=== PATIENT | male | born 1945 | race African-American/Black ===

== ENCOUNTER 2018-07-19 03:41 | Observation (INO) | payer MEDICARE ==
--- OUTSIDE RECORDS SUMMARY | 2018-07-19 03:44 | XMS REPORT | Continuity of Care Document ---
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 [address] [place] [address] bypass graft [place] with vein Fever - rapid Active Problem 01/20/2017 [facility] rise [address] [place] [address] HTN Active Problem 01/20/2017 [facility] [Hypertension] [address] [place] [address] Pain following Active Problem 01/20/2017 [facility] surgery, acute [address] [place] [address] Hemoptysis Active Problem 01/20/[address] Pulmonary Resolved Problem 01/20/2017 [facility] abscess [facility] Acute UTI Active Problem 01/20/2017 [facility] Cellulitis Active Problem 01/20/2017 [facility] Fever of Active Problem 01/20/2017 blood [facility] unknown culture Medical origin<sup>1</ done,urine Center sup> culture done cbc with diff done HLD (<span Resolved Problem 01/20/2017 [facility] ID="[id number] Medical 75">Confirmed< Center /span>) Asthma Resolved Problem 01/20/2017 [facility] HTN (<span Resolved Problem 01/20/2017 [facility] ID="[id number] Medical 79">Confirmed< Center /span>) Pain control Active Problem 01/20/2017 [facility] Stented Resolved Problem 01/20/2017 [facility] coronary [facility] artery [place] Swelling or Active Problem 01/20/2017 [facility] edema [facility] Hepatitis C Resolved Problem 01/20/2017 [facility] virus [facility] SHORTNESS OF Active [facility] BREATH [facility] Medications Medication Details Route Status Patient Ordering Order Source Instructions Provider Date cefpodoxime 200 200 mg=1 tab, Active 01/17/ [facility] [place] mg oral tablet PO, Q12H, X 10 2016 day, # 20 tab, Center 0 Refill(s) Albuterol 0.83 2.49 mg, 3 mL, Inactive [place] MG/ML Inhalant Route: 2017 Medical Solution INHALATION, Center Drug form: SOLN, ONCE, Dosing Weight 85.966, kg, Start date: 01/17/17 9:38:00 CDT, Stop date: 01/17/17 9:38:00 CDTNotes: SEE RT DOCUMENTATION (Same as: Proventil) Symbicort 2 puff, Active [facility] 160/4.5 INHALER, BID, # 2017 Medical inhalation 1 ea, 3 Center aerosol with Refill(s) adapter lisinopril 40 40 mg=1 tab, Active [facility] mg oral tablet PO, Daily, # 30 2016 Medical tab, 0 Center Refill(s) Amlodipine 5 mg, 1 tab, Inactive [facility] Route: PO, Drug 2016 Medical form: TAB, Center Daily, Dosing Weight 86, kg, Start date: 01/17/17 9:00:00 CDT, Duration: 30 day, Stop date: 02/15/17 9:00:00 CDTNotes: (Same as: Norvasc) Melatonin 3 MG 3 mg, 1 tab, Inactive [place] Extended Route: PO, Drug 2016 Medical Release Tablet Form: TAB, Center Dosing Weight 85.966, kg, Bedtime, NOW, Start date: 01/17/17 1:26:00 CDT, Duration: 30 day, Stop date: 02/15/17 21:00:00 CDTNotes: (Same as: Melatonin) Cephalexin 500 mg, 1 cap, No Longer [place] Route: PO, Drug Active 2016 Medical form: CAP, QID, Center Dosing Weight 86, kg, Start date: 01/16/17 21:00:00 CDT, Duration: 30 day, Stop date: 02/15/17 17:00:00 CDTNotes: Take on empty stomach. (Same As: Keflex) Ceftriaxone 1 gm, Route: Inactive [place] IVPB, Drug 2016 Medical form: PDR/INJ, Center [id number], Dosing Weight 86, kg, Start date: 01/16/17 20:00:00 CDT, Duration: 1 day, Stop date: 01/16/17 20:00:00 CDT, ABX Indication: Urinary Tract InfectionNotes: (Same As: Rocephin). Use with 100 mL NS and infuse over 30 min MEDICATION WASTE Product Size: 1000 mg Product Wasted: __0_ mg tramadol 50 mg, 1 tab, No Longer [place] hydrochloride Route: PO, Drug Active 2016 Medical 50 MG Oral form: TAB, Q8H, Center Tablet Dosing Weight 86, kg, PRN Pain 4-6/Temp > 100.4 F, Start date: 01/16/17 19:43:00 CDT, Duration: 30 day, Stop date: 02/15/17 19:42:00 CDTNotes: Not to exceed 400mg/day. (Same As: Ultram) Ondansetron 4 mg, 2 mL, No Longer [place] Route: IVP, Active 2016 Medical Drug form: INJ, Center Q6H, Dosing Weight 86, kg, PRN Nausea & Vomiting, Start date: 01/16/17 19:25:00 CDT, Duration: 30 day, Stop date: 02/15/17 19:24:00 CDTNotes: (Same as: Zofran) MEDICATION WASTE Product Size: 4 mg Product Wasted: _0__ mg Acetaminophen 650 mg, 2 tab, No Longer [place] Route: PO, Drug Active 2016 Medical form: TAB, Q4H, Center Dosing Weight 86, kg, PRN Pain 1-3/Temp > 100.4 F, Start date: 01/16/17 19:25:00 CDT, Duration: 30 day, Stop date: 02/15/17 19:24:00 CDTNotes: Do not exceed 4 gm/day. (Same as: Tylenol) tramadol 50 mg=1 tab, No Longer [place] hydrochloride PO, Q8H, PRN Active 2016 Medical 50 MG Oral Pain, # 60 tab, Center Tablet 0 Refill(s) ciprofloxacin 500 mg=1 tab, No Longer [place] 500 mg oral PO, Q12H, # 14 Active 2017 Medical tablet tab, 0 Center Refill(s) cephalexin 500 500 mg=1 cap, No Longer [place] mg oral capsule PO, QID, # 20 Active 2016 Medical cap, 0 Center Refill(s) Ibuprofen 600 mg, Route: Inactive [place] PO, ONCE, 2017 Medical Dosing Weight Center 86.364, kg, Priority: STAT, Start date: 01/16/17 16:51:00 CDT, Stop date: 01/16/17 16:51:00 CDT Albuterol 0.833 3 mL, Route: Inactive [place] MG/ML / NEB, Drug Form: 2016 Medical Ipratropium SOLN, Dosing Center [place] 0.167 Weight 86.364, MG/ML Inhalant kg, ONCE, STAT, Solution Start date: [DuoNeb] 01/16/17 14:07:00 CDT, Stop date: 01/16/17 14:07:00 CDTNotes: (Same as: Duoneb) Aspirin 325 mg, Route: Inactive [place] PO, Drug form: 2017 Medical TAB, ONCE, Center Dosing Weight 86.364, kg, Priority: STAT, Start date: 01/16/17 12:22:00 CDT, Stop date: 01/16/17 12:22:00 CDT Allergies, Adverse Reactions, Alerts Substance Category Reaction Severity Reaction Status Date Comments Source type Reported Bactrim Assertion Drug Active [facility] sulfa drugs Assertion Drug Active [facility] Immunizations Immunization Date Given Site Status Last Updated Comments Source Results Order Name Results Value Reference Date Interpretation Comments Source Range CHEM PANEL Magnesium Lvl 2.2 mg/dL 1.8 - 2.4 01/17 [facility] CHEM PANEL eGFR 88 01/17 Result Comment: The eGFR is calculated using the CKD-EPI formula. In most young, healthy individuals the eGFR will be >90 mL/ min/1.73m2. The eGFR declines with age. An eGFR of 60-89 may be normal in [facility] mL/min/1.7 some populations, particularly the elderly, for whom the CKD-EPI formula has not been extensively validated. Use of the eGFR is not recommended in the following populations: [place] [address] Center Individuals with unstable creatinine concentrations, including patients and those with serious co-morbid conditions. Patients with extremes in muscle mass or diet. The data above are obtained from the National Kidney Disease Education Program (NKDEP) which additionally recommends that when the eGFR is used in patients with extremes of body mass index for purposes of drug dosing, the eGFR should be multiplied by the estimated BMI. CHEM PANEL Chloride Lvl 106 meq/L 95 - 109 01/17 [facility] CHEM PANEL CO2 29 meq/L 24 - 32 01/17 2016 [facility] CHEM PANEL Calcium Lvl 8.9 mg/dL 8.5 - 10.5 01/17 2016 [facility] CHEM PANEL Potassium Lvl 3.7 meq/L 3.5 - 5.1 01/17 2016 [facility] CHEM PANEL Glucose Lvl 99 mg/dL 70 - 99 01/17 2016 [facility] CHEM PANEL Sodium Lvl 140 meq/L 135 - 145 01/17 2016 [facility] CHEM PANEL BUN 15 mg/dL 7 - 22 01/[address] CHEM PANEL Creatinine 0.86 mg/dL 0.50 - 01/17 [facility] Lvl 1.40 [facility] CHEM PANEL AGAP 8.7 meq/L 10.0 - 01/17 20.0 [facility] HEMATOLOGY MCV 93.7 fL 80.0 - 01/17 94.0 [facility] HEMATOLOGY MCH 31.9 pg 27.0 - 01/17 31.0 [facility] HEMATOLOGY MCHC 34.1 g/dL 32.0 - 01/17 36.0 [facility] HEMATOLOGY MPV 8.9 fL 7.4 - 10.4 01/17 [facility] HEMATOLOGY RDW 13.2 % 11.5 - 01/17 14.5 [facility] HEMATOLOGY Platelet 172 K/CMM 133 - 450 01/17 [facility] HEMATOLOGY Hgb 12.7 g/dL 14.0 - 01/17 18.0 [facility] HEMATOLOGY Hct 37.1 % 42.0 - 01/17 54.0 [facility] HEMATOLOGY WBC 5.2 K/CMM 3.7 - 10.4 01/[address] [place] [address] HEMATOLOGY RBC 3.96 M/CMM 4.70 - 01/17 [place] 6.10 [facility] HEMATOLOGY Monocytes # 0.8 K/CMM 0.0 - 0.8 01/17 [facility] HEMATOLOGY Eosinophils # 0.9 K/CMM 0.0 - 0.5 01/17 [facility] HEMATOLOGY Segs-Bands # 1.9 K/CMM 1.5 - 8.1 01/17 [facility] HEMATOLOGY Lymphocytes # 1.7 K/CMM 1.0 - 5.5 01/17 2016 [facility] HEMATOLOGY Segs 35.5 % 45.0 - 01/17 [place] 75.0 [facility] HEMATOLOGY Lymphocytes 32.7 % 20.0 - 01/17 [place] 40.0 [facility] HEMATOLOGY Monocytes 15.0 % 2.0 - 12.0 01/17 [facility] HEMATOLOGY Eosinophils 16.3 % 0.0 - 4.0 01/17 [facility] HEMATOLOGY Basophils 0.5 % 0.0 - 1.0 01/[address] [place] [address] CARDIAC Troponin-I null 0.00 - 01/16 [facility] ENZYMES 0.40 [facility] URINE AND UA >=8.0 0.1 - 1.0 01/16 [facility] Urobilinogen EU/dL /2016 [facility] URINE AND UA Leuk Est Trace Negative 01/16 [facility] Medical *ABN* Center (01/16/17 5:48 PM) URINE AND UA Nitrite Positive Negative 01/16 [facility] Medical *ABN* [place] (01/16/17 5:48 PM) URINE AND UA Ketones Trace Negative 01/16 [facility] Medical *ABN* [place] (01/16/17 5:48 PM) URINE AND UA Glucose 100 mg/dL Negative 01/16 [facility] mg/dL [facility] URINE AND UA Bili Negative Negative 01/16 [facility] Medical *NA* Center (01/16/17 5:48 PM) URINE AND UA Blood Negative Negative 01/16 [facility] (01/16/17 5:48 PM) [place] URINE AND UA Color [place] Yellow 01/16 [facility] Medical *ABN* [place] (01/16/17 5:48 PM) URINE AND UA Turbidity Slight Cloudy Clear 01/16 [facility] (01/16/17 5:48 PM) [place] URINE AND UA Spec Grav 1.020 <=1.030 01/16 [facility] [address] [place] [address] URINE AND UA pH 6.5 5.0 - 8.0 01/[address] URINE AND UA Protein 100 mg/dL Negative 01/16 [facility] mg/dL /2016 [facility] URINE AND UA Amorph Occasional None Seen 01/16 [facility] Mary Kate /HPF /HPF /2016 [facility] URINE AND UA Mucus Moderate None Seen 01/16 [facility] STOOL /LPF /LPF /2016 [facility] URINE AND UA Bacteria Moderate None Seen 01/16 [facility] STOOL /HPF /HPF /[address] [place] [address] URINE AND UA RBC 0-2 /HPF 0 - 2 01/[address] URINE AND UA WBC 11-20 /HPF None Seen 01/16 [facility] /[facility] [address] [place] [address] URINE AND UA Sq Epi Occasional Few /LPF 01/16 [facility] /F [address] [place] [address] CARDIAC Troponin-I null 0.00 - 01/16 [facility] ENZYMES 0.40 [facility] CHEM PANEL Lactic Acid 0.8 mMol/L 0.5 - 2.2 01/16 [facility] [address] [place] [address] CHEM PANEL Glucose Lvl 97 mg/dL 70 - 99 01/[address] CHEM PANEL BUN 16 mg/dL 7 - 22 01/[address] CHEM PANEL Potassium Lvl 4.0 meq/L 3.5 - 5.1 01/[address] CHEM PANEL Sodium Lvl 138 meq/L 135 - 145 01/[address] CHEM PANEL Creatinine 1.12 mg/dL 0.50 - 01/16 [facility] Lvl 1.40 [facility] CHEM PANEL CO2 28 meq/L 24 - 32 01/[address] CHEM PANEL Chloride Lvl 105 meq/L 95 - 109 01/[address] CHEM PANEL AGAP 9.0 meq/L 10.0 - 01/16 [facility] 20.0 [facility] CHEM PANEL Calcium Lvl 9.2 mg/dL 8.5 - 10.5 01/[address] CHEM PANEL eGFR 66 01/16 Result Comment: The eGFR is calculated using the CKD-EPI formula. In most young, healthy individuals the eGFR will be >90 mL/ min/1.73m2. The eGFR declines with age. An eGFR of 60-89 may be normal in [facility] mL/min/1.7 some populations, particularly the elderly, for whom the CKD-EPI formula has not been extensively validated. Use of the eGFR is not recommended in the following populations: [address] Individuals with unstable creatinine concentrations, including patients and those with serious co-morbid conditions. Patients with extremes in muscle mass or diet. The data above are obtained from the National Kidney Disease Education Program (NKDEP) which additionally recommends that when the eGFR is used in patients with extremes of body mass index for purposes of drug dosing, the eGFR should be multiplied by the estimated BMI. HEMATOLOGY Monocytes # 0.9 K/CMM 0.0 - 0.8 01/16 [facility] HEMATOLOGY Eosinophils # 0.5 K/CMM 0.0 - 0.5 01/16 2016 [facility] HEMATOLOGY Segs-Bands # 3.7 K/CMM 1.5 - 8.1 01/16 [facility] HEMATOLOGY Lymphocytes # 1.5 K/CMM 1.0 - 5.5 01/[address] HEMATOLOGY Basophils 0.3 % 0.0 - 1.0 01/[address] [place] [address] HEMATOLOGY Segs 55.5 % 45.0 - 01/16 75.0 [facility] HEMATOLOGY Eosinophils 7.3 % 0.0 - 4.0 01/[address] HEMATOLOGY Lymphocytes 22.9 % 20.0 - 01/16 40.0 [facility] HEMATOLOGY Monocytes 14.0 % 2.0 - 12.0 01/16 [facility] HEMATOLOGY MPV 8.4 fL 7.4 - 10.4 01/16 [facility] HEMATOLOGY MCH 31.4 pg 27.0 - 01/16 [facility] 31.0 [facility] HEMATOLOGY MCHC 33.3 g/dL 32.0 - 01/16 36.0 [facility] HEMATOLOGY RDW 13.1 % 11.5 - 01/16 [facility] 14.5 [facility] HEMATOLOGY Platelet 184 K/CMM 133 - 450 01/[address] HEMATOLOGY WBC 6.7 K/CMM 3.7 - 10.4 01/16 /2016 [facility] HEMATOLOGY RBC 4.25 M/CMM 4.70 - 01/16 [facility] 6.10 /2016 [facility] HEMATOLOGY Hgb 13.3 g/dL 14.0 - 01/16 [facility] 18.0 /2016 [facility] HEMATOLOGY Hct 40.0 % 42.0 - 01/16 [facility] 54.0 /2017 [facility] HEMATOLOGY MCV 94.0 fL 80.0 - 01/16 [facility] 94.0 /2017 [facility] Chest 2 Chest 2 views EXAM: XR CHEST 2 VIEWS 01/16 - [facility] views DX DX - [facility] This report was dictated by a Leases [employer] Land Supervisor/Fellow. I have personally reviewed the images as Center well as the Resident's interpretation and agree with the findings. DATE: 01/16/2017 11:57 AM CDT Read by: Cachorro Santillan MD Resident: Cachorro Santillan MD Dictated Date/time: 01/16/17 12:44 Electronically Signed by: Nav Johnson MD 01/16/17 13:03 FINAL REPORT INDICATION: Shortness of breath, cough COMPARISON: X-ray chest 02/09/2010 TECHNIQUE: PA and lateral chest radiographs [place] SECTION: ER FINDINGS: Lines, tubes and hardware: Thoracic aortic stent graft is again noted in unchanged position. Lungs and pleura: There is right basilar pulmonary and pleural scarring with blunting of the right costophrenic angle. Left lung and costophrenic angle are clear. No pleural effusions or pneumothorax. Heart and mediastinum: The heart size is normal. The aorta is tortuous. Bones: Numerous old, healed right-sided rib fractures are redemonstrated. No acute bony abnormality. IMPRESSION: 1. No acute cardiopulmonary abnormality. 2. Right basilar pulmonary and pleural scarring. Vital Signs Vital Sign Value Date Comments Source Systolic (mm Hg) 139 01/17/2017 [facility] Diastolic (mm Hg) 77 01/17/2017 [facility] Heart Rate 78 01/17/2017 [facility] Respitory Rate 18 01/17/2017 [facility] Temperature Oral (F) 97.9 F 01/17/2017 [facility] Respitory Rate 18 01/17/2017 [facility] Systolic (mm Hg) 139 01/17/2017 [facility] Diastolic (mm Hg) 81 01/17/2017 [facility] Systolic (mm Hg) 139 01/17/2017 [facility] Diastolic (mm Hg) 78 01/17/2017 [facility] Heart Rate 63 01/17/2017 [facility] Respitory Rate 18 01/17/2017 [facility] Temperature Oral (F) 97.7 F 01/17/2017 [facility] BMI Calculated 25.7 01/17/2017 [facility] Height 182.88 cm 01/17/2017 [facility] Weight 85.966 01/17/2017 [facility] Heart Rate 75 01/17/2017 [facility] Weight 86 01/16/2017 [facility] BMI Calculated 25.68 01/16/2017 [facility] Height 183 cm 01/16/2017 [facility] Temperature Oral (F) 99.0 F 01/16/2017 [facility] Height 182.88 cm 01/16/2017 [facility] Weight 86.364 01/16/2017 [facility] BMI Calculated 25.82 01/16/2017 [facility] Encounters Location Location Encounter Encounter Reason Attending ADM DC Status Source Details Type Number For Provider Date Date Visit [facility] [id number] [place] 01/16 01/17 [facility] Manfred Vincent /2016 [facility] Procedures Procedure Code Date Perfomer Comments Source Lung operation [id number] [facility]
--- OUTSIDE RECORDS SUMMARY | 2018-07-19 03:44 | XMS REPORT | Summary of Care ---
:1945 Author Organization [facility] Address [address] [place] [id number]- Encounter HQ Encntr_aliwilfrid(FIN) [id number] Date(s): 01/16/17 - 01/17/17 [facility] [address] [place] [address] Professional Services provided by [facility] [place] [address]- Discharge Disposition: Home or Self Care Attending Physician: Alnaa Vincent MD Admitting Physician: Alana Vincent MD Vital Signs Most recent to oldest 1 2 3 [Reference Range]: Height 182.88 cm 183 cm 182.88 cm (01/16/17 7:52 PM) (01/16/17 5:48 PM) (01/16/17 11:52 AM) Temperature Oral [96.4-99.1 97.9 DegF 97.7 DegF 99.0 DegF DegF] (01/17/17 4:33 AM) (01/17/17 12:12 AM) (01/16/17 3:35 PM) Blood Pressure [90-140/60-90 139/77 mmHg 139/81 mmHg 139/78 mmHg mmHg] (01/17/17 9:23 AM) (01/17/17 4:33 AM) (01/17/17 12:12 AM) Respiratory Rate [14-20 18 BRMIN 18 BRMIN 18 BRMIN BRMIN] (01/17/17 9:23 AM) (01/17/17 4:33 AM) (01/17/17 12:12 AM) Peripheral Pulse Rate [60-100 78 bpm 63 bpm 75 bpm bpm] (01/17/17 9:23 AM) (01/17/17 12:12 AM) (01/16/17 7:21 PM) Weight 85.966 kg 86 kg 86.364 kg (01/16/17 7:52 PM) (01/16/17 5:48 PM) (01/16/17 11:52 AM) Body Mass Index 25.7 m2 25.68 m2 25.82 m2 (01/16/17 7:52 PM) (01/16/17 5:48 PM) (01/16/17 11:52 AM) Problem List Condition Effective Dates Status Health Status Informant Pulmonary abscess(Confirmed) Resolved Acute UTI(Confirmed) Active 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) Cellulitis(Confirmed) Active Fever - rapid rise(Probable 02/06/10 Active Diagnosis) Fever of unknown origin(Confirmed)1 Active Hemoptysis(Confirmed) 2009 Active HTN [Hypertension](Confirmed) 02/06/10 Active HLD (hyperlipidemia)(Confirmed) Resolved Asthma(Confirmed) Resolved HTN (hypertension)(Confirmed) Resolved Nausea(Confirmed) 02/07/10 Active Pain control(Confirmed) Active Pain following surgery, acute( ) 02/06/10 Active Stented coronary artery(Confirmed) Resolved Swelling or edema(Confirmed) Active Hepatitis C virus(Confirmed) Resolved 1blood culture done,urine culture done cbc with diff done Allergies, Adverse Reactions, Alerts Substance Reaction Severity Status Bactrim Active sulfa drugs Active Medications acetaminophen 650 mg, 2 tab, Route: PO, Drug form: TAB, Q4H, Dosing Weight 86, kg, PRN Pain 1- 3/Temp > 100.4 F, Start date: 01/16/17 19:25:00 CDT, Duration: 30 day, Stop date : 02/15/17 19:24:00 CDT Notes: Do not exceed 4 gm/day. (Same as: Tylenol) Start Date: 01/16/17 Stop Date: 01/17/17 Status: Discontinuedalbuterol 0.083% inhalation solution 2.49 mg, 3 mL, Route: INHALATION, Drug form: SOLN, ONCE, Dosing Weight 85.966, kg, Start date: 01/17/17 9:38:00 CDT, Stop date: 01/17/17 9:38:00 CDT Notes: SEE RT DOCUMENTATION (Same as: Proventil) Start Date: 01/17/17 Stop Date: 01/17/17 Status: CompletedamLODIPine 5 mg, 1 tab, Route: PO, Drug form: TAB, Daily, Dosing Weight 86, kg, Start date : 01/17/17 9:00:00 CDT, Duration: 30 day, Stop date: 02/15/17 9:00:00 CDT Notes: (Same as: Norvasc) Start Date: 01/17/17 Stop Date: 01/17/17 Status: Discontinuedaspirin 325 mg, Route: PO, Drug form: TAB, ONCE, Dosing Weight 86.364, kg, Priority: STAT, Start date: 01/16/17 12:22:00 CDT, Stop date: 01/16/17 12:22:00 CDT Start Date: 01/16/17 Stop Date: 01/16/17 Status: Completedcefpodoxime 200 mg oral tablet 200 mg=1 tab, PO, Q12H, X 10 day, # 20 tab, 0 Refill(s) Start Date: 01/17/17 Stop Date: 01/27/17 Status: OrderedcefTRIAXone 1 gm, Route: IVPB, Drug form: PDR/INJ, [id number], Dosing Weight 86, kg, Start date : 01/16/17 20:00:00 CDT, Duration: 1 day, Stop date: 01/16/17 20:00:00 CDT, ABX Indication: Urinary Tract Infection Notes: (Same As: Rocephin).Use with 100 mL NS and infuse over 30 min MEDICATION WASTE Product Size: 1000 mgProduct Wasted: __0_ mg Start Date: 01/16/17 Stop Date: 01/16/17 Status: Completedcephalexin 500 mg, 1 cap, Route: PO, Drug form: CAP, QID, Dosing Weight 86, kg, Start date : 01/16/17 21:00:00 CDT, Duration: 30 day, Stop date: 02/15/17 17:00:00 CDT Notes: Take on empty stomach. (Same As: Keflex) Start Date: 01/16/17 Stop Date: 01/17/17 Status: Discontinuedcephalexin 500 mg oral capsule 500 mg=1 cap, PO, QID, # 20 cap, 0 Refill(s) Start Date: 01/16/17 Stop Date: 01/17/17 Status: Discontinuedciprofloxacin 500 mg oral tablet 500 mg=1 tab, PO, Q12H, # 14 tab, 0 Refill(s) Start Date: 01/16/17 Stop Date: 01/17/17 Status: DiscontinuedDuoNeb inhalation solution 3 mL, Route: NEB, Drug Form: SOLN, Dosing Weight 86.364, kg, ONCE, STAT, Start date: 01/16/17 14:07:00 CDT, Stop date: 01/16/17 14:07:00 CDT Notes: (Same as: Duoneb) Start Date: 01/16/17 Stop Date: 01/16/17 Status: Completedibuprofen 600 mg, Route: PO, ONCE, Dosing Weight 86.364, kg, Priority: STAT, Start date: 01/16/17 16:51:00 CDT, Stop date: 01/16/17 16:51:00 CDT Start Date: 01/16/17 Stop Date: 01/16/17 Status: Completedlisinopril 40 mg oral tablet 40 mg=1 tab, PO, Daily, # 30 tab, 0 Refill(s) Start Date: 01/17/17 Status: Orderedmelatonin 3 mg oral tablet 3 mg, 1 tab, Route: PO, Drug Form: TAB, Dosing Weight 85.966, kg, Bedtime, NOW, Start date: 171:26:00 CDT, Duration: 30 day, Stop date: 02/15/17 21:00:00 CDT Notes: (Same as: Melatonin) Start Date: 01/17/17 Stop Date: 01/17/17 Status: Discontinuedondansetron 4 mg, 2 mL, Route: IVP, Drug form: INJ, Q6H, Dosing Weight 86, kg, PRN Nausea & amp; Vomiting, Start date: 01/16/17 19:25:00 CDT, Duration: 30 day, Stop date: 02/15/17 19:24:00 CDT Notes: (Same as: Zofran) MEDICATION WASTE Product Size: 4 mgProduct Wasted: _0__ mg Start Date: 01/16/17 Stop Date: 01/17/17 Status: DiscontinuedSymbicort 160/4.5 inhalation aerosol with adapter 2 puff, INHALER, BID, # 1 ea, 3 Refill(s) Start Date: 01/17/17 Status: Orderedtramadol 50 mg oral tablet 50 mg, 1 tab, Route: PO, Drug form: TAB, Q8H, Dosing Weight 86, kg, PRN Pain 4-6 /Temp > 100.4 F, Start date: 01/16/17 19:43:00 CDT, Duration: 30 day, Stop date : 02/15/17 19:42:00 CDT Notes: Not to exceed 400mg/day. (Same As: Ultram) Start Date: 01/16/17 Stop Date: 01/17/17 Status: Discontinuedtramadol 50 mg oral tablet 50 mg=1 tab, PO, Q8H, PRN Pain, # 60 tab, 0 Refill(s) Start Date: 01/16/17 Stop Date: 01/17/17 Status: Discontinued Results ELECTROLYTES Most recent to oldest [Reference Range]: 1 2 Sodium Lvl [135-145 mEq/L] 140 mEq/L 138 mEq/L (01/17/17 2:31 AM) (01/16/17 1:24 PM) Potassium Lvl [3.5-5.1 mEq/L] 3.7 mEq/L 4.0 mEq/L (01/17/17 2:31 AM) (01/16/17 1:24 PM) Chloride Lvl [95-109 mEq/L] 106 mEq/L 105 mEq/L (01/17/17 2:31 AM) (01/16/17 1:24 PM) CO2 [24-32 mEq/L] 29 mEq/L 28 mEq/L (01/17/17 2:31 AM) (01/16/17 1:24 PM) AGAP [10.0-20.0 mEq/L] 8.7 mEq/L 9.0 mEq/L *LOW* *LOW* (01/17/17 2:31 AM) (01/16/17 1:24 PM) CHEM PANEL Most recent to oldest [Reference Range]: 1 2 Creatinine Lvl [0.50-1.40 mg/dL] 0.86 mg/dL 1.12 mg/dL (01/17/17 2:31 AM) (01/16/17 1:24 PM) eGFR 88 mL/min/1.73m2 1 66 mL/min/1.73m2 2 *NA* *NA* (01/17/17 2:31 AM) (01/16/17 1:24 PM) BUN [7-22 mg/dL] 15 mg/dL 16 mg/dL (01/17/17 2:31 AM) (01/16/17 1:24 PM) Glucose Lvl [70-99 mg/dL] 99 mg/dL 97 mg/dL (01/17/17 2:31 AM) (01/16/17 1:24 PM) Calcium Lvl [8.5-10.5 mg/dL] 8.9 mg/dL 9.2 mg/dL (01/17/17 2:31 AM) (01/16/17 1:24 PM) Magnesium Lvl [1.8-2.4 mg/dL] 2.2 mg/dL (01/17/17 2:31 AM) Lactic Acid Lvl [0.5-2.2 mMol/L] 0.8 mMol/L (01/16/17 1:24 PM) 1Result Comment: The eGFR is calculated using the CKD-EPI formula. In most young , healthy individualsthe eGFR will be >90 mL/min/1.73m2. The eGFR declines with age. An eGFR of 60-89 may be normal in some populations, particularly the elderly, for whom the CKD-EPI formula has not been extensively validated. Use of the eGFR is not recommended in the following populations: Individuals with unstable creatinine concentrations, including patients and those with serious co-morbid conditions. Patients with extremes in muscle mass or diet. The data above are obtained from the National Kidney Disease Education Program ( NKDEP) which additionally recommends that when the eGFR is used in patients with extremes of body mass index for purposesof drug dosing, the eGFR should be multiplied by the estimated BMI.2Result Comment: The eGFR is calculated using the CKD-EPI formula. In most young, healthy individualsthe eGFR will be >90 mL/ min/1.73m2. The eGFR declines with age. An eGFR of 60-89 may be normal in some populations, particularly the elderly, for whom the CKD-EPI formula has not been extensively validated. Use of the eGFR is not recommended in the following populations: Individuals with unstable creatinine concentrations, including patients and those with serious co-morbid conditions. Patients with extremes in muscle mass or diet. The data above are obtained from the National Kidney Disease Education Program ( NKDEP) which additionally recommends that when the eGFR is used in patients with extremes of body mass index for purposesof drug dosing, the eGFR should be multiplied by the estimated BMI.CARDIAC ENZYMES Most recent to oldest [Reference Range]: 1 2 Troponin-I [0.00-0.40 ng/mL] <0.02 ng/mL <0.02 ng/mL (01/16/17 5:48 PM) (01/16/17 1:24 PM) URINE AND STOOL Most recent to oldest [Reference Range]: 1 2 UA Turbidity [Clear] Slight Cloudy (01/16/17 5:48 PM) UA Color [Yellow] Mcintosh *ABN* (01/16/17 5:48 PM) UA pH [5.0-8.0] 6.5 (01/16/17 5:48 PM) UA Spec Grav [<=1.030] 1.020 (01/16/17 5:48 PM) UA Glucose [Negative mg/dL] 100 mg/dL *ABN* (01/16/17 5:48 PM) UA Blood [Negative] Negative (01/16/17 5:48 PM) UA Ketones [Negative] Trace *ABN* (01/16/17 5:48 PM) UA Protein [Negative mg/dL] 100 mg/dL *ABN* (01/16/17 5:48 PM) UA Urobilinogen [0.1-1.0 EU/dL] >=8.0 EU/dL *ABN* (01/16/17 5:48 PM) UA Bili [Negative] Negative *NA* (01/16/17 5:48 PM) UA Leuk Est [Negative] Trace *ABN* (01/16/17 5:48 PM) UA Nitrite [Negative] Positive *ABN* (01/16/17 5:48 PM) UA WBC [None Seen /HPF] 11-20 /HPF *ABN* (01/16/17 5:48 PM) UA RBC [0-2 /HPF] 0-2 /HPF (01/16/17 5:48 PM) UA Bacteria [None Seen /HPF] Moderate /HPF (01/16/17 5:48 PM) UA Sq Epi [Few /LPF] Occasional /LPF (01/16/17 5:48 PM) UA Amorph Mary Kate [None Seen /HPF] Occasional /HPF *ABN* (01/16/17 5:48 PM) UA Mucus [None Seen /LPF] Moderate /LPF *ABN* (01/16/17 5:48 PM) HEMATOLOGY Most recent to oldest [Reference Range]: 1 2 WBC [3.7-10.4 K/CMM] 5.2 K/CMM 6.7 K/CMM (01/17/17 2:31 AM) (01/16/17 1:24 PM) RBC [4.70-6.10 M/CMM] 3.96 M/CMM 4.25 M/CMM *LOW* *LOW* (01/17/17 2:31 AM) (01/16/17 1:24 PM) Hgb [14.0-18.0 g/dL] 12.7 g/dL 13.3 g/dL *LOW* *LOW* (01/17/17 2:31 AM) (01/16/17 1:24 PM) Hct [42.0-54.0 %] 37.1 % 40.0 % *LOW* *LOW* (01/17/17 2:31 AM) (01/16/17 1:24 PM) MCV [80.0-94.0 fL] 93.7 fL 94.0 fL (01/17/17 2:31 AM) (01/16/17 1:24 PM) MCH [27.0-31.0 pg] 31.9 pg 31.4 pg *HI* *HI* (01/17/17 2:31 AM) (01/16/17 1:24 PM) MCHC [32.0-36.0 g/dL] 34.1 g/dL 33.3 g/dL (01/17/17 2:31 AM) (01/16/17 1:24 PM) RDW [11.5-14.5 %] 13.2 % 13.1 % (01/17/17 2:31 AM) (01/16/17 1:24 PM) Platelet [133-450 K/CMM] 172 K/CMM 184 K/CMM (01/17/17 2:31 AM) (01/16/17 1:24 PM) MPV [7.4-10.4 fL] 8.9 fL 8.4 fL (01/17/17 2:31 AM) (01/16/17 1:24 PM) Segs [45.0-75.0 %] 35.5 % 55.5 % *LOW* (01/16/17 1:24 PM) (01/17/17 2:31 AM) Lymphocytes [20.0-40.0 %] 32.7 % 22.9 % (01/17/17 2:31 AM) (01/16/17 1:24 PM) Monocytes [2.0-12.0 %] 15.0 % 14.0 % *HI* *HI* (01/17/17 2:31 AM) (01/16/17 1:24 PM) Eosinophils [0.0-4.0 %] 16.3 % 7.3 % *HI* *HI* (01/17/17 2:31 AM) (01/16/17 1:24 PM) Basophils [0.0-1.0 %] 0.5 % 0.3 % (01/17/17 2:31 AM) (01/16/17 1:24 PM) Segs-Bands # [1.5-8.1 K/CMM] 1.9 K/CMM 3.7 K/CMM (01/17/17 2:31 AM) (01/16/17 1:24 PM) Lymphocytes # [1.0-5.5 K/CMM] 1.7 K/CMM 1.5 K/CMM (01/17/17 2:31 AM) (01/16/17 1:24 PM) Monocytes # [0.0-0.8 K/CMM] 0.8 K/CMM 0.9 K/CMM (01/17/17 2:31 AM) *HI* (01/16/17 1:24 PM) Eosinophils # [0.0-0.5 K/CMM] 0.9 K/CMM 0.5 K/CMM *HI* (01/16/17 1:24 PM) (01/17/17 2:31 AM) Immunizations No data available for this section Procedures Procedure Date Related Diagnosis Body Site Lung operation Social History Social History Type Response Alcohol Never Smoking Status Former smoker; Exposure to Tobacco Smoke None; Cigarette Smoking Last 365 Days No; Reg Smoking Cessation Counseling No Assessment and Plan Extracted from: Title: History and Physical Author: Irvin Patel MD Date: 01/16/17 Assessment/Plan 71 yo AAM w/ pmh of subclavian steal s/p repair presenting today with UTI not responding to PO abx. 1.Acute UTI -Will start Ceftriaxone 1g daily -Can consider cefpodoxime if improved, allergic to bactrim. - No blood to suggest stones 2.Atypical chest pain - ACS ruled out. - Can f/u outpt, unlikely to be anginal. 3.Hypertension - Continue amlodipine 4.Cellulitis - Continue home cephalexin Prophylaxis Ambulatory Disposition Home tomorrow hopefully
[2018-07-19 04:20] LABS: Absolute Lymphocytes (CBC) 1.3 K/uL (0.7-4.9); Absolute Monocytes 0.6 K/uL (0.1-1.3); Absolute Neutrophil 1.3 K/uL (1.8-8.0); Basophils % 0.7 % (0-1.3); Eosinophils % 9.1 % (0-4.4); Hematocrit 45.7 % (39.6-49.0); Lymphocytes % 36.4 % (15.3-44.8); MPV 9.3 fL (7.6-11.3); Monocytes % 16.8 % (3.3-12.3)
[2018-07-19 04:26] LABS: Protime INR 1.05
[2018-07-19 04:39] LABS: ALT/SGPT 90 U/L (12-78); AST/SGOT 58 U/L (15-37); Albumin 3.7 g/dL (3.4-5.0); Alkaline Phosphatase 59 U/L (45-117); BUN Blood Urea Nitrogen 16 mg/dL (7-18); Bicarbonate 28 mmol/L (21-32); Bilirubin Direct 0.2 mg/dL (0-0.2); Bilirubin Total 0.5 mg/dL (0.2-1.0); Glucose Level 90 mg/dL (74-106); Magnesium 2.2 mg/dL (1.8-2.4); NT PRO-BNP 30 pg/mL (<125); Potassium 3.5 mmol/L (3.5-5.1); Protein, Total 8.3 g/dL (6.4-8.2); Sodium Level 141 mmol/L (136-145); Troponin (Emerg Dept Use Only) < 0.02 ng/mL (0.0-0.045)
[2018-07-19] MEDS ORDERED: NITROGLYCERIN 0.4 MG/TAB SL ONE (05:00)
[2018-07-19 05:08] LABS: Blood Morphology Comment NOT SEEN (NOT SEEN); Platelet Estimate ADEQ; Urine White Blood Cell Casts OK
[2018-07-19] MEDS ORDERED: ONDANSETRON 4 MG/2 ML VIAL ONE (05:18)
[2018-07-19] MEDS ORDERED: FENTANYL CITR 100 MCG/2 ML ONE (05:32)
--- NOTE | 2018-07-19 05:46 | EDPHYS ---
Physician Documentation [facility] Name: Fabian Arita Jr Age: 72 yrs Sex: Male : 1945 Arrival Date: 07/19/2018 Time: 03:42 Bed 13 Private MD: ED Physician Miguel Ferguson HPI: 07/19 05:38 This 72 yrs old Black Male presents to ER via Wheelchair with complaints of Chest Pain. rn 05:38 The patient or guardian reports chest pain that is located primarily in the substernal rn area. Onset: at 01:00. The pain does not radiate. Associated signs and symptoms: Pertinent positives: nausea, shortness of breath, Pertinent negatives: abdominal pain, cough, diaphoresis, dizziness, headache, palpitations, syncope, vomiting. The chest pain is described as a heaviness. Duration: The patient or guardian reports a single episode. Modifying factors: The symptoms are alleviated by nothing. the symptoms are aggravated by nothing. Severity of pain: At its worst the pain was moderate in the emergency department the pain is unchanged. The patient has not experienced similar symptoms in the past. The patient has not recently seen a physician. Reports chest pain, pressure, non-radiating, woke him up from sleep at 0100, reports hx of "neck and aortic stents" from distant trauma. . Historical: - Allergies: 03:43 Bactrim; jb4 - Home Meds: 03:43 amlodipine oral once daily [Active]; lisinopril Oral once daily [Active]; jb4 - PMHx: 03:43 Hypertension; UTI; jb4 - PSHx: 03:43 spleen removal; part of my lung; Heart stents; neck stent; jb4 - Immunization history:: Adult Immunizations up to date. - Social history:: Smoking status: Patient/guardian denies using tobacco, Patient/guardian denies using alcohol. - Ebola Screening: : No symptoms or risks identified at this time. - Family history:: not pertinent. - Hospitalizations: : No recent hospitalization is reported. ROS: 05:38 Constitutional: Negative for fever, chills, and weight loss, Eyes: Negative for injury, rn pain, redness, and discharge, Neck: Negative for injury, pain, and swelling, Cardiovascular: Negative for palpitations, and edema, Respiratory: Negative for cough, wheezing, and pleuritic chest pain, Abdomen/GI: Negative for abdominal pain, nausea, vomiting, diarrhea, and constipation, MS/Extremity: Negative for injury and deformity, Skin: Negative for injury, rash, and discoloration, Neuro: Negative for headache, weakness, numbness, tingling, and seizure. Exam: 05:38 Constitutional: This is a well developed, well nourished patient who is awake, alert, rn and in no acute distress. Head/Face: Normocephalic, atraumatic. Eyes: Pupils equal round and reactive to light, extra-ocular motions intact. Lids and lashes normal. Conjunctiva and sclera are non-icteric and not injected. Cornea within normal limits. Periorbital areas with no swelling, redness, or edema. Cardiovascular: Regular rate and rhythm, No gallops, murmurs, or rubs. No JVD. No pulse deficits. Respiratory: Lungs have equal breath sounds bilaterally, clear to auscultation Abdomen/GI: Soft, non-tender Skin: Warm, dry with normal turgor. Normal color with no rashes, no lesions, and no evidence of cellulitis. MS/ Extremity: Pulses equal, no cyanosis. Neurovascular intact. Full, normal range of motion. Equal circumference. Neuro: Awake and alert, GCS 15, oriented to person, place, time, and situation. Cranial nerves II-XII grossly intact. Motor strength 5/5 in all extremities. Sensory grossly intact. Vital Signs: 03:43 BP 168 / 109; Pulse 78; Resp 18; Temp 97.6(O); Pulse Ox 99% on R/A; Weight 90.72 kg jb4 (R); Height 6 ft. 0 in. (182.88 cm) (R); Pain 8/10; 05:00 BP 121 / 83; Pulse 71; Resp 16; Pulse Ox 96% on R/A; jb4 06:00 BP 106 / 89; Pulse 64; Resp 16; Pulse Ox 98% on R/A; jb4 07:00 BP 146 / 94; Pulse 69; Resp 16; Pulse Ox 98% on R/A; rb1 07:00 Pain 0/10; rb1 08:00 BP 127 / 80; Pulse 69; Resp 17; Pulse Ox 98% on R/A; Pain 0/10; rb1 03:43 Body Mass Index 27.12 (90.72 kg, 182.88 cm) [facility] MDM: 04:40 Patient medically screened. rn 05:38 Differential diagnosis: abnormal EKG, acute myocardial infarction, acute pericarditis, rn anxiety, coronary artery disease chest wall pain, congestive heart failure costochondritis, esophagitis, gastritis, gastroesophageal reflux disease (GERD), pleurisy, pneumonia, pneumothorax, stable angina, unstable angina. The patient was given aspirin in the Emergency Department. 05:43 Data reviewed: vital signs, nurses notes, lab test result(s), EKG, radiologic studies, rn and as a result, I will admit patient. Counseling: I had a detailed discussion with the patient and/or guardian regarding: the historical points, exam findings, and any diagnostic results supporting the discharge/admit diagnosis, lab results, radiology results, the need for further work-up and treatment in the hospital. Response to treatment: the patient's symptoms have mildly improved after treatment, and as a result, I will admit patient. Admission orders: after a detailed discussion of the patient's condition and case, the admit orders are written by me. 07/19 04:06 Order name: Basic Metabolic Panel; Complete Time: 04:42 [facility] 07/19 04:06 Order name: CBC with Diff; Complete Time: 06:09 [facility] 07/19 04:06 Order name: LFT's; Complete Time: 04:42 07/19 04:06 Order name: Magnesium; Complete Time: 04:42 07/19 04:06 Order name: NT PRO-BNP; Complete Time: 04:42 07/19 04:06 Order name: PT-INR; Complete Time: 04:42 [facility] 07/19 04:06 Order name: Troponin (emerg Dept Use Only); Complete Time: 04:42 07/19 04:06 Order name: XRAY Chest (1 view) [facility] 07/19 04:06 Order name: EKG; Complete Time: 04:07 [facility] 07/19 05:08 Order name: CBC Smear Scan; Complete Time: 06:09 [facility] 07/19 05:19 Order name: EKG; Complete Time: 05:19 07/19 04:06 Order name: Cardiac monitoring; Complete Time: 04:18 [facility] 07/19 04:06 Order name: EKG - Nurse/Tech; Complete Time: 04:18 07/19 04:06 Order name: IV Saline Lock; Complete Time: 04:19 07/19 04:06 Order name: Labs collected and sent; Complete Time: 04:19 07/19 04:06 Order name: O2 Per Protocol; Complete Time: 04:19 07/19 04:06 Order name: O2 Sat Monitoring; Complete Time: 04:19 07/19 05:19 Order name: EKG - Nurse/Tech; Complete Time: 05:19 Administered Medications: 04:54 Drug: Nitroglycerin 0.4 mg Route: Sublingual; jb4 05:51 Follow up: Response: No adverse reaction; Pain is decreased jb4 05:27 Drug: fentaNYL (PF) 25 mcg Route: IVP; Site: right antecubital; jb4 05:52 Follow up: Response: No adverse reaction; Pain is decreased jb4 06:00 Drug: Aspirin Chewable Tablet 324 mg Route: PO; jb4 07:00 Follow up: Response: No adverse reaction; Pain is decreased rb1 Disposition: 07/19/18 05:45 Hospitalization ordered by Salina Lindo for Observation. Preliminary diagnosis is Chest pain, unspecified. - Bed requested for Telemetry/MedSurg (observation). - Status is Observation. rb1 - Condition is Stable. - Problem is new. - Symptoms have improved. UTI on Admission? No Signatures: Dispatcher [employer] EDMS Dianna Hansen RN RN Hillary Zendejas RN RN Miguel Ferguson MD MD rn Barber, Rebecca, RN RN rb1 Aleksander Sood RN RN jb4 Corrections: (The following items were deleted from the chart) 06:46 05:45 Hospitalization Ordered by Salina Lindo MD for Observation. Preliminary diagnosis is Chest pain, unspecified. Bed requested for Telemetry/MedSurg (observation). Status is Observation. Condition is Stable. Problem is new. Symptoms have improved. UTI on Admission? No. rn 08:36 06:46 07/19/2018 05:45 Hospitalization Ordered by Salina Lindo MD for Observation. rb1 Preliminary diagnosis is Chest pain, unspecified. Bed requested for Telemetry/MedSurg (observation). Status is Observation. Condition is Stable. Problem is new. Symptoms have improved. UTI on Admission? No. kl
--- NOTE | 2018-07-19 05:46 | ER ---
Nurse's Notes [facility] Name: Fabian Arita Jr Age: 72 yrs Sex: Male : 1945 Arrival Date: 07/19/2018 Time: 03:42 Bed 13 Private MD: Diagnosis: Chest pain, unspecified Presentation: 07/19 03:43 Presenting complaint: Patient states: I have been having chest pain and a headache jb4 since 2129 yesterday. It has just kept getting worse and I live by myself so I came in to get checked out. Transition of care: patient was not received from another setting of care. Onset of symptoms was July 18, 2018. Risk Assessment: Do you want to hurt yourself or someone else? Patient reports no desire to harm self or others. Initial Sepsis Screen: Does the patient meet any 2 criteria? No. Patient's initial sepsis screen is negative. Does the patient have a suspected source of infection? No. Patient's initial sepsis screen is negative. Care prior to arrival: None. 03:43 Method Of Arrival: Wheelchair jb4 03:43 Acuity: LANEY 3 jb4 Triage Assessment: 03:43 General: Appears in no apparent distress. uncomfortable, Behavior is calm, cooperative. jb4 Pain: Complains of pain in chest, Headache. Pain does not radiate. Pain currently is 8 out of 10 on a pain scale. Quality of pain is described as pressure, Pain began 2129 yesterday. EENT: No deficits noted. Neuro: Level of Consciousness is awake, alert, obeys commands, Oriented to person, place, time, situation, Reports dizziness, headache since 2129 yesterday. Cardiovascular: Heart tones S1 S2 present Patient's skin is warm and dry. Rhythm is sinus rhythm. Respiratory: Airway is patent Respiratory effort is even, unlabored, Respiratory pattern is regular, symmetrical, Breath sounds are clear bilaterally. GI: No signs and/or symptoms were reported involving the gastrointestinal system. : No signs and/or symptoms were reported regarding the genitourinary system. Derm: Skin is intact, Skin is dry, Skin is normal, Skin temperature is warm. Musculoskeletal: Circulation, motion, and sensation intact. Historical: - Allergies: 03:43 Bactrim; jb4 - Home Meds: 03:43 amlodipine oral once daily [Active]; lisinopril Oral once daily [Active]; jb4 - PMHx: 03:43 Hypertension; UTI; jb4 - PSHx: 03:43 spleen removal; part of my lung; Heart stents; neck stent; jb4 - Immunization history:: Adult Immunizations up to date. - Social history:: Smoking status: Patient/guardian denies using tobacco, Patient/guardian denies using alcohol. - Ebola Screening: : No symptoms or risks identified at this time. - Family history:: not pertinent. - Hospitalizations: : No recent hospitalization is reported. Screenin:43 Abuse screen: Denies threats or abuse. Nutritional screening: No deficits noted. jb4 Tuberculosis screening: No symptoms or risk factors identified. Fall Risk IV access (20 points). Gait- Impaired (20 pts.). Total Estevez Fall Scale indicates Low Risk Score (25-44 pts). Fall prevention measures have been instituted. Side Rails Up X 2 Placed close to Nursing Station Frequent Obs/Assesments occuring As available Patient and Family Educated on Fall Prevention Program and strategies. Assessment: 03:43 General: See triage assessment.. Pain: Complains of pain in abdomen, Headache. Pain jb4 does not radiate. Pain currently is 8 out of 10 on a pain scale. Quality of pain is described as pressure. 05:00 Reassessment: Patient appears in no apparent distress at this time. Patient and/or jb4 family updated on plan of care and expected duration. Pain level reassessed. Patient is alert, oriented x 3, equal unlabored respirations, skin warm/dry/pink. 06:00 Reassessment: Patient appears in no apparent distress at this time. Patient and/or jb4 family updated on plan of care and expected duration. Pain level reassessed. Patient is alert, oriented x 3, equal unlabored respirations, skin warm/dry/pink. Patient denies pain at this time. 07:00 General: Appears in no apparent distress. comfortable, Behavior is calm, cooperative. rb1 Pain: Denies pain. Neuro: Level of Consciousness is awake, alert, obeys commands, Oriented to person, place, time, situation. Cardiovascular: Capillary refill < 3 seconds is brisk in bilateral fingers. Respiratory: Airway is patent Respiratory effort is even, unlabored, Respiratory pattern is regular, symmetrical. GI: Reports nausea, vomiting, x 1 right before he was due to be discharged. : No signs and/or symptoms were reported regarding the genitourinary system. Derm: Skin is dry, Skin is normal, Skin temperature is warm. 07:38 Reassessment: Called to give report, was asked to call back in five minutes. rb1 07:55 Reassessment: Called report to JODY Sweeney. Information from the SBAR was given. All rb1 questions asked and answered. 08:00 Reassessment: Patient appears in no apparent distress at this time. No changes from rb1 previously documented assessment. Vital Signs: 03:43 BP 168 / 109; Pulse 78; Resp 18; Temp 97.6(O); Pulse Ox 99% on R/A; Weight 90.72 kg jb4 (R); Height 6 ft. 0 in. (182.88 cm) (R); Pain 8/10; 05:00 BP 121 / 83; Pulse 71; Resp 16; Pulse Ox 96% on R/A; jb4 06:00 BP 106 / 89; Pulse 64; Resp 16; Pulse Ox 98% on R/A; jb4 07:00 BP 146 / 94; Pulse 69; Resp 16; Pulse Ox 98% on R/A; rb1 07:00 Pain 0/10; rb1 08:00 BP 127 / 80; Pulse 69; Resp 17; Pulse Ox 98% on R/A; Pain 0/10; rb1 03:43 Body Mass Index 27.12 (90.72 kg, 182.88 cm) jb4 ED Course: 03:42 Patient arrived in ED. es 03:43 Aleksander Sood, JODY is Primary Nurse. jb4 03:43 Arm band placed on left wrist. EKG completed in triage. Results shown to MD. jb4 03:43 Patient has correct armband on for positive identification. Placed in gown. Bed in low jb4 position. Call light in reach. Side rails up X 1. monitoring manager on. Pulse ox on. NIBP on. 03:43 Patient maintains SpO2 saturation greater than 95% on room air. jb4 03:51 Triage completed. jb4 04:22 X-ray completed. Portable x-ray completed in exam room. Patient tolerated procedure sg4 well. 04:24 XRAY Chest (1 view) In Process Unspecified. EDMS 04:40 Miguel Ferguson MD is Attending Physician. rn 05:44 Salina Lindo MD is Hospitalizing Provider. rn 08:15 No provider procedures requiring assistance completed. Patient admitted, IV remains in rb1 place. Administered Medications: 04:54 Drug: Nitroglycerin 0.4 mg Route: Sublingual; jb4 05:51 Follow up: Response: No adverse reaction; Pain is decreased jb4 05:27 Drug: fentaNYL (PF) 25 mcg Route: IVP; Site: right antecubital; jb4 05:52 Follow up: Response: No adverse reaction; Pain is decreased jb4 06:00 Drug: Aspirin Chewable Tablet 324 mg Route: PO; jb4 07:00 Follow up: Response: No adverse reaction; Pain is decreased rb1 Outcome: 05:45 Decision to Hospitalize by Provider. rn 08:15 Patient left the ED. rb1 08:15 Admitted to Med/surg accompanied by tech, via wheelchair, room 209, with chart, Report rb1 called to JODY Sweeney 08:15 Condition: stable 08:15 Instructed on the need for admit. Signatures: Dispatcher [employer] Flora Muniz Roman, MD MD rn Barber, Rebecca RN RN Aleksander Craft RN RN jb4 Karla Tam 4 Corrections: (The following items were deleted from the chart) : 07:25 General: Appears in no apparent distress. comfortable, Behavior is calm, rb1 cooperative, rb1 07:25 Pain: Denies pain. rb1 rb1 07:25 Neuro: Level of Consciousness is awake, alert, obeys commands, Oriented to rb1 person, place, time, situation, rb1 07:25 Cardiovascular: Capillary refill < 3 seconds is brisk in bilateral fingers rb1 rb1 07:25 Respiratory: Airway is patent Respiratory effort is even, unlabored, Respiratory rb1 pattern is regular, symmetrical, rb1 07:25 GI: Reports nausea, vomiting, x 1 right before he was due to be discharged. rb1 rb1 07:25 : No signs and/or symptoms were reported regarding the genitourinary system. rb1rb1 : 07:25 Derm: Skin is dry, Skin is normal, Skin temperature is warm rb1 rb1 08:38 08:36 Patient left the ED. rb1 rb1
[2018-07-19] MEDS ORDERED: ASPIRIN 81 MG CHEWABLE TABLET ONE (06:04)
--- NOTE | 2018-07-19 06:11 | P.HP ---
Certification for Inpatient Patient admitted to: Observation With expected LOS: <2 Midnights Practitioner: I am a practitioner with admitting privileges, knowledge of patient current condition, hospital course, and medical plan of care. Services: Services provided to patient in accordance with Admission requirements found in Title 42 Section 412.3 of the Code of Federal Regulations Patient History Date of Service: 07/19/18 Reason for admission: chest pain History of Present Illness: Mr Arita is a 72 years old male with history of HTN, CAD s/p stent placement, came to ED complaining of chest pain, substernal, started 1 hour MACHINE SETTER SUPERVISOR, associated with nausea, SOB and diaphoresis. He describe the pain as pressure like, 8/10 of intensity. In ED he received nitro SL, without relive of the pain , initial trop I is negative, EKG SR 70's without ST-T changes. At my encounter the patient was complaining of headache, chest pain already resolved after receive morphine. Allergies Sulfa (Sulfonamide Antibiotics) Allergy (Unverified 07/07/14 16:33) Hives sulfamethoxazole [From Bactrim] Allergy (Unverified 07/07/14 16:33) Unknown trimethoprim [From Bactrim] Allergy (Unverified 07/07/14 16:33) Unknown Home medications list reviewed: Yes - Past Medical/Surgical History -: HTN -: CAD -: splenectomy -: coronary stents - Family History Family History: Reviewed- Non-Contributory - Social History Smoking Status: Former smoker Alcohol use: No CD- Drugs: No Place of Residence: Home Review of Systems 10-point ROS is otherwise unremarkable Physical Examination - Physical Exam General: Alert, In no apparent distress HEENT: Atraumatic, PERRLA, Mucous membr. moist/pink, EOMI, Sclerae nonicteric Neck: Supple, 2+ carotid pulse no bruit, No LAD, Without JVD or thyroid abnormality Respiratory: Clear to auscultation bilaterally, Normal air movement Cardiovascular: Regular rate/rhythm, Normal S1 S2 Gastrointestinal: Normal bowel sounds, No tenderness Musculoskeletal: No tenderness Integumentary: No rashes Neurological: Normal speech, Normal strength at 5/5 x4 extr, Normal tone, Normal affect Lymphatics: No axilla or inguinal lymphadenopathy - Studies Laboratory Data (last 24 hrs) 07/19/18 04:10: PT 12.4, INR 1.05 07/19/18 04:10: WBC 3.5 L, Hgb 15.3, Hct 45.7, Plt Count 186 07/19/18 04:10: Sodium 141, Potassium 3.5, BUN 16, Creatinine 0.85, Glucose 90, Magnesium 2.2, Total Bilirubin 0.5, AST 58 H, ALT 90 H, Alkaline Phosphatase 59 Assessment and Plan - Problems (Diagnosis) (1) Chest pain Current Visit: Yes Status: Acute Qualifiers: Chest pain type: precordial pain Qualified Code(s): R07.2 - Precordial pain (2) HTN (hypertension) Current Visit: Yes Status: Acute Qualifiers: Hypertension type: essential hypertension Qualified Code(s): I10 - Essential (primary) hypertension (3) CAD (coronary artery disease) Current Visit: Yes Status: Acute Qualifiers: Coronary Disease-Associated Artery/Lesion type: [place] artery [place] vs. transplanted heart: [place] heart Associated angina: angina presence unspecified Qualified Code(s): I25.10 - Atherosclerotic heart disease of [place] coronary artery without angina pectoris - Plan Will admit the patient due to chest pain in order to rule out ACS. Check serial Trop I and EKG. Start ASA, statins, and lovenox. Consult cardiology team. - Advance Directives Does patient have a Living Will: No Does patient have a Durable POA for Healthcare: No - Code Status/Comfort Care Code Status Assessed: Yes Code Status: Full Code
[2018-07-19] MEDS ORDERED: ACETAMINOPHEN 500 MG TAB PO PRN (08:19)
[2018-07-19] MEDS ORDERED: NITROGLYCERIN 0.4 MG/TAB SL PRN (08:30)
[2018-07-19] MEDS: ASPIRIN EC 81 MG TAB PO SCH (09:00)
[2018-07-19] MEDS: MORPHINE 4 MG/ML SYR IV PRN ×3 (09:09→21:46)
[2018-07-19] MEDS: ENOXAPARIN 100 MG/ML SYR SQ SCH ×2 (09:09→21:49)
--- NOTE | 2018-07-19 11:59 | RAD REPORT ---
EXAM DESCRIPTION: RAD - Chest Single View - 07/19/2018 4:23 am CLINICAL HISTORY: CHEST PAIN Chest pain. COMPARISON: Chest Single View dated 04/30/2017; Chest Single View dated 12/23/2016; CHEST SINGLE VIEW dated 09/22/2014; CHEST PA AND LAT 2 VIEW dated 07/07/2014 FINDINGS: Portable technique limits examination quality. The lungs are grossly clear. The heart is normal in size. Stent material is present within the thorac ic aorta.Old healed right thoracic cage rib abnormality. IMPRESSION: No acute intrathoracic process suspected.
[2018-07-19] MEDS: AMLODIPINE 10 MG TAB PO SCH (12:52)
[2018-07-19] MEDS: LISINOPRIL 20 MG TAB PO SCH (12:52)
--- NOTE | 2018-07-19 16:27 | EKG ---
Test Date: 2018-07-19 Test Time: 05:13:11 Hoop Punch Operator Helper: DARIAN MEASUREMENT RESULTS: Intervals: Rate: 73 OH: 176 QRSD: 86 QT: 416 QTc: 458 [place]: P: 69 OH: 176 QRS: 47 T: 57 INTERPRETIVE STATEMENTS: Normal sinus rhythm Normal ECG Compared to ECG 07/19/2018 03:51:41 No significant changes Electronically Signed On 07-19-18 16:25:44 LINE MAINTENANCE TECHNICIAN by Andrea Stewart
--- NOTE | 2018-07-19 16:27 | EKG ---
Test Date: 2018-07-19 Test Time: 03:51:41 Agile Coach: YASMINE MEASUREMENT RESULTS: Intervals: Rate: 68 OH: 178 QRSD: 88 QT: 398 QTc: 423 [place]: P: 74 OH: 178 QRS: 42 T: 48 INTERPRETIVE STATEMENTS: Normal sinus rhythm Possible Left atrial enlargement Borderline ECG Compared to ECG 04/30/2017 12:02:18 No significant changes Electronically Signed On 07-19-18 16:25:51 MANAGER ELECTRICAL by Andrea Stewart
[2018-07-19 16:37] LABS: Urine Appearance CLEAR; Urine Bilirubin NEGATIVE (NEG); Urine Blood NEGATIVE (NEG); Urine Color YELLOW; Urine Glucose NEGATIVE (NEG); Urine Protein NEGATIVE (NEG); Urine Specific Gravity 1.025 (1.005-1.030)
--- NOTE | 2018-07-19 16:38 | CON ---
CARDIOLOGY CONSULTATION History Of Present Illness: Mr. Arita is 72. He came to the hospital because of chest pain. He g ets chest pain and a headache off and on for about a day and a half. Since being in the hospital, he has had a normal physical exam, normal cardiac enzymes, normal EKG except for left atrial abnormalit y. The patient does not have a previous history of heart disease. Medications: At home, he takes amlodipine and lisinopril. No other medications. Social History: To me, he denied tobacco use. Physical Examination: General: He is 6 feet tall, 190 pounds. HEENT: Normal. Lungs: Clear. Heart: Normal. Extremities: Palpable pulses. Laboratory Data: Reveals normal troponins. Creatinine is 0.85. SGOT and SGPT were both slightly el evated. Impression: My impression is that the patient is not having unstable angina. He will be scheduled f or a stress test and echo. If those are normal, he could be discharged home. DUSTY/KJ Voice ID: [id number] Report ID: [id number]
[2018-07-19 16:42] LABS: Urine Microscopic Reflex NO UMIC
--- NOTE | 2018-07-19 16:46 | RAD REPORT ---
EXAM DESCRIPTION: US - Liver Only - 07/19/2018 4:26 pm CLINICAL HISTORY: abnormal liver function COMPARISON: No comparisons FINDINGS: The liver is normal in size, shape and echotexture.No focal liver lesion or intrahepatic b iliary dilatation.No evidence of portal vein thrombosis. Gallbladder appears partially contracted. IMPRESSION: Unremarkable examination.
[2018-07-20] MEDS ORDERED: REGADENOSON 0.4 MG/5 ML SYR IV ONE (07:42)
[2018-07-20] MEDS ORDERED: HOME MED 1 EA UNK (Lisinopril [Zestril] 40 MG) PO SCH (09:00)
[2018-07-20] MEDS: ASPIRIN EC 81 MG TAB PO SCH (09:01)
[2018-07-20] MEDS: ENOXAPARIN 100 MG/ML SYR SQ SCH (09:01)
[2018-07-20] MEDS: MORPHINE 4 MG/ML SYR IV PRN ×2 (09:01→13:40)
[2018-07-20] MEDS: AMLODIPINE 10 MG TAB PO SCH (09:01)
[2018-07-20] MEDS: LISINOPRIL 20 MG TAB PO SCH (09:01)
--- NOTE | 2018-07-20 13:21 | RAD REPORT ---
EXAM DESCRIPTION: NM - Rest Stress Cardiac Imaging - 07/20/2018 1:02 pm CLINICAL HISTORY: Chest pain. COMPARISON: None. TECHNIQUE: The patient was administered approximately 10mCi of Tc 99m Sestamibi prior to resting SPE CT imaging of the heart. The patient was then administered approximately 30 mCi of Tc 99m Sestamibi f ollowing exercise or pharmacologic stress. Multiplanar SPECT images were reviewed. FINDINGS: Mildly diminished radiotracer uptake involving the inferior left ventricular myocardium o n rest and stress sequences likely is secondary to attenuation from the diaphragm. Otherwise there is homogeneous radiotracer uptake involving the entire left ventricular myocardium. The left ventricular ejection fraction equals 59% IMPRESSION: No evidence of a myocardial perfusion defect
--- NOTE | 2018-07-20 13:46 | P.SSS ---
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 He describe the pain as pressure like, 8/10 of intensity. In ED he received nitro SL, without relive of the pain , initial trop I is negative, EKG SR 70's without ST-T changes. At my encounter the patient was complaining of headache, chest pain already resolved after receive morphine Allergies Sulfa (Sulfonamide Antibiotics) Allergy (Verified 07/19/18 09:01) Hives sulfamethoxazole [From Bactrim] Allergy (Verified 07/19/18 09:01) Unknown trimethoprim [From Bactrim] Allergy (Verified 07/19/18 09:01) Unknown Home Medications: Amlodipine [Norvasc*] 10 mg PO DAILY 07/19/18 Lisinopril [Zestril] 40 mg PO DAILY 07/19/18 - Past Medical/Surgical History Has patient received pneumonia vaccine in the past: No Diabetic: No -: HTN -: CAD -: splenectomy -: coronary stents - Family History Family History: Reviewed- Non-Contributory - Social History Smoking Status: Never smoker Alcohol use: No CD- Drugs: No Caffeine use: Yes Place of Residence: Home Review of Systems 10-point ROS is otherwise unremarkable Physical Examination - Vital Signs Temperature: 97.3 F Blood Pressure: 143/86 Pulse: 69 Respirations: 16 Pulse Ox (%): 99 - Physical Exam General: Alert, In no apparent distress HEENT: Atraumatic, PERRLA, Mucous membr. moist/pink, EOMI, Sclerae nonicteric Neck: Supple, 2+ carotid pulse no bruit, No LAD, Without JVD or thyroid abnormality Respiratory: Clear to auscultation bilaterally, Normal air movement Cardiovascular: Regular rate/rhythm, Normal S1 S2 Gastrointestinal: Normal bowel sounds, No tenderness Musculoskeletal: No tenderness Integumentary: No rashes Neurological: Normal gait, Normal speech, Normal strength at 5/5 x4 extr, Normal tone, Normal affect Lymphatics: No axilla or inguinal lymphadenopathy - Diagnosis (Problem(s)) (1) CAD (coronary artery disease) Onset Date: 07/20/18 Current Visit: Yes Status: Acute Qualifiers: Coronary Disease-Associated Artery/Lesion type: [place] artery [place] vs. transplanted heart: [place] heart Associated angina: angina presence unspecified Qualified Code(s): I25.10 - Atherosclerotic heart disease of [place] coronary artery without angina pectoris (2) Chest pain Onset Date: 07/20/18 Current Visit: Yes Status: Acute Qualifiers: Chest pain type: precordial pain Qualified Code(s): R07.2 - Precordial pain (3) HTN (hypertension) Onset Date: 07/20/18 Current Visit: Yes Status: Acute Qualifiers: Hypertension type: essential hypertension Qualified Code(s): I10 - Essential (primary) hypertension Treatment Summary: Overall during the hospital stay patient remained stable Patient was initially admitted to the hospital for having chest pain. Troponin x2 was negative. Initial EKG was negative for any acute abnormality. Cardiology was consulted who recommended echocardiogram and stress test. Both of which were done here in the hospital. Echocardiogram and stress test were will within normal limits no signs of acute coronary syndrome. Patient then was discharged home under stable condition was asked to follow up with primary care provider in about 1-2 days post discharge. Patient chest pain was most likely secondary to Elevated BP on admission. Patient thus was asked to follow up with primary care provider for further treatment. - Disposition Disposition: ROUTINE DISCHARGE Condition: GOOD Patient Discharge Instructions: Please f.u with PCP and Cardiology in 1 to 2 weeks post discharge. Make sure to Eat Low Na Diet and controll your BP for better Cardiac Health. Continue home medication
--- NOTE | 2018-07-20 14:08 | TREADPHA ---
DX: CHEST PAIN Date of Study: 07/20/2018 Ht: 6 0 Wt: 190 lb 0 oz Consulting Physician: FRENCH MEDICATIONS: TYLENOL, NORVASC, ASPIRIN, LOVENOX, PRINIVIL, NITROSTAT HISTORY: 72 YEAR OLD MALE WITH COMPLAINTS OF CHEST PAIN AND TIGHTNESS FOR ONE WEEK. MEDICAL HISTORY OF HYPERTENSION, CORONARY ARTERY DISEASE, NON SMOKER , OCCASIONAL DRINKER. PHYSICIAL EXAMINATION: RESTING B.P.: 138/79 RESTING H.R.: 64 RESTING EKG: NORMAL PROTOCOL: LEXISCAN EXERCISE TIME: 3:30 B.P. AT PEAK STRESS: 129/76 IMPRESSION: LEXISCAN INJECTED. CARDIOLITE INJECTED PER PROTOCOL. SEE NUCLEAR MEDICINE REPORT. NO SUPRAVENTRICULAR TACHYCARDIA. NO VENTRICULAR TACHYCARDIA. NO PREMATURE VENTRICULAR COMPLEXES. PATIENT REPORTED CHEST PAIN TIGHTNESS 5/10 PRIOR, DURING AND IN RECOVERY. NON DIAGNOSTIC EKG WITH LEXISCAN STRESS TEST.
--- NOTE | 2018-07-20 15:32 | ECHO ---
HEIGHT: 6 ft 0 in WEIGHT: 190 lb 0 oz DATE OF STUDY: 07/20/[address]: Salina Wright MD 2-DIMENSIONAL: YES M.MODE: YES DOPPLER: YES COLOR FLOW: YES TDS: NO PORTABLE: NO DEFINITY: NO BUBBLE STUDY: NO DIAGNOSIS: CHEST PAIN CARDIAC HISTORY: CATHERIZATION: NO SURGERY: NO PROSTHETIC VALVE: NO PACEMAKER: NO MEASUREMENTS (cm) DIASTOLIC (NORMALS) SYSTOLIC (NORMALS) IVSd 1.2 (0.6-1.2) LA Diam 4.0 (1.9-4.0) LVEF 77% LVIDd 4.9 (3.5-5.7) LVIDs 2.6 (2.0-3.5) %FS 46% LVPWd 1.2 (0.6-1.2) Ao Diam 3.0 (2.0-3.7) 2 DIMENSIONAL ASSESSMENT: RIGHT ATRIUM: NORMAL LEFT ATRIUM: NORMAL RIGHT VENTRICLE: NORMAL LEFT VENTRICLE: NORMAL TRICUSPID VALVE: NORMAL MITRAL VALVE: NORMAL PULMONIC VALVE: NORMAL AORTIC VALVE: NORMAL PERICARDIAL EFFUSION: NONE AORTIC ROOT: NORMAL LEFT VENTRICULAR WALL MOTION: NORMAL. DOPPLER/COLOR FLOW: MILD TRICUSPID REGURGITATION. NORMAL RIGHT VENTRICULAR SYSTOLIC PRESSURE. COMMENTS: NORMAL 2D ECHO. MILD TRICUSPID REGURGITATION. TECHNOLOGIST: DORINDA SHEPHERD
== END 2018-07-20 16:11 | disposition home or self-care (01) ==
LOC: ER 03:41 → ERHOLD 05:52 → 2ND 08:01
PROVIDERS: ADMIT Internal Medicine; ATTEND Family Medicine
DX: R07.9 Chest pain, unspecified (principal); I10 Essential (primary) hypertension; I25.10 Atherosclerotic heart disease of native coronary artery without angina pectoris; Z95.5 Presence of coronary angioplasty implant and graft; Z88.2 Allergy status to sulfonamides
CPT/HCPCS: 36415; 71045; 76705; 78452; 80048; 80076; 81003; 83735; 83880; 84484 ×4; 85025; 85610; 93005 ×2; 93017; 93306; 96374; 99285; A9500; G0378 ×2; J1650 ×3; J2405; J2785; J3010

== ENCOUNTER 2018-08-22 10:01 | Emergency (ER) | payer MEDICARE, OTHER ==
--- OUTSIDE RECORDS SUMMARY | 2018-08-22 10:03 | XMS REPORT | Continuity of Care Document ---
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[facility] vian artery [address] [place] [address] bypass graft [place] with vein Fever - rapid Active Problem 01/20/2017 [facility] rise [address] [place] [address] HTN Active Problem 01/20/2017 [facility] [Hypertension] [address] [place] [address] Pain following Active Problem 01/20/2017 [facility] surgery, acute [address] [place] [address] Hemoptysis Active Problem 01/20/[address] Pulmonary Resolved Problem 01/20/2017 [facility] abscess [facility] Acute UTI Active Problem 01/20/2017 [facility] Cellulitis Active Problem 01/20/2017 [facility] Fever of Active Problem 01/20/2017 blood [facility] unknown culture Medical origin<sup>1</ done,urine Center sup> culture done cbc with diff done HLD (<span Resolved Problem 01/20/2017 [facility] ID="[id number] Medical 75">Confirmed< Center /span>) Asthma Resolved Problem 01/20/2017 [facility] HTN (<span Resolved Problem 01/20/2017 [facility] ID="[id number] Medical 79">Confirmed< Center /span>) Pain control Active Problem 01/20/2017 [facility] Stented Resolved Problem 01/20/2017 [facility] coronary [facility] artery [place] Swelling or Active Problem 01/20/2017 [facility] edema [facility] Hepatitis C Resolved Problem 01/20/2017 [facility] virus [facility] SHORTNESS OF Active [facility] BREATH [facility] Medications Medication Details Route Status Patient Ordering Order Source Instructions Provider Date cefpodoxime 200 200 mg=1 tab, Active 01/17/ [facility] [place] mg oral tablet PO, Q12H, X 10 2016 day, # 20 tab, Center 0 Refill(s) Albuterol 0.83 2.49 mg, 3 mL, Inactive [place] MG/ML Inhalant Route: 2017 Medical Solution INHALATION, Center Drug form: SOLN, ONCE, Dosing Weight 85.966, kg, Start date: 01/17/17 9:38:00 CDT, Stop date: 01/17/17 9:38:00 CDTNotes: SEE RT DOCUMENTATION (Same as: Proventil) Symbicort 2 puff, Active [facility] 160/4.5 INHALER, BID, # 2017 Medical inhalation 1 ea, 3 Center aerosol with Refill(s) adapter lisinopril 40 40 mg=1 tab, Active [facility] mg oral tablet PO, Daily, # 30 2016 Medical tab, 0 Center Refill(s) Amlodipine 5 mg, 1 tab, Inactive [facility] Route: PO, Drug 2016 Medical form: TAB, Center Daily, Dosing Weight 86, kg, Start date: 01/17/17 9:00:00 CDT, Duration: 30 day, Stop date: 02/15/17 9:00:00 CDTNotes: (Same as: Norvasc) Melatonin 3 MG 3 mg, 1 tab, Inactive [place] Extended Route: PO, Drug 2016 Medical Release Tablet Form: TAB, Center Dosing Weight 85.966, kg, Bedtime, NOW, Start date: 01/17/17 1:26:00 CDT, Duration: 30 day, Stop date: 02/15/17 21:00:00 CDTNotes: (Same as: Melatonin) Cephalexin 500 mg, 1 cap, No Longer [place] Route: PO, Drug Active 2016 Medical form: CAP, QID, Center Dosing Weight 86, kg, Start date: 01/16/17 21:00:00 CDT, Duration: 30 day, Stop date: 02/15/17 17:00:00 CDTNotes: Take on empty stomach. (Same As: Keflex) Ceftriaxone 1 gm, Route: Inactive [place] IVPB, Drug 2016 Medical form: PDR/INJ, Center [id number], Dosing Weight 86, kg, Start date: 01/16/17 20:00:00 CDT, Duration: 1 day, Stop date: 01/16/17 20:00:00 CDT, ABX Indication: Urinary Tract InfectionNotes: (Same As: Rocephin). Use with 100 mL NS and infuse over 30 min MEDICATION WASTE Product Size: 1000 mg Product Wasted: __0_ mg tramadol 50 mg, 1 tab, No Longer [place] hydrochloride Route: PO, Drug Active 2016 Medical 50 MG Oral form: TAB, Q8H, Center Tablet Dosing Weight 86, kg, PRN Pain 4-6/Temp > 100.4 F, Start date: 01/16/17 19:43:00 CDT, Duration: 30 day, Stop date: 02/15/17 19:42:00 CDTNotes: Not to exceed 400mg/day. (Same As: Ultram) Ondansetron 4 mg, 2 mL, No Longer [place] Route: IVP, Active 2016 Medical Drug form: INJ, Center Q6H, Dosing Weight 86, kg, PRN Nausea & Vomiting, Start date: 01/16/17 19:25:00 CDT, Duration: 30 day, Stop date: 02/15/17 19:24:00 CDTNotes: (Same as: Zofran) MEDICATION WASTE Product Size: 4 mg Product Wasted: _0__ mg Acetaminophen 650 mg, 2 tab, No Longer [place] Route: PO, Drug Active 2016 Medical form: [...] Form: 2016 Medical Ipratropium SOLN, Dosing Center [place] 0.167 Weight 86.364, MG/ML Inhalant kg, ONCE, [...] Source type Reported Bactrim Assertion Drug Active [facility] sulfa drugs Assertion Drug Active [facility] Immunizations Immunization Date Given Site Status Last Updated Comments Source Results Order Name Results Value Reference Date Interpretation Comments Source Range CHEM PANEL Magnesium Lvl 2.2 mg/dL 1.8 - 2.4 01/17 [facility] CHEM PANEL eGFR 88 01/17 Result Comment: The eGFR is calculated using the CKD-EPI formula. In most young, healthy individuals the eGFR will be >90 mL/ min/1.73m2. The eGFR declines with age. An eGFR of 60-89 may be normal in [facility] mL/min/1.7 some populations, particularly the elderly, for whom the CKD-EPI formula has not been extensively validated. Use of the eGFR is not recommended in the following populations: [place] [address] Center Individuals with unstable creatinine concentrations, including [...] Lvl 106 meq/L 95 - 109 01/17 [facility] CHEM PANEL CO2 29 meq/L 24 - 32 01/17 2016 [facility] CHEM PANEL Calcium Lvl 8.9 mg/dL 8.5 - 10.5 01/17 2016 [facility] CHEM PANEL Potassium Lvl 3.7 meq/L 3.5 - 5.1 01/17 2016 [facility] CHEM PANEL Glucose Lvl 99 mg/dL 70 - 99 01/17 2016 [facility] CHEM PANEL Sodium Lvl 140 meq/L 135 - 145 01/17 2016 [facility] CHEM PANEL BUN 15 mg/dL 7 - 22 01/[address] CHEM PANEL Creatinine 0.86 mg/dL 0.50 - 01/17 [facility] Lvl 1.40 [facility] CHEM PANEL AGAP 8.7 meq/L 10.0 - 01/17 20.0 [facility] HEMATOLOGY MCV 93.7 fL 80.0 - 01/17 94.0 [facility] HEMATOLOGY MCH 31.9 pg 27.0 - 01/17 31.0 [facility] HEMATOLOGY MCHC 34.1 g/dL 32.0 - 01/17 36.0 [facility] HEMATOLOGY MPV 8.9 fL 7.4 - 10.4 01/17 [facility] HEMATOLOGY RDW 13.2 % 11.5 - 01/17 14.5 [facility] HEMATOLOGY Platelet 172 K/CMM 133 - 450 01/17 [facility] HEMATOLOGY Hgb 12.7 g/dL 14.0 - 01/17 18.0 [facility] HEMATOLOGY Hct 37.1 % 42.0 - 01/17 54.0 [facility] HEMATOLOGY WBC 5.2 K/CMM 3.7 - 10.4 01/[address] [place] [address] HEMATOLOGY RBC 3.96 M/CMM 4.70 - 01/17 [place] 6.10 [facility] HEMATOLOGY Monocytes # 0.8 K/CMM 0.0 - 0.8 01/17 [facility] HEMATOLOGY Eosinophils # 0.9 K/CMM 0.0 - 0.5 01/17 [facility] HEMATOLOGY Segs-Bands # 1.9 K/CMM 1.5 - 8.1 01/17 [facility] HEMATOLOGY Lymphocytes # 1.7 K/CMM 1.0 - 5.5 01/17 2016 [facility] HEMATOLOGY Segs 35.5 % 45.0 - 01/17 [place] 75.0 [facility] HEMATOLOGY Lymphocytes 32.7 % 20.0 - 01/17 [place] 40.0 [facility] HEMATOLOGY Monocytes 15.0 % 2.0 - 12.0 01/17 [facility] HEMATOLOGY Eosinophils 16.3 % 0.0 - 4.0 01/17 [facility] HEMATOLOGY Basophils 0.5 % 0.0 - 1.0 01/[address] [place] [address] CARDIAC Troponin-I null 0.00 - 01/16 [facility] ENZYMES 0.40 [facility] URINE AND UA >=8.0 0.1 - 1.0 01/16 [facility] Urobilinogen EU/dL /2016 [facility] URINE AND UA Leuk Est Trace Negative 01/16 [facility] Medical *ABN* Center (01/16/17 5:48 PM) URINE AND UA Nitrite Positive Negative 01/16 [facility] Medical *ABN* [place] (01/16/17 5:48 PM) URINE AND UA Ketones Trace Negative 01/16 [facility] Medical *ABN* [place] (01/16/17 5:48 PM) URINE AND UA Glucose 100 mg/dL Negative 01/16 [facility] mg/dL [facility] URINE AND UA Bili Negative Negative 01/16 [facility] Medical *NA* Center (01/16/17 5:48 PM) URINE AND UA Blood Negative Negative 01/16 [facility] (01/16/17 5:48 PM) [place] URINE AND UA Color [place] Yellow 01/16 [facility] Medical *ABN* [place] (01/16/17 5:48 PM) URINE AND UA Turbidity Slight Cloudy Clear 01/16 [facility] (01/16/17 5:48 PM) [place] URINE AND UA Spec Grav 1.020 <=1.030 01/16 [facility] [address] [place] [address] URINE AND UA pH 6.5 5.0 - 8.0 01/[address] URINE AND UA Protein 100 mg/dL Negative 01/16 [facility] mg/dL /2016 [facility] URINE AND UA Amorph Occasional None Seen 01/16 [facility] Mary Kate /HPF /HPF /2016 [facility] URINE AND UA Mucus Moderate None Seen 01/16 [facility] STOOL /LPF /LPF /2016 [facility] URINE AND UA Bacteria Moderate None Seen 01/16 [facility] STOOL /HPF /HPF /[address] [place] [address] URINE AND UA RBC 0-2 /HPF 0 - 2 01/[address] URINE AND UA WBC 11-20 /HPF None Seen 01/16 [facility] /[facility] [address] [place] [address] URINE AND UA Sq Epi Occasional Few /LPF 01/16 [facility] /F [address] [place] [address] CARDIAC Troponin-I null 0.00 - 01/16 [facility] ENZYMES 0.40 [facility] CHEM PANEL Lactic Acid 0.8 mMol/L 0.5 - 2.2 01/16 [facility] [address] [place] [address] CHEM PANEL Glucose Lvl 97 mg/dL 70 - 99 01/[address] CHEM PANEL BUN 16 mg/dL 7 - 22 01/[address] CHEM PANEL Potassium Lvl 4.0 meq/L 3.5 - 5.1 01/[address] CHEM PANEL Sodium Lvl 138 meq/L 135 - 145 01/[address] CHEM PANEL Creatinine 1.12 mg/dL 0.50 - 01/16 [facility] Lvl 1.40 [facility] CHEM PANEL CO2 28 meq/L 24 - 32 01/[address] CHEM PANEL Chloride Lvl 105 meq/L 95 - 109 01/[address] CHEM PANEL AGAP 9.0 meq/L 10.0 - 01/16 [facility] 20.0 [facility] CHEM PANEL Calcium Lvl 9.2 mg/dL 8.5 - 10.5 01/[address] CHEM PANEL eGFR 66 01/16 Result Comment: The eGFR is calculated using the CKD-EPI formula. In most young, healthy individuals the eGFR will be >90 mL/ min/1.73m2. The eGFR declines with age. An eGFR of 60-89 may be normal in [facility] mL/min/1.7 some populations, particularly the elderly, for whom the CKD-EPI formula has not been extensively validated. Use of the eGFR is not recommended in the following populations: [address] Individuals with unstable creatinine concentrations, including [...] # 0.9 K/CMM 0.0 - 0.8 01/16 [facility] HEMATOLOGY Eosinophils # 0.5 K/CMM 0.0 - 0.5 01/16 2016 [facility] HEMATOLOGY Segs-Bands # 3.7 K/CMM 1.5 - 8.1 01/16 [facility] HEMATOLOGY Lymphocytes # 1.5 K/CMM 1.0 - 5.5 01/[address] HEMATOLOGY Basophils 0.3 % 0.0 - 1.0 01/[address] [place] [address] HEMATOLOGY Segs 55.5 % 45.0 - 01/16 75.0 [facility] HEMATOLOGY Eosinophils 7.3 % 0.0 - 4.0 01/[address] HEMATOLOGY Lymphocytes 22.9 % 20.0 - 01/16 40.0 [facility] HEMATOLOGY Monocytes 14.0 % 2.0 - 12.0 01/16 [facility] HEMATOLOGY MPV 8.4 fL 7.4 - 10.4 01/16 [facility] HEMATOLOGY MCH 31.4 pg 27.0 - 01/16 [facility] 31.0 [facility] HEMATOLOGY MCHC 33.3 g/dL 32.0 - 01/16 36.0 [facility] HEMATOLOGY RDW 13.1 % 11.5 - 01/16 [facility] 14.5 [facility] HEMATOLOGY Platelet 184 K/CMM 133 - 450 01/[address] HEMATOLOGY WBC 6.7 K/CMM 3.7 - 10.4 01/16 /2016 [facility] HEMATOLOGY RBC 4.25 M/CMM 4.70 - 01/16 [facility] 6.10 /2016 [facility] HEMATOLOGY Hgb 13.3 g/dL 14.0 - 01/16 [facility] 18.0 /2016 [facility] HEMATOLOGY Hct 40.0 % 42.0 - 01/16 [facility] 54.0 /2017 [facility] HEMATOLOGY MCV 94.0 fL 80.0 - 01/16 [facility] 94.0 /2017 [facility] Chest 2 Chest 2 views EXAM: XR CHEST 2 VIEWS 01/16 - [facility] views DX DX - [facility] This report was dictated by a Spray Dry Operator/Fellow. I have personally reviewed the images as [...] Comments Source Systolic (mm Hg) 139 01/17/2017 [facility] Diastolic (mm Hg) 77 01/17/2017 [facility] Heart Rate 78 01/17/2017 [facility] Respitory Rate 18 01/17/2017 [facility] Temperature Oral (F) 97.9 F 01/17/2017 [facility] Respitory Rate 18 01/17/2017 [facility] Systolic (mm Hg) 139 01/17/2017 [facility] Diastolic (mm Hg) 81 01/17/2017 [facility] Systolic (mm Hg) 139 01/17/2017 [facility] Diastolic (mm Hg) 78 01/17/2017 [facility] Heart Rate 63 01/17/2017 [facility] Respitory Rate 18 01/17/2017 [facility] Temperature Oral (F) 97.7 F 01/17/2017 [facility] BMI Calculated 25.7 01/17/2017 [facility] Height 182.88 cm 01/17/2017 [facility] Weight 85.966 01/17/2017 [facility] Heart Rate 75 01/17/2017 [facility] Weight 86 01/16/2017 [facility] BMI Calculated 25.68 01/16/2017 [facility] Height 183 cm 01/16/2017 [facility] Temperature Oral (F) 99.0 F 01/16/2017 [facility] Height 182.88 cm 01/16/2017 [facility] Weight 86.364 01/16/2017 [facility] BMI Calculated 25.82 01/16/2017 [facility] Encounters Location Location Encounter Encounter Reason Attending ADM DC Status Source Details Type Number For Provider Date Date Visit [facility] [id number] [place] 01/16 01/17 [facility] Manfred Vincent /2016 [facility] Procedures Procedure Code Date Perfomer Comments Source Lung operation [id number] [facility]
[2018-08-22 11:23] LABS: Absolute Lymphocytes (CBC) 1.7 K/uL (0.7-4.9); Absolute Monocytes 0.6 K/uL (0.1-1.3); Absolute Neutrophil 1.4 K/uL (1.8-8.0); Basophils % 0.7 % (0-1.3); Eosinophils % 6.8 % (0-4.4); Hematocrit 41.4 % (39.6-49.0); Lymphocytes % 41.9 % (15.3-44.8); MPV 9.3 fL (7.6-11.3); Monocytes % 15.9 % (3.3-12.3)
[2018-08-22 11:26] LABS: Protime INR 1.01
[2018-08-22 11:43] LABS: ALT/SGPT 107 U/L (12-78); AST/SGOT 60 U/L (15-37); Albumin 3.6 g/dL (3.4-5.0); Alkaline Phosphatase 60 U/L (45-117); BUN Blood Urea Nitrogen 16 mg/dL (7-18); Bicarbonate 31 mmol/L (21-32); Bilirubin Direct 0.1 mg/dL (0-0.2); Bilirubin Total 0.3 mg/dL (0.2-1.0); Glucose Level 85 mg/dL (74-106); Magnesium 2.1 mg/dL (1.8-2.4); NT PRO-BNP 25 pg/mL (<125); Potassium 3.9 mmol/L (3.5-5.1); Sodium Level 142 mmol/L (136-145); Troponin (Emerg Dept Use Only) < 0.02 ng/mL (0.0-0.045)
[2018-08-22 11:46] LABS: Urine Blood NEGATIVE (NEG); Urine Glucose NEGATIVE (NEG); Urine Protein NEGATIVE (NEG)
--- NOTE | 2018-08-22 11:49 | RAD REPORT ---
EXAM DESCRIPTION: RAD - Chest Single View - 08/22/2018 11:42 am CLINICAL HISTORY: shortness of breath Chest pain. COMPARISON: Chest Single View dated 07/19/2018; Chest Single View dated 04/30/2017; Chest Single View dated 12/23/2016; CHEST SINGLE VIEW dated 09/22/2014 FINDINGS: Portable technique limits examination quality. Emphysematous changes are present throughout the lungs. Small right pleural effusion is noted. The he art is normal in size. Stenting is present in the thoracic aorta.Postsurgical changes affect the post erior right ribs.
--- NOTE | 2018-08-22 12:20 | RAD REPORT ---
EXAM DESCRIPTION: US - Extrem Venous W Compress Simone - 08/22/2018 12:15 pm CLINICAL HISTORY: pain, swelling Bilateral leg edema and swelling. COMPARISON: Extremity Venous Uni Ltd dated 12/23/2016 TECHNIQUE: Real-time sonographic interrogation of the left and right lower extremity deep venous sys tems was performed. FINDINGS: Normal compressibility, flow augmentation, phasic flow and spontaneous flow is identified in both the left and right lower extremity deep venous systems. IMPRESSION: No sonographic evidence of left or right lower extremity deep venous thrombosis.
[2018-08-22 12:39] LABS: Blood Morphology Comment NOT SEEN (NOT SEEN); Platelet Estimate ADEQ; Urine White Blood Cell Casts OK
--- NOTE | 2018-08-22 12:52 | RAD REPORT ---
EXAM DESCRIPTION: CTAbdomen Pelvis W Contrast - 08/22/2018 12:45 pm CLINICAL HISTORY: Abdominal pain. abdominal pain, IV ONLY COMPARISON: CT ABD PELVIS W CONTRAST dated 09/22/2014 TECHNIQUE: Biphasic CT imaging of the abdomen and pelvis was performed with 100 ml non-ionic IV cont rast. All CT scans are performed using dose optimization technique as appropriate and may include automated exposure control or mA/KV adjustment according to patient size. FINDINGS: Areas of scarring are present in both posterior lung bases. Old deformity and right spinner iron ior thoracic ribs seen. Several small low-density liver lesions are present, incompletely assessed but likely benign. The spl een appears absent with several splenules in the left upper quadrant. The pancreas, adrenal glands an d kidneys are within normal limits. No bowel obstruction, free air, free fluid or abscess. Sigmoid diverticulosis coli is present without diverticulitis. The appendix is normal. No evidence of significant lymphadenopathy. Mild prostatome yue is seen. Small fat containing umbilical hernias. Moderate lumbosacral degenerative changes. IMPRESSION: No acute intra-abdominal or pelvic finding.
[2018-08-22] MEDS ORDERED: FENTANYL CITR 100 MCG/2 ML ONE (13:27)
--- NOTE | 2018-08-22 13:29 | ER ---
Nurse's Notes [facility] Name: Fabian Arita Jr Age: 72 yrs Sex: Male : 1945 Arrival Date: 08/22/2018 Time: 10:05 Bed 5 Private MD: GINETTE SEQUEIRA Diagnosis: Cellulitis of right lower limb;Cellulitis of left lower limb Presentation: 08/22 10:14 Presenting complaint: Patient states: i woke up this morning and i noticed both my feet hj are swollen; reports SOB;. Transition of care: patient was not received from another setting of care. Onset of symptoms was August 22, 2018. Risk Assessment: Do you want to hurt yourself or someone else? Patient reports no desire to harm self or others. Initial Sepsis Screen: Does the patient meet any 2 criteria? No. Patient's initial sepsis screen is negative. Does the patient have a suspected source of infection? No. Patient's initial sepsis screen is negative. Care prior to arrival: None. 10:14 Method Of Arrival: Ambulatory 10:14 Acuity: LANEY 3 hj Triage Assessment: 10:16 General: Appears in no apparent distress. uncomfortable, Behavior is calm, cooperative, hj appropriate for age. Pain: Complains of pain in right foot, left foot, right leg and left leg. Historical: - Allergies: 10:16 Bactrim; hj - Home Meds: 10:16 amlodipine oral once daily [Active]; lisinopril Oral once daily [Active]; hj - PMHx: 10:16 Hypertension; UTI; hj - PSHx: 10:16 spleen removal; part of my lung; Heart stents; neck stent; hj - Immunization history:: Adult Immunizations not immunized. - Social history:: Smoking status: Patient/guardian denies using tobacco, Patient/guardian denies using alcohol. - Ebola Screening: : Patient negative for fever greater than or equal to 101.5 degrees Fahrenheit, and additional compatible Ebola Virus Disease symptoms Patient denies exposure to infectious person Patient denies travel to an Ebola-affected area in the 21 days before illness onset. Screenin:17 Abuse screen: Denies threats or abuse. Denies injuries from another. Nutritional hj screening: No deficits noted. Tuberculosis screening: No symptoms or risk factors identified. Fall Risk None identified. Assessment: 11:00 General: Appears in no apparent distress. Behavior is calm, cooperative. Pain: Denies la1 pain. Neuro: Level of Consciousness is awake, alert, obeys commands, Oriented to person, place, time, situation. Cardiovascular: Capillary refill < 3 seconds Patient's skin is warm and dry. Cardiovascular: Reports shortness of breath, SOB on exertion, gets SOB walking to bathroom, noticed swelling to BRITTANY LE this morning, 1+ non-pitting edema noted brittany le. Heart tones S1 S2 present. Respiratory: Airway is patent Respiratory effort is even, unlabored, Respiratory pattern is regular, symmetrical, Breath sounds are clear bilaterally. GI: Abdomen is round non-distended. : No signs and/or symptoms were reported regarding the genitourinary system. 12:15 Reassessment: Patient appears in no apparent distress at this time. No changes from la1 previously documented assessment. Patient and/or family updated on plan of care and expected duration. Pain level reassessed. Patient is alert, oriented x 3, equal unlabored respirations, skin warm/dry/pink. 13:54 Reassessment: Patient appears in no apparent distress at this time. No changes from la1 previously documented assessment. Patient and/or family updated on plan of care and expected duration. Pain level reassessed. Patient is alert, oriented x 3, equal unlabored respirations, skin warm/dry/pink. Vital Signs: 10:17 BP 132 / 84; Pulse 86; Resp 18; Temp 98.0(O); Pulse Ox 97% on R/A; Weight 86.18 kg; hj Height 6 ft. 0 in. (182.88 cm); Pain 2/10; 12:15 BP 152 / 94; Pulse 84; Resp 16; Pulse Ox 98% on R/A; la1 13:54 BP 154 / 74; Pulse 86; Resp 18; Temp 97.5; Pulse Ox 98% on R/A; la1 10:17 Body Mass Index 25.77 (86.18 kg, 182.88 cm) ED Course: 10:05 Patient arrived in ED. rg4 10:05 GINETTE SEQUEIRA is Private Physician. rg4 10:15 Triage completed. hj 10:17 Arm band placed on right wrist. hj 10:17 Patient has correct armband on for positive identification. Placed in gown. Bed in low hj position. Call light in reach. Side rails up X 1. 10:51 Tyler Villalta RN is Primary Nurse. la1 10:52 Jamal Trivedi PA is PHCP. [facility] 10:52 Eusebio Howe MD is Attending Physician. jmm 11:29 Radiology exam delayed due to lab results not completed at this time. (BUN/Creatinine). mw3 11:43 XRAY Chest (1 view) In Process Unspecified. EDMS 11:43 X-ray completed. Portable x-ray completed in exam room. Patient tolerated procedure tm4 well. 12:16 Inserted saline lock: 20 gauge in right antecubital area, using aseptic technique. la1 ,using aseptic technique. by [facility] Blood collected. 12:19 US Extremity Venous W Compression Brittany In Process Unspecified. EDMS 12:46 CT completed. Patient tolerated procedure well. Patient moved back from CT. mw3 12:48 CT Abd/Pelvis - W/Contrast In Process Unspecified. EDMS 13:28 GINETTE SEQUEIRA is Referral Physician. m 13:54 No provider procedures requiring assistance completed. IV discontinued, intact, la1 bleeding controlled, No redness/swelling at site. Pressure dressing applied. Administered Medications: 13:20 Drug: fentaNYL (PF) 25 mcg Route: IVP; Site: right antecubital; la1 13:54 Follow up: Response: No adverse reaction; Pain is decreased la1 Outcome: 13:29 Discharge ordered by . jmm 13:55 Patient left the ED. la1 Signatures: Dispatcher [employer] EDMS Jamal Trivedi PA PA [facility] Vickie Rivas tm4 Tyler Villalta RN RN la1 Aldo Sarabia RN RN hj Garcia, Rubi rg4 Brandi Marinelli mw3 Corrections: (The following items were deleted from the chart) 10:19 10:17 Pulse 86bpm; Resp 18bpm; Pulse Ox 97% RA; Temp 98.0F Oral; 86.18 kg; Height 6 ft. hj 0 in.; BMI: 25.7; Pain 2/10; hj 12:47 10:14 Presenting complaint: Patient states: i woke up this morning when i noticed both hj my feet are swollen; reports SOB; hj
--- NOTE | 2018-08-22 13:30 | EDPHYS ---
Physician Documentation [facility] Name: Fabian Arita Jr Age: 72 yrs Sex: Male : 1945 Arrival Date: 08/22/2018 Time: 10:05 Bed 5 Private MD: GINETTE SEQUEIRA ED Physician Eusebio Howe HPI: 08/22 11:19 This 72 yrs old Black Male presents to ER via Ambulatory with complaints of Leg jmm Swelling, Arm Swelling. 11:19 The patient presents with pain, swelling. The complaints affect the. Onset: The jmm symptoms/episode began/occurred this morning. Modifying factors: The symptoms are alleviated by nothing. the symptoms are aggravated by nothing. This is a 72 year old male with a history of htn that presents to the ED with complaints of shortness of breath worsening this past evening with swelling to his leg today. Patient also complains of right sided abdominal pain. . Historical: - Allergies: 10:16 Bactrim; hj - Home Meds: 10:16 amlodipine oral once daily [Active]; lisinopril Oral once daily [Active]; hj - PMHx: 10:16 Hypertension; UTI; hj - PSHx: 10:16 spleen removal; part of my lung; Heart stents; neck stent; hj - Immunization history:: Adult Immunizations not immunized. - Social history:: Smoking status: Patient/guardian denies using tobacco, Patient/guardian denies using alcohol. - Ebola Screening: : Patient negative for fever greater than or equal to 101.5 degrees Fahrenheit, and additional compatible Ebola Virus Disease symptoms Patient denies exposure to infectious person Patient denies travel to an Ebola-affected area in the 21 days before illness onset. ROS: 11:19 Constitutional: Negative for fever, chills, and weight loss, Cardiovascular: Negative jmm for chest pain, palpitations, and edema. 11:19 Respiratory: Positive for shortness of breath. 11:19 MS/extremity: Positive for swelling. 11:19 All other systems are negative. Exam: 11:19 Constitutional: This is a well developed, well nourished patient who is awake, alert, jmm and in no acute distress. Head/Face: atraumatic. Eyes: EOMI, no conjunctival erythema appreciated ENT: Moist Mucus Membranes Neck: Trachea midline, Supple Chest/axilla: Normal chest wall appearance and motion. Cardiovascular: Regular rate and rhythm. No edema appreciated Respiratory: Normal respirations, no respiratory distress appreciated 11:19 Abdomen/GI: Inspection: abdomen appears normal, Bowel sounds: normal, Palpation: soft, mild abdominal tenderness, in the right upper quadrant and right lower quadrant. 11:19 Back: ROM is normal. 11:19 Musculoskeletal/extremity: ROM: intact in all extremities. 11:19 Skin: Appearance: Color: normal in color. 11:19 Neuro: Orientation: is normal, Mentation: is normal, Memory: is normal. 11:19 Psych: Behavior/mood is pleasant, cooperative. 11:22 Musculoskeletal/extremity: swelling appreciated to the lower extremities bilaterally, [facility] erythema noted. Vital Signs: 10:17 BP 132 / 84; Pulse 86; Resp 18; Temp 98.0(O); Pulse Ox 97% on R/A; Weight 86.18 kg; hj Height 6 ft. 0 in. (182.88 cm); Pain 2/10; 12:15 BP 152 / 94; Pulse 84; Resp 16; Pulse Ox 98% on R/A; la1 13:54 BP 154 / 74; Pulse 86; Resp 18; Temp 97.5; Pulse Ox 98% on R/A; la1 10:17 Body Mass Index 25.77 (86.18 kg, 182.88 cm) MDM: 11:11 Patient medically screened. [facility] 13:27 Data reviewed: vital signs, nurses notes. Counseling: I had a detailed discussion with [facility] the patient and/or guardian regarding: the historical points, exam findings, and any diagnostic results supporting the discharge/admit diagnosis, lab results, radiology results, the need for outpatient follow up, to return to the emergency department if symptoms worsen or persist or if there are any questions or concerns that arise at home. ED course: Patient is alert and non toxic in appearance in the ED. Clinical symptoms concerning for cellulitis. Patient is given strict return precautions. Patient understood and agrees with the plan of care. . 08/22 11:01 Order name: Basic Metabolic Panel; Complete Time: 12:24 [facility] 08/22 11:01 Order name: CBC with Diff; Complete Time: 12:49 [facility] 08/22 11: Order name: LFT's; Complete Time: 12:24 [facility] 08/22 11:01 Order name: Magnesium; Complete Time: 12:24 [facility] 08/22 11:01 Order name: NT PRO-BNP; Complete Time: 12:24 [facility] 08/22 11:01 Order name: PT-INR; Complete Time: 12:24 [facility] 08/22 11:01 Order name: Troponin (emerg Dept Use Only); Complete Time: 12:24 [facility] 08/22 11:01 Order name: XRAY Chest (1 view); Complete Time: 12:24 [facility] 08/22 11:01 Order name: EKG; Complete Time: 11:02 [facility] 08/22 11:16 Order name: CT Abd/Pelvis - W/Contrast; Complete Time: 12:53 [facility] 08/22 11:23 Order name: US Extremity Venous W Compression Simone; Complete Time: 12:24 [facility] 08/22 11:25 Order name: CBC Smear Scan; Complete Time: 12:49 [facility] 08/22 11:27 Order name: Urine Dipstick--Ancillary (enter results); Complete Time: 12:24 08/22 11:01 Order name: Cardiac monitoring; Complete Time: 11:22 [facility] 08/22 11:01 Order name: EKG - Nurse/Tech; Complete Time: 11:23 [facility] 08/22 11:01 Order name: IV Saline Lock; Complete Time: 11:23 [facility] 08/22 11:01 Order name: Labs collected and sent; Complete Time: 11:23 [facility] 08/22 11:01 Order name: O2 Per Protocol; Complete Time: 11:23 [facility] 08/22 11:01 Order name: O2 Sat Monitoring; Complete Time: 11:23 [facility] Administered Medications: 13:20 Drug: fentaNYL (PF) 25 mcg Route: IVP; Site: right antecubital; la1 13:54 Follow up: Response: No adverse reaction; Pain is decreased la1 Disposition: 15:10 Co-signature as Attending Physician, Eusebio Howe MD. Disposition: 08/22/18 13:29 Discharged to Home. Impression: Cellulitis of right lower limb, Cellulitis of left lower limb. - Condition is Stable. - Discharge Instructions: Cellulitis, Adult. - Prescriptions for Clindamycin HCl 300 mg Oral Capsule - take 1 capsule by ORAL route every 6 hours for 10 days; 40 capsule. - Medication Reconciliation Form, Thank You Letter, Antibiotic Education, Prescription Opioid Use form. - Follow up: GINETTE SEQUEIRA; When: 1 - 2 days; Reason: Recheck today's complaints, Continuance of care, Re-evaluation by your physician. Signatures: Dispatcher [employer] EDMS Jamal Trivedi PA PA jmm Attema, Lee, RN RN la1 Aldo Sarabia RN RN hj Starr, Gregory, MD MD gs Corrections: (The following items were deleted from the chart) 13:55 13:29 08/22/2018 13:29 Discharged to Home. Impression: Cellulitis of right lower limb; la1 Cellulitis of left lower limb. Condition is Stable. Forms are Medication Reconciliation Form, Thank You Letter, Antibiotic Education, Prescription Opioid Use. Follow up: GINETTE SEQUEIRA; When: 1 - 2 days; Reason: Recheck today's complaints, Continuance of care, Re-evaluation by your physician. [place]
--- NOTE | 2018-08-23 07:41 | EKG ---
Test Date: 2018-08-22 Test Time: 11:04:09 [employer]: MEASUREMENT RESULTS: Intervals: Rate: 87 CT: 180 QRSD: 84 QT: 358 QTc: 430 [place]: P: 80 CT: 180 QRS: 62 T: 70 INTERPRETIVE STATEMENTS: Normal sinus rhythm Normal ECG Compared to ECG 07/19/2018 05:13:11 No significant changes Electronically Signed On 08-23-18 07:39:25 OUTPATIENT DIETITIAN by Warren Haley
== END 2018-08-22 13:55 | disposition home or self-care (01) ==
LOC: ER 10:01
DX: L03.116 Cellulitis of left lower limb (principal); L03.115 Cellulitis of right lower limb; I10 Essential (primary) hypertension; Z88.1 Allergy status to other antibiotic agents; Z95.818 Presence of other cardiac implants and grafts
CPT/HCPCS: 36415; 71045; 74177; 80048; 80076; 81003; 83735; 83880; 84484; 85025; 85610; 93005; 93970; 96374; 99284; J3010; Q9967

== ENCOUNTER 2022-03-29 07:32 | Observation (INO) | payer OTHER ==
--- OUTSIDE RECORDS SUMMARY | 2022-03-29 07:55 | XMS REPORT | Continuity of Care Document ---
:1945 Author Organization [facility] t Address [address] [place] [address] Care Team Providers Name Role Phone MARIO SEQUEIRA Primary Care Physician Unavailable Mariola Sequeira Attending Clinician Unavailable TAHMINA TIMMONS Attending Clinician Unavailable TAHMINA TIMMONS Attending Clinician Unavailable SRINIVASAN Attending Clinician Unavailable KELLEE PLASCENCIA Attending Clinician Unavailable Kimberly Watsno MD Attending Clinician Mariel Cesar MD Attending Clinician [phone] Alana Vincent Attending Clinician SRINIVASAN Admitting Clinician Unavailable Alana iVncent Admitting Clinician Payers Payer Name Policy Type Policy Number Effective Date Expiration Date Shay MARTINEZ II [id number] 2005 00:00:00 MEDICARE OBS/INPT [id number] 2010 PART A ONLY 00:00:00 Problems Condition Condition Condition Status Onset Resolution Last Treating Co mments Source Name Details Category Date Date Treatment Clinician Date Chronic Chronic Disease Active Univers hepatitis hepatitis 01-04 [place] C without [place] hepatic hepatic [place] coma coma Branch Prostate Prostate Disease Active Overview: Un raissa nodule nodule 6-17 Formattin ity of 00:00: g of this [place] 00 note Medical might be Branch different from the original. Added automatic ally from request for surgery [id number] SOB SOB Diagnosis Active 2017-01-17 Mem oria Active 01-16 12:43:00 l 01/16/2017 00:00: Trey valverde [address] BODY PAIN BODY PAIN Diagnosis Active 2017-01-16 Memoria Active 01-16 16:24:00 l 01/16/2017 00:00: Trey valverde [address] Chest pain Chest pain Disease Active U nivers 1-20 ity of 00:00: [place] [address] Medical Branch Essential Essential Disease Recurre Un raissa hypertensi hypertensi nce 1-20 it y of on on 00:00: [place] [address] Medical Branch Nausea Nausea Problem Active 2017-01-20 Robby analisa (finding) (finding) 02-07 02:36:16 l Active 00:00: Manfred 02/07/2010 00 Problem 01/20/2017 [facility] [place] [facility] Carotid Carotid Problem Active 2017-01-20 Me moria artery artery 02-06 02:36:16 l obstructio obstructio 00:00: Fredrick valverde n 00 (disorder) (disorder) Active 02/06/2010 Problem 01/20/2017 [facility] [place] [facility] Carotid-cisneros Carotid-s Problem Active 2017-01-20 Memoria bclavian ubclavian 02-06 02:36:16 l artery artery 00:00: Manfred bypass bypass 00 graft with graft with vein vein (procedure (procedure ) ) Active 02/06/2010 Problem 01/20/2017 [facility] [place] [facility] Acute rise Acute Problem Active 2017-01-20 M emoria of fever rise of 02-06 02:36:16 l (finding) fever 00:00: Manfred (finding) 00 Active 02/06/2010 Problem 01/20/2017 [facility] [place] [facility] Essential Essential Problem Active 2017-01-20 Memoria hypertensi hypertensi 02-06 02:36:16 l on on 00:00: Manfred (disorder) (disorder) 00 Active 02/06/2010 Problem 01/20/2017 [facility] [place] [facility] Pain Pain Problem Active 2017-01-20 Memor ia following following 02-06 02:36:16 l surgery, surgery, 00:00: Trey valverde acute( ) acute( ) 00 Active 02/06/2010 Problem 01/20/2017 [facility] [place] [facility] Hemoptysis Hemoptysi Problem Active 2009-2017-01-20 Memoria (finding) s 1- 02:36:16 l (finding) 00:00: [place] Active 00 07/07/2009 Problem 01/20/2017 [facility] [place] [facility] Stented Stented Problem Resolve 2017-01-20 M emoria coronary coronary d 02:36:16 l artery artery [place] (finding) (finding) Resolved Problem 01/20/2017 [facility] [place] [facility] Viral Viral Problem Resolve 2017-01-20 Robby analisa hepatitis hepatitis d 02:36:16 l C C Manfred (disorder) (disorder) Resolved Problem 01/20/2017 [facility] [place] [facility] Acute Acute Problem Active 2017-01-20 Memor ia urinary urinary 02:36:16 l tract tract [place] infection infection (disorder) (disorder) Active Problem 01/20/2017 [facility] [place] [facility] Cellulitis Celluliti Problem Active 2017-01-20 Memoria (disorder) s 02:36:16 l (disorder) Trey n Active Problem 01/20/2017 [facility] [place] [facility] Pyrexia of Pyrexia Problem Active 2017-01-20 Memoria unknown of unknown 02:36:16 l origin origin Manfred (finding) (finding) Active Problem 01/20/2017 blood culture done,urine culture done cbc with diff done [facility] [place] [facility] Pain Pain Problem Active 2017-01-20 Memor ia control control 02:36:16 l (procedure (procedure He rmann ) ) Active Problem 01/20/2017 [facility] [place] [facility] Swelling Swelling Problem Active 2017-01-20 Memoria or edema or edema 02:36:16 l (finding) (finding) Herm emi Active Problem 01/20/2017 [facility] [place] [facility] SHORTNESS SHORTNESS Diagnosis Active 2017-01-17 Memoria OF BREATH OF BREATH 12:43:00 l Active Trey n [facility] Abscess of Abscess Problem Resolve 2017-01-20 Memoria lung of lung d 02:36:16 l (disorder) (disorder) He rmann Resolved Problem 01/20/2017 [facility] [place] [facility] Hyperlipid Hyperlipi Problem Resolve 2017-01-20 Memoria emia demia d 02:36:16 l (disorder) (disorder) He rmann Resolved Problem 01/20/2017 [facility] [place] [facility] Asthma Asthma Problem Resolve 2017-01-20 Mem oria (disorder) (disorder) d 02:36:16 l Resolved [place] Problem 01/20/2017 [facility] [place] [facility] Hypertensi Hypertens Problem Resolve 2017-01-20 Memoria ve luis antonio d 02:36:16 l disorder, disorder, Herm emi systemic systemic arterial arterial (disorder) (disorder) Resolved Problem 01/20/2017 [facility] [place] [facility] Allergies, Adverse Reactions, Alerts Allergy Allergy Status Severity Reaction(s) Onset Inactive Treating Comm ents Source Name Type Date Date Clinician Sulfa Propensi Active Hives Univers (Sulfona ty to 9-14 ity of mide adverse 00:00: [place] Antibiot reaction 00 Medica l ics) s Branch SULFA Drug Active Hives Univers (SULFONA Class 9-14 ity of MIDE 00:00: [place] ANTIBIOT 00 Medical ICS) Branch Bactrim Bactrim Active Memoria l [place]fred sulfa sulfa Active Memoria drugs drugs l [place] Social History Social Habit Start Date Stop Date Quantity Comments Source History of Current smoker University of tobacco use [facility] Exposure to 2021-12-25 2022-01-04 Not sure [facility] SARS-CoV-2 00:00:00 14:45:00 [facility] (event) Branch Tobacco use and 2018-12-04 2018-12-04 User of smokeless Un iversity of exposure 00:00:00 00:00:00 tobacco [facility] Social History 2017-01-17 2017-01-17 [facility] 00:55:36 00:55:36 [birth year] Universit y of 00:00:00 00:00:00 [facility] Smoking Status Start Date Stop Date Source Ex-smoker 2018-12-04 00:00:00 2018-12-04 00:00:00 Universi ty [place] [facility] Medications Ordered Filled Start Stop Current Ordering Indication Dosage Frequency Signature Comments Components Source Medication Medication Date Date Medication? Clinician (SIG) Name Name sofosbuvir- Yes [id number] 1{tbl} Take 1 Univers velpatasvir 7-15 tablet by ity of 400-100 mg 00:00: mouth in [place] as 00 the Medical morning. Branch sofosbuvir- 2021- Yes [id number] 1{tbl} Take 1 Univers velpatasvir - 09-30 tablet by it y of 400-100 mg 00:00: 04:59 mouth [place] 00 :00 daily for Medical 84 days. Branch sofosbuvir- 2021- No [id number] 1{tbl} Take 1 Univers velpatasvir 7- 07-15 tablet by it y of 400-100 mg 00:00: 00:00 mouth [place] 00 :00 daily for Medical 84 days. Branch glecaprevir Yes [id number] 3{tbl} Take 3 Univers -pibrentasv 7-01 tablets by it y of ir 100-40 00:00: mouth [place] mg 00 daily for Medical 8 weeks. Branch glecaprevir Yes [id number] 3{tbl} Take 3 Univers -pibrentasv 7-01 tablets by it y of ir 100-40 00:00: mouth [place] mg 00 daily for Medical 8 weeks. Branch glecaprevir 2021- No [id number] 3{tbl} Take 3 Univers -pibrentasv 7- 07-07 tablets by i ty of ir 100-40 00:00: 00:00 mouth [place] mg 00 :00 daily for Medical 8 weeks. Branch lisinopril Yes 40mg Take 40 mg U nivers (PRINIVIL,Z 4-01 by mouth ity of ESTRIL) 40 13:59: daily. [place] mg tablet 36 Medical Branch AMLODIPINE 0 Yes Take by [facility] ers BESYLATE 4-01 mouth. ity of (AMLODIPINE 13:59: [place] ORAL) 36 Medical Branch lisinopril 0 Yes 40mg Take 40 mg U nivers (PRINIVIL,Z 4-01 by mouth ity of ESTRIL) 40 13:59: daily. [place] mg tablet 36 Medical Branch AMLODIPINE 0 Yes Take by Univ ers BESYLATE 4-01 mouth. ity of (AMLODIPINE 13:59: [place] ORAL) 36 Medical Branch lisinopril 0 Yes 40mg Take 40 mg U nivers (PRINIVIL,Z 4-01 by mouth ity of ESTRIL) 40 13:59: daily. [place] mg tablet 36 Medical Branch AMLODIPINE 2022-0 Yes Take by Univ ers BESYLATE 4-01 mouth. ity of (AMLODIPINE 13:59: [place] ORAL) 36 Medical Branch lisinopril Yes 40mg Take 40 mg U nivers (PRINIVIL,Z 4- by mouth ity of ESTRIL) 40 13:59: daily. [place] mg tablet 36 Medical Branch AMLODIPINE Yes Take by [facility] ers BESYLATE 4- mouth. ity of (AMLODIPINE 13:59: [place] ORAL) 36 Medical Branch Silodosin 4 2019-07 Yes [id number] 4mg Take 4 mg Univers mg Cap 2-14 by mouth ity of 00:00: daily. Medical Branch Silodosin 4 2019-07 Yes [id number] 4mg Take 4 mg Univers mg Cap 2-14 by mouth ity of 00:00: daily. Medical Branch Silodosin 4 2019-07 Yes [id number] 4mg Take 4 mg Univers mg Cap 2-14 by mouth ity of 00:00: daily. Medical Branch Silodosin 4 2019-07 Yes [id number] 4mg Take 4 mg Univers mg Cap 2-14 by mouth ity of 00:00: daily. [place] Medical Branch levoFLOXaci Yes [id number] 500mg Take 1 Univers n 6-17 9109 tablet by ity of (LEVAQUIN) 00:00: mouth [place] 500 mg 00 SEE-INSTRU Medical tablet CTIONS. 1 Branch PO day before biopsy, 1 PO day of biopsy and 1 PO day after biopsy levoFLOXaci Yes [id number] 500mg Take 1 Univers n 6-17 9109 tablet by ity of (LEVAQUIN) 00:00: mouth [place] 500 mg 00 SEE-INSTRU Medical tablet CTIONS. 1 Branch PO day before biopsy, 1 PO day of biopsy and 1 PO day after biopsy levoFLOXaci Yes [id number] 500mg Take 1 Univers n 6-17 9109 tablet by ity of (LEVAQUIN) 00:00: mouth [place] 500 mg 00 SEE-INSTRU Medical tablet CTIONS. 1 Branch PO day before biopsy, 1 PO day of biopsy and 1 PO day after biopsy levoFLOXaci Yes [id number] 500mg Take 1 Univers n 6-17 9109 tablet by ity of (LEVAQUIN) 00:00: mouth [place] 500 mg 00 SEE-INSTRU Medical tablet CTIONS. 1 Branch PO day before biopsy, 1 PO day of biopsy and 1 PO day after biopsy clindamycin 2018-0 Yes 300mg Take 1 Uni vers 300 mg 5-16 capsule by ity of capsule 00:00: mouth 4 (four) Medical times Branch daily. clindamycin [id number] Yes 300mg Take 1 Uni vers 300 mg 5-16 capsule by ity of capsule 00:00: mouth (four) Medical times Branch daily. clindamycin 2018-0 Yes 300mg Take 1 Uni vers 300 mg 5-16 capsule by ity of capsule 00:00: mouth (four) Medical times Branch daily. clindamycin 2018-0 Yes 300mg Take 1 Uni vers 300 mg 5-16 capsule by ity of capsule 00:00: mouth ([facility]) Medical times Branch daily. cefpodoxime Yes 200 mg = 1 Memoria 200 mg oral 7-14 tab, PO, l tablet 14:39: Q12H, X 10 Kaylin nn day, # 20 tab, 0 Refill(s) Albuterol No Notes: SEE Me moria 0.83 MG/ML 7-14 RT l Inhalant 14:38: DOCUMENTAT Her aguilar Solution 00 ION (Same as: Proventil) Symbicort Yes 2 puff, Memor ia 160/4.5 7-14 INHALER, l inhalation 14:18: BID, # 1 Her aguilar aerosol 00 ea, 3 with Refill(s) adapter lisinopril Yes 40 mg = 1 Me moria 40 mg oral 7-14 tab, PO, l tablet 14:18: Daily, # [place] 00 30 tab, 0 Refill(s) Amlodipine No Notes: Memor ia 7-14 (Same as: l 14:00: Norvasc) [place] 00 Melatonin 3 No Notes: Robby analisa MG Extended 7-14 (Same as: l Release 06:26: Melatonin) Herm emi Tablet 00 Cephalexin No Notes: Memor ia 7-14 Take on l 02:00: empty [place] 00 stomach. (Same As: Keflex) Ceftriaxone No Notes: Robby analisa 7-14 (Same As: l 01:00: Rocephin). Manfred 00 Use with 100 mL NS and infuse over 30 min MEDICATION WASTE Product Size: 1000 mg Product Wasted: __0_ mg tramadol No Notes: Not Mem oria hydrochlori 01-17 to exceed l de 50 MG 00:43: 400mg/day. Her aguilar Oral Tablet 00 (Same As: Ultram) Ondansetron No Notes: Robby analisa 01-17 (Same as: l 00:25: Zofran) Manfred MEDICATION WASTE Product Size: 4 mg Product Wasted: _0__ mg Acetaminoph No Notes: Do M emoria en 01-17 not exceed l 00:25: 4 gm/day. [place] (Same as: Tylenol) tramadol No 50 mg = 1 Robby analisa hydrochlori 01-16 tab, PO, l de 50 MG 23:25: Q8H, PRN Kaylin nn Oral Tablet 00 Pain, # 60 tab, 0 Refill(s) ciprofloxac No 500 mg = 1 Memoria in 500 mg 01-16 tab, PO, l oral tablet 23:25: Q12H, # 14 Manfred 00 tab, 0 Refill(s) cephalexin No 500 mg = 1 M emoria 500 mg oral 01-16 cap, PO, l capsule 23:25: QID, # 20 Kaylin nn 00 cap, 0 Refill(s) Ibuprofen No 600 mg, Memor ia 01-16 Route: PO, l 21:51: ONCE, [place] 00 Dosing Weight 86.364, kg, Priority: STAT, Start date: 01/16/17 16:51:00 CDT, Stop date: 01/16/17 16:51:00 CDT Albuterol No Notes: Memori a 0.833 MG/ML 01-16 (Same as: 19:07: Duoneb) Ipratropium 00 Cranberry 0.167 MG/ML Inhalant Solution [DuoNeb] Aspirin No 325 mg, Memoria 01-16 Route: PO, l 17:22: Drug form: Manfred TAB, ONCE, Dosing Weight 86.364, kg, Priority: STAT, Start date: 01/16/17 12:22:00 CDT, Stop date: 01/16/17 12:22:00 CDT traMADOL 2017-0 Yes 50mg Take 1 Univers (ULTRAM) 50 6-25 tablet by ity of mg tablet 00:00: mouth [place] 00 every 6 Medical (six) Branch hours as needed for Pain (scale 4-6). traMADOL 2017-0 Yes 50mg Take 1 Univers (ULTRAM) 50 6-25 tablet by ity of mg tablet 00:00: mouth [place] 00 every 6 Medical (six) Branch hours as needed for Pain (scale 4-6). traMADOL 2017-0 Yes 50mg Take 1 Univers (ULTRAM) 50 6-25 tablet by ity of mg tablet 00:00: mouth [place] 00 every 6 Medical (six) Branch hours as needed for Pain (scale 4-6). traMADOL 2017-0 Yes 50mg Take 1 Univers (ULTRAM) 50 6-25 tablet by ity of mg tablet 00:00: mouth [place] 00 every 6 Medical (six) Branch hours as needed for Pain (scale 4-6). Immunizations Ordered Filled Immunization Date Status Comments [facility] e Immunization Name Name SARS-COV-2 COVID-19 2020-10-02 Completed Unive rsity of MODERNA VACCINE 00:00:00 [facility] SARS-COV-2 COVID-19 2020-10-02 Completed Unive rsity of MODERNA VACCINE 00:00:00 [facility] SARS-COV-2 COVID-19 2020-10-02 Completed Unive rsity of MODERNA VACCINE 00:00:00 [facility] SARS-COV-2 COVID-19 2020-10-02 Completed Unive rsity of MODERNA VACCINE 00:00:00 [facility] SARS-COV-2 COVID-19 2020-09-04 Completed Unive rsity of MODERNA VACCINE 00:00:00 [facility] SARS-COV-2 COVID-19 2020-09-04 Completed Unive rsity of MODERNA VACCINE 00:00:00 [facility] SARS-COV-2 COVID-19 2020-09-04 Completed Unive rsity of MODERNA VACCINE 00:00:00 [facility] SARS-COV-2 COVID-19 2020-09-04 Completed Unive rsity of MODERNA VACCINE 00:00:00 [facility] Vital Signs Vital Name Observation Time Observation Value Comments Source Systolic blood 2022-01-04 19:53:00 164 mm[Hg] Univer sity of pressure [facility] Diastolic blood 2022-01-04 19:53:00 99 mm[Hg] Unive rsity of pressure [facility] Heart rate 2022-01-04 19:50:00 89 /min [facility] Body temperature 2022-01-04 19:50:00 [facility].72 [facility] height 2022-01-04 19:50:00 182.9 cm [facility] Body weight 2022-01-04 19:50:00 93.895 kg [facility] BMI 2022-01-04 19:50:00 28.07 kg/m2 [facility] Oxygen saturation in 2022-01-04 19:50:00 98 /min [facility] Arterial blood by [facility] Pulse oximetry Branch Systolic (mm Hg) 2017-01-17 14:23:00 Robby rial [place] Diastolic (mm Hg) 2017-01-17 14:23:00 Mem orial [place] Heart Rate 2017-01-17 14:23:00 Memorial [place] Respitory Rate 2017-01-17 14:23:00 Memori al [place] Temperature Oral (F) 2017-01-17 09:33:00 97.9 F Memorial [place] Respitory Rate 2017-01-17 09:33:00 Memori al [place] Systolic (mm Hg) 2017-01-17 09:33:00 Robby rial [place] Diastolic (mm Hg) 2017-01-17 09:33:00 Mem orial [place] Systolic (mm Hg) 2017-01-17 05:12:00 Robby rial [place] Diastolic (mm Hg) 2017-01-17 05:12:00 Mem orial [place] Heart Rate 2017-01-17 05:12:00 [facility] [place] Respitory Rate 2017-01-17 05:12:00 Memori al [place] Temperature Oral (F) 2017-01-17 05:12:00 97.7 F Memorial [place] BMI Calculated 2017-01-17 00:52:00 Memori al [place] Height 2017-01-17 00:52:00 182.88 cm Memorial [place] Weight 2017-01-17 00:52:00 [facility] [place] Heart Rate 2017-01-17 00:21:00 [facility] [place] Weight 2017-01-16 22:48:00 [facility] [place] BMI Calculated 2017-01-16 22:48:00 Memori al [place] Height 2017-01-16 22:48:00 183 cm Memorial [place] Temperature Oral (F) 2017-01-16 20:35:00 99.0 F Memorial [place] Height 2017-01-16 16:52:00 182.88 cm [facility] [place] Weight 2017-01-16 16:52:00 [facility] [place] BMI Calculated 2017-01-16 16:52:00 Memori al [place] Procedures Procedure Date / Time Performed Performing Clinician [facility] e Lung operation Memorial Manfred Encounters Start End Encounter Admission Attending Care Care Encounter Source Date/Time Date/Time Type Type Clinicians Facility Department ID 2021-11-13 Outpatient [facility] [id number] Common 11:07:01 Mariola [facility] 2021-10-25 Outpatient Alex, [facility]LMLC [facility] [id number] Common 13:48:02 [facility] 2021-08-01 Outpatient Alex, STLMLC [facility] [id number] Common 11:58:47 [facility] 2022-05-17 2022-05-17 Outpatient R TAHMINA TIMMONS [facility] [id number] Univers 11:30:00 11:30:00 TAHMINA TIMMONS [id number] [facility] 2022-02-05 2022-02-05 Outpatient JUAN MURPHY [address] [place] 00:00:00 00:00:00 HN 0802 da [facility] Outre h Program 2022-01-11 2022-01-11 Outpatient Laura PLASCENCIA [facility] [id number] Univers 13:30:00 13:30:00 KELLEE [facility] 2022-01-11 2022-01-11 Telephone Walter [facility] [id number] Univers 00:00:00 00:00:00 Kimberly SPECIALTY [id number] ity of C[place] [id number] [place] [id number] Pr rose marie WILSON [address] [place] [address] 2022-01-10 2022-01-10 LUCERO Guzman [id number] Univers 00:00:00 00:00:00 Management Mariel CORINA [id number] [facility] [id number] T ex [id number] [address] 2022-01-09 2022-01-09 [facility] [id number] Univers 00:00:00 00:00:00 Kimberly SPECIALTY [id number] it[place] [id number] [place] [id number] Pr rose marie WILSON [address] [place] [address] 2022-01-04 2022-01-04 Office [facility] [id number] Univers 15:30:00 16:00:00 Visit [place] SPECIALTY [id number] ity [place] C[id number] [id number] Pr rose marie WILSON [facility] 2022-01-04 2022-01-04 Outpatient R SHANELLE OSBALDOEMILI [facility] [id number] Univers 15:30:00 15:30:00 SHANELLE OSBALDOMARTINANA pauly [facility] 2021-12-31 2021-12-31 Outpatient Laura TIMMONS OSBALDOEMILI [facility] [id number] Univers 09:30:17 23:59:00 SHANELLE OSBALDOMARTINANA pauly [facility] 2017-01-16 2017-01-17 Observatio [facility] [id number] [facility] 16:51:00 15:27:00 abram Shearer 03 [facility] 2017-01-16 2017-01-17 [facility] [id number] 11:51:00 10:27:00 Alana 03 Results Test Description Test Time Test Comments Results Result Comments Source CHEM PANEL 2017-01-17 07:31:00 Test Item Value Reference Range Interpretation Comme nts Sodium Lvl (test code = Sodium Lvl) 140 135-145 [facility]2017-07-14 07:31:00 Test Item Value Reference Range Interpretation Comments BUN (test code = BUN) 15 7-22 [facility]2017-07-14 07:31:00 Test Item Value Reference Range Interpretation Comments Creatinine Lvl (test code = Creatinine 0.86 0.50-1.40 Lvl) [facility]2017-07-14 07:31:00 Test Item Value Reference Range Interpretation Comments AGAP (test code = AGAP) 8.7 10.0-20.0 [place] [id number] 07:31:00 Test Item Value Reference Range Interpretation Comments MCV (test code = MCV) 93.7 80.0-94.0 [id number] 07:31:00 Test Item Value Reference Range Interpretation Comments MCH (test code = MCH) 31.9 pg 27.0-31.0 [id number] 07:31:00 Test Item Value Reference Range Interpretation Comments MCHC (test code = MCHC) 34.1 32.0-36.0 [id number] 07:31:00 Test Item Value Reference Range Interpretation Comments MPV (test code = MPV) 8.9 7.4-10.4 [id number] 07:31:00 Test Item Value Reference Range Interpretation Comments RDW (test code = RDW) 13.2 11.5-14.5 [id number] 07:31:00 Test Item Value Reference Range Interpretation Comments Platelet (test code = Platelet) 172 133-450 [id number] 07:31:00 Test Item Value Reference Range Interpretation Comments Hgb (test code = Hgb) 12.7 14.0-18.0 [id number] 07:31:00 Test Item Value Reference Range Interpretation Comments Hct (test code = Hct) 37.1 42.0-54.0 [id number] 07:31:00 Test Item Value Reference Range Interpretation Comments WBC (test code = WBC) 5.2 3.7-10.4 [id number] 07:31:00 Test Item Value Reference Range Interpretation Comments RBC (test code = RBC) 3.96 4.70-6.10 [id number] 07:31:00 Test Item Value Reference Range Interpretation Comments Monocytes # (test code 0.8 See_Comment [Aut omated message] The = Monocytes #) system which generated this result tra nsmitted reference range : <=0.8. The reference r shefali was not used to int erpret this result as normal/abnormal . [id number] 07:31:00 Test Item Value Reference Range Interpretation Comments Eosinophils # (test code 0.9 See_Comment [A utomated message] The = Eosinophils #) system whic h generated this result tra nsmitted reference range : <=0.5. The reference r shefali was not used to int erpret this result as normal/abnormal . [id number] 07:31:00 Test Item Value Reference Range Interpretation Comments Segs-Bands # (test code = Segs-Bands #) 1.9 1.5-8.1 [id number] 07:31:00 Test Item Value Reference Range Interpretation Comments Lymphocytes # (test code = Lymphocytes 1.7 1.0-5.5 #) [id number] 07:31:00 Test Item Value Reference Range Interpretation Comments Segs (test code = Segs) 35.5 45.0-75.0 [id number] 07:31:00 Test Item Value Reference Range Interpretation Comments Lymphocytes (test code = Lymphocytes) 32.7 20.0-40.0 [id number] 07:31:00 Test Item Value Reference Range Interpretation Comments Monocytes (test code = Monocytes) 15.0 2.0-12.0 [id number] 07:31:00 Test Item Value Reference Range Interpretation Comments Eosinophils (test code = 16.3 See_Comment [A utomated message] The Eosinophils) system which ge nerated this result tra nsmitted reference range : <=4.0. The reference r shefali was not used to int erpret this result as normal/abnormal . [id number] 07:31:00 Test Item Value Reference Range Interpretation Comments Basophils (test code = 0.5 See_Comment [Aut omated message] The Basophils) system which ge nerated this result tra nsmitted reference range : <=1.0. The reference r shefali was not used to int erpret this result as normal/abnormal . [facility] [id number] 07:31:00 Test Item Value Reference Range Interpretation Comments Magnesium Lvl (test code = Magnesium 2.2 1.8-2.4 Lvl) [facility] [id number] 07:31:00 Test Item Value Reference Range Interpretation Comments eGFR (test code = eGFR) 88 [facility]2017-07-14 07:31:00 Test Item Value Reference Range Interpretation Comments Chloride Lvl (test code = Chloride Lvl) 106 95-109 [facility] [id number] 07:31:00 Test Item Value Reference Range Interpretation Comments CO2 (test code = CO2) 29 24-32 [facility] [id number] 07:31:00 Test Item Value Reference Range Interpretation Comments Calcium Lvl (test code = Calcium Lvl) 8.9 8.5-10.5 [facility] [id number] 07:31:00 Test Item Value Reference Range Interpretation Comments Potassium Lvl (test code = Potassium 3.7 3.5-5.1 Lvl) [facility] [id number] 07:31:00 Test Item Value Reference Range Interpretation Comments Glucose Lvl (test code = Glucose Lvl) 99 70-99 [facility] [id number] 22:48:00 Test Item Value Reference Range Interpretation Comments Troponin-I (test code no gt See_Comment [Auto mated message] The = Troponin-I) system which g enerated this result transmit giovanni reference range : <=0.40. The reference r shefali was not used to interpr et this result as cynthia l/abnormal. [facility] [id number] 22:48:00 Test Item Value Reference Range Interpretation Comments UA Urobilinogen (test code = UA >=8.0 EU/dL 0.1-1.0 Urobilinogen) [facility] AND [id number] 22:48:00 Test Item Value Reference Range Interpretation Comments UA Leuk Est (test code Trace *ABN*(01/16/17 = UA Leuk Est) 5:48 PM) [facility] AND [id number] 22:48:00 Test Item Value Reference Range Interpretation Comments UA Nitrite (test code Positive *ABN*(01/16/17 = UA Nitrite) 5:48 PM) [facility] AND [id number] 22:48:00 Test Item Value Reference Range Interpretation Comments UA Ketones (test code = Trace *ABN*(01/16/17 UA Ketones) 5:48 PM) [facility] AND [id number] 22:48:00 Test Item Value Reference Range Interpretation Comments UA Glucose (test code = UA Glucose) 100 mg/dL [facility] AND [id number] 22:48:00 Test Item Value Reference Range Interpretation Comments UA Bili (test code = Negative *NA*(01/16/17 UA Bili) 5:48 PM) [facility] AND [id number] 22:48:00 Test Item Value Reference Range Interpretation Comments UA Blood (test code = Negative (01/16/17 5:48 UA Blood) PM) [facility] AND [id number] 22:48:00 Test Item Value Reference Range Interpretation Comments UA Color (test code = [place] *ABN*(01/16/17 UA Color) 5:48 PM) [facility] AND [id number] 22:48:00 Test Item Value Reference Range Interpretation Comments UA Turbidity (test code Slight Cloudy = UA Turbidity) (01/16/17 5:48 PM) [facility] AND [id number] 22:48:00 Test Item Value Reference Range Interpretation Comments UA Spec Grav (test code = UA Spec 1.020 1 Grav) [facility] AND [id number] 22:48:00 Test Item Value Reference Range Interpretation Comments UA pH (test code = UA pH) 6.5 1 5.0-8.0 [facility] AND [id number] 22:48:00 Test Item Value Reference Range Interpretation Comments UA Protein (test code = UA Protein) 100 mg/dL [facility] AND [id number] 22:48:00 Test Item Value Reference Range Interpretation Comments UA Amorph Mary Kate (test code = Occasional /HPF UA Amorph Mary Kate) [facility] AND [id number] 22:48:00 Test Item Value Reference Range Interpretation Comments UA Mucus (test code = UA Mucus) Moderate /LPF [facility] AND [id number] 22:48:00 Test Item Value Reference Range Interpretation Comments UA Bacteria (test code = UA Moderate /HPF Bacteria) [facility] AND [id number] 22:48:00 Test Item Value Reference Range Interpretation Comments UA RBC (test code = 0-2 /HPF See_Comment [Automa giovanni message] The UA RBC) system which ge nerated this result tra nsmitted reference range : <=2. The reference range was not used to interpr et this result as cynthia l/abnormal. [facility] AND [id number] 22:48:00 Test Item Value Reference Range Interpretation Comments UA WBC (test code = UA WBC) 11-20 /HPF [facility] AND [id number] 22:48:00 Test Item Value Reference Range Interpretation Comments UA Sq Epi (test code = UA Sq Occasional /LPF Epi) [facility]2017-07-13 18:24:00 Test Item Value Reference Range Interpretation Comments CO2 (test code = CO2) 28 24-32 [facility]2017-07-13 18:24:00 Test Item Value Reference Range Interpretation Comments Chloride Lvl (test code = Chloride Lvl) 105 95-109 [facility]2017-07-13 18:24:00 Test Item Value Reference Range Interpretation Comments AGAP (test code = AGAP) 9.0 10.0-20.0 [facility]2017-07-13 18:24:00 Test Item Value Reference Range Interpretation Comments Calcium Lvl (test code = Calcium Lvl) 9.2 8.5-10.5 [facility]2017-07-13 18:24:00 Test Item Value Reference Range Interpretation Comments eGFR (test code = eGFR) 66 [id number] 18:24:00 Test Item Value Reference Range Interpretation Comments Monocytes # (test code 0.9 See_Comment [Aut omated message] The = Monocytes #) system which generated this result tra nsmitted reference range : <=0.8. The reference r shefali was not used to int erpret this result as normal/abnormal . [id number] 18:24:00 Test Item Value Reference Range Interpretation Comments Eosinophils # (test code 0.5 See_Comment [A utomated message] The = Eosinophils #) system whic h generated this result tra nsmitted reference range : <=0.5. The reference r shefali was not used to int erpret this result as normal/abnormal . [id number] 18:24:00 Test Item Value Reference Range Interpretation Comments Segs-Bands # (test code = Segs-Bands #) 3.7 1.5-8.1 [id number] 18:24:00 Test Item Value Reference Range Interpretation Comments Lymphocytes # (test code = Lymphocytes 1.5 1.0-5.5 #) [id number] 18:24:00 Test Item Value Reference Range Interpretation Comments Basophils (test code = 0.3 See_Comment [Aut omated message] The Basophils) system which ge nerated this result tra nsmitted reference range : <=1.0. The reference r shefali was not used to int erpret this result as normal/abnormal . [id number] 18:24:00 Test Item Value Reference Range Interpretation Comments Segs (test code = Segs) 55.5 45.0-75.0 [id number] 18:24:00 Test Item Value Reference Range Interpretation Comments Eosinophils (test code = 7.3 See_Comment [A utomated message] The Eosinophils) system which ge nerated this result tra nsmitted reference range : <=4.0. The reference r shefali was not used to int erpret this result as normal/abnormal . [facility]roeStktfmfIEEQODHWGY0601-07-54 18:24:00 Test Item Value Reference Range Interpretation Comments Lymphocytes (test code = Lymphocytes) 22.9 20.0-40.0 [id number] 18:24:00 Test Item Value Reference Range Interpretation Comments Monocytes (test code = Monocytes) 14.0 2.0-12.0 [facility] HospitalDzznwtfCOZWVEXHFV5490-12-50 18:24:00 Test Item Value Reference Range Interpretation Comments MPV (test code = MPV) 8.4 7.4-10.4 [facility] H[id number] 18:24:00 Test Item Value Reference Range Interpretation Comments MCH (test code = MCH) 31.4 pg 27.0-31.0 [facility] H[id number] 18:24:00 Test Item Value Reference Range Interpretation Comments MCHC (test code = MCHC) 33.3 32.0-36.0 [facility] H[id number] 18:24:00 Test Item Value Reference Range Interpretation Comments RDW (test code = RDW) 13.1 11.5-14.5 [facility] H[id number] 18:24:00 Test Item Value Reference Range Interpretation Comments Platelet (test code = Platelet) 184 133-450 [facility] H[id number] 18:24:00 Test Item Value Reference Range Interpretation Comments WBC (test code = WBC) 6.7 3.7-10.4 [facility] H[id number] 18:24:00 Test Item Value Reference Range Interpretation Comments RBC (test code = RBC) 4.25 4.70-6.10 [facility] Hospit[id number] 18:24:00 Test Item Value Reference Range Interpretation Comments Hgb (test code = Hgb) 13.3 14.0-18.0 [facility] CenterHhkhmidAYDYIGPOFS1437-27-04 18:24:00 Test Item Value Reference Range Interpretation Comments Hct (test code = Hct) 40.0 42.0-54.0 [facility] [id number] 18:24:00 Test Item Value Reference Range Interpretation Comments MCV (test code = MCV) 94.0 80.0-94.0 [facility] [id number] 18:24:00 Test Item Value Reference Range Interpretation Comments Troponin-I (test code no gt See_Comment [Auto mated message] The = Troponin-I) system which g enerated this result transmit giovanni reference range : <=0.40. The reference r shefali was not used to interpr et this result as cynthia l/abnormal. [facility]2017-07-13 18:24:00 Test Item Value Reference Range Interpretation Comments Lactic Acid Lvl (test code = Lactic 0.8 0.5-2.2 Acid Lvl) [facility]2017-07-13 18:24:00 Test Item Value Reference Range Interpretation Comments Glucose Lvl (test code = Glucose Lvl) 97 70-99 [facility]2017-07-13 18:24:00 Test Item Value Reference Range Interpretation Comments BUN (test code = BUN) 16 7-22 [facility]2017-07-13 18:24:00 Test Item Value Reference Range Interpretation Comments Potassium Lvl (test code = Potassium 4.0 3.5-5.1 Lvl) [facility]2017-07-13 18:24:00 Test Item Value Reference Range Interpretation Comments Sodium Lvl (test code = Sodium Lvl) 138 135-145 [facility]2017-07-13 18:24:00 Test Item Value Reference Range Interpretation Comments Creatinine Lvl (test code = Creatinine 1.12 0.50-1.40 Lvl) [facility]
[2022-03-29 08:16] LABS: Absolute Lymphocytes (CBC) 2.3 K/uL (0.7-4.9); Hematocrit 40.6 % (39.6-49.0); Lymphocytes % 41.9 % (15.3-44.8); MCV 92.5 fL (80-100); MPV 8.5 fL (7.6-11.3); RBC Red Blood Cell Count 4.39 M/uL (4.33-5.43)
--- NOTE | 2022-03-29 08:22 | RAD REPORT ---
EXAM DESCRIPTION: RAD - STROKE CXR 1 VIEW - 03/29/2022 8:09 am CLINICAL HISTORY: near syncope/ general weakness, Stroke protocol chest film COMPARISON: Chest Pa And Lat (2 Views) dated 12/16/2019 TECHNIQUE: Portable upright view of the chest was obtained 0804 hours. FINDINGS: Scattered fibrotic lung changes are present most notable in each lung base. Pattern is not substantially different from the comparison. No focal mass or consolidations seen. Heart size is normal. Upper lobe vasculature within normal limits. Stenting in the aortic arch is pre sent similar to prior imaging. No pneumothorax or large pleural effusion. Chronic right costophrenic angle blunting is present. Ther e are numerous old right-sided rib fractures. IMPRESSION: No acute cardiopulmonary finding. Above detailed findings are stable back to December 2019.
[2022-03-29 08:29] LABS: Albumin 3.3 g/dL (3.4-5.0); Bilirubin Direct 0.1 mg/dL (0-0.2); Bilirubin Total 0.5 mg/dL (0.2-1.0); Magnesium 2.3 mg/dL (1.8-2.4); Potassium 3.4 mmol/L (3.5-5.1); Protein, Total 8.1 g/dL (6.4-8.2); Protime INR 1.09
--- NOTE | 2022-03-29 08:43 | RAD REPORT ---
EXAM DESCRIPTION: CT - Ct Stroke Brain Wo Cont - 03/29/2022 8:27 am CLINICAL HISTORY: near syncope/ general weakness, stroke-like symptoms COMPARISON: Head angio dated 03/29/2022; HEAD BRAIN W O CONTRAST dated 09/22/2013 TECHNIQUE: Axial 5 millimeter thick images of the head were obtained without IV contrast. All CT scans are performed using dose optimization technique as appropriate and may include automated exposure control or mA/KV adjustment according to patient size. FINDINGS: No intracranial hemorrhage, mass, or cerebral edema. No acute cortical based infarction id entified. No cortical edema or sulcal effacement. Atrophy changes are mild for age similar to 2014. V entricles are in proportion to volume loss. Patient has prominent chronic ischemic changes throughout the cerebral white matter extending to a lesser degree into the thalamus and basal ganglia tissues. Chronic ischemic change has progressed slightly from 2014. Arterial and physiologic calcifications ar e present. Sanchez matter-white matter differentiation is preserved. Visualized portions of the mastoid air cells, paranasal sinuses, and orbits are unremarkable. Findings telephoned to BARRY Cuevas at 0835 hours IMPRESSION: No hemorrhage is present and no acute cortical based infarction identified. Patient has stable mild atrophy changes with ventricles in proportion. Prominent chronic ischemic changes are present showing progression from 2013. Chronic ischemic changes can mask nonhemorrhagic acute infarction. MR brain followup can be obtained if there is ongoing concern for acute ischemia.
--- NOTE | 2022-03-29 08:50 | RAD REPORT ---
EXAM DESCRIPTION: CT - Abdomen Pelvis W Contrast - 03/29/2022 8:19 am CLINICAL HISTORY: near syncope/ general weakness COMPARISON: Abdomen Pelvis W Contrast dated 08/22/2018; CT ABD PELVIS W CONTRAST dated 09/22/2014 TECHNIQUE: Biphasic, helical CT imaging of the abdomen and pelvis was performed following 100 ml non -ionic IV contrast. No oral contrast administered. All CT scans are performed using dose optimization technique as appropriate and may include automated exposure control or mA/KV adjustment according to patient size. FINDINGS: Lung base scarring changes are present with no acute finding. Multiple old rib fractures a re present on the right. No pericardial thickening or effusion. The liver and pancreas show no suspicious findings. Gallbladder is contracted. No biliary tree dilata tion identified. A cluster splenic nodules present in the left upper quadrant. 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 No acute component is seen. Symmetric renal function is seen with no hydronephrosis or suspicious renal mass. No pyelonephritis o r acute parenchymal process. No acute bladder finding seen. Patient has an enlarged lobulated prostat e gland projecting into the bladder base. This creates small lobulated mass near the trigone of the b ladder. This mass is believed to be prostate in origin rather than bladder base. No adrenal abnormali ties. Dilated, fluid-filled distal esophagus is present. This could be from vomiting episodes or reflux. No gross gastric wall abnormality seen. There is substantial motion artifact present. No large or small bowel dilatation. Appendix is normal. No focal GI abnormality identifiable. No free air, free fluid or inflammatory stranding. No mass or bulky lymphadenopathy. No omental th ickening. Fat extends into the origin of the left inguinal canal. Bony degenerative changes are present prominent in the lower lumbar spine. Numerous small focal areas of sclerotic change seen in multiple vertebral bodies. These are stable from 2019 imaging. IMPRESSION: Contrast enhanced CT abdomen and pelvis showing no acute or emergent finding. Mildly dilated fluid-filled lower thoracic esophagus. Fluid may be from reflux of gastric content or sequela of vomiting. A mass at the GE junction is not seen. No acute GI process identified. The amount of motion present is a limiting factor in evaluation. Enlarged lobulated prostate gland projecting into the bladder base.
--- NOTE | 2022-03-29 08:54 | RAD REPORT ---
EXAM DESCRIPTION: CT - Head angio - 03/29/2022 8:26 am CLINICAL HISTORY: near syncope/ general weakness, stroke-like symptoms TECHNIQUE: During dynamic enhancement using nonionic IV contrast, axial 1 millimeter thick images of the head were obtained. Sagittal and axial reconstruction images were generated using MIP technique and reviewed. All CT scans are performed using dose optimization technique as appropriate and may include automated exposure control or mA/KV adjustment according to patient size. COMPARISON: CT head same date FINDINGS: No aneurysm or vascular malformation identified. Major venous sinuses are patent. No stenosis, named branch occlusion, vasculitis or other significant vascular finding identifiable. Small tortuous vertebrobasilar vessels are noted. Patient has large bilateral posterior communicating arteries supplying most or all of the posterior cerebral artery circulation. This is a normal anatom ic variation. IMPRESSION: Negative CT angio head examination for acute finding. No significant atherosclerotic changes are identifiable. Patient has chronic ischemic pattern seen on CT imaging is greater than expected for vascular findings.
--- NOTE | 2022-03-29 09:16 | RAD REPORT ---
EXAM DESCRIPTION: CT - Neck Angio - 03/29/2022 8:26 am CLINICAL HISTORY: near syncope/ general weakness TECHNIQUE: During dynamic enhancement using nonionic IV contrast, axial 2 mm thick images of the nec k were obtained. Sagittal and axial reconstruction images were generated using MIP technique and revi ewed. All CT scans are performed using dose optimization technique as appropriate and may include automated exposure control or mA/KV adjustment according to patient size. COMPARISON: None FINDINGS: No aneurysm or vascular malformation identified. No carotid or vertebral dissection. No aortic arch or great vessel origin abnormality seen. Vertebral artery origins unremarkable as well . No significant stenosis, vasculitis or other significant carotid artery finding. No focal abnormali ty of either vertebral artery. Basilar artery is normal. IMPRESSION: Negative CT angio neck examination for acute or significant finding.
--- NOTE | 2022-03-29 09:55 | EDPHYS ---
Physician Documentation [facility] Name: Fabian Arita Jr Age: 76 yrs Sex: Male : 1945 Arrival Date: 03/29/2022 Time: 07:35 Bed 25 Private MD: ED Physician Miguel Ferguson HPI: 03/29 08:22 This 76 yrs old Black Male presents to ER via EMS with complaints of Near Syncope, rn General Weakness. 08:22 The patient has experienced near-syncope. Onset: The symptoms/episode began/occurred rn just prior to arrival. Duration: This was a single episode. Associated injury: The patient did not suffer any apparent associated injury. Current symptoms: Currently, the patient is not experiencing any symptoms. The patient has experienced a previous episode. The patient has not recently seen a physician. Pt reports at work, drove motorcycle fine to work, felt generalized weakness, difficulty speaking, near syncope, confusion. Co-workers got him off his bike, called 911, now states feels fine. Denies headache or chest pain/sob. Does state was diaphoretic and couldn't control what was happening. Reported right sided abd pain that has also resolved. No recent illness. Does report last week had left sided "mouth weakness" for 24 hours and went away eventually, was not evaluated for that. . Historical: - Allergies: 07:36 Bactrim; ll1 - PMHx: 07:36 Hypertension; UTI; Hep C, liver medication; ll1 - Immunization history:: Client reports receiving the 2nd dose of the Covid vaccine. - Social history:: Smoking status: Patient denies any tobacco usage or history of. - Family history:: not pertinent. - Hospitalizations: : No recent hospitalization is reported. ROS: 08:22 Constitutional: Negative for fever, chills, and weight loss, Eyes: Negative for injury, rn pain, redness, and discharge, Neck: Negative for injury, pain, and swelling, Cardiovascular: Negative for chest pain, palpitations, and edema, Respiratory: Negative for shortness of breath, cough, wheezing, and pleuritic chest pain, Abdomen/GI: Negative for abdominal pain, nausea, vomiting, diarrhea, and constipation, Back: Negative for injury and pain, MS/Extremity: Negative for injury and deformity, Skin: Negative for injury, rash, and discoloration, Neuro: Negative for headache, numbness, tingling, and seizure. Exam: 08:22 Constitutional: This is a well developed, well nourished patient who is awake, alert, rn and in no acute distress. Head/Face: Normocephalic, atraumatic. Eyes: Periorbital areas with no swelling, redness, or edema. Neck: Trachea midline. Supple, full range of motion without nuchal rigidity, or vertebral point tenderness. No Meningismus. Cardiovascular: Regular rate and rhythm. No pulse deficits. Respiratory: No increased work of breathing, no retractions or nasal flaring. Abdomen/GI: Soft, non-tender Skin: Warm, dry MS/ Extremity: Pulses equal, no cyanosis. Neurovascular intact. Full, normal range of motion. Equal circumference. Neuro: Awake and alert, GCS 15, oriented to person, place, time, and situation. Cranial nerves II-XII grossly intact. Motor strength 5/5 in all extremities. Sensory grossly intact. Cerebellar exam normal. 08:55 ECG was reviewed by the Attending Physician. rn Vital Signs: 07:36 BP 144 / 79; Pulse 81; Resp 16; Temp 97.8; Pulse Ox 97% on R/A; Weight 97.52 kg; Height ll1 6 ft. 0 in. (182.88 cm); Pain 0/10; 09:00 BP 134 / 83; Pulse 81; Pulse Ox 100% ; ll1 10:27 BP 123 / 75; Pulse 70; Resp 16; Pulse Ox 100% on R/A; ll1 11:40 BP 143 / 93; Pulse 78; Resp 18; Pulse Ox 99% on R/A; kr3 12:30 BP 115 / 74; Pulse 78; Resp 18; Pulse Ox 99% on R/A; kr3 13:44 BP 138 / 77; Pulse 79; Resp 18; Pulse Ox 99% on R/A; kr3 07:36 Body Mass Index 29.16 (97.52 kg, 182.88 cm) ll1 NIH Stroke Scale Scores: 08:22 NIHSS Score: 0 rn MDM: 07:41 Patient medically screened. rn 09:53 Differential Diagnosis: aortic aneurysm, cerebrovascular accident, transient ischemic rn attack, vasovagal episode. Data reviewed: vital signs, nurses notes, lab test result(s), EKG, radiologic studies, CT scan, and as a result, I will admit patient. Counseling: I had a detailed discussion with the patient and/or guardian regarding: the historical points, exam findings, and any diagnostic results supporting the discharge/admit diagnosis, lab results, radiology results, the need for further work-up and treatment in the hospital. Response to treatment: the patient's condition has returned to base line, the patient is now symptom free, and as a result, I will admit patient. Admission orders: after a detailed discussion of the patient's condition and case, the admit orders are written by me. 03/29 07:43 Order name: Basic Metabolic Panel rn 03/29 07:43 Order name: CBC with Diff rn 03/29 07:43 Order name: CPK rn 03/29 07:43 Order name: Magnesium rn 03/29 07:43 Order name: Protime (+inr) rn 03/29 07:43 Order name: Ptt, Activated rn 03/29 07:45 Order name: LFT's rn 03/29 08:11 Order name: Basic Metabolic Panel; Complete Time: 09:45 EDMS 03/29 08:11 Order name: Liver (Hepatic) Function; Complete Time: 09:45 EDMS 03/29 08:11 Order name: Creatine Phosphokinase; Complete Time: 09:45 EDMS 03/29 08:11 Order name: Magnesium; Complete Time: 09:45 EDMS 03/29 08:11 Order name: CBC with Automated Diff; Complete Time: 09:12 EDMS 03/29 08:11 Order name: Protime (+INR); Complete Time: 09:12 EDMS 03/29 08:11 Order name: PTT, Activated Partial Thromb; Complete Time: 09:12 EDMS 03/29 07:43 Order name: CT Stroke Brain w/o Contrast rn 03/29 07:43 Order name: Stroke CXR 1 View rn 03/29 07:45 Order name: CT Head Angio rn 03/29 07:45 Order name: CT Neck Angio rn 03/29 07:46 Order name: CT Abd/Pelvis - IV Contrast Only rn 03/29 07:59 Order name: Abdomen ; Complete Time: 09:12 EDMS 03/29 07:59 Order name: Head angio; Complete Time: 09:12 EDMS 03/29 07:59 Order name: Neck Angio; Complete Time: 09:25 EDMS 03/29 08:48 Order name: Glucose, Ancillary Testing; Complete Time: 09:12 EDMS 03/29 08:54 Order name: CREATININE WHOLE BLOOD; Complete Time: 09:12 EDMS 03/29 09:15 Order name: Troponin High Sensitivity rn 03/29 09:34 Order name: Troponin High Sensitivity; Complete Time: 10:27 EDMS 03/29 11:19 Order name: SARS RAPID eb 03/29 12:13 Order name: SARS-COV-2 Antigen Rapid EDMS 03/29 07:43 Order name: EKG; Complete Time: 11:41 rn 03/29 07:43 Order name: Accucheck; Complete Time: 08:36 rn 03/29 07:43 Order name: Cardiac monitoring; Complete Time: 08:02 rn 03/29 07:43 Order name: EKG - Nurse/Tech; Complete Time: 07:44 rn 03/29 07:43 Order name: IV Saline Lock; Complete Time: 08:02 rn 03/29 07:43 Order name: Labs collected and sent; Complete Time: 08:02 rn 03/29 07:43 Order name: NPO; Complete Time: 08:03 rn 03/29 07:43 Order name: O2 Per Protocol; Complete Time: 07:52 rn 03/29 07:43 Order name: O2 Sat Monitoring; Complete Time: 07:52 rn 03/29 07:43 Order name: Stroke Swallow Screen; Complete Time: 08:07 rn 03/29 07:59 Order name: STROKE CXR 1 VIEW; Complete Time: 09:12 EDMS 03/29 08:02 Order name: Ct Stroke Brain Wo Cont; Complete Time: 09:12 EDMS EC:55 Rate is 78 beats/min. Rhythm is regular. QRS [place] is Normal. ID interval is normal. QRS rn interval is normal. QT interval is normal. No Q waves. T waves are Normal. No ST changes noted. Clinical impression: NSR w/ Non-specific ST/T Changes. Interpreted by me. Administered Medications: No medications were administered Disposition Summary: 03/29/22 09:54 Hospitalization Ordered Hospitalization Status: Observation rn Location: Telemetry/MedSur (observation) rn Condition: Stable rn Problem: new rn Symptoms: have improved rn Bed/Room Type: Standard rn Provider: Kendall Bello(03/29/22 10:04) rn Room Assignment: 417(03/29/22 13:36) dw Diagnosis - Transient cerebral ischemic attack, unspecified rn Forms: - Medication Reconciliation Form rn - SBAR form rn NIH Stroke Scale - NIH Stroke Score Date: 03/29/2022 Time: : Total Score = 0 1a. Level of Consciousness (LOC) - 0(Alert) 1b. Level of Consciousness (LOC) (Month \\T\\ Age) - 0(Both) 1c. LOC Commands (Open \\T\\ Closes Eyes/Manufacturing Project Engineer) - 0(Both) 2. Best Gaze (Lateral Gaze Paresis) - 0(Normal) 3. Visual Field Loss - 0(No visual loss) 4. Facial Palsy - 0(Normal) 5a. Left Arm: Motor (10-second hold) - 0(No drift) 5b. Right Arm: Motor (10-second hold) - 0(No drift) 6a. Left Leg: Motor (5-second hold - always test supine) - 0(No drift) 6b. Right Leg: Motor (5-second hold - always test supine) - 0(No drift) 7. Limb Ataxia (finger/nose \\T\\ heel/lima - test with eyes open) - 0(Absent) 8. Sensory Loss (pinprick arms/legs/face) - 0(Normal) 9. Best Language: Aphasia (description/naming/reading) - 0(No aphasia) 10. Dysarthria (speech clarity - read or repeat words) - 0(Normal) 11. Extinction and Inattention (visual/tactile/auditory/spatial/personal) - 0(No abnormality) Initials: rn Signatures: Dispatcher [employer] EDMS Marissa Orosco RN RN dw Waters, Shelly, PHARMACEUTICAL SCIENTIST-C PHARMACEUTICAL SCIENTIST-Csnw Miguel Ferguson MD MD rn Lewis, Lynsay, RN RN ll1 Corrections: (The following items were deleted from the chart) 08:00 07:59 CT-STROKE BRAIN W/O CONTRAST ordered. EDMS EDMS 09:33 09:18 Troponin High Sensitivity ordered. EDMS EDMS 10:04 09:54 Alissa Thomas rn, rn 13:36 09:54 duran whitfield
--- NOTE | 2022-03-29 09:55 | ER ---
Nurse's Notes [facility] Name: Fabian Arita Jr Age: 76 yrs Sex: Male : 1945 Arrival Date: 03/29/2022 Time: 07:35 Bed 25 Private MD: Diagnosis: Transient cerebral ischemic attack, unspecified Presentation: 03/29 07:36 Chief complaint: Patient states: [place] weak, lethargic, N/V episode, near syncope event ll1 while riding to work on his motorcycle. States he felt normal yesterday. No pain now, had R sided abd pain when he felt bad earlier. EMS states: VSS. He was weak, lethargic, and sweating upon EMS arrival. VSS. Fingerstick 120. Coronavirus screen: Vaccine status: Patient reports receiving the 2nd dose of the covid vaccine. Client denies travel out of the [place] in the last 14 days. fatigue, nausea, vomiting. Client presents with at least one sign or symptom that may indicate coronavirus-19. Standard/surgical mask placed on the client. Ebola Screen: Patient denies travel to an Ebola-affected area in the 21 days before illness onset. Initial Sepsis Screen: Does the patient meet any 2 criteria? No. Patient's initial sepsis screen is negative. Does the patient have a suspected source of infection? No. Patient's initial sepsis screen is negative. Risk Assessment: Do you want to hurt yourself or someone else? Patient reports no desire to harm self or others. Onset of symptoms was March 29, 2022. 07:36 Method Of Arrival: EMS ll1 07:36 Acuity: LANEY 3 ll1 Triage Assessment: 07:39 General: Appears in no apparent distress. Behavior is calm, cooperative. Pain: Denies ll1 pain. Neuro: Reports dizziness, a syncopal episode weakness. GI: Reports nausea, vomiting. Historical: - Allergies: 07:36 Bactrim; ll1 - PMHx: 07:36 Hypertension; UTI; Hep C, liver medication; ll1 - Immunization history:: Client reports receiving the 2nd dose of the Covid vaccine. - Social history:: Smoking status: Patient denies any tobacco usage or history of. - Family history:: not pertinent. - Hospitalizations: : No recent hospitalization is reported. Screenin:17 Abuse screen: Denies threats or abuse. Nutritional screening: No deficits noted. kr3 Tuberculosis screening: No symptoms or risk factors identified. Fall Risk IV access (20 points). Total Estevez Fall Scale indicates No Risk (0-24 pts). Assessment: 07:48 General: Appears in no apparent distress. uncomfortable, Behavior is calm, cooperative, kr3 appropriate for age. 08:45 Reassessment: No changes from previously documented assessment. Patient and/or family kr3 updated on plan of care and expected duration. Pain level reassessed. Patient is alert, oriented x 3, equal unlabored respirations, skin warm/dry/pink. 09:45 Reassessment: No changes from previously documented assessment. Patient and/or family kr3 updated on plan of care and expected duration. Pain level reassessed. 10:45 Reassessment: No changes from previously documented assessment. Patient and/or family kr3 updated on plan of care and expected duration. Pain level reassessed. 11:45 Reassessment: No changes from previously documented assessment. Patient and/or family kr3 updated on plan of care and expected duration. Pain level reassessed. 12:45 Reassessment: No changes from previously documented assessment. Patient and/or family kr3 updated on plan of care and expected duration. Pain level reassessed. 13:47 Reassessment: No changes from previously documented assessment. Patient and/or family kr3 updated on plan of care and expected duration. Pain level reassessed. Vital Signs: 07:36 BP 144 / 79; Pulse 81; Resp 16; Temp 97.8; Pulse Ox 97% on R/A; Weight 97.52 kg; Height ll1 6 ft. 0 in. (182.88 cm); Pain 0/10; 09:00 BP 134 / 83; Pulse 81; Pulse Ox 100% ; ll1 10:27 BP 123 / 75; Pulse 70; Resp 16; Pulse Ox 100% on R/A; ll1 11:40 BP 143 / 93; Pulse 78; Resp 18; Pulse Ox 99% on R/A; kr3 12:30 BP 115 / 74; Pulse 78; Resp 18; Pulse Ox 99% on R/A; kr3 13:44 BP 138 / 77; Pulse 79; Resp 18; Pulse Ox 99% on R/A; kr3 07:36 Body Mass Index 29.16 (97.52 kg, 182.88 cm) ll1 NIH Stroke Scale Scores: 08:22 NIHSS Score: 0 journalism internship Course: 07:32 Arm band placed on Patient placed in an exam room, on a stretcher. ll1 07:35 Patient arrived in ED. ll1 07:39 Triage completed. ll1 07:41 Miguel Ferguson MD is Attending Physician. rn 07:43 Amanda Gray RN is Primary Nurse. kr3 08:02 Inserted saline lock: 20 gauge in right antecubital area, using aseptic technique. kr3 Blood collected. 08:11 STROKE CXR 1 VIEW In Process Unspecified. EDMS 08:21 Abdomen In Process Unspecified. EDMS 08:28 Head angio In Process Unspecified. EDMS 08:28 Neck Angio In Process Unspecified. EDMS 08:28 Ct Stroke Brain Wo Cont In Process Unspecified. EDMS 09:54 Alissa Thomas MD is Hospitalizing Provider. rn 10:04 Kendall Bello is Hospitalizing Provider. rn 10:40 Bed in low position. Call light in reach. Side rails up X 1. kr3 16:17 No provider procedures requiring assistance completed. Patient admitted, IV remains in kr3 place. Administered Medications: No medications were administered Medication: 16:21 VIS not applicable for this client. kr3 Outcome: 09:54 Decision to Hospitalize by Provider. rn 15:50 Patient left the ED. ll1 16:17 Admitted to Med/surg kr3 16:17 Condition: stable 16:17 Instructed on the need for admit. NIH Stroke Scale - NIH Stroke Score Date: 03/29/2022 Time: 08:22 Total Score = 0 1a. Level of Consciousness (LOC) - 0(Alert) 1b. Level of Consciousness (LOC) (Month \T\ Age) - 0(Both) 1c. LOC Commands (Open \T\ Closes Eyes/Space Operations Officer) - 0(Both) 2. Best Gaze (Lateral Gaze Paresis) - 0(Normal) 3. Visual Field Loss - 0(No visual loss) 4. Facial Palsy - 0(Normal) 5a. Left Arm: Motor (10-second hold) - 0(No drift) 5b. Right Arm: Motor (10-second hold) - 0(No drift) 6a. Left Leg: Motor (5-second hold - always test supine) - 0(No drift) 6b. Right Leg: Motor (5-second hold - always test supine) - 0(No drift) 7. Limb Ataxia (finger/nose \T\ heel/lima - test with eyes open) - 0(Absent) 8. Sensory Loss (pinprick arms/legs/face) - 0(Normal) 9. Best Language: Aphasia (description/naming/reading) - 0(No aphasia) 10. Dysarthria (speech clarity - read or repeat words) - 0(Normal) 11. Extinction and Inattention (visual/tactile/auditory/spatial/personal) - 0(No abnormality) Initials: rn Signatures: Dispatcher [employer] EDMS Miguel Ferguson MD MD rn Lewis, Lynsay, RN RN ll1 Amanda Gray RN RN kr3 Corrections: (The following items were deleted from the chart) 08:38 08:37 Recheck of kr3 kr3 10:50 08:05 General: Appears in no apparent distress. uncomfortable, Behavior is kr3 calm, cooperative, appropriate for age, kr3 13:44 11:40 BP 164 / 99; Pulse 78bpm; Resp 18bpm; Pulse Ox 99% RA; kr3 kr3 13:46 13:42 BP 115 / 74; Pulse 78bpm; Resp 18bpm; Pulse Ox 99% RA; kr3 kr3 13:48 13:44 BP 138 / 94; Pulse 66bpm; Resp 18bpm; Pulse Ox 99% RA; kr3 kr3
--- NOTE | 2022-03-29 10:32 | P.HP ---
Certification for Inpatient With expected LOS: <2 Midnights Patient will require the following post-hospital care: None Practitioner: I am a practitioner with admitting privileges, knowledge of patient current condition, hospital course, and medical plan of care. Services: Services provided to patient in accordance with Admission requirements found in Title 42 Section 412.3 of the Code of Federal Regulations Patient History Date of Service: 03/29/22 Primary Care Provider: Pushpa Johnson NP Reason for admission: TIA, HTN History of Present Illness: Mr. Arita is a 76yo male with a hx of HTN and Hepatitis C who presented to the ED at [facility] today s/p TIA s/s. Mr. Arita rode his motorcycle to work this am. When he arrived, he vomited and was unable to move, speak, or see. Coworkers assisted pt off his motorcycle and laid him on the ground. Pt arrived to ED with a NIH score of 0. CT head negative for acute changes, CT angio head and neck show no acute findings but do show ischemic pattern greater than expected for vascular changes. Labs unremarkable. Pt with NIH scale of 0 on my assessment. Allergies Sulfa (Sulfonamide Antibiotics) Allergy (Verified 07/19/18 09:01) Hives sulfamethoxazole [From Bactrim] Allergy (Verified 07/19/18 09:01) Unknown trimethoprim [From Bactrim] Allergy (Verified 07/19/18 09:01) Unknown Home medications list reviewed: Yes (Amlodipine, Lisinopril, and Epclusa) Home Medications: Amlodipine [Norvasc*] 10 mg PO DAILY 07/19/18 Lisinopril [Zestril] 40 mg PO DAILY 07/19/18 - Past Medical/Surgical History Has patient received pneumonia vaccine in the past: No Diabetic: No -: HTN -: CAD -: trauma -: Hep C -: splenectomy -: coronary stents - Social History Smoking Status: Former smoker (Pt lives at home alone.) Alcohol use: No CD- Drugs: No Caffeine use: Yes Review of Systems General: Weakness, Malaise, Other (now resolved) Eyes: Unremarkable ENT: Unremarkable Respiratory: Unremarkable Cardiovascular: Unremarkable Gastrointestinal: Vomiting Genitourinary: Unremarkable Musculoskeletal: Unremarkable Integumentary: Unremarkable Neurological: Weakness, Incoordination, Change in Speech, As per HPI, Unremarkable (at time of assessment) Physical Examination - Physical Exam General: Alert, Oriented x3, Cooperative HEENT: Atraumatic, Normocephalic Neck: Supple, 2+ carotid pulse no bruit, JVD not distended Respiratory: Clear to auscultation bilaterally, Normal air movement Cardiovascular: No edema, Normal pulses Capillary refill: <2 Seconds Gastrointestinal: Normal bowel sounds, Soft and benign Musculoskeletal: No clubbing, No swelling Integumentary: No rashes, No breakdown Neurological: Normal strength at 5/5 x4 extr, Sensation intact, Cranial nerves 3-12 intact, Other (NIH 0) External genitalia: Deferred Rectal: Deferred - Studies Laboratory Data (last 24 hrs) 03/29/22 07:55: PT 12.0, INR 1.09, APTT 31.8 03/29/22 07:55: WBC 5.50, Hgb 14.2, Hct 40.6, Plt Count 178 03/29/22 07:55: Sodium 137, Potassium 3.4 L, BUN 18, Creatinine 1.24, Glucose 141 H, Magnesium 2.3, Total Bilirubin 0.5, AST 13 L, ALT 17, Alkaline Phosphatase 58 Assessment and Plan - Problems (Diagnosis) (1) TIA (transient ischemic attack) Current Visit: Yes Status: Acute Plan: Repeat NIH/neurological exams, monitor labs to include lipids, consult Dr. Sauceda. Aspirin 81mg po daily. (2) HTN (hypertension) Onset Date: 07/20/18 Current Visit: No Status: Acute Qualifiers: Hypertension type: primary hypertension Qualified Code(s): I10 - Essential (primary) hypertension - Plan Continue to monitor, medications as per home schedule: Lisinopril 40mg, Amlodipine 10mg. Monitor electrolytes, Lovenox for DVT prophylaxis - Advance Directives Does patient have a Living Will: No Does patient have a Durable POA for Healthcare: No Time Spent Managing Pts Care (In Minutes): 45
[2022-03-29 12:13] LABS: SARS-CoV-2 Antigen Rapid Res Negative (Negative)
[2022-03-29 14:48] VITALS: BMI 29.1
[2022-03-29] MEDS: INSULIN -REGULAR HUMAN 50 UNIT/0.5 ML ML SQ SCH ×3 (15:13→21:00)
[2022-03-29 17:01] LABS: Thyroid Stimulating Hormone 1.18 uIU/mL (0.360-3.740)
[2022-03-29] MEDS: NA CHLORIDE 0.9% 1,000 ML IV SCH (17:03)
[2022-03-29] MEDS: ENOXAPARIN 40 MG/0.4 ML SQ SCH (17:03)
[2022-03-29] MEDS: DOCOSAHEXANOIC AC/EPA 1000 MG PO SCH (21:02)
[2022-03-29] MEDS: TRAMADOL HCL 50 MG TAB PO PRN (23:59)
[2022-03-30] MEDS: NA CHLORIDE 0.9% 1,000 ML IV SCH (05:09)
[2022-03-30 07:17] LABS: Hematocrit 39.5 % (39.6-49.0); Lymphocytes % 47.9 % (15.3-44.8); MCV 93.1 fL (80-100); MPV 8.9 fL (7.6-11.3); RBC Red Blood Cell Count 4.24 M/uL (4.33-5.43)
[2022-03-30 07:21] LABS: Protime INR 1.13
[2022-03-30] MEDS: INSULIN -REGULAR HUMAN 50 UNIT/0.5 ML ML SQ SCH ×2 (07:30→11:30)
[2022-03-30 07:34] LABS: Albumin 3.1 g/dL (3.4-5.0); Bilirubin Total 0.4 mg/dL (0.2-1.0); Magnesium 2.1 mg/dL (1.8-2.4); Phosphorus 3.1 mg/dL (2.5-4.9); Protein, Total 7.2 g/dL (6.4-8.2)
[2022-03-30] MEDS: TRAMADOL HCL 50 MG TAB PO PRN (08:59)
[2022-03-30] MEDS ORDERED: ASPIRIN EC 81 MG TAB PO SCH (09:00)
[2022-03-30] MEDS ORDERED: AMLODIPINE 10 MG TAB PO SCH (09:00)
[2022-03-30] MEDS ORDERED: EPCLUSA PO SCH (09:00)
[2022-03-30] MEDS ORDERED: lisinopriL 20 MG TAB PO SCH (09:00)
[2022-03-30] MEDS ORDERED: MULTIVITAMIN TAB PO SCH (09:00)
[2022-03-30] MEDS: DOCOSAHEXANOIC AC/EPA 1000 MG PO SCH (09:15)
[2022-03-30] MEDS: ENOXAPARIN 40 MG/0.4 ML SQ SCH (09:15)
[2022-03-30 09:26] LABS: Blood Morphology Comment NOT SEEN (NOT SEEN); Platelet Estimate ADEQ
--- NOTE | 2022-03-30 10:40 | RAD REPORT ---
EXAM DESCRIPTION: CT - Angio Aorta For Dissection - 03/30/2022 10:22 am CLINICAL HISTORY: Chest pain radiating to the back. Syncope COMPARISON: Abdomen Pelvis W Contrast dated 03/29/2022 TECHNIQUE: CT angiography of the aorta was performed with MIPs. All CT scans are performed using dose optimization technique as appropriate and may include automated exposure control or mA/KV adjustment according to patient size. FINDINGS: A left aortic arch is present with normal branching pattern of the great vessels.A stent i s present in the aortic arch and proximal descending thoracic aorta. Mild to moderate narrowing of th e left subclavian artery ostium seen.No acute aortic finding is seen such as aneurysm, penetrating ul cer or dissection. The celiac axis, SMA, TIMMY and renal arteries are patent. No evidence of pulmonary embolism. Mild atelectasis is seen in both posterior lung bases. Mild COPD. The liver demonstrates no focal mass or biliary dilatation.The spleen, pancreas, adrenal glands and k idneys are within normal limits for arterial phase imaging. No bowel obstruction, free fluid or abscess.Moderate stool is present throughout the colon. Normal ap pendix.No pathologic enlarged lymphadenopathy identified. Moderate lumbar degenerative changes.Old right posterior rib fractures. IMPRESSION: No acute aortic finding is demonstrated.
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
[2022-03-31 03:48] VITALS: TEMP 97.8
[2022-03-31 03:54] VITALS: O2SAT 99
[2022-03-31 04:03] VITALS: BP 138/77
--- NOTE | 2022-04-01 14:16 | EKG ---
Test Date: 2022-03-29 Test Time: 07:49:49 Quarrying Manager: TONY MEASUREMENT RESULTS: Intervals: Rate: 74 LA: 184 QRSD: 88 QT: 406 QTc: 450 [place]: P: 114 LA: 184 QRS: 166 T: 172 INTERPRETIVE STATEMENTS: Suspect arm lead reversal, interpretation assumes no reversal Normal sinus rhythm Left posterior fascicular block Inferior infarct, age undetermined Abnormal ECG Compared to ECG 08/22/2018 11:04:09 Left posterior fascicular block now present Myocardial infarct finding now present Electronically Signed On 04-01-22 14:11:50 CDT by Sami Coy
--- NOTE | 2022-04-01 14:16 | EKG ---
Test Date: 2022-03-29 Test Time: 07:51:20 Lodge Sales Associate: TONY MEASUREMENT RESULTS: Intervals: Rate: 78 TX: 178 QRSD: 88 QT: 400 QTc: 456 [place]: P: 71 TX: 178 QRS: 38 T: 34 INTERPRETIVE STATEMENTS: Normal sinus rhythm Nonspecific T wave abnormality Abnormal ECG Compared to ECG 03/29/2022 07:49:49 T-wave abnormality now present Left posterior fascicular block no longer present Myocardial infarct finding no longer present Electronically Signed On 04-01-22 14:11:46 CDT by Sami Coy
== END 2022-03-30 12:29 | disposition home or self-care (01) ==
LOC: ER 07:32 → ERHOLD 10:05 → 4TH 15:13
PROVIDERS: ADMIT Internal Medicine; ATTEND Internal Medicine
DX: G45.9 Transient cerebral ischemic attack, unspecified (principal); I10 Essential (primary) hypertension; I25.10 Atherosclerotic heart disease of native coronary artery without angina pectoris; B19.20 Unspecified viral hepatitis C without hepatic coma; R29.700 NIHSS score 0; R55 Syncope and collapse; Z88.2 Allergy status to sulfonamides; Z88.1 Allergy status to other antibiotic agents; Z20.822 Contact with and (suspected) exposure to COVID-19
CPT/HCPCS: 93005 ×2; 85025 ×2; 80048; 36415; 83735 ×2; 82550 ×4; 84100; 85610 ×2; 80061; 82565; 82947 ×2; 80076; 85730 ×2; 84443; 84484 ×2; 80053; 71275; 70496; 70498; 74175; 74177; 70450; 71045; 99285; 87811; Q9967 ×2; J1650 ×2; J7030 ×2; G0378 ×3

== ENCOUNTER → 2023-08-30 | Emergency (ER) | payer OTHER ==
[~2023-08-30] MED LIST: HYDROCODONE/APAP 10/325 TAB ONE
--- NOTE | 2023-08-30 20:23 | RAD REPORT ---
EXAM DESCRIPTION: RAD - Hip Right 2 View - 08/30/2023 7:34 pm CLINICAL HISTORY: PAIN COMPARISON: No comparisons TECHNIQUE: Right hip, AP and frog-leg views. FINDINGS: There is no fracture or dislocation. No acute or destructive bony process seen. IMPRESSION: No acute findings of the right hip.
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
[2023-08-30 21:16] VITALS: BP 168/105; TEMP 98; O2SAT 98
== END ==
LOC: ER 18:58
DX: M25.551 Pain in right hip (principal); I10 Essential (primary) hypertension; Z88.1 Allergy status to other antibiotic agents
CPT/HCPCS: 99285

== ENCOUNTER 2024-05-03 12:48 | Emergency (ER) | payer OTHER ==
[2024-05-03] MEDS ORDERED: HYDROCODONE/APAP 5/325 MG TAB ONE (13:12)
--- NOTE | 2024-05-03 13:56 | RAD REPORT ---
Exam:Hip Left 2 View HISTORY: Left hip pain FINDINGS: No fracture or dislocation seen Mild osteoarthritis left hip. The bones appear osteoporotic.
--- NOTE | 2024-05-03 14:08 | EDPHYS ---
Physician Documentation [facility] Name: Fabian Arita Jr Age: 78 yrs Sex: Male : 1945 Arrival Date: 05/03/2024 Time: 12:48 Bed 17 Private MD: ED Physician Carolyn Pickens HPI: 05/03 13:10 This 78 yrs old Black Male presents to ER via EMS with complaints of Hip Pain. sp3 13:10 78-year-old male with history of hepatitis C, hypertension that presents to the ED with sp3 chief complaint left-sided hip pain. Patient had similar episodes in the past but he denies any trauma, muscle strain, exertion, swelling, distal numbness or tingling, chest pain, shortness of breath, abdominal pain, upper back pain, headache, prolonged immobilization, travel history, or any other signs or symptoms on ROS at this time.. Historical: - Allergies: 12:52 Bactrim; db - Home Meds: 12:52 lisinopril Oral once daily [Active]; db - PMHx: 12:52 Hep C; Hep C; Hypertension; UTI; db - Immunization history:: Adult Immunizations unknown. - Infectious Disease History:: Denies. - Social history:: Smoking status: Patient denies any tobacco usage or history of. ROS: 13:11 Constitutional: Negative for fever, chills, and weight loss, Eyes: Negative for injury, sp3 pain, redness, and discharge, ENT: Negative for injury, pain, and discharge, Neck: Negative for injury, pain, and swelling, Cardiovascular: Negative for chest pain, palpitations, and edema, Respiratory: Negative for shortness of breath, cough, wheezing, and pleuritic chest pain, Abdomen/GI: Negative for abdominal pain, nausea, vomiting, diarrhea, and constipation, Back: Negative for injury and pain, Skin: Negative for injury, rash, and discoloration, Neuro: Negative for headache, weakness, numbness, tingling, and seizure, Psych: Negative for depression, anxiety, suicide ideation, homicidal ideation, and hallucinations, Allergy/Immunology: Negative for hives, rash, and allergies, Endocrine: Negative for neck swelling, polydipsia, polyuria, polyphagia, and marked weight changes, Hematologic/Lymphatic: Negative for swollen nodes, abnormal bleeding, and unusual bruising, 13:11 All other systems are negative, Exam: 13:11 Constitutional: This is a well developed, well nourished patient who is awake, alert, sp3 and in no acute distress. Head/Face: Normocephalic, atraumatic. Eyes: Pupils equal round and reactive to light, extra-ocular motions intact. Lids and lashes normal. Conjunctiva and sclera are non-icteric and not injected. Cornea within normal limits. Periorbital areas with no swelling, redness, or edema. ENT: Nares patent. No nasal discharge, no septal abnormalities noted. External auditory canals are clear. Oropharynx with no redness, swelling, or masses, exudates, or evidence of obstruction, uvula midline. Mucous membranes moist. Neck: Trachea midline, no thyromegaly or masses palpated, and no cervical lymphadenopathy. Supple, full range of motion without nuchal rigidity, or vertebral point tenderness. No Meningismus. Chest/axilla: Normal chest wall appearance and motion. Nontender with no deformity. No lesions are appreciated. Cardiovascular: Regular rate and rhythm with a normal S1 and S2. No gallops, murmurs, or rubs. Normal PMI, no JVD. No pulse deficits. Respiratory: Lungs have equal breath sounds bilaterally, clear to auscultation and percussion. No rales, rhonchi or wheezes noted. No increased work of breathing, no retractions or nasal flaring. Abdomen/GI: Soft, non-tender, with normal bowel sounds. No distension or tympany. No guarding or rebound. No evidence of tenderness throughout. Back: No spinal tenderness. No costovertebral tenderness. Full range of motion. Skin: Warm, dry with normal turgor. Normal color with no rashes, no lesions, and no evidence of cellulitis. Neuro: Awake and alert, GCS 15, oriented to person, place, time, and situation. Cranial nerves II-XII grossly intact. Motor strength 5/5 in all extremities. Sensory grossly intact. Cerebellar exam normal. Normal gait. Psych: Awake, alert, with orientation to person, place and time. Behavior, mood, and affect are within normal limits. 13:11 Musculoskeletal/extremity: Patient with mild pain to palpation laterally and posteriorly on the buttock. Full range of motion noted. No leg shortening. Distal neurovascular exam is normal.. Vital Signs: 12:51 BP 167 / 93; Pulse 76; Resp 17; Temp 98.2; Pulse Ox 100% on R/A; db 13:00 BP 166 / 98; Pulse 74; Resp 16; Pulse Ox 100% ; db 14:00 BP 159 / 92; Pulse 57; Resp 16; Temp 98.2; Pulse Ox 99% on R/A; db MDM: 12:51 Medical Screening Exam initiated sp3 13:12 Data reviewed: vital signs, nurses notes, radiologic studies. ED course: 78-year-old sp3 male with left hip pain. Differential diagnosis includes muscle strain, osteoarthritis, nontraumatic fracture, among others. Clinically I am at highly suspicious of sepsis, shock, DVT, arterial occlusion, or any other critical process at this time. Will obtain x-ray and treat pain with [place]. Patient repeatedly asking for pain medication and morphine. I do not believe morphine is indicated and we will start with [place]. Vital signs are normal.. 14:06 ED course: Osteoarthritis noted on x-ray. We will safely discharge patient with sp3 tramadol and follow-up with orthopedics.. 05/03 12:52 Order name: Hip Left 2 View XRAY; Complete Time: 14:05 sp3 Administered Medications: 13:14 Drug: HYDROcodone-acetaminophen PO 5 mg-325 mg 2 tabs PO once Route: PO; db 13:45 Follow up: Response: No adverse reaction; Pain is decreased db Disposition Summary: 05/03/24 14:07 Discharge Ordered Notes: Location: Home sp3 Condition: Stable sp3 Diagnosis - Osteoarthritis of hip, unspecified sp3 Followup: sp3 - With: Private Physician - When: Upon discharge from the Emergency Department - Reason: Followup: sp3 - With: Melquiades Aguiar MD - When: Upon discharge from the Emergency Department - Reason: Continuance of care Discharge Instructions: - Discharge Summary Sheet sp3 - Osteoarthritis sp3 Forms: - Medication Reconciliation Form sp3 - Antibiotic Education sp3 - Prescription Opioid Use sp3 - Patient Portal Instructions sp3 - Leadership Thank You Letter sp3 Prescriptions: - Tramadol 50 mg Oral Tablet - take 1 tablet ORAL route every 8 hours as needed; 12 tablet; Refills: 0, sp3 Product Selection Permitted Signatures: Dispatcher [employer] EDMS Carolyn Pickens MD MD sp3 Barbara Chavez, RN RN db Corrections: (The following items were deleted from the chart) 12:52 12:52 Hip Left 2 View+RAD.RAD.BRZ ordered. EDMS EDMS
--- NOTE | 2024-05-03 14:08 | ER ---
Nurse's Notes [facility] Name: Fabian Arita Jr Age: 78 yrs Sex: Male : 1945 Arrival Date: 05/03/2024 Time: 12:48 Bed 17 Private MD: Diagnosis: Osteoarthritis of hip, unspecified Presentation: 05/03 12:51 Chief complaint: EMS states: LEFT HIP PAIN SINCE 04/27. TYLENOL X 3 DAYS. WALKED TO AMBULANCE ON SCENE. Coronavirus screen: Client denies travel out of the [place] in the last 14 days. At this time, the client does not indicate any symptoms associated with coronavirus-19. Ebola Screen: Patient negative for fever greater than or equal to 101.5 degrees Fahrenheit, and additional compatible Ebola Virus Disease symptoms Patient denies exposure to infectious person. Patient denies travel to an Ebola-affected area in the 21 days before illness onset. No symptoms or risks identified at this time. Initial Sepsis Screen: Does the patient meet any 2 criteria? No. Patient's initial sepsis screen is negative. Does the patient have a suspected source of infection? No. Patient's initial sepsis screen is negative. Risk Assessment: Do you want to hurt yourself or someone else? Patient reports no desire to harm self or others. Onset of symptoms was May 03, 2024. 12:51 Method Of Arrival: EMS: [facility] 12:51 Acuity: LANEY 3 db Triage Assessment: 12:52 General: Appears in no apparent distress. comfortable, Behavior is calm, cooperative. db Pain: Complains of pain in left leg. Neuro: Level of Consciousness is awake, alert, obeys commands, Oriented to person, place, time, situation. Respiratory: Airway is patent Respiratory effort is even, unlabored, Respiratory pattern is regular, symmetrical. Musculoskeletal: Range of motion: limited in left hip. Historical: - Allergies: 12:52 Bactrim; db - Home Meds: 12:52 lisinopril Oral once daily [Active]; db - PMHx: 12:52 Hep C; Hep C; Hypertension; UTI; db - Immunization history:: Adult Immunizations unknown. - Infectious Disease History:: Denies. - Social history:: Smoking status: Patient denies any tobacco usage or history of. Screenin:03 [facility] ED Fall Risk Assessment (Adult) History of falling in the last 3 months, db including since admission No falls in past 3 months (0 pts) Confusion or Disorientation No (0 pts) Intoxicated or Sedated No (0 pts) Impaired Gait No (0 pts) Mobility Assist Device Used No (0 pt) Altered Elimination No (0 pt) Score/Fall Risk Level 0 - 2 = Low Risk Oriented to surroundings, Maintained a safe environment. Abuse screen: Denies threats or abuse. Denies injuries from another. Nutritional screening: No deficits noted. Tuberculosis screening: No symptoms or risk factors identified. Assessment: 13:03 Reassessment: Patient appears in no apparent distress at this time. Patient and/or db family updated on plan of care and expected duration. Pain level reassessed. Patient is alert, oriented x 3, equal unlabored respirations, skin warm/dry/pink. SEE TRIAGE FOR INITIAL ASSESSMENT. 14:26 Reassessment: Patient appears in no apparent distress at this time. Patient and/or db family updated on plan of care and expected duration. Pain level reassessed. Patient is alert, oriented x 3, equal unlabored respirations, skin warm/dry/pink. Patient states feeling better. General: Appears in no apparent distress. comfortable, Behavior is calm, cooperative. Neuro: Level of Consciousness is awake, alert, obeys commands, Oriented to person, place, time, situation. Respiratory: Airway is patent Respiratory effort is even, unlabored, Respiratory pattern is regular, symmetrical. Vital Signs: 12:51 BP 167 / 93; Pulse 76; Resp 17; Temp 98.2; Pulse Ox 100% on R/A; db 13:00 BP 166 / 98; Pulse 74; Resp 16; Pulse Ox 100% ; db 14:00 BP 159 / 92; Pulse 57; Resp 16; Temp 98.2; Pulse Ox 99% on R/A; db ED Course: 12:50 Patient arrived in ED. db 12:51 Carolyn Pickens MD is Attending Physician. sp3 12:52 Triage completed. db 12:53 Arm band placed on Patient placed in an exam room. db 13:02 Barbara Chavez, RN is Primary Nurse. db 13:03 Patient has correct armband on for positive identification. Bed in low position. Call db light in reach. Side rails up X 1. Pulse ox on. NIBP on. Warm blanket given. Pillow given. 13:45 Hip Left 2 View XRAY In Process Unspecified. EDMS 14:07 Melquiades Aguiar MD is Referral Physician. sp3 14:24 Provided Education on: DISCHARGE. db 14:24 No provider procedures requiring assistance completed. Patient did not have IV access db during this emergency room visit. Administered Medications: 13:14 Drug: HYDROcodone-acetaminophen PO 5 mg-325 mg 2 tabs PO once Route: PO; db 13:45 Follow up: Response: No adverse reaction; Pain is decreased db Medication: 13:03 VIS not applicable for this client. db Outcome: 14:07 Discharge ordered by . sp3 14:24 Discharged to home ambulatory, db 14:24 Condition: stable 14:24 Discharge instructions given to patient, Instructed on discharge instructions, follow up and referral plans. Prescriptions given X 1, 14:27 Patient left the ED. db Signatures: Dispatcher [employer] Carolyn Dwyer MD MD sp3 Barbara Chaevz, RN RN db
[2024-05-03 14:35] VITALS: TEMP 98.2
[2024-05-03 14:37] VITALS: BP 159/92; O2SAT 99
== END 2024-05-03 14:27 | disposition home or self-care (01) ==
LOC: ER 12:48
DX: M16.12 Unilateral primary osteoarthritis, left hip (principal); I10 Essential (primary) hypertension
CPT/HCPCS: 99284

== ENCOUNTER 2024-07-22 21:00 | Emergency (ER) | payer MEDICARE, OTHER ==
--- NOTE | 2024-07-22 21:44 | RAD REPORT ---
EXAM: Chest Single View HISTORY: SOB COMPARISON: None. FINDINGS: LUNGS/PLEURA: The lungs are clear. No pleural effusions or pneumothorax. No pulmonary edema. MEDIASTINUM: The mediastinal silhouette is within normal limits. CARDIAC: The cardiac silhouette is within normal limits. UPPER ABDOMEN: No significant abnormality. BONES: Remote right-sided rib fractures. LINES/TUBES/OTHER: Aortic stent graft. IMPRESSION: No evidence of acute cardiopulmonary disease.
[2024-07-22] MEDS ORDERED: LEVALBUTEROL 0.63 MG/3 ML NEB ONE (22:52)
[2024-07-22] MEDS ORDERED: ONDANSETRON 4 MG/2 ML VIAL ONE (22:52)
[2024-07-22] MEDS ORDERED: METHYLPREDNISOLONE 125 MG INJ ONE (22:52)
[2024-07-22 22:53] LABS: PT Prothrombin Time 12.6 SECONDS (9.4-12.5); Protime INR 1.2
[2024-07-22 22:55] LABS: Absolute Eosinophils 0.1 K/uL (0-0.5); Absolute Lymphocytes (CBC) 1.2 K/uL (0.7-4.9); Absolute Monocytes 0.9 K/uL (0.1-1.3); Absolute Neutrophil 2.7 K/uL (1.8-8.0); Basophils % 0.6 % (0-1.3); Eosinophils % 2.6 % (0-4.4); Hematocrit 45.4 % (39.6-49.0); Hemoglobin 15.5 g/dL (13.6-17.9); Lymphocytes % 24.4 % (15.3-44.8); MCH 31.6 pg (27.0-35.0); MCV 92.9 fL (80-100); MPV 10.2 fL (7.6-11.3); Monocytes % 17.8 % (3.3-12.3); Neutrophils % 54.6 % (41.7-73.7); Nucleated Red Blood Cells % 0.2 % (0-0); Platelets 172 thou/uL (152-406); RBC Red Blood Cell Count 4.89 M/uL (4.33-5.43); Red Cell Distribution Width 14.1 % (12.1-15.2)
[2024-07-22 23:06] LABS: Albumin 3.6 g/dL (3.4-5.0); Albumin/Globulin Ratio 0.8 (1.1-1.8); Anion Gap 10.6 mEq/L (5.0-15.0); Bilirubin Direct 0.2 mg/dL (0-0.2); Bilirubin Indirect, Calculated 0.3 mg/dL (0.2-0.8); Bilirubin Total 0.5 mg/dL (0.2-1.0); Globulin 4.3 g/dL (2.3-3.5); Potassium 3.6 mEq/L (3.5-5.1); Protein, Total 7.9 g/dL (6.4-8.2)
[2024-07-22] MEDS ORDERED: NA CHLORIDE 0.9% 500 ML ONE (23:31)
[2024-07-22 23:33] LABS: SARS-CoV-2 Antigen CONTROL BLUE LINE VIS/BG OK; SARS-CoV-2 Antigen Rapid Res Negative (Negative)
--- NOTE | 2024-07-23 00:46 | ER ---
Nurse's Notes [facility] Name: Fabian Arita Jr Age: 78 yrs Sex: Male : 1945 Arrival Date: 07/22/2024 Time: 21:00 Bed 4 Private MD: Diagnosis: COPD/ Chronic obstructive pulmonary disease with (acute) exacerbation;Nausea Presentation: 07/22 21:32 Chief complaint: Patient states: I feel short of breath and nauseous that started two bm8 days ago. Coronavirus screen: Vaccine status: Patient reports receiving the 2nd dose of the covid vaccine. At this time, the client does not indicate any symptoms associated with coronavirus-19. Ebola Screen: Patient negative for fever greater than or equal to 101.5 degrees Fahrenheit, and additional compatible Ebola Virus Disease symptoms Patient denies exposure to infectious person. Patient denies travel to an Ebola-affected area in the 21 days before illness onset. No symptoms or risks identified at this time. Initial Sepsis Screen: Does the patient meet any 2 criteria? HR > 90 bpm. Does the patient have a suspected source of infection? No. Patient's initial sepsis screen is negative. Risk Assessment: Do you want to hurt yourself or someone else? Patient reports no desire to harm self or others. Onset of symptoms was July 20, 2024. 21:32 Method Of Arrival: EMS: [facility] bm8 21:32 Acuity: LANEY 3 bm8 Triage Assessment: 21:34 General: Appears in no apparent distress. comfortable, Behavior is calm, cooperative, bm8 appropriate for age. Pain: Denies pain. Neuro: No deficits noted. Level of Consciousness is awake, alert, obeys commands, Oriented to person, place, time, situation, Appropriate for age. Cardiovascular: No deficits noted. Denies chest pain, Capillary refill < 3 seconds in bilateral fingers Patient's skin is warm and dry. Respiratory: Reports shortness of breath at rest pain with cough Airway is patent Respiratory effort is even, unlabored, Respiratory pattern is regular, symmetrical, Breath sounds are diminished bilaterally. Onset: The symptoms/episode began/occurred yesterday, the patient has mild shortness of breath. GI: Reports nausea. : No signs and/or symptoms were reported regarding the genitourinary system. Derm: No signs and/or symptoms reported regarding the dermatologic system. Musculoskeletal: No signs and/or symptoms reported regarding the musculoskeletal system. 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 - Infectious Disease History:: Denies. - Social history:: Smoking status: Patient denies any tobacco usage or history of. Patient uses street drugs, marijuana. Screenin:55 [facility] ED Fall Risk Assessment (Adult) History of falling in the last 3 months, dd2 including since admission No falls in past 3 months (0 pts) Confusion or Disorientation No (0 pts) Intoxicated or Sedated No (0 pts) Impaired Gait No (0 pts) Mobility Assist Device Used No (0 pt) Altered Elimination No (0 pt) Score/Fall Risk Level 0 - 2 = Low Risk Oriented to surroundings, Maintained a safe environment, Educated pt \T\ family on fall prevention, incl call for assistance when getting out of bed, Assessed \T\ reinforced patient's understanding of fall precautions, Hourly rounding (assess needs \T\ fall precautionary measures) done. Abuse screen: Denies threats or abuse. Nutritional screening: No deficits noted. Tuberculosis screening: No symptoms or risk factors identified. Assessment: 22:55 General: Appears in no apparent distress. Behavior is calm, cooperative, appropriate dd2 for age. Pain: Complains of pain in chest Pain does not radiate. Pain currently is 3 out of 10 on a pain scale. Aggravated by COUGH. Neuro: No deficits noted. [place] Agitation-Sedation Scale (RASS): 0 - Alert and Calm Level of Consciousness is awake, alert, obeys commands, Oriented to person, place, time, situation, Appropriate for age. Cardiovascular: Heart tones S1 S2 present Patient's skin is warm and dry. Rhythm is regular. Respiratory: Reports shortness of breath at rest on exertion cough that is persistent Airway is patent Respiratory effort is even, unlabored, Respiratory pattern is regular, symmetrical, Breath sounds with wheezes bilaterally. GI: No deficits noted. No signs and/or symptoms were reported involving the gastrointestinal system. : No deficits noted. No signs and/or symptoms were reported regarding the genitourinary system. EENT: No deficits noted. No signs and/or symptoms were reported regarding the EENT system. Reports nasal congestion. Derm: No deficits noted. No signs and/or symptoms reported regarding the dermatologic system. Musculoskeletal: No deficits noted. No signs and/or symptoms reported regarding the musculoskeletal system. Circulation, motion, and sensation intact. Range of motion: intact in all extremities. Vital Signs: 21:32 BP 187 / 97; Pulse 110; Resp 20; Temp 98.7; Pulse Ox 97% ; Weight 90.72 kg; Height 6 bm8 ft. 0 in. ; Pain 0/10; 23:26 BP 159 / 96; Temp 99.9; Pulse Ox 98% on R/A; sa1 07/23 01:08 BP 148 / 94; Pulse 102; Resp 17; Pulse Ox 97% ; dd2 07/22 21:32 Body Mass Index 27.12 (90.72 kg, 182.88 cm) 8 07/22 21:32 Pain Scale: Adult [facility] Lilly Coma Score: 07/22 22:55 Eye Response: spontaneous(4). Motor Response: obeys commands(6). Verbal Response: dd2 oriented(5). Total: 15. ED Course: 21:00 Patient arrived in ED. [email or web address] 21:09 Caleb Beasley PA is PHCP. cp 21:09 Derek Pena MD is Attending Physician. cp 21:28 XRAY Chest (1 view) In Process Unspecified. EDMS 21:34 Triage completed. bm8 21:34 Arm band placed on right wrist. bm8 21:54 Inserted saline lock: 20 gauge in right antecubital area, using aseptic technique. sa1 Blood collected. Flushed with 10 mL NS. 22:09 Initial lab(s) drawn, by me, sent to lab. COVID swab sent to lab. Flu and/or RSV swab sa1 sent to lab. 22:19 Basic Metabolic Panel Sent. sa1 22:19 CBC with Diff Sent. sa1 22:19 LFT's Sent. sa1 22:19 Magnesium Sent. sa1 22:19 PT-INR Sent. sa1 22:19 NT PRO-BNP Sent. sa1 22:19 Troponin HS Sent. sa 22: Influenza Screen (a \T\ B) Sent. sa 22: SARS RAPID Sent. sa 22:55 Patient has correct armband on for positive identification. Bed in low position. Call dd2 light in reach. Side rails up X2. Provided Education on: CALL LIGHT, MEDICATIONS, LABS/RESULT TIMES. Client placed on continuous cardiac and pulse oximetry monitoring. NIBP monitoring applied. child monitor on. Door closed. Noise minimized. Warm blanket given. Pillow given. Verbal reassurance given. 22:55 No provider procedures requiring assistance completed. Initial Neb Treatment Given as dd2 ordered Patient was instructed and evaluated on procedure. Oxygen administered via a nebulizer mask. 07/23 01:19 IV discontinued, intact, bleeding controlled, No redness/swelling at site. Pressure dd2 dressing applied. Administered Medications: 07/22 22:59 Drug: Ondansetron IVP 4 mg IVP once; over 2 minutes Route: IVP; Site: right antecubital;dd2 23:14 Follow up: Response: No adverse reaction dd2 22:59 Drug: Levalbuterol Inhalation 0.63 mg Inhalation once Route: Inhalation; dd2 23:29 Follow up: Response: No adverse reaction dd2 22:59 Drug: MethylPrednisoLONE IVP 125 mg IVP once Route: IVP; Site: right antecubital; dd2 23:14 Follow up: Response: No adverse reaction dd2 23:37 Drug: NS 0.9% IV 500 ml IV at bolus once; to be given as a bolus over 60 minutes Route: dd2 IV; Rate: bolus; Site: right antecubital; 23:52 Follow up: Response: No adverse reaction dd2 07/23 00:37 Follow up: IV Status: Completed infusion; IV Intake: 500ml dd2 Medication: 07/22 22:55 VIS not applicable for this client. dd2 Intake: 07/23 00:37 IV: 500ml; Total: 500ml. dd2 Outcome: 00:45 Discharge ordered by MD. voss 01:19 Discharged to home ambulatory, dd2 01:19 Condition: stable 01:19 Discharge instructions given to patient, Instructed on discharge instructions, follow up and referral plans. medication usage, Demonstrated understanding of instructions, follow-up care, medications, Prescriptions given X 2, 01:20 Patient left the ED. dd2 Signatures: Dispatcher [employer] EDMS Caleb Beasley PA PA cp Jeffries, Jennifer [email or web address] Mendel Sevilla RN RN bm8 Sultan Carey 1 ARGENIS PARDO RN RN dd2
--- NOTE | 2024-07-23 00:46 | EDPHYS ---
Physician Documentation [facility] Name: Fabian Arita Jr Age: 78 yrs Sex: Male : 1945 Arrival Date: 07/22/2024 Time: 21:00 Bed 4 Private MD: ED Physician Derek Pena HPI: 07/22 21:15 This 78 yrs old Black Male presents to ER via EMS with complaints of Shortness Of cp Breath. 21:15 The patient has shortness of breath at rest. Onset: The symptoms/episode began/occurred cp 2 day(s) ago. 21:15 Duration: The symptoms are continuous, and are steadily getting worse. Associated signs cp and symptoms: Pertinent positives: non-productive cough, nausea, Pertinent negatives: chest pain, diaphoresis, fever, hemoptysis, vomiting. Severity of symptoms: in the emergency department the symptoms are unchanged despite EMS interventions. 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 - Infectious Disease History:: Denies. - Social history:: Smoking status: Patient denies any tobacco usage or history of. Patient uses street drugs, marijuana. ROS: 21:20 Constitutional: Negative for body aches, chills, fever, poor PO intake, cp 21:20 Eyes: Negative for injury, pain, redness, and discharge, cp 21:20 Cardiovascular: Negative for chest pain, edema, palpitations, 21:20 Respiratory: Positive for shortness of breath, at rest. 21:20 Abdomen/GI: Positive for nausea, Negative for abdominal pain, vomiting, diarrhea, constipation, Exam: 21:25 Constitutional: The patient appears in no acute distress, alert, awake, cp non-diaphoretic, non-toxic, well developed, well nourished, uncomfortable, 21:25 Head/Face: Normocephalic, atraumatic. cp 21:25 Eyes: Periorbital structures: appear normal, Conjunctiva: normal, no exudate, no injection, Sclera: no appreciated abnormality, Lids and lashes: appear normal, bilaterally, 21:25 ENT: External ear(s): are unremarkable, Nose: is normal, Mouth: Lips: moist, Oral mucosa: moist, Posterior pharynx: Airway: no evidence of obstruction, patent, 21:25 Neck: ROM/movement: limited range of motion, is not appreciated, Meningeal signs: are not present, nuchal rigidity, is not appreciated, 21:25 Chest/axilla: Inspection: normal, Palpation: crepitus, is not appreciated, tenderness, is not appreciated, 21:25 Cardiovascular: Rate: tachycardic, Rhythm: regular, Edema: is not appreciated, JVD: is not appreciated, 21:25 Respiratory: the patient does not display signs of respiratory distress, Respirations: labored breathing, that is mild, Breath sounds: bronchial sounds, that are mild, are heard diffusely, decreased breath sounds, that are mild, throughout, stridor, is not appreciated, 21:25 Abdomen/GI: Inspection: abdomen appears normal, Palpation: abdomen is soft and non-tender, in all quadrants, 21:25 Back: pain, is absent, 21:25 Skin: no rash present. 21:25 Neuro: Orientation: to person, place \T\ time. Mentation: is normal, Motor: moves all fours, no focal deficits, 22:05 ECG was reviewed by the Attending Physician. cp Vital Signs: 21:32 BP 187 / 97; Pulse 110; Resp 20; Temp 98.7; Pulse Ox 97% ; Weight 90.72 kg; Height 6 bm8 ft. 0 in. ; Pain 0/10; 23:26 BP 159 / 96; Temp 99.9; Pulse Ox 98% on R/A; sa1 07/23 01:08 BP 148 / 94; Pulse 102; Resp 17; Pulse Ox 97% ; dd2 07/22 21:32 Body Mass Index 27.12 (90.72 kg, 182.88 cm) 8 07/22 21:32 Pain Scale: Adult bm8 Lilly Coma Score: 07/22 22:55 Eye Response: spontaneous(4). Motor Response: obeys commands(6). Verbal Response: dd2 oriented(5). Total: 15. MDM: 21:09 Medical Screening Exam initiated cp 07/23 00:44 Data reviewed: vital signs, nurses notes, lab test result(s), EKG, radiologic studies, cp plain films, and as a result, I will discharge patient. 00:44 Differential diagnosis: asthma, Bronchitis CHF exacerbation, Chronic Obstructive cp Pulmonary Disease Myocardial Infarction pneumonia, Pneumothorax pulmonary edema, Sepsis Unstable Angina. Antibiotic administration: Not indicated, the patient does not have an appreciated infiltrate. Consideration of Admission/Observation Escalation of care including admission/observation considered. I considered the following discharge prescriptions or medication management in the emergency department Medications were administered in the Emergency Department. See MAR. Independent interpretation of the following test(s) in the Emergency Department EKG: See my EKG interpretation above. Care significantly affected by the following chronic conditions: Hypertension, Chronic Obstructive Pulmonary Disease. Counseling: I had a detailed discussion with the patient and/or guardian regarding the historical points, exam findings, and any diagnostic results supporting the discharge/admit diagnosis, lab results, radiology results, to return to the emergency department if symptoms worsen or persist or if there are any questions or concerns that arise at home. Response to treatment: the patient's symptoms have markedly improved after treatment, and as a result, I will discharge patient. ED course: VSS. Symptoms markedly improved. Oxygen sats 97% on RA and patient resting comfortably. Will discharge to home for continued monitoring. 07/22 21:12 Order name: Basic Metabolic Panel; Complete Time: 23:16 07/22 23:17 Interpretation: Normal except: GFR 77. 07/22 21:12 Order name: CBC with Diff; Complete Time: 23:16 07/22 21:12 Order name: LFT's; Complete Time: 23:16 07/22 21:12 Order name: Magnesium; Complete Time: 23:16 07/22 21:12 Order name: NT PRO-BNP; Complete Time: 23:16 07/22 21:12 Order name: PT-INR; Complete Time: 23:16 07/22 21:12 Order name: Troponin HS; Complete Time: 23:16 07/22 21:13 Order name: SARS RAPID; Complete Time: 23:45 07/22 23:45 Interpretation: Reviewed. 07/22 21:13 Order name: Influenza Screen (a \T\ B); Complete Time: 23:45 07/22 23:45 Interpretation: Reviewed. cp 07/22 21:12 Order name: XRAY Chest (1 view); Complete Time: 23:16 cp 07/22 21:12 Order name: Cardiac monitoring; Complete Time: 22:49 cp 07/22 21:12 Order name: EKG - Nurse/Tech; Complete Time: 22:18 cp 07/22 21:12 Order name: IV Saline Lock; Complete Time: 22:19 cp 07/22 21:12 Order name: Labs collected and sent; Complete Time: 22:18 cp 07/22 21:12 Order name: O2 Per Protocol; Complete Time: 22:49 cp 07/22 21:12 Order name: O2 Sat Monitoring; Complete Time: 22:19 cp 07/23 00:43 Order name: Vital Signs; Complete Time: :17 cp 07/23 00:43 Order name: PO challenge; Complete Time: :17 cp EC/16 22:05 Rate is 99 beats/min. Rhythm is regular. NV interval is normal. QRS interval is normal. cp QT interval is normal. T waves are Inverted in lead aVR. Interpreted by me. Reviewed by me. Administered Medications: 22:59 Drug: Ondansetron IVP 4 mg IVP once; over 2 minutes Route: IVP; Site: right antecubital;dd2 23:14 Follow up: Response: No adverse reaction dd2 22:59 Drug: Levalbuterol Inhalation 0.63 mg Inhalation once Route: Inhalation; dd2 23:29 Follow up: Response: No adverse reaction dd2 22:59 Drug: MethylPrednisoLONE IVP 125 mg IVP once Route: IVP; Site: right antecubital; dd2 23:14 Follow up: Response: No adverse reaction dd2 23:37 Drug: NS 0.9% IV 500 ml IV at bolus once; to be given as a bolus over 60 minutes Route: dd2 IV; Rate: bolus; Site: right antecubital; 23:52 Follow up: Response: No adverse reaction dd2 07/23 00:37 Follow up: IV Status: Completed infusion; IV Intake: 500ml dd2 Disposition: 05:51 Co-signature as Attending Physician, Derek Pena MD I agree with the assessment sp4 and plan of care. I reviewed the patient's care provided by Advanced Practice Provider \T\ agree w/ the diagnosis \T\ care plan. I personally saw the pt \T\ performed a substantive portion of the visit, incldng all aspects of the (History/Exam/Medical Decision Making). Disposition Summary: 07/23/24 00:45 Discharge Ordered Notes: Location: Home cp Problem: an acute exacerbation cp Symptoms: have improved cp Condition: Stable cp Diagnosis - COPD/ Chronic obstructive pulmonary disease with (acute) exacerbation cp - Nausea cp Followup: cp - With: Private Physician - When: 2 - 3 days - Reason: Recheck today's complaints Discharge Instructions: - Discharge Summary Sheet cp - Nausea, Adult cp - Chronic Obstructive Pulmonary Disease Exacerbation cp Forms: - Medication Reconciliation Form cp - Antibiotic Education cp - Prescription Opioid Use cp - Patient Portal Instructions cp - Leadership Thank You Letter cp Prescriptions: - Prednisone 20 mg Oral Tablet - take 3 tablets ORAL route once daily for 5 days; 15 tablet; Refills: 0, Product cp Selection Permitted - Zofran 4 mg Oral Tablet - take 1 tablet ORAL route every 12 hours As needed; 20 tablet; Refills: 0, cp Product Selection Permitted Signatures: Dispatcher [employer] EDMS Caleb Beasley PA PA cp Potepalov, Sergey, MD MD sp4 Mendel Sevilla, RN RN bm8 ARGENIS PARDO, JODY RN dd2 Corrections: (The following items were deleted from the chart) 07/22 21:13 21:13 BASIC METABOLIC PANEL+C.LAB.BRZ ordered. EDMS EDMS 21:13 21:13 CBC+H.LAB.BRZ ordered. EDMS EDMS 21:13 21:13 HEPATIC FUNCTION+C.LAB.BRZ ordered. EDMS EDMS 21:13 21:13 MAGNESIUM+C.LAB.BRZ ordered. EDMS EDMS 21:13 21:13 PROBNP+C.LAB.BRZ ordered. EDMS EDMS 21:13 21:13 PROTIME (+INR)+COAG.LAB.BRZ ordered. EDMS EDMS 21:13 21:13 Troponin High Sensitivity+C.LAB.BRZ ordered. EDMS EDMS 21:13 21:13 Chest Single View+RAD.RAD.BRZ ordered. EDMA EDMS 07/23 18:01 07/22 21:15 Onset: The symptoms/episode began/occurred today, cp cp
[2024-07-23 03:27] VITALS: BP 148/94; TEMP 99.9; O2SAT 97
--- NOTE | 2024-07-29 13:16 | EKG ---
Test Date: 2024-07-22 Test Time: 21:58:32 Math Interventionist: MEASUREMENT RESULTS: Intervals: Rate: 99 MI: 164 QRSD: 88 QT: 332 QTc: 426 [place]: P: 64 MI: 164 QRS: 47 T: 50 INTERPRETIVE STATEMENTS: Normal sinus rhythm Normal ECG Compared to ECG 03/29/2022 07:51:20 T-wave abnormality no longer present Electronically Signed On 07-29-24 13:05:43 FRONT DESK ASSISTANT by Janes Miller
== END 2024-07-23 01:20 | disposition home or self-care (01) ==
LOC: ER 21:00
DX: J44.1 Chronic obstructive pulmonary disease with (acute) exacerbation (principal); R11.0 Nausea; I10 Essential (primary) hypertension; Z11.52 Encounter for screening for COVID-19
CPT/HCPCS: 96361; 85025; 80048; 36415; 83735; 85610; 80076; 84484; 83880; 87804 ×2; 71045; 94640; 96375; 96374; 99285; 87811; J7614; J2919; J2405; J7040; 93005

== ENCOUNTER 2025-02-20 17:37 | Emergency (ER) | payer OTHER ==
--- OUTSIDE RECORDS SUMMARY | 2025-02-20 17:46 | XMS REPORT | Continuity of Care Document ---
Author Name Unknown Address [address] [facility] [address] [place] [address] [facility] [place] Address [address] [facility] [address] [place] [address] Care Team Providers Care Studio Technician Video Operator Name Role Phone Alex REDDY, Mariola Primary Care Physician Mariola Johnson Attending Clinician UnavailHugo Nieto MD Attending Clinician [phone] Nelsy Travis DO, V. Attending Clinician [phone] Nurse, [facility] Surgery Attending Clinician UnaYissel Palomares Attending Clinician [phone] JAKY LAYNE Attending Clinician Unavailable HUGO SELLERS Attending Clinician Unavailable Pob, [facility] Main Attending Clinician UnavailYISSEL Reis Attending Clinician Unavailable OSWALD TIMMONS Attending Clinician Unavailable OSWALD TIMMONS Attending Clinician Unavailable SRINIVASAN Attending Clinician Unavailable Lab, [place] Main Attending Clinician Unavailgabi Pitt MD, Chauncey Attending Clinician [phone] CHAUNCEY PITT Attending Clinician UnavailKimberly Monge MD Attending Clinician [phone] Mariel Cesar MD Attending Clinician Vls-Lab Attending Clinician Unavailable PATTY CALVERT Attending Clinician Unavailable Patty Dickey Attending Clinician [phone] SRESHTA, DIANA CLARISSA Attending Clinician Olga vailable 2, [facility] Attending Clinician Unavailable Gramm CAR REPAIRER APPRENTICE, Margarita A Attending Clinician [phone] GRAMM, MARGARITA A Attending Clinician Unavailable Doctor Unassigned, [place] Attending Clinician U denilsonfabrizio ISAIAS AVILA Attending Clinician Unavailable Marlo GUAJARDO, Hugo Attending Clinician [phone] Andrés VERA, Nati Jerome Attending Clinician Unavailab le Lab, [facility] Pob I Attending Clinician Unavailab le Anedamien CAR REPAIRER APPRENTICE, Michaela Attending Clinician [phone] ANEMICHAELA ECHEVERRIA Attending Clinician Unavailable Green CAR REPAIRER APPRENTICE, Zenaida Attending Clinician [phone] Nelsy Travis DO, V. Admitting Clinician [phone] YISSEL GARCIA Admitting Clinician Unavailable SRINIVASAN Admitting Clinician Unavailable PATTY CALVERT Admitting Clinician Unavailable Payers Payer Name Policy Type Policy Number Effective Date Expirati on Date Source Shaser [facility] [id number] 2024 00:00:00 MEDICARE OBS/INPT PART A ONLY [id number] 2010 00:00:00 CIG[employer] II [id number] 2005 00:00:00 Problems Condition Name Condition Details Condition Category Status Onset Date Resolution Date Last Treatment Date Treating Clinician Comments Source Preoperati ve cardiovasc ular examinatio n Preoperati ve cardiovasc ular examinatio n Disease Active 02-04 00:00: 00 [facility] Benign prostatic hyperplasi a with lower urinary tract symptoms, symptom details unspecifie d Benign prostatic hyperplasi a with lower urinary tract symptoms, symptom details unspecifie d Disease Active 01-18 00:00: 00 [facility] Chronic hepatitis C without hepatic coma Chronic hepatitis C without hepatic coma Disease Active 01-04 00:00: 00 [facility] Prostate nodule Prostate nodule Disease Active 12-21 00:00: 00 Overview: Formattin g of this note might be different from the original. Added automatic ally from request for surgery [id number] [facility] SOB SOB Active 01/16/2017 [facility] Diagnosis Active 01-16 00:00: 00 2017-01-17 12:43:00 Cinthya Shearer BODY PAIN BODY PAIN Active 01/16/2017 [facility] Diagnosis Active 01-16 00:00: 00 2017-01-16 16:24:00 Cinthya Shearer Chest pain Chest pain Disease Active 07-26 00:00: 00 [facility] Essential hypertensi on Essential hypertensi on Disease Recurre nce 07-26 00:00: 00 [facility] Nausea (finding) Nausea (finding) Active 02/07/2010 Problem 01/20/2017 [facility] Problem Active 02-07 00:00: 00 2017-01-20 02:36:16 Cinthya Shearer Carotid artery obstructio n (disorder) Carotid artery obstructio n (disorder) Active 02/06/2010 Problem 01/20/2017 [facility] Problem Active 8- 00:00: 00 2017-01-20 02:36:16 Cinthya Shearer 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 ) Active 02/06/2010 Problem 01/20/2017 [facility] Problem Active 02-06 00:00: 00 2017-01-20 02:36:16 Cinthya Shearer Acute rise of fever (finding) Acute rise of fever (finding) Active 02/06/2010 Problem 01/20/2017 [facility] Problem Active 8- 00:00: 00 2017-01-20 02:36:16 Cinthya Shearer Essential hypertensi on (disorder) Essential hypertensi on (disorder) Active 02/06/2010 Problem 01/20/2017 [facility] Problem Active 8- 00:00: 00 2017-01-20 02:36:16 Cinthya Shearer Pain following surgery, acute( ) Pain following surgery, acute( ) Active 02/06/2010 Problem 01/20/2017 [facility] Problem Active 8- 00:00: 00 2017-01-20 02:36:16 Cinthya Shearer Hemoptysis (finding) Hemoptysis (finding) Active 07/07/2009 Problem 01/20/2017 [facility] Problem Active 07-07 00:00: 00 2017-01-20 02:36:16 Cinthya Shearer Viral hepatitis C (disorder) Viral hepatitis C (disorder) Resolved Problem 01/20/2017 [facility] Problem Resolve d 2017-01-20 02:36:16 Cinthya Shearer Acute urinary tract infection (disorder) Acute urinary tract infection (disorder) Active Problem 01/20/2017 [facility] Problem Active 2017-01-20 02:36:16 Cinthya Shearer Cellulitis (disorder) Cellulitis (disorder) Active Problem 01/20/2017 [facility] Problem Active 2017-01-20 02:36:16 Cinthya Shearer Pyrexia of unknown origin (finding) Pyrexia of unknown origin (finding) Active Problem 01/20/2017 blood culture done,urine culture done cbc with diff done [facility] Problem Active 2017-01-20 02:36:16 Cinthya Shearer Pain control (procedure ) Pain control (procedure ) Active Problem 01/20/2017 [facility] Problem Active 2017-01-20 02:36:16 Cinthya Shearer Swelling or edema (finding) Swelling or edema (finding) Active Problem 01/20/2017 [facility] Problem Active 2017-01-20 02:36:16 Cinthya Shearer SHORTNESS OF BREATH SHORTNESS OF BREATH Active [facility] Diagnosis Active 2017-01-17 12:43:00 Cinthya Shearer Abscess of lung (disorder) Abscess of lung (disorder) Resolved Problem 01/20/2017 [facility] Problem Resolve d 2017-01-20 02:36:16 Cinthya Shearer Hyperlipid emia (disorder) Hyperlipid emia (disorder) Resolved Problem 01/20/2017 [facility] Problem Resolve d 2017-01-20 02:36:16 Cinthya Shearer Asthma (disorder) Asthma (disorder) Resolved Problem 01/20/2017 [facility] Problem Resolve d 2017-01-20 02:36:16 Cinthya Shearer Hypertensi ve disorder, systemic arterial (disorder) Hypertensi ve disorder, systemic arterial (disorder) Resolved Problem 01/20/2017 [facility] Problem Resolve d 2017-01-20 02:36:16 Cinthya Shearer Stented coronary artery (finding) Stented coronary artery (finding) Resolved Problem 01/20/2017 [facility] Problem Resolve d 2017-01-20 02:36:16 Cinthya Shearer Allergies, Adverse Reactions, Alerts Allergy Name Allergy Type Status Severity Reaction(s) Onset Date Inactive Date Treating Clinician Comments Source Sulfa (Sulfona mide Antibiot ics) Propensi ty to adverse reaction s Active Hives 03-20 00:00: 00 [facility] SULFA (SULFONA MIDE ANTIBIOT ICS) Drug Class Active Hives 03-20 00:00: 00 [facility] Bactrim Bactrim Active Cinthya Shearer sulfa drugs sulfa drugs Active Cinthya Shearer Social History Social Habit Start Date Stop Date Quantity Comments Source History of tobacco use Current smoker [facility] Sexual orientation U [facility] History of Social function 2025-02-07 00:00:00 2025-02-07 00:00:00 [facility] Exposure to SARS-CoV-2 (event) 2021-12-25 00:00:00 2022-01-04 14:45:00 Not sure [facility] Tobacco use and exposure 2018-12-04 00:00:00 2018-12-04 00:00:00 User of smokeless tobacco [facility] Social History 2017-01-17 00:55:36 2017-01-17 00:55:36 [facility] Manfred Sex assigned at 1945 00:00:00 1945 00:00:00 [facility] Smoking Status Start Date Stop Date Source Ex-smoker 2018-12-04 00:00:00 2018-12-04 00:00:00 [facility] Medications Ordered Medication Name Filled Medication Name Start Date Stop Date Current Medication? Ordering Clinician Indication Dosage Frequency Signature (SIG) Comments Components Source HYDROcodone -acetaminop hen (NORCO) 10-325 mg tablet 1 tablet HYDROcodone -acetaminop hen (NORCO) 10-325 mg tablet 1 tablet 02-20 18:00: 00 02-20 18:08 :00 Yes 1{tbl} 1 tablet, Oral, Once, 1 dose, On Fri02/20/25 at 1300, Routine [facility] ciprofloxac in HCl (CIPRO) 500 mg tablet 02-20 00:00: 00 Yes [id number] 500mg Take 1 tablet by mouth in the morning and 1 tablet in the evening. [facility] HYDROcodone -acetaminop hen 5-325 mg tablet 02-20 00:00: 00 02-28 04:59 :00 Yes [id number] 1{tbl} Take 1 tablet by mouth every 6 hours as needed for Pain (scale 7-10) for up to 7 days. [facility] polyethylen e glycol 3350 powder 17 g polyethylen e glycol 3350 powder 17 g 02-18 14:00: 00 Yes 17g 17 g, Oral, DAILY, First dose on Fri02/18/25 at 0900, Until Discontinu ed, Routine [facility] morpHINE (4 mg/mL) injection 4 mg morpHINE (4 mg/mL) injection 4 mg 02-18 01:50: 28 Yes 4mg 4 mg, Intravenou s, Q3HPRN, Starting on Fri02/17/25 at 0, Until Discontinu ed, Routine, Pain (scale 7-10) [facility] cefTRIAXone (ROCEPHIN) 1,000 mg in sterile water for injection 10 mL IV Push cefTRIAXone (ROCEPHIN) 1,000 mg in sterile water for injection 10 mL IV Push 02-18 01:30: 00 02-23 01:29 :00 Yes 1000mg 1,000 mg, Intravenou s, Q24H ABX, 5 doses, First dose on Fri02/17/25 at 2030, Last dose on Fri02/21/25 at 2030, 10 mL, Reason for Anti-Infec tive: Documented Infection, Documented Infection Site: Urine, Duration of therapy: 7 days [facility] sennosides (SENOKOT) tablet 8.6 mg sennosides (SENOKOT) tablet 8.6 mg 02-18 01:00: 00 Yes 8.6mg 8.6 mg, Oral, QPM AT 2000, First dose on Fri02/17/25 at 2000, Until Discontinu ed, Routine [facility] amLODIPine (NORVASC) tablet 10 mg amLODIPine (NORVASC) tablet 10 mg 02-18 00:15: 00 Yes 10mg 10 mg, Oral, DAILY, First dose on Fri02/17/25 at 191, Until Discontinu ed [facility] lisinopriL (PRINIVIL,Z ESTRIL) tablet 40 mg lisinopriL (PRINIVIL,Z ESTRIL) tablet 40 mg 02-18 00:15: 00 Yes 40mg 40 mg, Oral, DAILY, First dose on Fri02/17/25 at 191, Until Discontinu ed [facility] HYDROcodone -acetaminop hen (NORCO) 10-325 mg tablet 1 tablet HYDROcodone -acetaminop hen (NORCO) 10-325 mg tablet 1 tablet 02-17 22:00: 00 02-20 17:49 :33 Yes 1{tbl} 1 tablet, Oral, Q6HPRN, Starting on Fri02/17/25 at 1700, Until Fri02/20/25 at 1249, Routine, Pain (scale 4-6) [facility] morphine (2 mg/mL) injection 2 mg morphine (2 mg/mL) injection 2 mg 02-17 21:36: 10 02-18 01:50 :34 Yes 2mg 2 mg, Slow IV Push, Q4HPRN, Starting on Fri02/17/25 at 1636, Until Fri02/17/25 at 2049, Routine, Pain (scale 7-10) [facility] ondansetron (ZOFRAN (PF)) injection 4 mg 02-17 18:22: 05 Yes 4mg 4 mg, Slow IV Push, Q4HPRN, 1 dose, Starting on Fri02/17/25 at 1322, Until Discontinu ed, Administer over 2-5 Minutes, 2 mL, DSU Recovery [facility] fentanyl PF (SUBLIMAZE (PF)) injection 25 mcg 02-17 18:21: 57 02-17 20:22 :00 No 25ug 25 mcg, Slow IV Push, Q5MIN PRN, 4 doses, Starting on Fri02/17/25 at 1321, Until Fri02/17/25 at 1522, Routine, Pain Scale 4-6, PACU [facility] naloxone (NARCAN) injection 0.4 mg 02-17 17:23: 57 Yes .4mg 0.4 mg, Slow IV Push, Q20MIN PRN, Starting on Fri02/17/25 at 1223, Until Discontinu ed, Routine, Sedation/R espiratory Depression [facility] ondansetron (ZOFRAN (PF)) injection 4 mg 02-17 17:23: 57 Yes 4mg 4 mg, Slow IV Push, Q8HPRN, Starting on Fri02/17/25 at 1223, Until Discontinu ed, Administer over 2-5 Minutes, 2 mL [facility] hydralAZINE (APRESOLINE ) injection 10 mg 02-17 17:23: 57 Yes 10mg 10 mg, Slow IV Push, Q4HPRN, Starting on Fri02/17/25 at 1223, Until Discontinu ed, Routine, DBP=>100; SBP=>180 [facility] acetaminoph en (TYLENOL) tablet 650 mg 02-17 17:23: 57 Yes 650mg 650 mg, Oral, Q6HPRN, Starting on Fri02/17/25 at 1223, Until Discontinu ed, Routine, Pain (scale 1-3), Temp > 38 C [facility] sodium chloride 0.9 % irrigation solution 02-17 16:18: 00 02-17 18:45 :47 No PRN, Starting on Fri02/17/25 at 1118, Until Fri02/17/25 at 1345, Intra-op [facility] water for irrigation irrigation solution 02-17 16:17: 00 02-17 18:45 :47 No PRN, Starting on Fri02/17/25 at 1117, Until Fri02/17/25 at 1345, Routine, Intra-op [facility] lactated ringers IV infusion 1,000 mL 02-17 12:45: 00 02-18 12:00 :00 No 1000mL at 42 mL/hr, 1,000 mL, IV Infusion, ONCE, 1 dose, On Melba 02/17/25 at 0745, Routine, DSU Pre-op [facility] lidocaine (XYLOCAINE) 2 % jelly URO-JET 02-17 06:25: 00 Yes PRN, Starting on Melba 02/17/25 at 0125, Until Discontinu ed, Routine, Intra-op [facility] amoxicillin -pot clavulanate (AUGMENTIN) 500-125 mg tablet 02-12 00:00: 00 02-11 00:00 :00 No [id number] 500mg Take 1 tablet by mouth in the morning and 1 tablet at noon and 1 tablet in the evening. Do all this for 2 days. Do not start before February 12, 2025. [facility] ciprofloxac in HCl (CIPRO) 500 mg tablet 02-11 00:00: 00 02-20 00:00 :00 No [id number] 500mg Take 1 tablet by mouth in the morning and 1 tablet in the evening. Do all this for 7 days. [facility] amoxicillin -pot clavulanate (AUGMENTIN) 500-125 mg tablet 02-07 00:00: 00 02-11 00:00 :00 No [id number] 500mg Take 1 tablet by mouth in the morning and 1 tablet at noon and 1 tablet in the evening. [facility] cephALEXin 250 mg capsule 30 00:00: 00 02-08 04:59 :00 Yes [id number] 500mg Take 2 capsules by mouth in the morning and 2 capsules in the evening. Do all this for 5 days. [facility] cetirizine 10 mg tablet 01-19 00:00: 00 Yes 1mg Jason Resendez gentamicin injection 160 mg 15 15:45: 00 01-18 15:05 :00 No [id number] 160mg 160 mg, Intramuscu lar, ONCE, 1 dose, On Fri01/18/25 at 1045, Routine, Reason for Anti-Infec tive: Surgical Prophylaxi s, Surgical Prophylaxi s: Genitourin osmin, Duration of therapy: within 24 hours of surgery [facility] lidocaine (XYLOCAINE) 2 % jelly URO-JET 10 mL 01-18 15:00: 00 01-18 15:05 :00 No [id number] 10mL 10 mL, Urethral, ONCE, 1 dose, On Fri01/18/25 at 1000, Routine [facility] tamsulosin 0.4 mg 24 hr capsule 01-18 11:22: 00 02-20 00:00 :00 No .4mg Take 1 capsule by mouth in the morning. [facility] Trelegy Ellipta 100 mcg-62.5 mcg-25 mcg powder for inhalation 12-24 00:00: 00 Yes 1mcg Jason Resendez Mucinex DM 30 mg-600 mg tablet,exte nded release 12 hr 12-21 00:00: 00 Yes 1mg Jason Resendez amlodipine 10 mg tablet 12-15 00:00: 00 Yes 1mg Jason Resendez lisinopril 40 mg tablet 12-15 00:00: 00 Yes 1mg Jason Resendez amlodipine 10 mg tablet 12-13 00:00: 00 Yes 1mg Jason Resendez lisinopril 40 mg tablet 12-13 00:00: 00 Yes 1mg Jason Resendez gadobenate dimeglumine (MULTIHANCE -20 mL) injection 0.2 mL/kg 12-12 19:15: 00 12-12 19:09 :00 No [id number] .2mL/kg 0.2 mL/kg, Intravenou s, ONCE, 1 dose, On Fri12/12/24 at 1415, Routine [facility] lisinopril (PRINIVIL,Z ESTRIL) 40 mg tablet 2025-0 4-15 09:37: 24 Yes 40mg Take 1 tablet by mouth in the morning. [facility] albuterol sulfate HFA 90 mcg/actuati on aerosol inhaler 3-10 00:00: 00 Yes 1mcg/ac tuation Jason Resendez tamsulosin 0.4 mg capsule 2-11 00:00: 00 Yes 1mg Jason Resendez Trelegy Ellipta 100 mcg-62.5 mcg-25 mcg powder for inhalation 1-20 00:00: 00 Yes 1mcg Jason Resendez Trelegy Ellipta 100 mcg-62.5 mcg-25 mcg powder for inhalation 2023-07 2 00:00: 00 Yes 1mcg Jason Resendez albuterol sulfate 1.25 mg/3 mL solution for nebulizatio n 2023-07 00:00: 00 Yes mg/3 mL Jason Resendez budesonide 1 mg/2 mL suspension for nebulizatio n 2023-07 00:00: 00 Yes 1mg/2 mL Jason Resendez amlodipine 10 mg tablet 2023-07 2 00:00: 00 Yes 1mg Jason Resendez lisinopril 40 mg tablet 2023-07 2 00:00: 00 Yes 1mg Jason Resendez albuterol sulfate HFA 90 mcg/actuati on aerosol inhaler 2023-0717 00:00: 00 Yes 1mcg/ac tuation Jason Resendez ACETAMINOPH EN-COD #3 2-24 00:00: 00 Yes Jason Resendez TAKE 1 TABLET DAILY. 08-29 00:00: 00 Yes 10 Jason Resendez TAKE 1 TABLET DAILY. - 00:00: 00 Yes 10 Jason Resendez 1 TAB PO QHS 2- 00:00: 00 Yes 25 Jason Resendez TAKE 1 CAPSULE BY MOUTH ONCE DAILY - 00:00: 00 Yes 4 Jason Resendez INHALE 1 TO 2 PUFFS EVERY 6 HOURS NEEDED. - 00:00: 00 Yes [id number] Jason Resendez TAKE 1 TABLET DAILY. 00:00: 00 Yes 81 Jason Resendez TAKE 1 TABLET BY MOUTH EVERY DAY 2 00:00: 00 Yes 40 Jason Resendez SILDENAFIL 100MG 09-23 00:00: 00 Yes [id number] Jason Resendez ALBUTEROL PA HFA 200 INH 3-20 00:00: 00 09-19 00:00 :00 No [id number] Jason Resendez sofosbuvir- velpatasvir 400-100 mg 01-18 00:00: 00 Yes [id number] 1{tbl} Take 1 tablet by mouth in the morning. [facility] sofosbuvir- velpatasvir 400-100 mg 01-10 00:00: 00 01-18 00:00 :00 No [id number] 1{tbl} Take 1 tablet by mouth daily for 84 days. [facility] glecaprevir -pibrentasv ir 100-40 mg 01-04 00:00: 00 01-10 00:00 :00 No [id number] 3{tbl} Take 3 tablets by mouth daily for 8 weeks. [facility] lisinopril (PRINIVIL,Z ESTRIL) 40 mg tablet 10-05 13:59: 36 Yes 40mg Take 40 mg by mouth daily. [facility] AMLODIPINE BESYLATE (AMLODIPINE ORAL) 10-05 13:59: 36 Yes 10mg Take 10 mg by mouth in the morning. [facility] Silodosin 4 mg Cap 2019-07-14 00:00: 00 Yes [id number] 4mg Take 4 mg by mouth daily. [facility] levoFLOXaci n (LEVAQUIN) 500 mg tablet 12-21 00:00: 00 02-11 00:00 :00 No [id number] 9109 500mg Take 1 tablet by mouth SEE-INSTRU CTIONS. 1 PO day before biopsy, 1 PO day of biopsy and 1 PO day after biopsy [facility] clindamycin 300 mg capsule 16 00:00: 00 02-07 00:00 :00 No 300mg Take 1 capsule by mouth 4 (four) times daily. [facility] cefpodoxime 200 mg oral tablet 01-17 14:39: 00 Yes 200 mg = 1 tab, PO, Q12H, X 10 day, # 20 tab, 0 Refill(s) Brinacaitlyn rajni Manfred Albuterol 0.83 MG/ML Inhalant Solution 01-17 14:38: 00 No Notes: SEE RT DOCUMENTAT ION (Same as: Proventil) Brinacaitlyn rajni Shearer Symbicort 160/4.5 inhalation aerosol with adapter 01-17 14:18: 00 Yes 2 puff, INHALER, BID, # 1 ea, 3 Refill(s) Brinacaitlyn rajni Shearer lisinopril 40 mg oral tablet 01-17 14:18: 00 Yes 40 mg = 1 tab, PO, Daily, # 30 tab, 0 Refill(s) Cinthya Shearer Amlodipine 01-17 14:00: 00 No Notes: (Same as: Norvasc) Cinthya Shearer Melatonin 3 MG Extended Release Tablet 01-17 06:26: 00 No Notes: (Same as: Melatonin) Cinthya Shearer Cephalexin 01-17 02:00: 00 No Notes: Take on empty stomach. (Same As: Keflex) Brinacaitlyn rajni Shearer Ceftriaxone 01-17 01:00: 00 No Notes: (Same As: Rocephin). Use with 100 mL NS and infuse over 30 min MEDICATION WASTE Product Size: 1000 mg Product Wasted: __0_ mg Cinthya Shearer Ondansetron 01-17 00:25: 00 No Notes: (Same as: Zofran) MEDICATION WASTE Product Size: 4 mg Product Wasted: _0__ mg Brinacaitlyn rajni Shearer Acetaminoph en 01-17 00:25: 00 No Notes: Do not exceed 4 gm/day. (Same as: Tylenol) Cinthya Shearer tramadol hydrochlori de 50 MG Oral Tablet 01-16 23:25: 00 No 50 mg = 1 tab, PO, Q8H, PRN Pain, # 60 tab, 0 Refill(s) Cinthya Shearer ciprofloxac in 500 mg oral tablet 01-16 23:25: 00 No 500 mg = 1 tab, PO, Q12H, # 14 tab, 0 Refill(s) Cinthya rajni Shearer cephalexin 500 mg oral capsule 01-16 23:25: 00 No 500 mg = 1 cap, PO, QID, # 20 cap, 0 Refill(s) Cinthya Shearer Ibuprofen 01-16 21:51: 00 No 600 mg, Route: PO, ONCE, Dosing Weight 86.364, kg, Priority: STAT, Start date: 01/16/17 16:51:00 CDT, Stop date: 01/16/17 16:51:00 CDT Cinthya Shearer Albuterol 0.833 MG/ML / Ipratropium [place] 0.167 MG/ML Inhalant Solution [DuoNeb] 01-16 19:07: 00 No Notes: (Same as: Elis) Cinthya Shearer Aspirin 01-16 17:22: 00 No 325 mg, Route: PO, Drug form: TAB, ONCE, Dosing Weight 86.364, kg, Priority: STAT, Start date: 01/16/17 12:22:00 CDT, Stop date: 01/16/17 12:22:00 CDT Cinthya Shearer traMADOL (ULTRAM) 50 mg tablet 12-29 00:00: 00 02-20 00:00 :00 No 50mg Take 1 tablet by mouth every 6 (six) hours as needed for Pain (scale 4-6). [facility] Immunizations Ordered Immunization Name Filled Immunization Name Date Status Comments Source SARS-COV-2 COVID-19 MODERNA VACCINE 2020-10-02 00:00:00 Completed [facility] SARS-COV-2 COVID-19 MODERNA VACCINE 2020-10-02 00:00:00 Completed [facility] SARS-COV-2 COVID-19 MODERNA VACCINE 2020-10-02 00:00:00 Completed [facility] SARS-COV-2 COVID-19 MODERNA VACCINE 2020-10-02 00:00:00 Completed [facility] SARS-COV-2 COVID-19 MODERNA 12+ YRS VACCINE 2020-10-02 00:00:00 Completed [facility] SARS-COV-2 COVID-19 MODERNA 12+ YRS VACCINE 2020-10-02 00:00:00 Completed SARS-COV-2 COVID-19 MODERNA VACCINE 2020-09-04 00:00:00 Completed [facility] SARS-COV-2 COVID-19 MODERNA VACCINE 2020-09-04 00:00:00 Completed [facility] SARS-COV-2 COVID-19 MODERNA VACCINE 2020-09-04 00:00:00 Completed [facility] SARS-COV-2 COVID-19 MODERNA VACCINE 2020-09-04 00:00:00 Completed [facility] SARS-COV-2 COVID-19 MODERNA 12+ YRS VACCINE 2020-09-04 00:00:00 Completed [facility] SARS-COV-2 COVID-19 MODERNA 12+ YRS VACCINE 2020-09-04 00:00:00 Completed [facility] Vital Signs Vital Name Observation Time Observation Value Comments S ource Systolic blood pressure 2025-02-20 16:33:00 142 mm[Hg] [facility] Diastolic blood pressure 2025-02-20 16:33:00 79 mm[Hg] [facility] Heart rate 2025-02-20 16:33:00 99 /min [facility] Body temperature 2025-02-20 16:33:00 36.61 Coco [facility] Oxygen saturation in Arterial blood by Pulse oximetry 2025-02-20 12:40:00 93 /min [facility] Respiratory rate 2025-02-20 11:00:00 17 /min [facility] Body weight 2025-02-20 09:00:00 99.474 kg [facility] BMI 2025-02-20 09:00:00 29.74 kg/m2 [facility] Body height 2025-02-17 21:17:00 182.9 cm [facility] Systolic blood pressure 2025-02-17 13:21:00 137 mm[Hg] [facility] Diastolic blood pressure 2025-02-17 13:21:00 98 mm[Hg] [facility] Heart rate 2025-02-17 13:21:00 71 /min [facility] Body temperature 2025-02-17 13:21:00 36.11 Coco [facility] Respiratory rate 2025-02-17 13:21:00 17 /min [facility] Body height 2025-02-17 13:21:00 182.9 cm [facility] Body weight 2025-02-17 13:21:00 90.719 kg [facility] BMI 2025-02-17 13:21:00 29.89 kg/m2 [facility] Oxygen saturation in Arterial blood by Pulse oximetry 2025-02-17 13:21:00 96 /min [facility] Body weight 2025-02-07 15:14:00 92.987 kg [facility] BMI 2025-02-07 15:14:00 27.80 kg/m2 [facility] Systolic blood pressure 2025-02-04 17:52:00 137 mm[Hg] [facility] Diastolic blood pressure 2025-02-04 17:52:00 81 mm[Hg] [facility] Heart rate 2025-02-04 17:52:00 86 /min [facility] Body temperature 2025-02-04 17:52:00 36.22 Coco [facility] Respiratory rate 2025-02-04 17:52:00 20 /min [facility] Body height 2025-02-04 17:52:00 182.9 cm [facility] Body weight 2025-02-04 17:52:00 92.987 kg [facility] BMI 2025-02-04 17:52:00 27.80 kg/m2 [facility] Oxygen saturation in Arterial blood by Pulse oximetry 2025-02-04 17:52:00 97 /min [facility] Systolic blood pressure 2025-02-02 20:11:00 151 mm[Hg] [facility] Diastolic blood pressure 2025-02-02 20:11:00 101 mm[Hg] [facility] Heart rate 2025-02-02 20:10:00 94 /min [facility] Respiratory rate 2025-02-02 20:10:00 20 /min [facility] Body weight 2025-02-02 20:10:00 92.08 kg [facility] BMI 2025-02-02 20:10:00 27.53 kg/m2 [facility] Oxygen saturation in Arterial blood by Pulse oximetry 2025-02-02 20:10:00 96 /min [facility] Systolic blood pressure 2025-01-18 14:09:00 138 mm[Hg] [facility] Diastolic blood pressure 2025-01-18 14:09:00 78 mm[Hg] [facility] Heart rate 2025-01-18 14:09:00 92 /min [facility] Body temperature 2025-01-18 14:09:00 36.61 Coco [facility] Respiratory rate 2025-01-18 14:09:00 18 /min [facility] Body height 2025-01-18 14:09:00 182.9 cm [facility] Body weight 2025-01-18 14:09:00 92.08 kg [facility] BMI 2025-01-18 14:09:00 27.53 kg/m2 [facility] Oxygen saturation in Arterial blood by Pulse oximetry 2025-01-18 14:09:00 97 /min [facility] Systolic blood pressure 2024-10-19 14:43:00 137 mm[Hg] [facility] Diastolic blood pressure 2024-10-19 14:43:00 93 mm[Hg] [facility] Heart rate 2024-10-19 14:43:00 73 /min [facility] Body height 2024-10-19 14:42:00 182.9 cm [facility] Body weight 2024-10-19 14:42:00 95.709 kg [facility] BMI 2024-10-19 14:42:00 28.62 kg/m2 [facility] Oxygen saturation in Arterial blood by Pulse oximetry 2024-10-19 14:42:00 97 /min [facility] Systolic blood pressure 2022-01-04 19:53:00 164 mm[Hg] [facility] Diastolic blood pressure 2022-01-04 19:53:00 99 mm[Hg] [facility] Heart rate 2022-01-04 19:50:00 89 /min [facility] Body temperature 2022-01-04 19:50:00 36.72 Coco [facility] Body height 2022-01-04 19:50:00 182.9 cm [facility] Body weight 2022-01-04 19:50:00 93.895 kg [facility] BMI 2022-01-04 19:50:00 28.07 kg/m2 [facility] Oxygen saturation in Arterial blood by Pulse oximetry 2022-01-04 19:50:00 98 /min [facility] BP Systolic 2025-01-26 11:00:00 128 mm[Hg] Step hen F Mal BP Diastolic 2025-01-26 11:00:00 84 mm[Hg] Joe phen F Mal Weight Measured 2025-01-26 11:00:00 200.00 pounds Jason Resendez Height Measured 2025-01-26 11:00:00 72.00 inches Jason Ching Mal Body Temperature 2025-01-26 11:00:00 98.10 degrees Jason F Mal Heart Rate 2025-01-26 11:00:00 97.00 /min Leanne en F Mal Respiratory Rate 2025-01-26 11:00:00 16.00 /min Jason F Mal BP Systolic 2025-01-19 09:24:00 136 mm[Hg] Step hen F Mal BP Diastolic 2025-01-19 09:24:00 88 mm[Hg] Joe phen F Mal Weight Measured 2025-01-19 09:24:00 204.00 pounds Jason F Mal Height Measured 2025-01-19 09:24:00 72.00 inches Jason Ching Resendez Body Temperature 2025-01-19 09:24:00 98.00 degrees Jason F Mal Heart Rate 2025-01-19 09:24:00 85.00 /min Leanne en F Mal Respiratory Rate 2025-01-19 09:24:00 16.00 /min Jason F Mal BP Systolic 2024-12-21 08:32:00 134 mm[Hg] Step hen F Mal BP Diastolic 2024-12-21 08:32:00 82 mm[Hg] Joe phen F Mal Weight Measured 2024-12-21 08:32:00 206.00 pounds Jason F Mal Height Measured 2024-12-21 08:32:00 72.00 inches Jason F Mal Body Temperature 2024-12-21 08:32:00 97.80 degrees Jason F Mal Heart Rate 2024-12-21 08:32:00 79.00 /min Leanne en F Mal Respiratory Rate 2024-12-21 08:32:00 18.00 /min Jason F Mal BP Systolic 2024-12-15 08:41:00 163 mm[Hg] Step hen F Mal BP Diastolic 2024-12-15 08:41:00 82 mm[Hg] Joe phen F Mal Weight Measured 2024-12-15 08:41:00 207.00 pounds Jason F Mal Height Measured 2024-12-15 08:41:00 72.00 inches Jason F Mal Body Temperature 2024-12-15 08:41:00 98.10 degrees Jason F Mal Heart Rate 2024-12-15 08:41:00 70.00 /min Leanne en F Mal Respiratory Rate 2024-12-15 08:41:00 18.00 /min Jason F Mal BP Systolic 2024-08-17 11:44:00 132 mm[Hg] Step hen F Mal BP Diastolic 2024-08-17 11:44:00 86 mm[Hg] Joe phen F Mal Weight Measured 2024-08-17 11:44:00 202.00 pounds Jason F Mal Height Measured 2024-08-17 11:44:00 72.00 inches Jason F Mal Body Temperature 2024-08-17 11:44:00 97.20 degrees Jason F Mal Heart Rate 2024-08-17 11:44:00 86.00 /min Leanne en F Mal Respiratory Rate 2024-08-17 11:44:00 18.00 /min Jason F Mal BP Systolic 2024-07-05 11:12:00 120 mm[Hg] Step hen F Mal BP Diastolic 2024-07-05 11:12:00 80 mm[Hg] Joe phen F Mal Weight Measured 2024-07-05 11:12:00 201.00 pounds Jason F Mal Height Measured 2024-07-05 11:12:00 72.00 inches Jason F Mal Body Temperature 2024-07-05 11:12:00 97.90 degrees Jason F Mal Heart Rate 2024-07-05 11:12:00 70.00 /min Leanne en F Mal Respiratory Rate 2024-07-05 11:12:00 19.00 /min Jason F Mal Respiratory Rate 2024-06-22 08:13:00 20.00 /min Jason F Mal BP Systolic 2024-06-22 08:13:00 110 mm[Hg] Step hen F Mal BP Diastolic 2024-06-22 08:13:00 86 mm[Hg] Joe phen F Mal Weight Measured 2024-06-22 08:13:00 201.00 pounds Jason F Mal Height Measured 2024-06-22 08:13:00 72.00 inches Jason F Mal Body Temperature 2024-06-22 08:13:00 97.20 degrees Jason F Mal Heart Rate 2024-06-22 08:13:00 79.00 /min Leanne en F Mal BP Systolic 2023-08-27 07:47:00 138 mm[Hg] Step hen F Mal BP Diastolic 2023-08-27 07:47:00 100 mm[Hg] Joe phen F Mal Weight Measured 2023-08-27 07:47:00 202.00 pounds Jason F Mal Height Measured 2023-08-27 07:47:00 69.00 inches Jason F Mal Body Temperature 2023-08-27 07:47:00 96.80 degrees Jason F Mal Heart Rate 2023-08-27 07:47:00 70.00 /min Leanne en F Mal Respiratory Rate 2023-08-27 07:47:00 20.00 /min Jason F Mal Systolic (mm Hg) 2017-01-17 14:23:00 [facility] Diastolic (mm Hg) 2017-01-17 14:23:00 [facility] Heart Rate 2017-01-17 14:23:00 [facility] Rate 2017-01-17 14:23:00 [facility] Temperature Oral (F) 2017-01-17 09:33:00 97.9 F [facility] Respitory Rate 2017-01-17 09:33:00 [facility] Systolic (mm Hg) 2017-01-17 09:33:00 [facility] Diastolic (mm Hg) 2017-01-17 09:33:00 [facility] Systolic (mm Hg) 2017-01-17 05:12:00 [facility] Diastolic (mm Hg) 2017-01-17 05:12:00 [facility] Heart Rate 2017-01-17 05:12:00 [facility] Respitory Rate 2017-01-17 05:12:00 [facility] Temperature Oral (F) 2017-01-17 05:12:00 97.7 F [facility] BMI Calculated 2017-01-17 00:52:00 [facility] Height 2017-01-17 00:52:00 182.88 cm [facility] Weight 2017-01-17 00:52:00 [facility] Heart Rate 2017-01-17 00:21:00 [facility] Weight 2017-01-16 22:48:00 [facility] BMI Calculated 2017-01-16 22:48:00 [facility] Height 2017-01-16 22:48:00 183 cm [facility] Temperature Oral (F) 2017-01-16 20:35:00 99.0 F [facility] Height 2017-01-16 16:52:00 182.88 cm [facility] Weight 2017-01-16 16:52:00 [facility] BMI Calculated 2017-01-16 16:52:00 [facility] Procedures Procedure Date / Time Performed Performing Clinician Source IRON 2025-02-20 08:45:00 Cheng Dos Santos [facility] CBC WITH DIFF 2025-02-20 08:45:00 Cheng Dos Santos [facility] PHOSPHORUS 2025-02-19 09:14:00 [facility] MAGNESIUM 2025-02-19 09:14:00 Nelsy Travis V. [facility] COMP. METABOLIC PANEL ([id number]) 2025-02-19 09:14:00 Nelsy Travis V. [facility] CBC WITH DIFF 2025-02-19 09:14:00 Nlesy Travis V. [facility] PHOSPHORUS 2025-02-18 09:06:00 Nelsy Travis V. [facility] MAGNESIUM 2025-02-18 09:06:00 Nelsy Travis V. [facility] COMP. METABOLIC PANEL ([id number]) 2025-02-18 09:06:00 Nelsy Traivs V. [facility] CBC WITH DIFF 2025-02-18 09:06:00 Nelsy Travis V. [facility] PHOSPHORUS 2025-02-18 09:06:00 Nelsy Travis V. [facility] MAGNESIUM 2025-02-18 09:06:00 Nelsy Travis V. [facility] COMP. METABOLIC PANEL ([id number]) 2025-02-18 09:06:00 Nelsy Travis V. [facility] CBC WITH DIFF 2025-02-18 09:06:00 Nelsy Travis V. [facility] URINE CULTURE 2025-02-17 16:16:00 [facility] [id number] [place] LASER ENUCLEATION PROSTATE W/MORCELLATION 2025-02-17 15:36:[address] [facility] [id number] - [place] LASER ENUCLEATION PROSTATE W/MORCELLATION 2025-02-17 15:36:[address] [facility] COMP. METABOLIC PANEL ([id number]) 2025-02-17 13:17:[address] [facility] CBC WITH DIFF 2025-02-17 13:17:00 [facility] COMP. METABOLIC PANEL ([id number]) 2025-02-17 13:17:[address] [facility] CBC WITH DIFF 2025-02-17 13:17[facility]00 [facility]-VOID RES,US,NON-IMAGING 2025-02-02 00:00:00 Hugo Sellers [facility] ANGEL,POST-VOID RES,US,NON-IMAGING 2025-01-18 00:00:00 Marlo Hugo [facility] POCT URINALYSIS AUTO 2025-01-18 00:00:00 Opal Sellers [facility] ANGEL,POST-VOID RES,US,NON-IMAGING 2024-10-19 15:01:[address] [facility] POCT URINALYSIS AUTO 2024-10-19 00:00:00 Opal Sellers [facility] SURGICAL PATHOLOGY DMT CONSULT 2022-01-11 17:21:00 Mariel Cesar [facility] Lung operation [facility] Planned Activity Planned Date Details Comments Source Medication 2025-02-21 14:00:00 azithromycin (ZITHROMAX) tablet 500 mg [code = 882323] [facility] Encounters Start Date/Time End Date/Time Encounter Type Admission Type Attending Clinicians Care Facility Care Department Encounter ID Source 2022-08-01 16:02:27 Outpatient [facility] [id number] [facility] 2021-11-13 11:07:01 Outpatient Mariola Johnson [facility] [id number] [facility] 2021-10-25 13:48:02 Outpatient Mariola Johnson [facility] [id number] [facility] 2021-08-01 11:58:47 Outpatient Mariola Johnson [facility] [id number] [facility] 2025-02-17 07:34:00 2025-02-20 14:07:00 Hospital Encounter R Hugo Sellers [facility]ie [facility] 1.2.840.114 350.1.13.10 4.2.7.2.686 [id number] [facility] 2025-02-17 10:00:00 2025-02-17 11:56:00 Surgery Hugo Sellers [facility] 1.2.840.114 350.1.13.10 4.2.7.2.686 [id number] [facility] 2025-02-14 14:30:00 2025-02-14 15:30:00 Nurse Visit R Nurse, [facility] Surgery Hugo Sellers Nurse, [facility] Surgery [facility] PRIMARY AND SPECIALTY CARE 1.2.840.114 350.1.13.10 4.2.7.2.686 [id number] [facility] 2025-01-10 00:00:00 2025-02-12 18:26:10 [facility] 1.2.840.114 350.1.13.10 4.2.7.2.686 [id number] [facility] 2025-02-11 00:00:00 2025-02-11 13:51:57 Telephone Yissel Garcia [facility] 1.2.840.114 350.1.13.10 4.2.7.2.686 [id number] [facility] 2025-02-11 00:00:00 2025-02-11 10:51:16 Telephone Yissel Garcia [facility] 1.2.840.114 350.1.13.10 4.2.7.2.686 [id number] [facility] 2025-02-10 00:00:00 2025-02-10 08:25:40 Telephone Yissel Garcia [facility] 1.2.840.114 350.1.13.10 4.2.7.2.686 [id number] [facility] 2025-02-07 00:00:00 2025-02-07 13:34:20 Telephone Jose Yissel [facility] 1.2.840.114 350.1.13.10 4.2.7.2.686 [id number] [facility] 2025-02-07 08:00:00 2025-02-07 09:00:00 Nurse Visit R Nurse, [facility] Surgery Hugo Sellers Nurse, Lk Surgery [facility] PRIMARY AND SPECIALTY CARE 1.2.840.114 350.1.13.10 4.2.7.2.686 [id number] [facility] 2025-02-04 12:30:00 2025-02-04 14:46:44 Office Visit JAKY KRUEGER [facility] PRIMARY AND SPECIALTY CARE 1.2.840.114 350.1.13.10 4.2.7.2.686 [id number] [facility] 2025-02-02 15:00:00 2025-02-02 16:00:00 Nurse Visit R Nurse, [facility] Surgery Hugo Sellers Nurse, [facility] Surgery [facility] PRIMARY AND SPECIALTY CARE 1.2.840.114 350.1.13.10 4.2.7.2.686 [id number] [facility] 2025-02-02 00:00:00 2025-02-02 13:34:56 Telephone Hugo Sellers [facility] PRIMARY AND SPECIALTY CARE 1.2.840.114 350.1.13.10 4.2.7.2.686 [id number] [facility] 2025-01-25 00:00:00 2025-01-27 15:20:55 Telephone Hugo Sellers [facility] PRIMARY AND SPECIALTY CARE 1.2.840.114 350.1.13.10 4.2.7.2.686 [id number] [facility] 2025-01-26 10:46:43 2025-01-26 10:46:43 Outpatient [facility] [id number] Jason Resendez 2025-01-26 00:00:00 2025-01-26 00:00:00 Outpatient Visit [facility] [id number] Jason Resendez 2025-01-24 00:00:00 2025-01-24 13:29:00 Telephone [facility] PRIMARY AND SPECIALTY CARE 1.2.840.114 350.1.13.10 4.2.7.2.686 [id number] [facility] 2025-01-18 00:00:00 2025-01-19 11:24:17 Telephone [facility] PRIMARY AND SPECIALTY CARE 1.2.840.114 350.1.13.10 4.2.7.2.686 [id number] [facility] 2025-01-19 00:00:00 2025-01-19 10:52:32 Telephone [facility] PRIMARY AND SPECIALTY CARE 1.2.840.114 350.1.13.10 4.2.7.2.686 [id number] [facility] 2025-01-19 09:24:25 2025-01-19 09:24:25 Outpatient [facility] [id number] Jason Resendez 2025-01-19 00:00:00 2025-01-19 00:00:00 Outpatient Visit [facility] [id number] Jason Resendez 2025-01-18 09:30:00 2025-01-18 11:29:42 Office Visit R [facility] PRIMARY AND SPECIALTY CARE 1.2.840.114 350.1.13.10 4.2.7.2.686 [id number] [facility] 2025-01-05 11:00:00 2025-01-05 11:15:00 Sleep Lab Technologist Visit Laura Hooper, [facility] Lab Main Aarti Garciadevi Hooper, [facility] Lab Main [facility] 1.2.840.114 350.1.13.10 4.2.7.2.686 [id number] [facility] 2025-01-03 00:00:00 2025-01-03 15:34:42 Telephone Yissel Garcia [facility] PRIMARY AND SPECIALTY CARE 1.2840.114 350.1.13.10 4.2.7.2.686 [id number] [facility] 2024-12-21 08:24:52 2024-12-21 08:24:52 Outpatient [facility] [id number] Jason Resendez 2024-12-21 00:00:00 2024-12-21 00:00:00 Outpatient Visit [facility] [id number] Jason Resendez 2024-12-15 00:00:00 2024-12-15 00:00:00 Outpatient Visit [facility] [id number] Jason Resendez 2024-12-12 12:35:46 2024-12-12 23:59:00 Hospital Encounter R YISSEL GARCIA [facility] 1.2840.114 350.1.13.10 4.2.7.2.686 [id number] [facility] 2024-11-14 00:00:00 2024-11-14 00:00:00 Outpatient R YISSEL GARCIA [facility] [id number] [facility] 2024-11-14 00:00:2024-11-14 00:00:00 Outpatient R YISSEL GARCIA [facility] [id number] [facility] 2024-10-28 00:00:00 2024-10-28 15:50:03 Telephone Hugo Sellers [facility] PRIMARY AND SPECIALTY CARE 1.2.840.114 350.1.13.10 4.2.7.2.686 [id number] [facility] 2024-10-25 00:00:00 2024-10-25 10:37:50 Telephone Yissel Garcia [facility] PRIMARY AND SPECIALTY CARE 1.2.840.114 350.1.13.10 4.2.7.2.686 [id number] [facility] 2024-10-19 11:30:00 2024-10-19 11:30:00 Outpatient R MARLO [facility] [id number] [facility] 2024-10-19 09:30:00 2024-10-19 10:51:32 Office Visit Marlo [facility] PRIMARY AND SPECIALTY CARE 1.2.840.114 350.1.13.10 4.2.7.2.686 [id number] [facility] 2024-08-17 11:32:53 2024-08-17 11:32:53 Outpatient [facility] [id number] Jason Resendez 2024-08-17 00:00:00 2024-08-17 00:00:00 Outpatient Visit [facility] [id number] Jason Resendez 2024-07-05 11:02:47 2024-07-05 11:02:47 Outpatient [facility] [id number] Jason Resendez 2024-07-05 00:00:00 2024-07-05 00:00:00 Outpatient Visit [facility] [id number] Jason Resendez 2024-06-22 08:12:49 2024-06-22 08:12:49 Outpatient [facility] [id number] Jason Resendez 2024-06-22 00:00:00 2024-06-22 00:00:00 Outpatient Visit [facility] [id number] Jason Resendez 2022-05-17 11:30:00 2022-05-17 11:30:00 Outpatient OSWALD DOAN AKANA [facility] [id number] [facility] 2022-01-11 13:30:00 2022-01-11 13:45:00 Sleep Lab [facility] 1.0.114 350.1.13.10 4.2.7.2.686 [id number] [facility] 2022-01-11 13:30:00 2022-01-11 13:30:00 Outpatient R [facility] [id number] [facility] 2022-01-11 00:00:00 2022-01-11 00:00:00 Telephone Kimberly Watson [facility] 10.114 350.1.13.10 4.2.7.2.686 [id number] [facility] 2022-01-10 00:00:00 2022-01-10 00:00:00 Case Management Mariel Cesar [facility] .0.114 350.1.13.10 4.2.7.2.686 [id number] [facility] 2022-01-09 00:00:00 2022-01-09 00:00:00 [facility]114 350.1.13.10 4.2.7.2.686 [id number] [facility] 2022-01-04 16:00:00 2022-01-04 16:15:00 Sleep Lab Technologist [facility] [place] [facility] 1.2.840.114 350.1.13.10 4.2.7.2.686 [id number] [facility] 2022-01-04 15:30:00 2022-01-04 16:00:00 Office Visit Shanelle [facility] 1.2.840.114 350.1.13.10 4.2.7.2.686 [id number] [facility] 2022-01-04 15:30:00 2022-01-04 15:30:00 Outpatient R OSWALD TIMMONS OSWALD [facility] [id number] [facility] 2022-01-04 15:30:00 2022-01-04 15:30:00 Outpatient R OSWALD TIMMONS OSWALD [facility] [id number] [facility] 2022-01-04 15:30:00 2022-01-04 15:30:00 Outpatient R OSWALD TIMMONS OSWALD [facility] [id number] [facility] 2022-01-04 15:30:00 2022-01-04 15:30:00 Outpatient R OSWALD TIMMONS OSWALD [facility] [id number] [facility] 2021-12-31 09:30:17 2021-12-31 23:59:00 Outpatient R OSWALD TIMMONS OSWALD [facility] [id number] [facility] 2021-12-31 09:30:17 2021-12-31 23:59:00 Outpatient R SHANELLE OSWALD TIMMONS OSWALD [facility] [id number] [facility] 2021-12-31 09:00:00 2021-12-31 23:59:00 Hospital Encounter Oswald Timmons [facility] 1.2.840.114 350.1.13.10 4.2.7.2.686 [id number] [facility] 2021-12-31 08:30:00 2021-12-31 08:45:00 Sleep Lab Technologist Visit [facility] 1.2.840.114 350.1.13.10 4.2.7.2.686 [id number] [facility] 2021-11-30 14:55:00 2021-11-30 19:10:00 Emergency X [facility] ERT [id number] [facility] 2021-11-30 14:55:00 2021-11-30 19:10:00 Emergency Patty Calvert [facility] ([facility] [id number] [facility] 2021-11-30 14:00:00 2021-11-30 14:30:00 Office Visit Shanelle [facility] [place] [facility] [id number] [facility] 2021-11-30 14:00:00 2021-11-30 14:00:00 Outpatient R TEJAMAGALY OSBALDOEMILI TIMMONS [facility] [id number] [facility] 2021-11-30 14:00:00 2021-11-30 14:00:00 Outpatient R OSWALD TIMMONS [facility] [id number] [facility] 2021-11-05 09:00:00 2021-11-05 09:00:00 Outpatient DIANA MOTLEY [facility] [id number] [facility] 2021-10-08 09:30:00 2021-10-08 09:30:00 Outpatient R [facility] [facility] [id number] [facility] 2021-10-08 09:30:00 2021-10-08 09:30:00 Outpatient R DIANA PINTO [facility] [id number] [facility] 2021-10-05 15:00:00 2021-10-05 15:15:00 Sleep Lab Technologist Visit Vls-Lab [facility] 1.2.840.114 350.1.13.10 4.2.7.2.686 [id number] [facility] 2021-10-05 15:00:00 2021-10-05 15:15:00 Sleep Lab Technologist Visit s-Lab [facility] 1.2.840.114 350.1.13.10 4.2.7.2.686 [id number] [facility] 2021-10-05 15:00:00 2021-10-05 15:00:00 Outpatient R OSWALD TIMMONS AKANA [facility] [id number] [facility] 2021-10-05 15:00:00 2021-10-05 15:00:00 Outpatient R OSWALD TIMMONS AKANA [facility] [id number] [facility] 2021-10-05 13:30:00 2021-10-05 14:00:00 Office Visit [facility] 1.2.840.114 350.1.13.10 4.2.7.2.686 [id number] [facility] 2021-10-05 13:30:00 2021-10-05 13:30:00 [facility] [id number] [facility] 2021-10-01 00:00:00 2021-10-01 00:00:00 Telephone Oswald Timmons [facility] 1..840.114 350.1.13.10 4.2.7.2.686 [id number] [facility] 2021-09-28 10:00:00 2021-09-28 10:00:00 Outpatient R OSWALD TIMMONS AKANA [facility] [id number] [facility] 2021-09-03 14:00:00 2021-09-03 14:15:00 Sleep Lab Technologist Visit 2, Adc Lab Margarita Cornell [facility] 1..840.114 350.1.13.10 4.2.7.2.686 [id number] [facility] 2021-09-03 13:00:00 2021-09-03 13:53:43 Outpatient MARGARITA HEWITT [facility] [id number] [facility] 2021-09-03 13:00:00 2021-09-03 13:53:43 Office Visit Margarita Cornell [facility] 1..840.114 350.1.13.10 4.2.7.2.686 [id number] [facility] 2021-09-03 13:00:00 2021-09-03 13:53:43 Outpatient MARGARITA HEWITT [facility] [id number] [facility] 2021-09-03 00:00:00 2021-09-03 00:00:00 Orders Only Doctor Unassigned, [place] [facility] 1..840.114 350.1.13.10 4.2.7.2.686 [id number] [facility] 2020-10-02 15:00:00 2020-10-02 15:00:00 Outpatient ISAIAS JONES [facility] [id number] [facility] 2020-09-04 13:36:58 2020-09-04 14:13:30 Office Visit Maxgary [facility] 1..840.114 350.1.13.10 4.2.7.2.686 [id number] [facility] 2020-09-04 13:30:00 2020-09-04 13:30:00 Outpatient R MAXGARY [facility] [id number] [facility] 2020-08-29 12:56:59 2020-08-29 23:59:00 Hospital Encounter Margarita Cornell [facility] 1.840.114 350.1.13.10 4.2.7.2.686 [id number] [facility] 2020-08-29 00:00:00 2020-08-29 00:00:00 Outpatient R MARGARITA CORNELL [facility] [id number] [facility] 2020-08-17 09:15:00 2020-08-17 09:15:00 Outpatient R MARLO [facility] [id number] [facility] 2020-08-04 00:00:00 2020-08-04 00:00:00 Case Management Margarita Cornell [facility] Building 1..840.114 350.1.13.10 4.2.7.2.686 [id number] [facility] 2020-08-03 15:30:00 2020-08-03 15:30:00 Outpatient R MARLO [facility] [id number] [facility] 2020-07-28 00:00:00 2020-07-28 00:00:[address] [facility] 1..840.114 350.1.13.10 4.2.7.2.686 [id number] [facility] 2020-07-17 10:15:00 2020-07-17 10:15:00 Outpatient R MARLO [facility] [id number] [facility] 2020-06-19 11:18:01 2020-06-19 12:10:20 Office Visit Marlo [facility] 1.84.114 350.1.13.10 4.2.7.2.686 [id number] [facility] 2020-06-19 11:15:00 2020-06-19 11:15:00 Outpatient R MARLO [facility] [id number] [facility] 2020-06-19 00:00:00 2020-06-19 00:00:00 Orders Only Doctor Unassigned, [place] [facility] 1.84114 350.1.13.10 4.2.7.2.686 [id number] [facility] 2020-02-22 00:00:00 2020-02-22 00:00:00 Letter (Out) Nati Bowen [facility] 1.114 350.1.13.10 4.2.7.2.686 [id number] [facility] 2020-02-21 10:09:43 2020-02-21 10:29:43 Laboratory [facility] 1.114 350.1.13.10 4.2.7.2.686 [id number] [facility] 2020-02-21 10:20:00 2020-02-21 10:20:00 Outpatient R ROCK [facility] [id number] [facility] 2020-02-15 11:03:42 2020-02-15 11:18:42 Laboratory Only [facility] 1.114 350.1.13.10 4.2.7.2.686 [id number] [facility] 2020-02-15 10:45:00 2020-02-15 10:45:00 Outpatient MICHAELA NINO [facility] [id number] [facility] 2020-01-25 00:00:00 2020-01-25 00:00:00 Telephone Zenaida Gonzalez [facility] Building 1.114 350.1.13.10 4.2.7.2.686 [id number] [facility] 2020-01-24 13:00:00 2020-01-24 13:00:00 Outpatient JENNIFER NINOTHIA [facility] [id number] [facility] 2020-01-24 10:04:40 2020-01-24 10:24:40 Laboratory Only Lab[facility] 1.114 350.1.13.10 4.2.7.2.686 [id number] [facility] 2019-10-18 08:00:00 2019-10-18 08:00:00 Outpatient HUGO GAVIRIA [facility] [id number] [facility] 2019-07-21 08:35:18 2019-07-21 08:50:18 Sleep Lab Technologist Visit 2, Adc Lab MattieMargarita [facility] Building 1.114 350.1.13.10 4.2.7.2.686 [id number] [facility] 2019-07-21 08:03:29 2019-07-21 08:31:54 Office Visit Margarita Cornell [facility] Building 1.114 350.1.13.10 4.2.7.2.686 [id number] [facility] 2019-07-21 00:00:00 2019-07-21 00:00:00 Orders Only Doctor Unassigned, [place] [facility] 1.2.840.114 350.1.13.10 4.2.7.2.686 [id number] [facility] 2017-01-16 16:51:00 2017-01-17 15:27:00 Observatio n nullFlavo r [facility] [id number] 03 [facility] Results Test Description Test Time Test Comments Results Result Co mments Source [facility] [id number] 00:00:00* Test Item Value Reference Range Interpretation Comme nts PVR (URINE VOLUME) (test code = 5193) 12 ml 0-100 [facility] Urinalysis, [id number] 14:49:00 * Test Item Value Reference Range Interpretation Comme nts POCT U SP GRAV (test code = 3255) 1.02 mg/dl 1.005-1.025 POCT PH U (test code = 3254) 6 mg/dl 5-8 POCT U LEUK EST (test code = 3263) trace Negative - Negative POCT U NIT (test code = 3262) negative Negative - Negati ve POCT U PROT (test code = 3259) trace Negative - Negat luis antonio POCT U GLU (test code = 3256) negative Negative - Negati ve POCT U KETONE (test code = 3258) negative Negative - Negative POCT U UROBILI (test code = 3260) 0.2 mg/dl 0.2-1 POCT U BILI (test code = 3261) negative Negative - Negat luis antonio POCT U BLD (test code = 3257) negative Negative - Negati ve POCT U COLOR (test code = 3266) yellow POCT U APPEAR (test code = 3267) clear [facility] HospitalMEAS,POST-VOID RES,US,[id number] 00:00:00* Test Item Value Reference Range Interpretation Comme nts PVR (URINE VOLUME) (test code = 5193) 9 ml 0-100 [facility]CBC (INCLUDES DIFF/PLT)2024-12-16 00:00:00* Test Item Value Reference Range Interpretation Comme nts WHITE BLOOD CELL COUNT (test code = 6690-2) 5.9 Thousand/uL RED BLOOD CELL COUNT (test code = 789-8) 4.89 Million/uL HEMOGLOBIN (test code = 718-7) 15.2 g/dL HEMATOCRIT (test code = 4544-3) 46.9 % MCV (test code = 787-2) 95.9 fL MCH (test code = 785-6) 31.1 pg MCHC (test code = 786-4) 32.4 g/dL RDW (test code = 788-0) 12.9 % PLATELET COUNT (test code = 777-3) 205 Thousand/uL MPV (test code = 776-5) 11.5 fL ABSOLUTE NEUTROPHILS (test code = 751-8) 1971 cells/uL ABSOLUTE BAND NEUTROPHILS (test code = 98467-6) DNR cells/uL ABSOLUTE METAMYELOCYTES (margaret t code = 99875-4) DNR cells/uL ABSOLUTE MYELOCYTES (test code = 54921-4) DNR cells/uL ABSOLUTE PROMYELOCYTES (test code = 42622-9) DNR cells/uL ABSOLUTE LYMPHOCYTES (test code = 731-0) 3068 cells/uL ABSOLUTE MONOCYTES (test cod e = 742-7) 561 cells/uL ABSOLUTE EOSINOPHILS (test code = 711-2) 271 cells/uL ABSOLUTE BASOPHILS (test cod e = 704-7) 30 cells/uL ABSOLUTE BLASTS (test code = 42453-9) DNR cells/uL ABSOLUTE NUCLEATED RBC (test code = 96601-2) DNR cells/uL NEUTROPHILS (test code = 770-8) 33.4 % BAND NEUTROPHILS (test code = 764-1) DNR % METAMYELOCYTES (test code = 740-1) DNR % MYELOCYTES (test code = 749-2) DNR % PROMYELOCYTES (test code = 783-1) DNR % LYMPHOCYTES (test code = 736-9) 52.0 % REACTIVE LYMPHOCYTES (test code = 26606-7) DNR % MONOCYTES (test code = 5905-5) 9.5 % EOSINOPHILS (test code = 713-8) 4.6 % BASOPHILS (test code = 706-2) 0.5 % BLASTS (test code = 709-6) DNR % NUCLEATED RBC (test code = 96650-9) DNR /100WBC COMMENT(S) (test code = 8251-1) DNR Jason ResendezCOMPREHENSIVE METABOLIC [id number] 00:00:00* Test Item Value Reference Range Interpretation Comme nts GLUCOSE (test code = 2345-7) 98 mg/dL UREA NITROGEN (BUN) (test code = 3094-0) 13 mg/dL CREATININE (test code = 2160-0) 0.95 mg/dL EGFR (test code = 38302-2) 82 mL/min/1.73m2 BUN/CREATININE RATIO (test code = 3097-3) SEE NOTE: (calc) SODIUM (test code = 2951-2) 142 mmol/L POTASSIUM (test code = 2823-3) 4.2 mmol/L CHLORIDE (test code = 2075-0) 107 mmol/L CARBON DIOXIDE (test code = 2027-9) 28 mmol/L CALCIUM (test code = 40677-1) 9.7 mg/dL PROTEIN, TOTAL (test code = 2885-2) 7.2 g/dL ALBUMIN (test code = 1751-7) 4.3 g/dL GLOBULIN (test code = 36713-3) 2.9 g/dL(calc) ALBUMIN/GLOBULIN RATIO (test code = 1759-0) 1.5 (calc) BILIRUBIN, TOTAL (test code = 1975-2) 0.6 mg/dL ALKALINE PHOSPHATASE (test code = 6768-6) 61 U/L AST (test code = 1920-8) 14 U/L ALT (test code = 1742-6) 10 U/L Jason ResendezLIPID [id number] 00:00:00* Test Item Value Reference Range Interpretation Comme nts CHOLESTEROL, TOTAL (test cod e = 2093-3) 160 mg/dL HDL CHOLESTEROL (test code = 2085-9) 51 mg/dL TRIGLYCERIDES (test code = 2571-8) 65 mg/dL LDL-CHOLESTEROL (test code = 44299-3) 94 mg/dL(calc) CHOL/HDLC RATIO (test code = 9830-1) 3.1 (calc) NON HDL CHOLESTEROL (test code = 26471-0) 109 mg/dL(calc) Jason ResendezPSA, [id number] 00:00:00* Test Item Value Reference Range Interpretation Comme nts PSA, TOTAL (test code = 2857-1) 13.97 ng/mL Jason ResendezCBC (INCLUDES DIFF/PLT)2024-12-16 00:00:00* Test Item Value Reference Range Interpretation Comme nts WHITE BLOOD CELL COUNT (test code = 6690-2) 5.9 Thousand/uL RED BLOOD CELL COUNT (test code = 789-8) 4.89 Million/uL HEMOGLOBIN (test code = 718-7) 15.2 g/dL HEMATOCRIT (test code = 4544-3) 46.9 % MCV (test code = 787-2) 95.9 fL MCH (test code = 785-6) 31.1 pg MCHC (test code = 786-4) 32.4 g/dL RDW (test code = 788-0) 12.9 % PLATELET COUNT (test code = 777-3) 205 Thousand/uL MPV (test code = 776-5) 11.5 fL ABSOLUTE NEUTROPHILS (test code = 751-8) 1971 cells/uL ABSOLUTE BAND NEUTROPHILS (test code = 69939-7) DNR cells/uL ABSOLUTE METAMYELOCYTES (margaret t code = 97494-3) DNR cells/uL ABSOLUTE MYELOCYTES (test code = 50371-8) DNR cells/uL ABSOLUTE PROMYELOCYTES (test code = 36498-6) DNR cells/uL ABSOLUTE LYMPHOCYTES (test code = 731-0) 3068 cells/uL ABSOLUTE MONOCYTES (test cod e = 742-7) 561 cells/uL ABSOLUTE EOSINOPHILS (test code = 711-2) 271 cells/uL ABSOLUTE BASOPHILS (test cod e = 704-7) 30 cells/uL ABSOLUTE BLASTS (test code = 43074-2) DNR cells/uL ABSOLUTE NUCLEATED RBC (test code = 39146-3) DNR cells/uL NEUTROPHILS (test code = 770-8) 33.4 % BAND NEUTROPHILS (test code = 764-1) DNR % METAMYELOCYTES (test code = 740-1) DNR % MYELOCYTES (test code = 749-2) DNR % PROMYELOCYTES (test code = 783-1) DNR % LYMPHOCYTES (test code = 736-9) 52.0 % REACTIVE LYMPHOCYTES (test code = 50959-3) DNR % MONOCYTES (test code = 5905-5) 9.5 % EOSINOPHILS (test code = 713-8) 4.6 % BASOPHILS (test code = 706-2) 0.5 % BLASTS (test code = 709-6) DNR % NUCLEATED RBC (test code = 68347-0) DNR /100WBC COMMENT(S) (test code = 8251-1) DNR Jason ResendezCOMPREHENSIVE METABOLIC [id number] 00:00:00* Test Item Value Reference Range Interpretation Comme nts GLUCOSE (test code = 2345-7) 98 mg/dL UREA NITROGEN (BUN) (test code = 3094-0) 13 mg/dL CREATININE (test code = 2160-0) 0.95 mg/dL EGFR (test code = 01891-4) 82 mL/min/1.73m2 BUN/CREATININE RATIO (test code = 3097-3) SEE NOTE: (calc) SODIUM (test code = 2951-2) 142 mmol/L POTASSIUM (test code = 2823-3) 4.2 mmol/L CHLORIDE (test code = 2075-0) 107 mmol/L CARBON DIOXIDE (test code = 2027-9) 28 mmol/L CALCIUM (test code = 17716-2) 9.7 mg/dL PROTEIN, TOTAL (test code = 2885-2) 7.2 g/dL ALBUMIN (test code = 1751-7) 4.3 g/dL GLOBULIN (test code = 78714-3) 2.9 g/dL(calc) ALBUMIN/GLOBULIN RATIO (test code = 1759-0) 1.5 (calc) BILIRUBIN, TOTAL (test code = 1975-2) 0.6 mg/dL ALKALINE PHOSPHATASE (test code = 6768-6) 61 U/L AST (test code = 1920-8) 14 U/L ALT (test code = 1742-6) 10 U/L Jason Flower AustinLIPID [id number] 00:00:00* Test Item Value Reference Range Interpretation Comme nts CHOLESTEROL, TOTAL (test cod e = 2093-3) 160 mg/dL HDL CHOLESTEROL (test code = 2085-9) 51 mg/dL TRIGLYCERIDES (test code = 2571-8) 65 mg/dL LDL-CHOLESTEROL (test code = 89550-5) 94 mg/dL(calc) CHOL/HDLC RATIO (test code = 9830-1) 3.1 (calc) NON HDL CHOLESTEROL (test code = 87436-8) 109 mg/dL(calc) Jason ResendezPSA, [id number] 00:00:00* Test Item Value Reference Range Interpretation Comme nts PSA, TOTAL (test code = 2857-1) 13.97 ng/mL Jason ResendezCBC (INCLUDES DIFF/PLT)2024-12-16 00:00:00* Test Item Value Reference Range Interpretation Comme nts WHITE BLOOD CELL COUNT (test code = 6690-2) 5.9 Thousand/uL RED BLOOD CELL COUNT (test code = 789-8) 4.89 Million/uL HEMOGLOBIN (test code = 718-7) 15.2 g/dL HEMATOCRIT (test code = 4544-3) 46.9 % MCV (test code = 787-2) 95.9 fL MCH (test code = 785-6) 31.1 pg MCHC (test code = 786-4) 32.4 g/dL RDW (test code = 788-0) 12.9 % PLATELET COUNT (test code = 777-3) 205 Thousand/uL MPV (test code = 776-5) 11.5 fL ABSOLUTE NEUTROPHILS (test code = 751-8) 1971 cells/uL ABSOLUTE BAND NEUTROPHILS (test code = 41731-5) DNR cells/uL ABSOLUTE METAMYELOCYTES (margaret t code = 09139-9) DNR cells/uL ABSOLUTE MYELOCYTES (test code = 06744-9) DNR cells/uL ABSOLUTE PROMYELOCYTES (test code = 50474-6) DNR cells/uL ABSOLUTE LYMPHOCYTES (test code = 731-0) 3068 cells/uL ABSOLUTE MONOCYTES (test cod e = 742-7) 561 cells/uL ABSOLUTE EOSINOPHILS (test code = 711-2) 271 cells/uL ABSOLUTE BASOPHILS (test cod e = 704-7) 30 cells/uL ABSOLUTE BLASTS (test code = 90129-3) DNR cells/uL ABSOLUTE NUCLEATED RBC (test code = 10445-5) DNR cells/uL NEUTROPHILS (test code = 770-8) 33.4 % BAND NEUTROPHILS (test code = 764-1) DNR % METAMYELOCYTES (test code = 740-1) DNR % MYELOCYTES (test code = 749-2) DNR % PROMYELOCYTES (test code = 783-1) DNR % LYMPHOCYTES (test code = 736-9) 52.0 % REACTIVE LYMPHOCYTES (test code = 95690-0) DNR % MONOCYTES (test code = 5905-5) 9.5 % EOSINOPHILS (test code = 713-8) 4.6 % BASOPHILS (test code = 706-2) 0.5 % BLASTS (test code = 709-6) DNR % NUCLEATED RBC (test code = 64529-5) DNR /100WBC COMMENT(S) (test code = 8251-1) DNR Jason ResendezCOMPREHENSIVE METABOLIC [id number] 00:00:00* Test Item Value Reference Range Interpretation Comme nts GLUCOSE (test code = 2345-7) 98 mg/dL UREA NITROGEN (BUN) (test code = 3094-0) 13 mg/dL CREATININE (test code = 2160-0) 0.95 mg/dL EGFR (test code = 96781-1) 82 mL/min/1.73m2 BUN/CREATININE RATIO (test code = 3097-3) SEE NOTE: (calc) SODIUM (test code = 2951-2) 142 mmol/L POTASSIUM (test code = 2823-3) 4.2 mmol/L CHLORIDE (test code = 2075-0) 107 mmol/L CARBON DIOXIDE (test code = 2027-9) 28 mmol/L CALCIUM (test code = 16717-6) 9.7 mg/dL PROTEIN, TOTAL (test code = 2885-2) 7.2 g/dL ALBUMIN (test code = 1751-7) 4.3 g/dL GLOBULIN (test code = 23251-5) 2.9 g/dL(calc) ALBUMIN/GLOBULIN RATIO (test code = 1759-0) 1.5 (calc) BILIRUBIN, TOTAL (test code = 1975-2) 0.6 mg/dL ALKALINE PHOSPHATASE (test code = 6768-6) 61 U/L AST (test code = 1920-8) 14 U/L ALT (test code = 1742-6) 10 U/L Jason ResendezLIPID [id number] 00:00:00* Test Item Value Reference Range Interpretation Comme nts CHOLESTEROL, TOTAL (test cod e = 2093-3) 160 mg/dL HDL CHOLESTEROL (test code = 2085-9) 51 mg/dL TRIGLYCERIDES (test code = 2571-8) 65 mg/dL LDL-CHOLESTEROL (test code = 18819-3) 94 mg/dL(calc) CHOL/HDLC RATIO (test code = 9830-1) 3.1 (calc) NON HDL CHOLESTEROL (test code = 14237-3) 109 mg/dL(calc) Jason ResendezPSA, [id number] 00:00:00* Test Item Value Reference Range Interpretation Comme nts PSA, TOTAL (test code = 2857-1) 13.97 ng/mL Jason ResendezPOCT Urinalysis, [id number] 15:01:00* Test Item Value Reference Range Interpretation Comme nts POCT U SP GRAV (test code = 3255) 1.02 mg/dl 1.005-1.025 POCT PH U (test code = 3254) 7 mg/dl 5-8 POCT U LEUK EST (test code = 3263) negative Negative - Negative POCT U NIT (test code = 3262) negative Negative - Negati ve POCT U PROT (test code = 3259) negative Negative - Negat luis antonio POCT U GLU (test code = 3256) negative Negative - Negati ve POCT U KETONE (test code = 3258) negative Negative - Negative POCT U UROBILI (test code = 3260) 0.2 mg/dl 0.2-1 POCT U BILI (test code = 3261) negative Negative - Negat luis antonio POCT U BLD (test code = 3257) negative Negative - Negati ve POCT U COLOR (test code = 3266) yellow POCT U APPEAR (test code = 3267) Clear [facility]ME[facility]-VOID RES,US,[id number] 15:01:00* Test Item Value Reference Range Interpretation Comme nts PVR (URINE VOLUME) (test code = 5193) 69 ml 0-100 [facility]O [id number] 00:00:00* Test Item Value Reference Range Interpretation Comme nts WBC (test code = 1001) 5.7 K/UL RBC (test code = 1002) 4.98 M/UL HEMOGLOBIN (test code = 1003) 15.8 G/DL HEMATOCRIT (test code = 1004) 48.0 % MCV (test code = 1005) 96.4 fL MCH (test code = 1006) 31.7 PG MCHC (test code = 1007) 32.9 G/DL RDW (test code = 1038) 12.9 % NEUTROPHILS (test code = 1008) 33.5 % LYMPHOCYTES (test code = 1010) 50.6 % MONOCYTES (test code = 1011) 9.8 % EOSINOPHILS (test code = 1012) 5.6 % BASOPHILS (test code = 1013) 0.5 % IMMATURE GRANULOCYTES (test code = 1036) 0.0 % NUCLEATED RBCS (test code = 1065) 0.0 /100WBC'S PLATELET COUNT (test code = 1015) 209 K/UL ABSOLUTE NEUTROPHILS (test c ode = 1066) 1.91 K/UL ABSOLUTE LYMPHOCYTES (test c ode = 1067) 2.89 K/UL ABSOLUTE MONOCYTES (test cod e = 1068) 0.56 K/UL ABSOLUTE EOSINOPHILS (test c ode = 1040) 0.32 K/UL ABSOLUTE BASOPHILS (test cod e = 1069) 0.03 K/UL ABS IMMATURE GRANULOCYTES (t est code = 1020) 0.00 K/UL ABS NUCLEATED RBCS (test cod e = 72252) 0.00 K/UL Jason Flower AustinLIPID [id number] 00:00:00* Test Item Value Reference Range Interpretation Comme nts CHOLESTEROL (test code = 2210) 176 MG/DL TRIGLYCERIDES (test code = 2232) 107 MG/DL HDL CHOLESTEROL (test code = 2220) 46 MG/DL CALC LDL CHOL (test code = 2237) 109 MG/DL RISK RATIO LDL/HDL (test cod e = 2238) 2.37 RATIO Jason Flower MalCOMPREHENSIVE METABOLIC [id number] 00:00:00* Test Item Value Reference Range Interpretation Comme nts GLUCOSE (test code = 2217) 87 MG/DL BUN (test code = 2208) 11 MG/DL CREATININE (test code = 2214) 0.92 MG/DL eGFR (2020 CKD-EPI) (test co de = 42666) 86 ML/MIN/1.73 CALC BUN/CREAT (test code = 2235) 12 RATIO SODIUM (test code = 2231) 137 MEQ/L POTASSIUM (test code = 2228) 4.4 MEQ/L CHLORIDE (test code = 2215) 98 MEQ/L CARBON DIOXIDE (test code = 2206) 27 MEQ/L CALCIUM (test code = 2209) 9.6 MG/DL PROTEIN, TOTAL (test code = 2229) 7.7 G/DL ALBUMIN (test code = 2201) 4.5 G/DL CALC GLOBULIN (test code = 2240) 3.2 G/DL CALC A/G RATIO (test code = 2234) 1.4 RATIO BILIRUBIN, TOTAL (test code = 2207) 0.7 MG/DL ALKALINE PHOSPHATASE (test code = 2204) 68 U/L AST (test code = 2218) 14 U/L ALT (test code = 2219) 12 U/L Jason Flower AustinURINALYSIS W/REFLEX [id number] 00:00:00* Test Item Value Reference Range Interpretation Comme nts COLOR (test code = 1501) YELLOW APPEARANCE (test code = 1502) CLEAR SPECIFIC GRAVITY (test code = 1503) 1.016 LEUKOCYTE ESTERASE (test cod e = 1504) NEGATIVE NITRITE (test code = 1505) NEGATIVE pH (test code = 1506) 7.0 PROTEIN (test code = 1507) TRACE GLUCOSE (test code = 1508) NEGATIVE KETONES (test code = 1509) NEGATIVE UROBILINOGEN (test code = 1510) 0.2 MG/DL BILIRUBIN (test code = 1511) NEGATIVE OCCULT BLOOD (test code = 1512) NEGATIVE WHITE BLOOD CELLS (test code = 1513) 0-5 /HPF RED BLOOD CELLS (test code = 1514) 0-2 /HPF EPITHELIAL CELLS (test code = 89160) 0-5 /HPF BACTERIA (test code = 1515) NONE SEEN CASTS, HYALINE (test code = 1517) TRACE Jason ResendezHIV 1/2 4TH GEN, RFLX [id number] 00:00:00* Test Item Value Reference Range Interpretation Comme nts HIV 1/2 4TH GEN, RFLX CONF ( test code = 3514) NON-REACTIVE Jason ResendezPSA, [id number] 00:00:00* Test Item Value Reference Range Interpretation Comme nts PSA, TOTAL (test code = 2606) 25.70 NG/ML Jason ResendezHEPATITIS C REFLEX [id number] 00:00:00* Test Item Value Reference Range Interpretation Comme nts HEPATITIS C ANTIBODY (test c ode = 4675) REACTIVE Jason ResendezHCV RNA, PCR QUANT [REFLEX][id number] 00:00:00* Test Item Value Reference Range Interpretation Comme nts HCV RNA, PCR QUANT (test code = 4571) NOT DETEC IU/ML HCV VIRAL LOG (test code = 45598) NOT DETEC LOGIU/ML Jason ResendezCBC W/AUTO [id number] 00:00:00* Test Item Value Reference Range Interpretation Comme nts WBC (test code = 1001) 5.7 K/UL RBC (test code = 1002) 4.98 M/UL HEMOGLOBIN (test code = 1003) 15.8 G/DL HEMATOCRIT (test code = 1004) 48.0 % MCV (test code = 1005) 96.4 fL MCH (test code = 1006) 31.7 PG MCHC (test code = 1007) 32.9 G/DL RDW (test code = 1038) 12.9 % NEUTROPHILS (test code = 1008) 33.5 % LYMPHOCYTES (test code = 1010) 50.6 % MONOCYTES (test code = 1011) 9.8 % EOSINOPHILS (test code = 1012) 5.6 % BASOPHILS (test code = 1013) 0.5 % IMMATURE GRANULOCYTES (test code = 1036) 0.0 % NUCLEATED RBCS (test code = 1065) 0.0 /100WBC'S PLATELET COUNT (test code = 1015) 209 K/UL ABSOLUTE NEUTROPHILS (test c ode = 1066) 1.91 K/UL ABSOLUTE LYMPHOCYTES (test c ode = 1067) 2.89 K/UL ABSOLUTE MONOCYTES (test cod e = 1068) 0.56 K/UL ABSOLUTE EOSINOPHILS (test c ode = 1040) 0.32 K/UL ABSOLUTE BASOPHILS (test cod e = 1069) 0.03 K/UL ABS IMMATURE GRANULOCYTES (t est code = 1020) 0.00 K/UL ABS NUCLEATED RBCS (test cod e = 53051) 0.00 K/UL Jason ResendezLIPID [id number] 00:00:00* Test Item Value Reference Range Interpretation Comme nts CHOLESTEROL (test code = 2210) 176 MG/DL TRIGLYCERIDES (test code = 2232) 107 MG/DL HDL CHOLESTEROL (test code = 2220) 46 MG/DL CALC LDL CHOL (test code = 2237) 109 MG/DL RISK RATIO LDL/HDL (test cod e = 2238) 2.37 RATIO Jason ResendezCOMPREHENSIVE METABOLIC [id number] 00:00:00* Test Item Value Reference Range Interpretation Comme nts GLUCOSE (test code = 2217) 87 MG/DL BUN (test code = 2208) 11 MG/DL CREATININE (test code = 2214) 0.92 MG/DL eGFR (2020 CKD-EPI) (test co de = 57345) 86 ML/MIN/1.73 CALC BUN/CREAT (test code = 2235) 12 RATIO SODIUM (test code = 2231) 137 MEQ/L POTASSIUM (test code = 2228) 4.4 MEQ/L CHLORIDE (test code = 2215) 98 MEQ/L CARBON DIOXIDE (test code = 2206) 27 MEQ/L CALCIUM (test code = 2209) 9.6 MG/DL PROTEIN, TOTAL (test code = 2229) 7.7 G/DL ALBUMIN (test code = 2201) 4.5 G/DL CALC GLOBULIN (test code = 2240) 3.2 G/DL CALC A/G RATIO (test code = 2234) 1.4 RATIO BILIRUBIN, TOTAL (test code = 2207) 0.7 MG/DL ALKALINE PHOSPHATASE (test code = 2204) 68 U/L AST (test code = 2218) 14 U/L ALT (test code = 2219) 12 U/L Jason Flower [place] W/REFLEX [id number] 00:00:00* Test Item Value Reference Range Interpretation Comme nts COLOR (test code = 1501) YELLOW APPEARANCE (test code = 1502) CLEAR SPECIFIC GRAVITY (test code = 1503) 1.016 LEUKOCYTE ESTERASE (test cod e = 1504) NEGATIVE NITRITE (test code = 1505) NEGATIVE pH (test code = 1506) 7.0 PROTEIN (test code = 1507) TRACE GLUCOSE (test code = 1508) NEGATIVE KETONES (test code = 1509) NEGATIVE UROBILINOGEN (test code = 1510) 0.2 MG/DL BILIRUBIN (test code = 1511) NEGATIVE OCCULT BLOOD (test code = 1512) NEGATIVE WHITE BLOOD CELLS (test code = 1513) 0-5 /HPF RED BLOOD CELLS (test code = 1514) 0-2 /HPF EPITHELIAL CELLS (test code = 03498) 0-5 /HPF BACTERIA (test code = 1515) NONE SEEN CASTS, HYALINE (test code = 1517) TRACE Jason ResendezHIV 1/2 4TH GEN, RFLX [id number] 00:00:00* Test Item Value Reference Range Interpretation Comme nts HIV 1/2 4TH GEN, RFLX CONF ( test code = 3514) NON-REACTIVE Jason ResendezPSA, [id number] 00:00:00* Test Item Value Reference Range Interpretation Comme nts PSA, TOTAL (test code = 2606) 25.70 NG/ML Jason ResendezHEPATITIS C REFLEX [id number] 00:00:00* Test Item Value Reference Range Interpretation Comme nts HEPATITIS C ANTIBODY (test c ode = 4675) REACTIVE Jason ResendezHCV RNA, PCR QUANT [REFLEX]2024-06-23 00:00:00* Test Item Value Reference Range Interpretation Comme nts HCV RNA, PCR QUANT (test code = 4571) NOT DETEC IU/ML HCV VIRAL LOG (test code = 09451) NOT DETEC LOGIU/ML Jason ResendezCBC W/AUTO [id number] 00:00:00* Test Item Value Reference Range Interpretation Comme nts WBC (test code = 1001) 5.7 K/UL RBC (test code = 1002) 4.98 M/UL HEMOGLOBIN (test code = 1003) 15.8 G/DL HEMATOCRIT (test code = 1004) 48.0 % MCV (test code = 1005) 96.4 fL MCH (test code = 1006) 31.7 PG MCHC (test code = 1007) 32.9 G/DL RDW (test code = 1038) 12.9 % NEUTROPHILS (test code = 1008) 33.5 % LYMPHOCYTES (test code = 1010) 50.6 % MONOCYTES (test code = 1011) 9.8 % EOSINOPHILS (test code = 1012) 5.6 % BASOPHILS (test code = 1013) 0.5 % IMMATURE GRANULOCYTES (test code = 1036) 0.0 % NUCLEATED RBCS (test code = 1065) 0.0 /100WBC'S PLATELET COUNT (test code = 1015) 209 K/UL ABSOLUTE NEUTROPHILS (test c ode = 1066) 1.91 K/UL ABSOLUTE LYMPHOCYTES (test c ode = 1067) 2.89 K/UL ABSOLUTE MONOCYTES (test cod e = 1068) 0.56 K/UL ABSOLUTE EOSINOPHILS (test c ode = 1040) 0.32 K/UL ABSOLUTE BASOPHILS (test cod e = 1069) 0.03 K/UL ABS IMMATURE GRANULOCYTES (t est code = 1020) 0.00 K/UL ABS NUCLEATED RBCS (test cod e = 79874) 0.00 K/UL Jason Flower MalLIPID [id number] 00:00:00* Test Item Value Reference Range Interpretation Comme nts CHOLESTEROL (test code = 2210) 176 MG/DL TRIGLYCERIDES (test code = 2232) 107 MG/DL HDL CHOLESTEROL (test code = 2220) 46 MG/DL CALC LDL CHOL (test code = 2237) 109 MG/DL RISK RATIO LDL/HDL (test cod e = 2238) 2.37 RATIO Jason Flower MalCOMPREHENSIVE METABOLIC [id number] 00:00:00* Test Item Value Reference Range Interpretation Comme nts GLUCOSE (test code = 2217) 87 MG/DL BUN (test code = 2208) 11 MG/DL CREATININE (test code = 2214) 0.92 MG/DL eGFR (2020 CKD-EPI) (test co de = 21953) 86 ML/MIN/1.73 CALC BUN/CREAT (test code = 2235) 12 RATIO SODIUM (test code = 2231) 137 MEQ/L POTASSIUM (test code = 2228) 4.4 MEQ/L CHLORIDE (test code = 2215) 98 MEQ/L CARBON DIOXIDE (test code = 2206) 27 MEQ/L CALCIUM (test code = 2209) 9.6 MG/DL PROTEIN, TOTAL (test code = 2229) 7.7 G/DL ALBUMIN (test code = 2201) 4.5 G/DL CALC GLOBULIN (test code = 2240) 3.2 G/DL CALC A/G RATIO (test code = 2234) 1.4 RATIO BILIRUBIN, TOTAL (test code = 2207) 0.7 MG/DL ALKALINE PHOSPHATASE (test code = 2204) 68 U/L AST (test code = 2218) 14 U/L ALT (test code = 2219) 12 U/L Jason Flower AustinURINALYSIS W/REFLEX [id number] 00:00:00* Test Item Value Reference Range Interpretation Comme nts COLOR (test code = 1501) YELLOW APPEARANCE (test code = 1502) CLEAR SPECIFIC GRAVITY (test code = 1503) 1.016 LEUKOCYTE ESTERASE (test cod e = 1504) NEGATIVE NITRITE (test code = 1505) NEGATIVE pH (test code = 1506) 7.0 PROTEIN (test code = 1507) TRACE GLUCOSE (test code = 1508) NEGATIVE KETONES (test code = 1509) NEGATIVE UROBILINOGEN (test code = 1510) 0.2 MG/DL BILIRUBIN (test code = 1511) NEGATIVE OCCULT BLOOD (test code = 1512) NEGATIVE WHITE BLOOD CELLS (test code = 1513) 0-5 /HPF RED BLOOD CELLS (test code = 1514) 0-2 /HPF EPITHELIAL CELLS (test code = 41496) 0-5 /HPF BACTERIA (test code = 1515) NONE SEEN CASTS, HYALINE (test code = 1517) TRACE Jason ResendezHIV 1/2 4TH GEN, RFLX [id number] 00:00:00* Test Item Value Reference Range Interpretation Comme david HIV 1/2 4TH GEN, RFLX CONF ( test code = 3514) NON-REACTIVE Jason ResendezPSA, [id number] 00:00:00* Test Item Value Reference Range Interpretation Comme david PSA, TOTAL (test code = 2606) 25.70 NG/ML Jason ResendezHEPATITIS C REFLEX [id number] 00:00:00* Test Item Value Reference Range Interpretation Comme david HEPATITIS C ANTIBODY (test c ode = 4675) REACTIVE Jason ResendezHCV RNA, PCR QUANT [REFLEX]2024-06-23 00:00:00* Test Item Value Reference Range Interpretation Comme david HCV RNA, PCR QUANT (test code = 4571) NOT DETEC IU/ML HCV VIRAL LOG (test code = 47271) NOT DETEC LOGIU/ML Jason ResendezCBC W/AUTO [id number] 00:00:00* Test Item Value Reference Range Interpretation Comme nts WBC (test code = 1001) 5.7 K/UL RBC (test code = 1002) 4.98 M/UL HEMOGLOBIN (test code = 1003) 15.8 G/DL HEMATOCRIT (test code = 1004) 48.0 % MCV (test code = 1005) 96.4 fL MCH (test code = 1006) 31.7 PG MCHC (test code = 1007) 32.9 G/DL RDW (test code = 1038) 12.9 % NEUTROPHILS (test code = 1008) 33.5 % LYMPHOCYTES (test code = 1010) 50.6 % MONOCYTES (test code = 1011) 9.8 % EOSINOPHILS (test code = 1012) 5.6 % BASOPHILS (test code = 1013) 0.5 % IMMATURE GRANULOCYTES (test code = 1036) 0.0 % NUCLEATED RBCS (test code = 1065) 0.0 /100WBC'S PLATELET COUNT (test code = 1015) 209 K/UL ABSOLUTE NEUTROPHILS (test c ode = 1066) 1.91 K/UL ABSOLUTE LYMPHOCYTES (test c ode = 1067) 2.89 K/UL ABSOLUTE MONOCYTES (test cod e = 1068) 0.56 K/UL ABSOLUTE EOSINOPHILS (test c ode = 1040) 0.32 K/UL ABSOLUTE BASOPHILS (test cod e = 1069) 0.03 K/UL ABS IMMATURE GRANULOCYTES (t est code = 1020) 0.00 K/UL ABS NUCLEATED RBCS (test cod e = 35838) 0.00 K/UL Jason ResendezLIPID [id number] 00:00:00* Test Item Value Reference Range Interpretation Comme nts CHOLESTEROL (test code = 2210) 176 MG/DL TRIGLYCERIDES (test code = 2232) 107 MG/DL HDL CHOLESTEROL (test code = 2220) 46 MG/DL CALC LDL CHOL (test code = 2237) 109 MG/DL RISK RATIO LDL/HDL (test cod e = 2238) 2.37 RATIO Jason ResendezCOMPREHENSIVE METABOLIC [id number] 00:00:00* Test Item Value Reference Range Interpretation Comme nts GLUCOSE (test code = 2217) 87 MG/DL BUN (test code = 2208) 11 MG/DL CREATININE (test code = 2214) 0.92 MG/DL eGFR (2020 CKD-EPI) (test co de = 12215) 86 ML/MIN/1.73 CALC BUN/CREAT (test code = 2235) 12 RATIO SODIUM (test code = 2231) 137 MEQ/L POTASSIUM (test code = 2228) 4.4 MEQ/L CHLORIDE (test code = 2215) 98 MEQ/L CARBON DIOXIDE (test code = 2206) 27 MEQ/L CALCIUM (test code = 2209) 9.6 MG/DL PROTEIN, TOTAL (test code = 2229) 7.7 G/DL ALBUMIN (test code = 2201) 4.5 G/DL CALC GLOBULIN (test code = 2240) 3.2 G/DL CALC A/G RATIO (test code = 2234) 1.4 RATIO BILIRUBIN, TOTAL (test code = 2207) 0.7 MG/DL ALKALINE PHOSPHATASE (test code = 2204) 68 U/L AST (test code = 2218) 14 U/L ALT (test code = 2219) 12 U/L Jason ResendezURINALYSIS W/REFLEX [id number] 00:00:00* Test Item Value Reference Range Interpretation Comme nts COLOR (test code = 1501) YELLOW APPEARANCE (test code = 1502) CLEAR SPECIFIC GRAVITY (test code = 1503) 1.016 LEUKOCYTE ESTERASE (test cod e = 1504) NEGATIVE NITRITE (test code = 1505) NEGATIVE pH (test code = 1506) 7.0 PROTEIN (test code = 1507) TRACE GLUCOSE (test code = 1508) NEGATIVE KETONES (test code = 1509) NEGATIVE UROBILINOGEN (test code = 1510) 0.2 MG/DL BILIRUBIN (test code = 1511) NEGATIVE OCCULT BLOOD (test code = 1512) NEGATIVE WHITE BLOOD CELLS (test code = 1513) 0-5 /HPF RED BLOOD CELLS (test code = 1514) 0-2 /HPF EPITHELIAL CELLS (test code = 93727) 0-5 /HPF BACTERIA (test code = 1515) NONE SEEN CASTS, HYALINE (test code = 1517) TRACE Jason ResendezHIV 1/2 4TH GEN, RFLX [id number] 00:00:00* Test Item Value Reference Range Interpretation Comme nts HIV 1/2 4TH GEN, RFLX CONF ( test code = 3514) NON-REACTIVE Jason ResendezPSA, [id number] 00:00:00* Test Item Value Reference Range Interpretation Comme nts PSA, TOTAL (test code = 2606) 25.70 NG/ML Jason ResendezHEPATITIS C REFLEX [id number] 00:00:00* Test Item Value Reference Range Interpretation Comme nts HEPATITIS C ANTIBODY (test c ode = 4675) REACTIVE Jason ResendezHCV RNA, PCR QUANT [REFLEX]2024-06-23 00:00:00* Test Item Value Reference Range Interpretation Comme nts HCV RNA, PCR QUANT (test code = 4571) NOT DETEC IU/ML HCV VIRAL LOG (test code = 21178) NOT DETEC LOGIU/ML Jason ResendezCBC W/AUTO [id number] 00:00:00* Test Item Value Reference Range Interpretation Comme david WBC (test code = 1001) 5.7 K/UL RBC (test code = 1002) 4.98 M/UL HEMOGLOBIN (test code = 1003) 15.8 G/DL HEMATOCRIT (test code = 1004) 48.0 % MCV (test code = 1005) 96.4 fL MCH (test code = 1006) 31.7 PG MCHC (test code = 1007) 32.9 G/DL RDW (test code = 1038) 12.9 % NEUTROPHILS (test code = 1008) 33.5 % LYMPHOCYTES (test code = 1010) 50.6 % MONOCYTES (test code = 1011) 9.8 % EOSINOPHILS (test code = 1012) 5.6 % BASOPHILS (test code = 1013) 0.5 % IMMATURE GRANULOCYTES (test code = 1036) 0.0 % NUCLEATED RBCS (test code = 1065) 0.0 /100WBC'S PLATELET COUNT (test code = 1015) 209 K/UL ABSOLUTE NEUTROPHILS (test c ode = 1066) 1.91 K/UL ABSOLUTE LYMPHOCYTES (test c ode = 1067) 2.89 K/UL ABSOLUTE MONOCYTES (test cod e = 1068) 0.56 K/UL ABSOLUTE EOSINOPHILS (test c ode = 1040) 0.32 K/UL ABSOLUTE BASOPHILS (test cod e = 1069) 0.03 K/UL ABS IMMATURE GRANULOCYTES (t est code = 1020) 0.00 K/UL ABS NUCLEATED RBCS (test cod e = 81005) 0.00 K/UL Jason Flower AustinLIPID [id number] 00:00:00* Test Item Value Reference Range Interpretation Comme nts CHOLESTEROL (test code = 2210) 176 MG/DL TRIGLYCERIDES (test code = 2232) 107 MG/DL HDL CHOLESTEROL (test code = 2220) 46 MG/DL CALC LDL CHOL (test code = 2237) 109 MG/DL RISK RATIO LDL/HDL (test cod e = 2238) 2.37 RATIO Jason ResendezCOMPREHENSIVE METABOLIC [id number] 00:00:00* Test Item Value Reference Range Interpretation Comme nts GLUCOSE (test code = 2217) 87 MG/DL BUN (test code = 2208) 11 MG/DL CREATININE (test code = 2214) 0.92 MG/DL eGFR (2020 CKD-EPI) (test co de = 69701) 86 ML/MIN/1.73 CALC BUN/CREAT (test code = 2235) 12 RATIO SODIUM (test code = 2231) 137 MEQ/L POTASSIUM (test code = 2228) 4.4 MEQ/L CHLORIDE (test code = 2215) 98 MEQ/L CARBON DIOXIDE (test code = 2206) 27 MEQ/L CALCIUM (test code = 2209) 9.6 MG/DL PROTEIN, TOTAL (test code = 2229) 7.7 G/DL ALBUMIN (test code = 2201) 4.5 G/DL CALC GLOBULIN (test code = 2240) 3.2 G/DL CALC A/G RATIO (test code = 2234) 1.4 RATIO BILIRUBIN, TOTAL (test code = 2207) 0.7 MG/DL ALKALINE PHOSPHATASE (test code = 2204) 68 U/L AST (test code = 2218) 14 U/L ALT (test code = 2219) 12 U/L Jason Flower AustinURINALYSIS W/REFLEX [id number] 00:00:00* Test Item Value Reference Range Interpretation Comme nts COLOR (test code = 1501) YELLOW APPEARANCE (test code = 1502) CLEAR SPECIFIC GRAVITY (test code = 1503) 1.016 LEUKOCYTE ESTERASE (test cod e = 1504) NEGATIVE NITRITE (test code = 1505) NEGATIVE pH (test code = 1506) 7.0 PROTEIN (test code = 1507) TRACE GLUCOSE (test code = 1508) NEGATIVE KETONES (test code = 1509) NEGATIVE UROBILINOGEN (test code = 1510) 0.2 MG/DL BILIRUBIN (test code = 1511) NEGATIVE OCCULT BLOOD (test code = 1512) NEGATIVE WHITE BLOOD CELLS (test code = 1513) 0-5 /HPF RED BLOOD CELLS (test code = 1514) 0-2 /HPF EPITHELIAL CELLS (test code = 04037) 0-5 /HPF BACTERIA (test code = 1515) NONE SEEN CASTS, HYALINE (test code = 1517) TRACE Jason ResendezHIV 1/2 4TH GEN, RFLX [id number] 00:00:00* Test Item Value Reference Range Interpretation Comme nts HIV 1/2 4TH GEN, RFLX CONF ( test code = 3514) NON-REACTIVE Jason ResendezPSA, [id number] 00:00:00* Test Item Value Reference Range Interpretation Comme nts PSA, TOTAL (test code = 2606) 25.70 NG/ML Jason ResendezHEPATITIS C REFLEX [id number] 00:00:00* Test Item Value Reference Range Interpretation Comme david HEPATITIS C ANTIBODY (test c ode = 4675) REACTIVE Jason ResendezHCV RNA, PCR QUANT [REFLEX]2024-06-23 00:00:00* Test Item Value Reference Range Interpretation Comme david HCV RNA, PCR QUANT (test code = 4571) NOT DETEC IU/ML HCV VIRAL LOG (test code = 88005) NOT DETEC LOGIU/ML Jason ResendezCBC W/AUTO [id number] 00:00:00* Test Item Value Reference Range Interpretation Comme nts WBC (test code = 1001) 5.7 K/UL RBC (test code = 1002) 4.98 M/UL HEMOGLOBIN (test code = 1003) 15.8 G/DL HEMATOCRIT (test code = 1004) 48.0 % MCV (test code = 1005) 96.4 fL MCH (test code = 1006) 31.7 PG MCHC (test code = 1007) 32.9 G/DL RDW (test code = 1038) 12.9 % NEUTROPHILS (test code = 1008) 33.5 % LYMPHOCYTES (test code = 1010) 50.6 % MONOCYTES (test code = 1011) 9.8 % EOSINOPHILS (test code = 1012) 5.6 % BASOPHILS (test code = 1013) 0.5 % IMMATURE GRANULOCYTES (test code = 1036) 0.0 % NUCLEATED RBCS (test code = 1065) 0.0 /100WBC'S PLATELET COUNT (test code = 1015) 209 K/UL ABSOLUTE NEUTROPHILS (test c ode = 1066) 1.91 K/UL ABSOLUTE LYMPHOCYTES (test c ode = 1067) 2.89 K/UL ABSOLUTE MONOCYTES (test cod e = 1068) 0.56 K/UL ABSOLUTE EOSINOPHILS (test c ode = 1040) 0.32 K/UL ABSOLUTE BASOPHILS (test cod e = 1069) 0.03 K/UL ABS IMMATURE GRANULOCYTES (t est code = 1020) 0.00 K/UL ABS NUCLEATED RBCS (test cod e = 50021) 0.00 K/UL Jason [place] TopLIPID [id number] 00:00:00* Test Item Value Reference Range Interpretation Comme nts CHOLESTEROL (test code = 2210) 176 MG/DL TRIGLYCERIDES (test code = 2232) 107 MG/DL HDL CHOLESTEROL (test code = 2220) 46 MG/DL CALC LDL CHOL (test code = 2237) 109 MG/DL RISK RATIO LDL/HDL (test cod e = 2238) 2.37 RATIO Jason ResendezCOMPREHENSIVE METABOLIC [id number] 00:00:00* Test Item Value Reference Range Interpretation Comme nts GLUCOSE (test code = 2217) 87 MG/DL BUN (test code = 2208) 11 MG/DL CREATININE (test code = 2214) 0.92 MG/DL eGFR (2020 CKD-EPI) (test co de = 49555) 86 ML/MIN/1.73 CALC BUN/CREAT (test code = 2235) 12 RATIO SODIUM (test code = 2231) 137 MEQ/L POTASSIUM (test code = 2228) 4.4 MEQ/L CHLORIDE (test code = 2215) 98 MEQ/L CARBON DIOXIDE (test code = 2206) 27 MEQ/L CALCIUM (test code = 2209) 9.6 MG/DL PROTEIN, TOTAL (test code = 2229) 7.7 G/DL ALBUMIN (test code = 2201) 4.5 G/DL CALC GLOBULIN (test code = 2240) 3.2 G/DL CALC A/G RATIO (test code = 2234) 1.4 RATIO BILIRUBIN, TOTAL (test code = 2207) 0.7 MG/DL ALKALINE PHOSPHATASE (test code = 2204) 68 U/L AST (test code = 2218) 14 U/L ALT (test code = 2219) 12 U/L Jason Flower AustinURINALYSIS W/REFLEX [id number] 00:00:00* Test Item Value Reference Range Interpretation Comme nts COLOR (test code = 1501) YELLOW APPEARANCE (test code = 1502) CLEAR SPECIFIC GRAVITY (test code = 1503) 1.016 LEUKOCYTE ESTERASE (test cod e = 1504) NEGATIVE NITRITE (test code = 1505) NEGATIVE pH (test code = 1506) 7.0 PROTEIN (test code = 1507) TRACE GLUCOSE (test code = 1508) NEGATIVE KETONES (test code = 1509) NEGATIVE UROBILINOGEN (test code = 1510) 0.2 MG/DL BILIRUBIN (test code = 1511) NEGATIVE OCCULT BLOOD (test code = 1512) NEGATIVE WHITE BLOOD CELLS (test code = 1513) 0-5 /HPF RED BLOOD CELLS (test code = 1514) 0-2 /HPF EPITHELIAL CELLS (test code = 84837) 0-5 /HPF BACTERIA (test code = 1515) NONE SEEN CASTS, HYALINE (test code = 1517) TRACE Jason ResendezHIV 1/2 4TH GEN, RFLX [id number] 00:00:00* Test Item Value Reference Range Interpretation Comme nts HIV 1/2 4TH GEN, RFLX CONF ( test code = 3514) NON-REACTIVE Jason ResendezPSA, [id number] 00:00:00* Test Item Value Reference Range Interpretation Comme nts PSA, TOTAL (test code = 2606) 25.70 NG/ML Jason ResendezHEPATITIS C REFLEX [id number] 00:00:00* Test Item Value Reference Range Interpretation Comme nts HEPATITIS C ANTIBODY (test c ode = 4616) REACTIVE Jason ResendezHCV RNA, PCR QUANT [REFLEX]2024-06-23 00:00:00* Test Item Value Reference Range Interpretation Comme nts HCV RNA, PCR QUANT (test code = 4571) NOT DETEC IU/ML HCV VIRAL LOG (test code = 13157) NOT DETEC LOGIU/ML Jason ResendezHEPATITIS C REFLEX [id number] 00:00:00* Test Item Value Reference Range Interpretation Comme nts HEPATITIS C ANTIBODY (test c ode = 4675) REACTIVE Jason ResendezCBC W/AUTO [id number] 00:00:00* Test Item Value Reference Range Interpretation Comme nts WBC (test code = 1001) 4.9 K/UL RBC (test code = 1002) 4.76 M/UL HEMOGLOBIN (test code = 1003) 14.3 G/DL HEMATOCRIT (test code = 1004) 45.1 % MCV (test code = 1005) 94.7 fL MCH (test code = 1006) 30.0 PG MCHC (test code = 1007) 31.7 G/DL RDW (test code = 1038) 13.1 % NEUTROPHILS (test code = 1008) 31.2 % LYMPHOCYTES (test code = 1010) 53.3 % MONOCYTES (test code = 1011) 10.2 % EOSINOPHILS (test code = 1012) 4.7 % BASOPHILS (test code = 1013) 0.6 % IMMATURE GRANULOCYTES (test code = 1036) 0.0 % NUCLEATED RBCS (test code = 1065) 0.0 /100WBC'S PLATELET COUNT (test code = 1015) 191 K/UL ABSOLUTE NEUTROPHILS (test c ode = 1066) 1.54 K/UL ABSOLUTE LYMPHOCYTES (test c ode = 1067) 2.62 K/UL ABSOLUTE MONOCYTES (test cod e = 1068) 0.50 K/UL ABSOLUTE EOSINOPHILS (test c ode = 1040) 0.23 K/UL ABSOLUTE BASOPHILS (test cod e = 1069) 0.03 K/UL ABS IMMATURE GRANULOCYTES (t est code = 1020) 0.00 K/UL ABS NUCLEATED RBCS (test cod e = 31696) 0.00 K/UL Jason ResendezLIPID [id number] 00:00:00* Test Item Value Reference Range Interpretation Comme nts CHOLESTEROL (test code = 2210) 152 MG/DL TRIGLYCERIDES (test code = 2232) 62 MG/DL HDL CHOLESTEROL (test code = 2220) 43 MG/DL CALC LDL CHOL (test code = 2237) 95 MG/DL RISK RATIO LDL/HDL (test cod e = 2238) 2.21 RATIO Jason ResendezCOMPREHENSIVE METABOLIC [id number] 00:00:00* Test Item Value Reference Range Interpretation Comme nts GLUCOSE (test code = 2217) 83 MG/DL BUN (test code = 2208) 15 MG/DL CREATININE (test code = 2214) 0.99 MG/DL eGFR (2020 CKD-EPI) (test co de = 55882) 79 ML/MIN/1.73 CALC BUN/CREAT (test code = 2235) 15 RATIO SODIUM (test code = 2231) 141 MEQ/L POTASSIUM (test code = 2228) 4.3 MEQ/L CHLORIDE (test code = 2215) 102 MEQ/L CARBON DIOXIDE (test code = 2206) 25 MEQ/L CALCIUM (test code = 2209) 9.6 MG/DL PROTEIN, TOTAL (test code = 2229) 7.3 G/DL ALBUMIN (test code = 2201) 4.2 G/DL CALC GLOBULIN (test code = 2240) 3.1 G/DL CALC A/G RATIO (test code = 2234) 1.4 RATIO BILIRUBIN, TOTAL (test code = 2207) 0.7 MG/DL ALKALINE PHOSPHATASE (test code = 2204) 61 U/L AST (test code = 2218) 17 U/L ALT (test code = 2219) 10 U/L Jason ResendezPSA, [id number] 00:00:00* Test Item Value Reference Range Interpretation Comme nts PSA, TOTAL (test code = 2606) 9.78 NG/ML Jason ResendezURINALYSIS W/REFLEX [id number] 00:00:00* Test Item Value Reference Range Interpretation Comme nts COLOR (test code = 1501) YELLOW APPEARANCE (test code = 1502) CLEAR SPECIFIC GRAVITY (test code = 1503) 1.021 LEUKOCYTE ESTERASE (test cod e = 1504) NEGATIVE NITRITE (test code = 1505) NEGATIVE pH (test code = 1506) 5.5 PROTEIN (test code = 1507) NEGATIVE GLUCOSE (test code = 1508) NEGATIVE KETONES (test code = 1509) NEGATIVE UROBILINOGEN (test code = 1510) 0.2 MG/DL BILIRUBIN (test code = 1511) NEGATIVE OCCULT BLOOD (test code = 1512) NEGATIVE Jason ResendezHEPATITIS C [id number] 00:00:00* Test Item Value Reference Range Interpretation Comme nts HEPATITIS C ANTIBODY (test c ode = 4675) REACTIVE Jason ResendezHCV RNA, PCR QUANT [REFLEX]2023-08-28 00:00:00* Test Item Value Reference Range Interpretation Comme nts HCV RNA, PCR QUANT (test code = 4571) NOT DETEC IU/ML HCV VIRAL LOG (test code = 98660) NOT DETEC LOGIU/ML Jason AlcantarPATITIS C REFLEX [id number] 00:00:00* Test Item Value Reference Range Interpretation Comme nts HEPATITIS C ANTIBODY (test c ode = 4675) REACTIVE Jason ResendezCBC W/AUTO [id number] 00:00:00* Test Item Value Reference Range Interpretation Comme nts WBC (test code = 1001) 4.9 K/UL RBC (test code = 1002) 4.76 M/UL HEMOGLOBIN (test code = 1003) 14.3 G/DL HEMATOCRIT (test code = 1004) 45.1 % MCV (test code = 1005) 94.7 fL MCH (test code = 1006) 30.0 PG MCHC (test code = 1007) 31.7 G/DL RDW (test code = 1038) 13.1 % NEUTROPHILS (test code = 1008) 31.2 % LYMPHOCYTES (test code = 1010) 53.3 % MONOCYTES (test code = 1011) 10.2 % EOSINOPHILS (test code = 1012) 4.7 % BASOPHILS (test code = 1013) 0.6 % IMMATURE GRANULOCYTES (test code = 1036) 0.0 % NUCLEATED RBCS (test code = 1065) 0.0 /100WBC'S PLATELET COUNT (test code = 1015) 191 K/UL ABSOLUTE NEUTROPHILS (test c ode = 1066) 1.54 K/UL ABSOLUTE LYMPHOCYTES (test c ode = 1067) 2.62 K/UL ABSOLUTE MONOCYTES (test cod e = 1068) 0.50 K/UL ABSOLUTE EOSINOPHILS (test c ode = 1040) 0.23 K/UL ABSOLUTE BASOPHILS (test cod e = 1069) 0.03 K/UL ABS IMMATURE GRANULOCYTES (t est code = 1020) 0.00 K/UL ABS NUCLEATED RBCS (test cod e = 67484) 0.00 K/UL Jason ResendezLIPID [id number] 00:00:00* Test Item Value Reference Range Interpretation Comme nts CHOLESTEROL (test code = 2210) 152 MG/DL TRIGLYCERIDES (test code = 2232) 62 MG/DL HDL CHOLESTEROL (test code = 2220) 43 MG/DL CALC LDL CHOL (test code = 2237) 95 MG/DL RISK RATIO LDL/HDL (test cod e = 2238) 2.21 RATIO Jason ResendezCOMPREHENSIVE METABOLIC [id number] 00:00:00* Test Item Value Reference Range Interpretation Comme nts GLUCOSE (test code = 2217) 83 MG/DL BUN (test code = 2208) 15 MG/DL CREATININE (test code = 2214) 0.99 MG/DL eGFR (2020 CKD-EPI) (test co de = 95467) 79 ML/MIN/1.73 CALC BUN/CREAT (test code = 2235) 15 RATIO SODIUM (test code = 2231) 141 MEQ/L POTASSIUM (test code = 2228) 4.3 MEQ/L CHLORIDE (test code = 2215) 102 MEQ/L CARBON DIOXIDE (test code = 2206) 25 MEQ/L CALCIUM (test code = 2209) 9.6 MG/DL PROTEIN, TOTAL (test code = 2229) 7.3 G/DL ALBUMIN (test code = 2201) 4.2 G/DL CALC GLOBULIN (test code = 2240) 3.1 G/DL CALC A/G RATIO (test code = 2234) 1.4 RATIO BILIRUBIN, TOTAL (test code = 2207) 0.7 MG/DL ALKALINE PHOSPHATASE (test code = 2204) 61 U/L AST (test code = 2218) 17 U/L ALT (test code = 2219) 10 U/L Jason ResendezPSA, [id number] 00:00:00* Test Item Value Reference Range Interpretation Comme nts PSA, TOTAL (test code = 2606) 9.78 NG/ML Jason ResendezURINALYSIS W/REFLEX [id number] 00:00:00* Test Item Value Reference Range Interpretation Comme nts COLOR (test code = 1501) YELLOW APPEARANCE (test code = 1502) CLEAR SPECIFIC GRAVITY (test code = 1503) 1.021 LEUKOCYTE ESTERASE (test cod e = 1504) NEGATIVE NITRITE (test code = 1505) NEGATIVE pH (test code = 1506) 5.5 PROTEIN (test code = 1507) NEGATIVE GLUCOSE (test code = 1508) NEGATIVE KETONES (test code = 1509) NEGATIVE UROBILINOGEN (test code = 1510) 0.2 MG/DL BILIRUBIN (test code = 1511) NEGATIVE OCCULT BLOOD (test code = 1512) NEGATIVE Jason AlcantarPATITIS C [id number] 00:00:00* Test Item Value Reference Range Interpretation Comme nts HEPATITIS C ANTIBODY (test c ode = 4675) REACTIVE Jason ResendezHCV RNA, PCR QUANT [REFLEX]2023-08-28 00:00:00* Test Item Value Reference Range Interpretation Comme nts HCV RNA, PCR QUANT (test code = 4571) NOT DETEC IU/ML HCV VIRAL LOG (test code = 62247) NOT DETEC LOGIU/ML Jason AlcantarPATITIS C REFLEX [id number] 00:00:00* Test Item Value Reference Range Interpretation Comme nts HEPATITIS C ANTIBODY (test c ode = 4675) REACTIVE Jason ResendezCBC W/AUTO [id number] 00:00:00* Test Item Value Reference Range Interpretation Comme nts WBC (test code = 1001) 4.9 K/UL RBC (test code = 1002) 4.76 M/UL HEMOGLOBIN (test code = 1003) 14.3 G/DL HEMATOCRIT (test code = 1004) 45.1 % MCV (test code = 1005) 94.7 fL MCH (test code = 1006) 30.0 PG MCHC (test code = 1007) 31.7 G/DL RDW (test code = 1038) 13.1 % NEUTROPHILS (test code = 1008) 31.2 % LYMPHOCYTES (test code = 1010) 53.3 % MONOCYTES (test code = 1011) 10.2 % EOSINOPHILS (test code = 1012) 4.7 % BASOPHILS (test code = 1013) 0.6 % IMMATURE GRANULOCYTES (test code = 1036) 0.0 % NUCLEATED RBCS (test code = 1065) 0.0 /100WBC'S PLATELET COUNT (test code = 1015) 191 K/UL ABSOLUTE NEUTROPHILS (test c ode = 1066) 1.54 K/UL ABSOLUTE LYMPHOCYTES (test c ode = 1067) 2.62 K/UL ABSOLUTE MONOCYTES (test cod e = 1068) 0.50 K/UL ABSOLUTE EOSINOPHILS (test c ode = 1040) 0.23 K/UL ABSOLUTE BASOPHILS (test cod e = 1069) 0.03 K/UL ABS IMMATURE GRANULOCYTES (t est code = 1020) 0.00 K/UL ABS NUCLEATED RBCS (test cod e = 40858) 0.00 K/UL Jason ResendezHEPATITIS C REFLEX [id number] 00:00:00* Test Item Value Reference Range Interpretation Comme nts HEPATITIS C ANTIBODY (test c ode = 4675) REACTIVE Jason ResendezLIPID [id number] 00:00:00* Test Item Value Reference Range Interpretation Comme nts CHOLESTEROL (test code = 2210) 152 MG/DL TRIGLYCERIDES (test code = 2232) 62 MG/DL HDL CHOLESTEROL (test code = 2220) 43 MG/DL CALC LDL CHOL (test code = 2237) 95 MG/DL RISK RATIO LDL/HDL (test cod e = 2238) 2.21 RATIO Jason ResendezCOMPREHENSIVE METABOLIC [id number] 00:00:00* Test Item Value Reference Range Interpretation Comme nts GLUCOSE (test code = 2217) 83 MG/DL BUN (test code = 2208) 15 MG/DL CREATININE (test code = 2214) 0.99 MG/DL eGFR (2020 CKD-EPI) (test co de = 31213) 79 ML/MIN/1.73 CALC BUN/CREAT (test code = 2235) 15 RATIO SODIUM (test code = 2231) 141 MEQ/L POTASSIUM (test code = 2228) 4.3 MEQ/L CHLORIDE (test code = 2215) 102 MEQ/L CARBON DIOXIDE (test code = 2206) 25 MEQ/L CALCIUM (test code = 2209) 9.6 MG/DL PROTEIN, TOTAL (test code = 2229) 7.3 G/DL ALBUMIN (test code = 2201) 4.2 G/DL CALC GLOBULIN (test code = 2240) 3.1 G/DL CALC A/G RATIO (test code = 2234) 1.4 RATIO BILIRUBIN, TOTAL (test code = 2207) 0.7 MG/DL ALKALINE PHOSPHATASE (test code = 2204) 61 U/L AST (test code = 2218) 17 U/L ALT (test code = 2219) 10 U/L Jason ResendezPSA, [id number] 00:00:00* Test Item Value Reference Range Interpretation Comme david PSA, TOTAL (test code = 2606) 9.78 NG/ML Jason ResendezURINALYSIS W/REFLEX [id number] 00:00:00* Test Item Value Reference Range Interpretation Comme nts COLOR (test code = 1501) YELLOW APPEARANCE (test code = 1502) CLEAR SPECIFIC GRAVITY (test code = 1503) 1.021 LEUKOCYTE ESTERASE (test cod e = 1504) NEGATIVE NITRITE (test code = 1505) NEGATIVE pH (test code = 1506) 5.5 PROTEIN (test code = 1507) NEGATIVE GLUCOSE (test code = 1508) NEGATIVE KETONES (test code = 1509) NEGATIVE UROBILINOGEN (test code = 1510) 0.2 MG/DL BILIRUBIN (test code = 1511) NEGATIVE OCCULT BLOOD (test code = 1512) NEGATIVE Jason ResendezHEPATITIS C [id number] 00:00:00* Test Item Value Reference Range Interpretation Comme nts HEPATITIS C ANTIBODY (test c ode = 4675) REACTIVE Jason ResendezCBC W/AUTO [id number] 00:00:00* Test Item Value Reference Range Interpretation Comme david WBC (test code = 1001) 4.9 K/UL RBC (test code = 1002) 4.76 M/UL HEMOGLOBIN (test code = 1003) 14.3 G/DL HEMATOCRIT (test code = 1004) 45.1 % MCV (test code = 1005) 94.7 fL MCH (test code = 1006) 30.0 PG MCHC (test code = 1007) 31.7 G/DL RDW (test code = 1038) 13.1 % NEUTROPHILS (test code = 1008) 31.2 % LYMPHOCYTES (test code = 1010) 53.3 % MONOCYTES (test code = 1011) 10.2 % EOSINOPHILS (test code = 1012) 4.7 % BASOPHILS (test code = 1013) 0.6 % IMMATURE GRANULOCYTES (test code = 1036) 0.0 % NUCLEATED RBCS (test code = 1065) 0.0 /100WBC'S PLATELET COUNT (test code = 1015) 191 K/UL ABSOLUTE NEUTROPHILS (test c ode = 1066) 1.54 K/UL ABSOLUTE LYMPHOCYTES (test c ode = 1067) 2.62 K/UL ABSOLUTE MONOCYTES (test cod e = 1068) 0.50 K/UL ABSOLUTE EOSINOPHILS (test c ode = 1040) 0.23 K/UL ABSOLUTE BASOPHILS (test cod e = 1069) 0.03 K/UL ABS IMMATURE GRANULOCYTES (t est code = 1020) 0.00 K/UL ABS NUCLEATED RBCS (test cod e = 91944) 0.00 K/UL Jason ResendezHCV RNA, PCR QUANT [REFLEX]2023-08-28 00:00:00* Test Item Value Reference Range Interpretation Comme nts HCV RNA, PCR QUANT (test code = 4571) NOT DETEC IU/ML HCV VIRAL LOG (test code = 51243) NOT DETEC LOGIU/ML Jason ResendezLIPID [id number] 00:00:00* Test Item Value Reference Range Interpretation Comme nts CHOLESTEROL (test code = 2210) 152 MG/DL TRIGLYCERIDES (test code = 2232) 62 MG/DL HDL CHOLESTEROL (test code = 2220) 43 MG/DL CALC LDL CHOL (test code = 2237) 95 MG/DL RISK RATIO LDL/HDL (test cod e = 2238) 2.21 RATIO Jason ResendezHEPATITIS C REFLEX [id number] 00:00:00* Test Item Value Reference Range Interpretation Comme nts HEPATITIS C ANTIBODY (test c ode = 4675) REACTIVE Jason ResendezCBC W/AUTO [id number] 00:00:00* Test Item Value Reference Range Interpretation Comme nts WBC (test code = 1001) 4.9 K/UL RBC (test code = 1002) 4.76 M/UL HEMOGLOBIN (test code = 1003) 14.3 G/DL HEMATOCRIT (test code = 1004) 45.1 % MCV (test code = 1005) 94.7 fL MCH (test code = 1006) 30.0 PG MCHC (test code = 1007) 31.7 G/DL RDW (test code = 1038) 13.1 % NEUTROPHILS (test code = 1008) 31.2 % LYMPHOCYTES (test code = 1010) 53.3 % MONOCYTES (test code = 1011) 10.2 % EOSINOPHILS (test code = 1012) 4.7 % BASOPHILS (test code = 1013) 0.6 % IMMATURE GRANULOCYTES (test code = 1036) 0.0 % NUCLEATED RBCS (test code = 1065) 0.0 /100WBC'S PLATELET COUNT (test code = 1015) 191 K/UL ABSOLUTE NEUTROPHILS (test c ode = 1066) 1.54 K/UL ABSOLUTE LYMPHOCYTES (test c ode = 1067) 2.62 K/UL ABSOLUTE MONOCYTES (test cod e = 1068) 0.50 K/UL ABSOLUTE EOSINOPHILS (test c ode = 1040) 0.23 K/UL ABSOLUTE BASOPHILS (test cod e = 1069) 0.03 K/UL ABS IMMATURE GRANULOCYTES (t est code = 1020) 0.00 K/UL ABS NUCLEATED RBCS (test cod e = 38570) 0.00 K/UL Jason ResendezCOMPREHENSIVE METABOLIC [id number] 00:00:00* Test Item Value Reference Range Interpretation Comme nts GLUCOSE (test code = 2217) 83 MG/DL BUN (test code = 2208) 15 MG/DL CREATININE (test code = 2214) 0.99 MG/DL eGFR (2020 CKD-EPI) (test co de = 24312) 79 ML/MIN/1.73 CALC BUN/CREAT (test code = 2235) 15 RATIO SODIUM (test code = 2231) 141 MEQ/L POTASSIUM (test code = 2228) 4.3 MEQ/L CHLORIDE (test code = 2215) 102 MEQ/L CARBON DIOXIDE (test code = 2206) 25 MEQ/L CALCIUM (test code = 2209) 9.6 MG/DL PROTEIN, TOTAL (test code = 2229) 7.3 G/DL ALBUMIN (test code = 2201) 4.2 G/DL CALC GLOBULIN (test code = 2240) 3.1 G/DL CALC A/G RATIO (test code = 2234) 1.4 RATIO BILIRUBIN, TOTAL (test code = 2207) 0.7 MG/DL ALKALINE PHOSPHATASE (test code = 2204) 61 U/L AST (test code = 2218) 17 U/L ALT (test code = 2219) 10 U/L Jason ResendezLIPID [id number] 00:00:00* Test Item Value Reference Range Interpretation Comme nts CHOLESTEROL (test code = 2210) 152 MG/DL TRIGLYCERIDES (test code = 2232) 62 MG/DL HDL CHOLESTEROL (test code = 2220) 43 MG/DL CALC LDL CHOL (test code = 2237) 95 MG/DL RISK RATIO LDL/HDL (test cod e = 2238) 2.21 RATIO Jason ResendezCOMPREHENSIVE METABOLIC [id number] 00:00:00* Test Item Value Reference Range Interpretation Comme nts GLUCOSE (test code = 2217) 83 MG/DL BUN (test code = 2208) 15 MG/DL CREATININE (test code = 2214) 0.99 MG/DL eGFR (2020 CKD-EPI) (test co de = 28841) 79 ML/MIN/1.73 CALC BUN/CREAT (test code = 2235) 15 RATIO SODIUM (test code = 2231) 141 MEQ/L POTASSIUM (test code = 2228) 4.3 MEQ/L CHLORIDE (test code = 2215) 102 MEQ/L CARBON DIOXIDE (test code = 2206) 25 MEQ/L CALCIUM (test code = 2209) 9.6 MG/DL PROTEIN, TOTAL (test code = 2229) 7.3 G/DL ALBUMIN (test code = 2201) 4.2 G/DL CALC GLOBULIN (test code = 2240) 3.1 G/DL CALC A/G RATIO (test code = 2234) 1.4 RATIO BILIRUBIN, TOTAL (test code = 2207) 0.7 MG/DL ALKALINE PHOSPHATASE (test code = 2204) 61 U/L AST (test code = 2218) 17 U/L ALT (test code = 2219) 10 U/L Jason ResendezPSA, [id number] 00:00:00* Test Item Value Reference Range Interpretation Comme nts PSA, TOTAL (test code = 2606) 9.78 NG/ML Jason ResendezPSA, [id number] 00:00:00* Test Item Value Reference Range Interpretation Comme nts PSA, TOTAL (test code = 2606) 9.78 NG/ML Jason Flower AustinURINALYSIS W/REFLEX [id number] 00:00:00* Test Item Value Reference Range Interpretation Comme nts COLOR (test code = 1501) YELLOW APPEARANCE (test code = 1502) CLEAR SPECIFIC GRAVITY (test code = 1503) 1.021 LEUKOCYTE ESTERASE (test cod e = 1504) NEGATIVE NITRITE (test code = 1505) NEGATIVE pH (test code = 1506) 5.5 PROTEIN (test code = 1507) NEGATIVE GLUCOSE (test code = 1508) NEGATIVE KETONES (test code = 1509) NEGATIVE UROBILINOGEN (test code = 1510) 0.2 MG/DL BILIRUBIN (test code = 1511) NEGATIVE OCCULT BLOOD (test code = 1512) NEGATIVE Jason Flower AustinHEPATITIS C [id number] 00:00:00* Test Item Value Reference Range Interpretation Comme nts HEPATITIS C ANTIBODY (test c ode = 4675) REACTIVE Jason Flower AustinHCV RNA, PCR QUANT [REFLEX]2023-08-28 00:00:00* Test Item Value Reference Range Interpretation Comme nts HCV RNA, PCR QUANT (test code = 4571) NOT DETEC IU/ML HCV VIRAL LOG (test code = 61137) NOT DETEC LOGIU/ML Jason Flower AustinURINALYSIS W/REFLEX [id number] 00:00:00* Test Item Value Reference Range Interpretation Comme nts COLOR (test code = 1501) YELLOW APPEARANCE (test code = 1502) CLEAR SPECIFIC GRAVITY (test code = 1503) 1.021 LEUKOCYTE ESTERASE (test cod e = 1504) NEGATIVE NITRITE (test code = 1505) NEGATIVE pH (test code = 1506) 5.5 PROTEIN (test code = 1507) NEGATIVE GLUCOSE (test code = 1508) NEGATIVE KETONES (test code = 1509) NEGATIVE UROBILINOGEN (test code = 1510) 0.2 MG/DL BILIRUBIN (test code = 1511) NEGATIVE OCCULT BLOOD (test code = 1512) NEGATIVE Jason Flower AustinHEPATITIS C [id number] 00:00:00* Test Item Value Reference Range Interpretation Comme nts HEPATITIS C ANTIBODY (test c ode = 4675) REACTIVE Jason F AustinHCV RNA, PCR QUANT [REFLEX]2023-08-28 00:00:00* Test Item Value Reference Range Interpretation Comme nts HCV RNA, PCR QUANT (test code = 4571) NOT DETEC IU/ML HCV VIRAL LOG (test code = 52274) NOT DETEC LOGIU/ML Jason ResendezHEPATITIS C REFLEX [id number] 00:00:00* Test Item Value Reference Range Interpretation Comme nts HEPATITIS C ANTIBODY (test c ode = 4675) REACTIVE Jason ResendezCBC W/AUTO [id number] 00:00:00* Test Item Value Reference Range Interpretation Comme nts WBC (test code = 1001) 4.9 K/UL RBC (test code = 1002) 4.76 M/UL HEMOGLOBIN (test code = 1003) 14.3 G/DL HEMATOCRIT (test code = 1004) 45.1 % MCV (test code = 1005) 94.7 fL MCH (test code = 1006) 30.0 PG MCHC (test code = 1007) 31.7 G/DL RDW (test code = 1038) 13.1 % NEUTROPHILS (test code = 1008) 31.2 % LYMPHOCYTES (test code = 1010) 53.3 % MONOCYTES (test code = 1011) 10.2 % EOSINOPHILS (test code = 1012) 4.7 % BASOPHILS (test code = 1013) 0.6 % IMMATURE GRANULOCYTES (test code = 1036) 0.0 % NUCLEATED RBCS (test code = 1065) 0.0 /100WBC'S PLATELET COUNT (test code = 1015) 191 K/UL ABSOLUTE NEUTROPHILS (test c ode = 1066) 1.54 K/UL ABSOLUTE LYMPHOCYTES (test c ode = 1067) 2.62 K/UL ABSOLUTE MONOCYTES (test cod e = 1068) 0.50 K/UL ABSOLUTE EOSINOPHILS (test c ode = 1040) 0.23 K/UL ABSOLUTE BASOPHILS (test cod e = 1069) 0.03 K/UL ABS IMMATURE GRANULOCYTES (t est code = 1020) 0.00 K/UL ABS NUCLEATED RBCS (test cod e = 39799) 0.00 K/UL Jason ResendezLIPID [id number] 00:00:00* Test Item Value Reference Range Interpretation Comme nts CHOLESTEROL (test code = 2210) 152 MG/DL TRIGLYCERIDES (test code = 2232) 62 MG/DL HDL CHOLESTEROL (test code = 2220) 43 MG/DL CALC LDL CHOL (test code = 2237) 95 MG/DL RISK RATIO LDL/HDL (test cod e = 2238) 2.21 RATIO Jason ResendezCOMPREHENSIVE METABOLIC [id number] 00:00:00* Test Item Value Reference Range Interpretation Comme nts GLUCOSE (test code = 2217) 83 MG/DL BUN (test code = 2208) 15 MG/DL CREATININE (test code = 2214) 0.99 MG/DL eGFR (2020 CKD-EPI) (test co de = 15745) 79 ML/MIN/1.73 CALC BUN/CREAT (test code = 2235) 15 RATIO SODIUM (test code = 2231) 141 MEQ/L POTASSIUM (test code = 2228) 4.3 MEQ/L CHLORIDE (test code = 2215) 102 MEQ/L CARBON DIOXIDE (test code = 2206) 25 MEQ/L CALCIUM (test code = 2209) 9.6 MG/DL PROTEIN, TOTAL (test code = 2229) 7.3 G/DL ALBUMIN (test code = 2201) 4.2 G/DL CALC GLOBULIN (test code = 2240) 3.1 G/DL CALC A/G RATIO (test code = 2234) 1.4 RATIO BILIRUBIN, TOTAL (test code = 2207) 0.7 MG/DL ALKALINE PHOSPHATASE (test code = 2204) 61 U/L AST (test code = 2218) 17 U/L ALT (test code = 2219) 10 U/L Jason ResendezPSA, [id number] 00:00:00* Test Item Value Reference Range Interpretation Comme nts PSA, TOTAL (test code = 2606) 9.78 NG/ML Jason ResendezURINALYSIS W/REFLEX [id number] 00:00:00* Test Item Value Reference Range Interpretation Comme nts COLOR (test code = 1501) YELLOW APPEARANCE (test code = 1502) CLEAR SPECIFIC GRAVITY (test code = 1503) 1.021 LEUKOCYTE ESTERASE (test cod e = 1504) NEGATIVE NITRITE (test code = 1505) NEGATIVE pH (test code = 1506) 5.5 PROTEIN (test code = 1507) NEGATIVE GLUCOSE (test code = 1508) NEGATIVE KETONES (test code = 1509) NEGATIVE UROBILINOGEN (test code = 1510) 0.2 MG/DL BILIRUBIN (test code = 1511) NEGATIVE OCCULT BLOOD (test code = 1512) NEGATIVE Jason AlcantarPATITIS C [id number] 00:00:00* Test Item Value Reference Range Interpretation Comme nts HEPATITIS C ANTIBODY (test c ode = 4675) REACTIVE Jason ResendezHCV RNA, PCR QUANT [REFLEX]2023-08-28 00:00:00* Test Item Value Reference Range Interpretation Comme nts HCV RNA, PCR QUANT (test code = 4571) NOT DETEC IU/ML HCV VIRAL LOG (test code = 67136) NOT DETEC LOGIU/ML Jason AlcantarPATITIS C REFLEX [id number] 00:00:00* Test Item Value Reference Range Interpretation Comme nts HEPATITIS C ANTIBODY (test c ode = 4675) REACTIVE Jason ResendezCBC W/AUTO [id number] 00:00:00* Test Item Value Reference Range Interpretation Comme nts WBC (test code = 1001) 4.9 K/UL RBC (test code = 1002) 4.76 M/UL HEMOGLOBIN (test code = 1003) 14.3 G/DL HEMATOCRIT (test code = 1004) 45.1 % MCV (test code = 1005) 94.7 fL MCH (test code = 1006) 30.0 PG MCHC (test code = 1007) 31.7 G/DL RDW (test code = 1038) 13.1 % NEUTROPHILS (test code = 1008) 31.2 % LYMPHOCYTES (test code = 1010) 53.3 % MONOCYTES (test code = 1011) 10.2 % EOSINOPHILS (test code = 1012) 4.7 % BASOPHILS (test code = 1013) 0.6 % IMMATURE GRANULOCYTES (test code = 1036) 0.0 % NUCLEATED RBCS (test code = 1065) 0.0 /100WBC'S PLATELET COUNT (test code = 1015) 191 K/UL ABSOLUTE NEUTROPHILS (test c ode = 1066) 1.54 K/UL ABSOLUTE LYMPHOCYTES (test c ode = 1067) 2.62 K/UL ABSOLUTE MONOCYTES (test cod e = 1068) 0.50 K/UL ABSOLUTE EOSINOPHILS (test c ode = 1040) 0.23 K/UL ABSOLUTE BASOPHILS (test cod e = 1069) 0.03 K/UL ABS IMMATURE GRANULOCYTES (t est code = 1020) 0.00 K/UL ABS NUCLEATED RBCS (test cod e = 95434) 0.00 K/UL Jason ResendezLIPID [id number] 00:00:00* Test Item Value Reference Range Interpretation Comme nts CHOLESTEROL (test code = 2210) 152 MG/DL TRIGLYCERIDES (test code = 2232) 62 MG/DL HDL CHOLESTEROL (test code = 2220) 43 MG/DL CALC LDL CHOL (test code = 2237) 95 MG/DL RISK RATIO LDL/HDL (test cod e = 2238) 2.21 RATIO Jason ResendezCOMPREHENSIVE METABOLIC [id number] 00:00:00* Test Item Value Reference Range Interpretation Comme nts GLUCOSE (test code = 2217) 83 MG/DL BUN (test code = 2208) 15 MG/DL CREATININE (test code = 2214) 0.99 MG/DL eGFR (2020 CKD-EPI) (test co de = 11480) 79 ML/MIN/1.73 CALC BUN/CREAT (test code = 2235) 15 RATIO SODIUM (test code = 2231) 141 MEQ/L POTASSIUM (test code = 2228) 4.3 MEQ/L CHLORIDE (test code = 2215) 102 MEQ/L CARBON DIOXIDE (test code = 2206) 25 MEQ/L CALCIUM (test code = 2209) 9.6 MG/DL PROTEIN, TOTAL (test code = 2229) 7.3 G/DL ALBUMIN (test code = 2201) 4.2 G/DL CALC GLOBULIN (test code = 2240) 3.1 G/DL CALC A/G RATIO (test code = 2234) 1.4 RATIO BILIRUBIN, TOTAL (test code = 2207) 0.7 MG/DL ALKALINE PHOSPHATASE (test code = 2204) 61 U/L AST (test code = 2218) 17 U/L ALT (test code = 2219) 10 U/L Jason ResendezPSA, [id number] 00:00:00* Test Item Value Reference Range Interpretation Comme nts PSA, TOTAL (test code = 2606) 9.78 NG/ML Jason ResendezURINALYSIS W/REFLEX [id number] 00:00:00* Test Item Value Reference Range Interpretation Comme nts COLOR (test code = 1501) YELLOW APPEARANCE (test code = 1502) CLEAR SPECIFIC GRAVITY (test code = 1503) 1.021 LEUKOCYTE ESTERASE (test cod e = 1504) NEGATIVE NITRITE (test code = 1505) NEGATIVE pH (test code = 1506) 5.5 PROTEIN (test code = 1507) NEGATIVE GLUCOSE (test code = 1508) NEGATIVE KETONES (test code = 1509) NEGATIVE UROBILINOGEN (test code = 1510) 0.2 MG/DL BILIRUBIN (test code = 1511) NEGATIVE OCCULT BLOOD (test code = 1512) NEGATIVE Jason ResendezHEPATITIS C [id number] 00:00:00* Test Item Value Reference Range Interpretation Comme nts HEPATITIS C ANTIBODY (test c ode = 4662) REACTIVE Jason ResednezHCV RNA, PCR QUANT [REFLEX]2023-08-28 00:00:00* Test Item Value Reference Range Interpretation Comme nts HCV RNA, PCR QUANT (test code = 4571) NOT DETEC IU/ML HCV VIRAL LOG (test code = 60896) NOT DETEC LOGIU/ML Jason ResendezCHEM [id number] 07:31:00* Test Item Value Reference Range Interpretation Comme nts Magnesium Lvl (test code = M agnesium Lvl) 2.2 1.8-2.4 eGFR (test code = eGFR) 88 Chloride Lvl (test code = Chloride Lvl) 106 95-109 CO2 (test code = CO2) 29 24-32 Calcium Lvl (test code = Calcium Lvl) 8.9 8.5-10.5 Potassium Lvl (test code = P otassium Lvl) 3.7 3.5-5.1 Glucose Lvl (test code = Glucose Lvl) 99 70-99 Sodium Lvl (test code = Sodium Lvl) 140 135-145 BUN (test code = BUN) 15 7-22 Creatinine Lvl (test code = Creatinine Lvl) 0.86 0.50-1.40 AGAP (test code = AGAP) 8.7 10.0-20.0 [facility] [id number] 07:31:00* Test Item Value Reference Range Interpretation Comme nts MCV (test code = MCV) 93.7 80.0-94.0 MCH (test code = MCH) 31.9 pg 27.0-31.0 MCHC (test code = MCHC) 34.1 32.0-36.0 MPV (test code = MPV) 8.9 7.4-10.4 RDW (test code = RDW) 13.2 11.5-14.5 Platelet (test code = Platelet) 172 133-450 Hgb (test code = Hgb) 12.7 14.0-18.0 Hct (test code = Hct) 37.1 42.0-54.0 WBC (test code = WBC) 5.2 3.7-10.4 RBC (test code = RBC) 3.96 4.70-6.10 Monocytes # (test code = Monocytes #) 0.8 <=0.8 Eosinophils # (test code = Eosinophils #) 0.9 <=0.5 Segs-Bands # (test code = Se gs-Bands #) 1.9 1.5-8.1 Lymphocytes # (test code = Lymphocytes #) 1.7 1.0-5.5 Segs (test code = Segs) 35.5 45.0-75.0 Lymphocytes (test code = Lymphocytes) 32.7 20.0-40.0 Monocytes (test code = Monocytes) 15.0 2.0-12.0 Eosinophils (test code = Eosinophils) 16.3 <=4.0 Basophils (test code = Basophils) 0.5 <=1.0 [facility] [id number] 22:48:00* Test Item Value Reference Range Interpretation Comme nts Troponin-I (test code = Troponin-I) no gt <=0.40 [facility] AND [id number] 22:48:00* Test Item Value Reference Range Interpretation Comme nts UA Urobilinogen (test code = UA Urobilinogen) >=8.0 EU/dL 0.1-1.0 UA Leuk Est (test code = UA Leuk Est) Trace *ABN*(01/16/17 5:48 PM) UA Nitrite (test code = UA Nitrite) Positive *ABN*(01/16/17 5:48 PM) UA Ketones (test code = UA Ketones) Trace *ABN*(01/16/17 5:48 PM) UA Glucose (test code = UA Glucose) 100 mg/dL UA Bili (test code = UA Bili) Negative *NA*(01/16/17 5:48 PM) UA Blood (test code = UA Blood) Negative (01/16/17 5:48 PM) UA Color (test code = UA Color) [place] *ABN*(01/16/17 5:48 PM) UA Turbidity (test code = UA Turbidity) Slight Cloudy (01/16/17 5:48 PM) UA Spec Grav (test code = UA Spec Grav) 1.020 1 UA pH (test code = UA pH) 6.5 1 5.0-8.0 UA Protein (test code = UA Protein) 100 mg/dL UA Amorph Mary Kate (test code = UA Amorph Mary Kate) Occasional /HPF UA Mucus (test code = UA Mucus) Moderate /LPF UA Bacteria (test code = UA Bacteria) Moderate /HPF UA RBC (test code = UA RBC) 0-2 /HPF <=2 UA WBC (test code = UA WBC) 11-20 /HPF UA Sq Epi (test code = UA Sq Epi) Occasional /LPF [facility] [id number] 18:24:00* Test Item Value Reference Range Interpretation Comme nts Troponin-I (test code = Troponin-I) no gt <=0.40 [facility] CenterCHEM [id number] 18:24:00* Test Item Value Reference Range Interpretation Comme nts Lactic Acid Lvl (test code = Lactic Acid Lvl) 0.8 0.5-2.2 Glucose Lvl (test code = Glucose Lvl) 97 70-99 BUN (test code = BUN) 16 7-22 Potassium Lvl (test code = P otassium Lvl) 4.0 3.5-5.1 Sodium Lvl (test code = Sodium Lvl) 138 135-145 Creatinine Lvl (test code = Creatinine Lvl) 1.12 0.50-1.40 CO2 (test code = CO2) 28 24-32 Chloride Lvl (test code = Chloride Lvl) 105 95-109 AGAP (test code = AGAP) 9.0 10.0-20.0 Calcium Lvl (test code = Calcium Lvl) 9.2 8.5-10.5 eGFR (test code = eGFR) 66 [facility] [id number] 18:24:00* Test Item Value Reference Range Interpretation Comme nts Monocytes # (test code = Monocytes #) 0.9 <=0.8 Eosinophils # (test code = Eosinophils #) 0.5 <=0.5 Segs-Bands # (test code = Se gs-Bands #) 3.7 1.5-8.1 Lymphocytes # (test code = Lymphocytes #) 1.5 1.0-5.5 Basophils (test code = Basophils) 0.3 <=1.0 Segs (test code = Segs) 55.5 45.0-75.0 Eosinophils (test code = Eosinophils) 7.3 <=4.0 Lymphocytes (test code = Lymphocytes) 22.9 20.0-40.0 Monocytes (test code = Monocytes) 14.0 2.0-12.0 MPV (test code = MPV) 8.4 7.4-10.4 MCH (test code = MCH) 31.4 pg 27.0-31.0 MCHC (test code = MCHC) 33.3 32.0-36.0 RDW (test code = RDW) 13.1 11.5-14.5 Platelet (test code = Platelet) 184 133-450 WBC (test code = WBC) 6.7 3.7-10.4 RBC (test code = RBC) 4.25 4.70-6.10 Hgb (test code = Hgb) 13.3 14.0-18.0 Hct (test code = Hct) 40.0 42.0-54.0 MCV (test code = MCV) 94.0 80.0-94.0 [facility] History and Physical Notes Date/Time Note Provider Source 2025-02-17 23:56:09 [facility] Hospitalist Admission H&P Date of Service: 02/17/2025 CHIEF COMPLAINT: Patient status post transurethral laser enucleation of the prostate; admitted for extended recovery HISTORY OF PRESENT ILLNESS Fabian Arita is a 79 year old male who presents with outpatient procedure. Patient seen by urology and had transurethral laser enucleation of the prostate. Normally patient is followed up as an outpatient. However patient had no one at home to help him with the bladder irrigation so we wanted to keep patient overnight for extended recovery. Patient will continue with continuous bladder irrigation. Plan is if patient has no significant bleeding postoperatively then patient will discharge home with outpatient follow-up on Friday and have a voiding trial done at the clinic. Patient will be discharged on oral antibiotics in AM. Will monitor patient postoperatively. Otherwise, patient with no new complaints. PAST MEDICAL HISTORY Past Medical History: Diagnosis Date Asthma Cancer Prostate Hypertension PAST SURGICAL HISTORY Past Surgical History: Procedure Laterality Date CAROTID ENDARTERECTOMY ENDOVASCULAR AAA REPAIR SPLENECTOMY TRANSRECTAL PROSTATE BIOPSY N/A 12/29/2018 Surgeon: Flavio Mckeon MD; Location: [facility] OR [facility] TRANSRECTAL PROSTATE ULTRASOUND N/A 12/29/2018 Surgeon: Flavio Mckeon MD; Location: [facility] OR [facility] ALLERGIES Allergies Allergen Reactions Sulfa (Sulfonamide Antibiotics) Hives MEDICATIONS Current home medication list reviewed: Current Discharge Medication List STOP taking these medications ciprofloxacin HCl (CIPRO) 500 mg tablet Comments: Reason for Stopping: AMLODIPINE BESYLATE (AMLODIPINE ORAL) Comments: Reason for Stopping: lisinopril (PRINIVIL,ZESTRIL) 40 mg tablet Comments: Reason for Stopping: tamsulosin 0.4 mg 24 hr capsule Comments: Reason for Stopping: sofosbuvir-velpatasvir 400-100 mg Comments: Reason for Stopping: Silodosin 4 mg Cap Comments: Reason for Stopping: traMADOL (ULTRAM) 50 mg tablet Comments: Reason for Stopping: FAMILY HISTORY No family history on file. SOCIAL HISTORY Social History Socioeconomic History Marital status: Tobacco Use Smoking status: Former Smokeless tobacco: Current REVIEW OF SYSTEMS 10 systems negative except per HPI PHYSICAL EXAMINATION BP (!) 141/92 | Pulse 80 | Temp 36.4 ?C (97.6 ?F) (Oral) | Resp 11 | Ht 1.829 m (6') | Wt 90.7 kg (200 lb) | SpO2 96% | BMI 27.12 kg/m? General: No acute distress HEENT: Normal oral mucosa, anicteric sclerae, NCAT Cardiovascular: RRR Lungs: Symmetric expansion, clear bilaterally Abdomen: Soft, NTND Musculoskeletal: No synovitis, normal muscle mass Genitourinary: Velez in place; Skin: No rash, no skin lesions Extremities: No clubbing, no cyanosis, no lower extremity edema Neuro: AAOx3, no focal deficits Psych: Normal affect LABS - reviewed pertinent labs as below: CBC BMP PT/INR WBC x10 3 (/CMM) Date Value 05/20/2005 7.2 WBC (10*3/?L) Date Value 02/17/2025 6.02 NA Date Value 02/17/2025 140 mmol/L 05/20/2005 141 MMOL/L No results found for: "PT" RBC x10 6 (/CMM) Date Value 05/20/2005 4.02 (L) RBC (10*6/?L) Date Value 02/17/2025 4.37 K Date Value 02/17/2025 4.2 mmol/L 05/20/2005 3.8 MMOL/L PT INR (no units) Date Value 05/20/2005 0.9 INR (no units) Date Value 12/31/2021 1.1 PLT x10 3 (/CMM) Date Value 05/20/2005 317 PLT (10*3/?L) Date Value 02/17/2025 187 CALCIUM Date Value 02/17/2025 10.1 mg/dL 05/20/2005 9.1 MG/DL HGB Date Value 02/17/2025 13.5 g/dL 05/20/2005 12.3 G/DL (L) CL Date Value 02/17/2025 106 mmol/L 05/20/2005 103 MMOL/L aPTT HCT (%) Date Value 02/17/2025 40.7 05/20/2005 37.3 BUN Date Value 02/17/2025 15 mg/dL 05/20/2005 16 MG/DL APTT (SEC) Date Value 05/20/2005 29 APTT Patient (Seconds) Date Value 09/20/2015 32 CREATININE Date Value 02/17/2025 0.80 mg/dL 05/20/2005 0.75 MG/DL IMAGING - reviewed, pertinent results as below: No results found for this visit on 02/17/25. ASSESSMENT/PLAN: 1. Status post transurethral laser nucleation of the prostate; patient lives at home by himself so plan was to admit overnight for extended recovery. Monitor for significant hematuria. Continue with continuous bladder irrigation and clamp at 5 AM. Patient plan to discharge home on oral antibiotics. 2. History of hypertension; continue with antihypertensives 3. History of hepatitis C; continue with antiviral therapy 4. History of BPH; continue with Flomax 5. GI DVT prophylaxis DVT prophylaxis: enoxaparin Stress ulcer prophylaxis: pantoprazole Code status: FULL Advanced Care Planning (Z71.89) Above assessment and plan discussed at length with patient, patient expressed full understanding. Questions and concerned addressed. Surrogate decision maker: NO Level of care expected after discharge: HOME Time spent: 3 minutes discussing the advanced care plan Smoking Cessation: (Z71.6) Tobacco user?: NO Patient will require extended recovery [place] [employer] ARCHITECT was verified during stay Alissa Thomas MD IM-INTERNAL MEDICINE STAFF [facility] 2025-02-17 09:52:51 UROLOGY HISTORY AND PHYSICAL NOTE Date of Service: 02/17/2025 Chief Complaint: LUTS History of Present Illness: Fabian Arita is a 79 year old male with PMH as below , who presents with : LUTS refractory to medical therapy, BPH, elevated PVR PSA (ng/mL) Date Value 09/03/2021 8.33 (H) 07/21/2019 8.22 (H) MRI prostate showed no NEDA with 124 cc volume. Here for HoLEP. No major changes to H&P since last encounter Home Medications: Medications Prior to Admission Medication Sig Dispense Refill Last Dose/Taking AMLODIPINE BESYLATE (AMLODIPINE ORAL) Take 10 mg by mouth in the morning. Past Week lisinopril (PRINIVIL,ZESTRIL) 40 mg tablet Take 1 tablet by mouth in the morning. Past Week ciprofloxacin HCl (CIPRO) 500 mg tablet Take 1 tablet by mouth in the morning and 1 tablet in the evening. Do all this for 7 days. 14 tablet 0 tamsulosin 0.4 mg 24 hr capsule Take 1 capsule by mouth in the morning. sofosbuvir-velpatasvir 400-100 mg Take 1 tablet by mouth in the morning. 84 tablet 0 Silodosin 4 mg Cap Take 4 mg by mouth daily. 30 capsule 0 traMADOL (ULTRAM) 50 mg tablet Take 1 tablet by mouth every 6 (six) hours as needed for Pain (scale 4-6). (Patient not taking: Reported on 01/18/2025) 20 tablet 0 Not Taking Histories: Past Medical History: Diagnosis Date Asthma Cancer Prostate Hypertension Past Surgical History: Procedure Laterality Date CAROTID ENDARTERECTOMY ENDOVASCULAR AAA REPAIR SPLENECTOMY TRANSRECTAL PROSTATE BIOPSY N/A 12/29/2018 Surgeon: Flavio Mckeon MD; Location: [facility] [place] TRANSRECTAL PROSTATE ULTRASOUND N/A 12/29/2018 Surgeon: Flavio Mckeon MD; Location: [facility] [place] No family history on file. Social History Socioeconomic History Marital status: Spouse name: Not on file Number of children: Not on file Years of education: Not on file Highest education level: Not on file Occupational History Not on file Tobacco Use Smoking status: Former Smokeless tobacco: Current Substance and Sexual Activity Alcohol use: Not on file Drug use: Not on file Sexual activity: Not on file Other Topics Concern Not on file Social History Narrative Not on file Social Drivers of Health Financial Resource Strain: Not on file Food Insecurity: Not on file Transportation Needs: Not on file Physical Activity: Not on file Stress: Not on file Social Connections: Not on file Housing Stability: Not on file Allergies: Allergies Allergen Reactions Sulfa (Sulfonamide Antibiotics) Hives Review of Systems: Constitutional: negative Eyes: negative Ears, nose, mouth, throat: negative Cardiovascular: negative Respiratory: negative Gastrointestinal: negative Genitourinary: (+) per HPI Musculoskeletal: negative Integumentary: negative Neurological: negative Psychiatric: negative Endocrine: negative Hematologic/Lymphatic: negative Allergic/Immunologic: negative, allergies listed above Physical Examination: Blood pressure (!) 137/98, pulse 71, temperature 36.1 ?C (97 ?F), resp. rate 17, height 6' (1.829 m), weight 200 lb (90.7 kg), SpO2 96%. Constitutional:no acute distress Eyes: normal external eye, conjunctiva and sclera normal Ears, nose, mouth, throat: normocephalic, moist mucous membranes Cardiovascular: regular rate and rhythm Respiratory: respirations unlabored on room air Gastrointestinal: soft, non-distended, non-tender, no costovertebral angle tenderness Musculoskeletal: no clubbing, cyanosis or edema Skin: no rashes Neurologic: no focal deficits Psychiatric: appropriate mood and affect Hematologic: no bruising Laboratory: Hemogram Recent Labs 02/17/25 0817 WBC 6.02 HGB 13.5 HCT 40.7 PLT 187 Chemistry Recent Labs 02/17/25 0817 NA 140 K 4.2 CL 106 TCO2 27 AGAP 7 BUN 15 GLU 96 CREAT 0.80 CA 10.1 EGFR 90.6 Urinalysis There are no current results on file for these tests and/or test for the past 3 mos. Urine Culture Recent Labs 01/05/25 1414 01/18/25 1623 02/02/25 1520 02/07/25 1015 02/14/25 1524 CUR < 10,000 CFU/mL aerobic organisms - suggests endogenous microbial contamination 10,000 - 100,000 CFU/mL mixed aerobic organisms - suggests endogenous microbial contamination >100,000 CFU/mL Escherichia coli* 20,000 CFU/mL Pseudomonas aeruginosa* No aerobic growth (< 1000 CFU/mL) Liver Function Tests Recent Labs 02/17/25 0817 AST 22 ALT 13 ALKPHOS 61 BILIT 1.0 Coagulation Profile There are no current results on file for these tests and/or test for the past 3 mos. Arterial Blood Gas There are no current results on file for these tests and/or test for the past 3 mos. Radiology: I independently visualized the images noted below. No results found. Procedure: None Assessment and Plan: 79 year old male with . Principal Problem: Benign prostatic hyperplasia with lower urinary tract symptoms, symptom details unspecified : LUTS refractory to medical therapy, BPH, elevated PVR PSA (ng/mL) Date Value 09/03/2021 8.33 (H) 07/21/2019 8.22 (H) MRI prostate showed no NEDA with 124 cc volume. I counseled patient about options for treating BPH and natural history if not treated ( bladder atony, voiding dysfunction, renal failure, stones recurrent infection, and need for terminal make up operator catheter) CIC, surgical options: TURP, ThuLVP to alleviate the obstruction and attempt improve LUTS and avoid risk of complications from mcc ANN. Possible adverse events recognized with TURP and ThuLVP include and not limited to ( pain, bleeding, infection, injury to surrounding structures, erectile dysfunction, urinary incontinence, retrograde ejaculation, stricture formation, inability to void/retention, prostatic regrowth, need for additional procedures). Patient opted for HoLEP : risk of complications mainly damage to bladder ( perforation, , need to reconstruct). pain, bleeding, infection, injury to surrounding structures, need for prolonged catheter , failure to remove all prostate, need for additional procedures Patient may experience urgency, transient SAEED/ UUI or RADHA, if persistent may need further medical or surgical therapy ( rare) Patient confirmed consent Plan: OR today for HoLEP Hugo Sellers MD T [facility] Procedure Notes Date/Time Note Provider Source 2025-02-17 10:19:35 Full Operative Note Patient name: Fabian Arita Number: [id number] Date of operation: 02/17/2025 Faculty surgeon: Hugo Sellers Pre-operative diagnosis: BPH with LUTS refractory to medical therapy, BPH, elevated PVR MRI prostate showed no NEDA with 100 cc volume. Post-operative diagnosis: BPH with LUTS Operation performed: Transurethral Laser Enucleation of the Prostate (CPT - 63588) Findings: Normal urethra and bladder mucosa. No lesions or masses were seen. The prostate appeared obstructive bilobar with large median lobe, high bladder neck . 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 The bladder had increased capacity, +++ trabeculation, tics, no stones . The patient tolerated the procedure well. There were no complications in this procedure. Enculation time :40 mins Hemostasis time :30 mins ( with laser and bipolar diathermy) Morcellation time :10 mins Laser time : 26:44 mins Prostate chips : 28 g The patient was taken to the OR where a timeout was performed amongst all operative staff. GETA was administered per anesthesiology and the patient was given ancef as a truong-procedural antibiotic. The patient was then positioned in dorsal lithotomy position and prepped/draped in the usual sterile fashion. The meatus was initially calibrated from 18 to 30 Fr sequentially with [place] urethral sounds. A resectoscope with a visual obturator was then advanced per urethra into the bladder and the bladder was emptied. A laser bridge was then introduced and a 550 micron Holmium laser was introduced. The prostate was noted to be large and tri-lobar in appearance. No suspicious lesions or masses were noted within the bladder. Beginning at the level of the verumontanum, the prostate was systematically enucleated. Enucleation was initiated posteriorly near the apex and continued laterally before advancing the enucleation anteriorly. After the anterior enucleation plane was created, the bladder was entered and the bladder neck was incised bilaterally until the anterior and posterior enucleation planes were join. The remaining posterior attachments were then then incised until the prostatic adenoma had been fully enucleated. The prostatic adenoma was then advanced into the bladder lumen and a transurethral morcellator was introduced. The prostatic adenoma was fully morcellated and evacuated from the bladder. Final cystoscopy demonstrated no evidence of residual adenoma within the bladder or prostatic fossa. Hemostasis was achieved with the laser fiber. All instrumentation was then removed and a 22 Fr 3-way catheter was advanced per urethra into the bladder with 70 cc of sterile water in the catheter balloon. CBI was initiated with clear output. This concluded the procedure, there were no complications. The patient was safely extubated and transferred to PACU in stable condition. Complications: none Estimated blood loss: 100 mL Specimens: prostate chips Drains: none Patient's Condition: stable to PACU Hugo Sellers MD [facility] [employer] [facility] Notes Date/Time Note Provider Source 2025-02-20 13:20:07 Problem: Pain Goal: Control of pain at or below patient's documented comfort goal Outcome: Resolved Goal: Reduction in pain sensation Outcome: Resolved Problem: Discharge Planning Goal: Adequate for discharge Outcome: Resolved Goal: Effective communication Outcome: Resolved Problem: Bleeding, Risk of Goal: Absence of impaired coagulation signs and symptoms Outcome: Resolved Goal: Absence of active bleeding Outcome: Resolved Problem: Patient is Hypertensive Goal: Remain At/Below Target Blood Pressure Outcome: Resolved Goal: Wellness - Improve Physical Activity Outcome: Resolved Problem: Procedure Routine Goal: Absence of post-procedure complications Outcome: Resolved Problem: Falls, Risk of Goal: Absence of falls Outcome: Resolved Problem: Skin integrity Impaired (Risk or Actual) Goal: Wound healing Outcome: Resolved Goal: Prevention of new skin breakdown Outcome: Resolved ELYN Nieto RN [facility] 2025-02-19 20:39:33 Problem: Pain Goal: Control of pain at or below patient's documented comfort goal Outcome: Progressing as expected Goal: Reduction in pain sensation Outcome: Progressing as expected Problem: Discharge Planning Goal: Adequate for discharge Outcome: Progressing as expected Goal: Effective communication Outcome: Progressing as expected Problem: Bleeding, Risk of Goal: Absence of impaired coagulation signs and symptoms Outcome: Progressing as expected Goal: Absence of active bleeding Outcome: Progressing as expected Problem: Procedure Routine Goal: Absence of post-procedure complications Outcome: Progressing as expected Problem: Falls, Risk of Goal: Absence of falls Outcome: Progressing as expected Problem: Skin integrity Impaired (Risk or Actual) Goal: Wound healing Outcome: Progressing as expected Goal: Prevention of new skin breakdown Outcome: Progressing as expected [facility] Tracey Metzger RN [facility] 2025-02-19 11:00:11 Problem: Pain Goal: Control of pain at or below patient's documented comfort goal Outcome: Progressing as expected Goal: Reduction in pain sensation Outcome: Progressing as expected Problem: Discharge Planning Goal: Adequate for discharge Outcome: Progressing as expected Goal: Effective communication Outcome: Progressing as expected Problem: Bleeding, Risk of Goal: Absence of impaired coagulation signs and symptoms Outcome: Progressing as expected Goal: Absence of active bleeding Outcome: Progressing as expected Problem: Procedure Routine Goal: Absence of post-procedure complications Outcome: Progressing as expected Problem: Falls, Risk of Goal: Absence of falls Outcome: Progressing as expected Problem: Skin integrity Impaired (Risk or Actual) Goal: Wound healing Outcome: Progressing as expected Goal: Prevention of new skin breakdown Outcome: Progressing as expected [facility] 2025-02-19 06:50:10 Problem: Pain Goal: Control of pain at or below patient's documented comfort goal Outcome: Progressing as expected Goal: Reduction in pain sensation Outcome: Progressing as expected Problem: Discharge Planning Goal: Adequate for discharge Outcome: Progressing as expected Goal: Effective communication Outcome: Progressing as expected Problem: Bleeding, Risk of Goal: Absence of impaired coagulation signs and symptoms Outcome: Progressing as expected Goal: Absence of active bleeding Outcome: Progressing as expected Problem: Procedure Routine Goal: Absence of post-procedure complications Outcome: Progressing as expected Problem: Falls, Risk of Goal: Absence of falls Outcome: Progressing as expected Problem: Skin integrity Impaired (Risk or Actual) Goal: Wound healing Outcome: Progressing as expected Goal: Prevention of new skin breakdown Outcome: Progressing as expected Delia Webb RN [facility] 2025-02-18 15:19:19 Problem: Pain Goal: Control of pain at or below patient's documented comfort goal Outcome: Progressing as expected Goal: Reduction in pain sensation Outcome: Progressing as expected Problem: Discharge Planning Goal: Adequate for discharge Outcome: Progressing as expected Goal: Effective communication Outcome: Progressing as expected Problem: Bleeding, Risk of Goal: Absence of impaired coagulation signs and symptoms Outcome: Progressing as expected Goal: Absence of active bleeding Outcome: Not progressing as expected Problem: Procedure Routine Goal: Absence of post-procedure complications Outcome: Progressing as expected Problem: Falls, Risk of Goal: Absence of falls Outcome: Progressing as expected Problem: Skin integrity Impaired (Risk or Actual) Goal: Wound healing Outcome: Progressing as expected Goal: Prevention of new skin breakdown Outcome: Progressing as expected [facility] 2025-02-18 05:47:57 Problem: Pain Goal: Control of pain at or below patient's documented comfort goal Outcome: Progressing as expected Goal: Reduction in pain sensation Outcome: Progressing as expected Problem: Discharge Planning Goal: Adequate for discharge Outcome: Progressing as expected Goal: Effective communication Outcome: Progressing as expected Problem: Bleeding, Risk of Goal: Absence of impaired coagulation signs and symptoms Outcome: Progressing as expected Goal: Absence of active bleeding Outcome: Progressing as expected Problem: Procedure Routine Goal: Absence of post-procedure complications Outcome: Progressing as expected Problem: Falls, Risk of Goal: Absence of falls Outcome: Progressing as expected Lenora Ferguson RN [facility] 2025-02-17 18:35:32 Problem: Pain Goal: Control of pain at or below patient's documented comfort goal Outcome: Progressing as expected Goal: Reduction in pain sensation Outcome: Progressing as expected Problem: Discharge Planning Goal: Adequate for discharge Outcome: Progressing as expected Goal: Effective communication Outcome: Progressing as expected Problem: Bleeding, Risk of Goal: Absence of impaired coagulation signs and symptoms Outcome: Progressing as expected Goal: Absence of active bleeding Outcome: Progressing as expected Problem: Procedure Routine Goal: Absence of post-procedure complications Outcome: Progressing as expected [facility] 2025-02-17 11:29:11 CALLED TWICE AT 1128 TO UPDATE PT'S DAUGHTER,, MELIDA VEGA, NO ANSWER, DID NOT LVM. - JODY STEVENSON. Brando Tijerina RN [facility] 2025-02-11 13:56:44 Name and verified, pt is aware of results and to stop Augmentin and start on Cipro BID x7 days. Pt was encouraged to increase hydration and to complete abx as prescribed. Pt verbalized understanding. Lore Light RN 02/11/2025 1:58 PM Lore Light RN [facility] 2025-02-11 13:40:10 Images from the original note were not included. Attempted to reach patient regarding his positive urine culture. No answer, left a voice mail for him to call the clinic back. Patient to stop Augmentin and start Cipro twice daily x 7 days. Urine Culture Order: [id number] Status: Final result Dx: Dysuria Test Result Released: Yes (not seen) Specimen Information: URINE, CLEAN CATCH 0 Result Notes Urine Culture 20,000 CFU/mL Pseudomonas aeruginosa Abnormal Resulting Agency: [facility] Pseudomonas aeruginosa [facility] Amikacin <=16 ?g/mL PEARL Susceptible Cefepime <=2 ?g/mL [place]AR[place] Susceptible Ciprofloxacin <=0.25 ?g/m... Susceptible Levofloxacin <=0.5 ?g/mL... Susceptible Piperacillin/Tazobactam <=8 ?g/mL PEARL Susceptible [facility] 2025-02-11 10:46:43 Patient called the clinic c/o burning, states he's concerned he has a UTI. Spoke with BARRY Dey as she is in the clinic today. She states patient was initially ordered 5 days of abx but needed 7 days so another order of amoxicillin was sent to the pharmacy. Patient states the bottle says not to take abx before 02/12/2025. 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 Patient verbalized understanding. Erin Maloney MA [facility] 2025-02-10 12:04:28 Images from the original note were not included. Your Urology surgery procedure is at [facility] on 02/17/25. The address is [address] [place] [address], [id number]. [facility] nursing staff will call you the workday prior to surgery/procedure between 12-3 pm with your arrival time. When you arrive, please come inside and sign in at the desk. -Please note: You may not travel home alone and that includes in a taxi or by bus. We must speak to your Responsible Adult (who will be picking you up) the morning of your procedure, before the start of your procedure. This person must be an adult over the age of 18 years of age. -Do not eat anything after midnight the night before your surgery/procedure or eight hours before, whichever is longer. -May have 8-16 oz of water/clear liquids each hour after midnight, as desired, until two hours prior to arrival to promote hydration. -No eye makeup or false eyelashes. No lotions, powders, or perfumes. No antiperspirant/deodorant for breast or shoulder surgeries. Nothing in hair except elastic band if needed. -You may take your medications with a sip of water as directed by physician. Anticoagulants: Other medication Note(s)/Instructions:Patient denies taking any medication except for current antibiotic. -Pending screening, we may test for COVID. If a patient tests positive, their cases are cancelled and/or rescheduled. COVID SCREENING NOTE: Denies COVID symptoms, no testing required. -Additional requests, questions, concerns:Will come in today to complete pre-op UC. Patient verbalized understanding of pre-op instructions and voiced no further questions at this time. CB number and availability provided. T [facility] 2025-02-10 08:14:20 Spoke to patient about repeating urine culture tomorrow. Advised that he can go to any [facility] lab close to him. Advised patient that his Augmentin prescription has been extended for 7 days. Advised to shredder picker the addition two days of Augmentin from his pharmacy. Patient verbalized understanding. T [facility] 2025-02-07 13:26:19 Spoke to patient regarding his positive urine culture. Advised that oral antibiotic has been ordered, Advised to pick it up and take with plenty of water. Patient verbalized understanding. Urine Culture >100,000 CFU/mL Escherichia coli Abnormal Resulting Agency: [facility] Escherichia coli [facility] Amoxicillin/K Clavulanate Susceptible Ampicillin Resistant Ampicillin/Sulbactam Intermediate Cefazolin Intermediate Cefepime Susceptible Ceftriaxone Susceptible Cefuroxime Susceptible Ciprofloxacin Susceptible Gentamicin Resistant Levofloxacin Susceptible Nitrofurantoin Susceptible Piperacillin/Tazobactam Susceptible Trimethoprim/Sulfamethoxazole Resis T [facility] 2025-02-04 12:53:33 Patient in office to see Dr Layne, discussed the need to repeat urine culture on 02/07/25. He will schedule lab appt when leaving the clinic. Soumya Joshi RN [facility] 2025-02-02 16:23:33 Addended by: HUGO SELLERS on: 02/02/2025 04:23 PM Modules accepted: Orders [facility] 2025-02-02 16:22:26 Will need repeat Ucx after oral abx course 02/07/2025 Order placed [facility] 2025-02-02 15:27:37 Patient left urine cx at office visit today. Called patient and notified him that antibiotics have been sent to [facility] in [place]. Patient verbalizes understanding. Soumya Joshi RN [facility] 2025-02-02 14:51:03 Oral abx sent [facility] 2025-02-02 14:51:01 Addended by: HUGO SELLERS on: 02/02/2025 02:51 PM Modules accepted: Orders [facility] 2025-02-02 14:50:05 I agree ucx , possible UTI I sent oral abx [facility] 2025-02-02 13:30:47 Patient c/o dysuria, urgency and frequency x 1 week. He states that he feels very uncomfortable. Patient to have urine culture performed. He requests to have it collected at the [place] office. Pt given an appt today @ [facility] for a urine culture. Patient is scheduled for a HoLEP on 02/17/25. Dr Sellers notified. Soumya Joshi RN [facility] 2025-02-02 12:56:11 Pt is having issues urinating, burning sensation. Please Assist Carlo Cunningham [facility] 2025-01-27 15:20:18 Attempted #3 to reach pt by phone, no answer, message left for call to be returned to the office. Will close note and await return call from pt. Soumya Joshi RN [facility] 2025-01-27 14:52:08 Images from the original note were not included. Soumya Joshi RN [facility] 2025-01-27 09:08:55 Received clearance forms from Renuka Johnson, uploaded to chart under media for review. Caity Lomas [facility] 2025-01-26 12:42:21 Attempted #2 to reach pt by phone, no answer, message left for call to be returned to the office. [facility]2025-07-22 14:34:14 Attempted to reach pt by phone, no answer, message left for call to be returned to the office. [facility] [id number] 11:34:12 Fabian Arita is a 79 year old male Pt calling states he is urinating too much and would like to speak to a nurse please advise [phone] Carter LynneTriHealth Good Samaritan HospitalIexkof6255-97-72 15:32:02 Forwarded to [facility] since Urology office authorizations are handled by [facility]. Jess Moseley [facility]2025-07-21 15:31:54 Please advise Jess Moseley [facility]2025-07-21 11:03:11 Fabian Arita is a 79 year old male Delia from [facility] calling to verify cysto orders sates she would like to know how many need to be done because request says 6 she would like to know if that's a typo please advise states they do not have a call back number and she was sending over a detailed fax Carter LynneTriHealth Good Samaritan HospitalXjffml8369-22-15 10:51:13 UROLOGY POST-PROCEDURE CALL Procedure: Cystoscopy Physician: Hugo Sellers MD Are you experiencing any nausea/vomiting? no Are you having any difficulty voiding? no Are you experiencing an increase in your temperature? no Are you having any pain? What is your pain level? no 0 Did you receive post-op education? yes Did you understand the instructions given to you? yes Were you given the number to call for questions or concerns regarding your procedure? yes Are you satisfied with the care you received? yes Post procedure instructions reviewed: Cystoscopy Teachback completed by patient: Knowledge of phone number to call: yes Knowledge of post-procedure instructions: yes Dixie Atkinson RNTriHealth Good Samaritan HospitalZqokef8795-47-44 00:00:00 Jason Taylor [facility]2025-07-15 16:49:44 PCP clearance sent to Renuka Johnson office at this time. Fax #[phone] Jody Winchester MATriHealth Good Samaritan HospitalVwrgny7753-01-82 14:11:08 The following patient is scheduled for HoLEP with Dr. Slelers at [facility] Surgery Department. The procedure is currently scheduled on 02/17/2025 and requires cardiac clearance prior to the procedure. Please submit the following: Note indicating cardiac clearance risk level 2. Most recent office note date 3. Recent tests (if not accessible in [facility]): Labs, EKG, Echo, etc 4. Information on implantable devices (pacemaker, AICD, last interrogation, device type with response to magnet and most recent EP report) 5. Perioperative recommendations / management 6. Optimization for surgery, any needs for cardiac testing prior to having surgery Thank you, Jody Winchester [facility] HospitalMqhmsp4875-31-07 11:00:00 Images from the original note were not included. Patient has been identified by and name and was provided with cup, antiseptic towelette, and clean catch instructions. 2 urine specimen(s) sent. Unpreserved 1 Urine Culture 1 Aptima tube Other urine Pt unable to void at this time. Pt is waiting in waiting area. Samantha Quezada 01/05/2025 11:33 AM Pt was able to produce sample at [address]. [place] [id number] 14:49:25 Scheduled. Please confirm that UCX order is placed for Friday lab appointment [facility] HospitalMlkxlg8683-05-98 13:40:45 Spoke to patient. Advised that, MRI of prostate showed no suspicious lesions. Patient will be scheduled for cystoscopy with Dr. Sellers. Patient verbalized understanding. 79 YEARS OLD MALE PATIENT WITH SEVERE BPH WITH PROSTATE GLAND VOLUME 120.3 CC (COMPARED TO 75 CC IN 2020) WITH PSA DENSITY 0.12 AND MULTIPLE BPH NODULES. THE PROSTATIC URETHRA IS DISPLACED POSTERIORLY BILATERAL PERIPHERAL ZONE WEDGE SHAPED AREAS OF T2 HYPOINTENSITY IN KEEPING WITH PROSTATITIS. NO PROSTATIC FOCAL LESIONS SUSPICIOUS FOR PROSTATE CANCER. 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 Pt calling for lab results that were collected by [email or web address]. Verified and pt notified of the following: Hugo Sellers MD 10/25/24 10:37 AM Note Elevated PSA :12.8 Pending MRI prostate with plan for guided biopsy Pt is scheduled for a MRI of the prostate on 11/14/24. Understanding verbalized. Soumya Joshi RNTriHealth Good Samaritan HospitalDngqoa9341-54-34 15:37:24 Fabian Arita is a 79 year old male Pt is calling to request results, Labs, MRI. Please f/u with phone call to the pt. Work Phone Not on file. Recent Outpatient Visits 1 week ago Benign prostatic hyperplasia with lower urinary tract symptoms, symptom details unspecified [facility], [place] Hugo Sellers MD Fatmata SalazarKindred Hospital DaytonMuexhu1366-21-78 10:37:16 Elevated PSA :12.8 Pending MRI prostate with plan for guided biopsy [facility] HospitalOkerhi2563-87-76 08:52:36 Received lab results from [facility], uploaded to chart under media for review. Caity LomasTriHealth Good Samaritan HospitalLkykno6095-50-25 00:00:00 Jason [facility]2024-12-30 00:00:00 Jason [facility]2024-12-17 00:00:00 [facility]2017-07-13 12:25:38* EXAM: XR CHEST 2 VIEWS DATE: 01/16/2017 11:57 AM CDT INDICATION: Shortness of breath, cough COMPARISON: X-ray [...] 2. Right basilar pulmonary and pleural scarring. [facility]
[2025-02-20] MEDS ORDERED: MORPHINE 4 MG/ML SYR ONE ×3 (17:48→20:37)
[2025-02-20] MEDS ORDERED: ONDANSETRON 4 MG/2 ML VIAL ONE (17:48)
[2025-02-20] MEDS ORDERED: LIDOCAINE VISCOUS 2% 10ML ORAL SOLN ONE (17:48)
[2025-02-20 18:07] LABS: Absolute Lymphocytes (CBC) 2.2 K/uL (0.7-4.9); Hematocrit 35.1 % (39.6-49.0); Hemoglobin 11.7 g/dL (13.6-17.9); MCH 30.5 pg (27.0-35.0); MCHC 33.3 g/dL (32.0-36.0); MCV 91.7 fL (80-100); MPV 9.0 fL (7.6-11.3); Nucleated RBC Absolute Count 0.0 (0-0); Nucleated Red Blood Cells % 0.0 % (0-0); RBC Red Blood Cell Count 3.83 M/uL (4.33-5.43); White Blood Count 12.20 thou/uL (4.3-10.9)
[2025-02-20 18:12] LABS: PT Prothrombin Time 14.4 SECONDS (10-13.0); Protime INR 1.28
[2025-02-20 18:43] LABS: ALT/SGPT 19.0 U/L (16-61); Albumin 3.2 g/dL (3.4-5.0); Albumin/Globulin Ratio 0.9 (1.1-1.8); Alkaline Phosphatase 55.0 U/L (45-117); Anion Gap 10.3 mEq/L (5.0-15.0); BUN Blood Urea Nitrogen 12.0 mg/dL (7-18); Bilirubin Indirect, Calculated 0.9 mg/dL (0.2-0.8); Globulin 3.7 g/dL (2.3-3.5); Glucose Level 146.0 mg/dL (74-106); NT PRO-BNP 84.0 pg/mL (<450); Troponin High Sensitivity 11.2 pg/mL (<58.9)
[2025-02-20 18:54] LABS: AST/SGOT 23.0 U/L (15-37); Magnesium 1.7 mg/dL (1.6-2.4); Potassium 3.3 mEq/L (3.5-5.1)
--- NOTE | 2025-02-20 18:58 | RAD REPORT ---
EXAM: Chest Single View HISTORY: 79 years Male ABDOMINAL DISTENTION COMPARISON: 07/22/2024 FINDINGS: LUNGS/PLEURA: The lungs are clear. No pleural effusions or pneumothorax. No pulmonary edema. CARDIAC/MEDIASTINUM: The cardiac silhouette is within normal limits. Thoracic aortic stent graft. UPPER ABDOMEN: No significant abnormality. BONES: No acute abnormality. Remote right-sided rib fractures. LINES/TUBES/OTHER: N/A IMPRESSION: No evidence of acute cardiopulmonary disease.
[2025-02-20] MEDS ORDERED: CEFTRIAXONE 1000 MG/VIAL ONE (18:59)
--- NOTE | 2025-02-20 19:13 | EDPHYS ---
Physician Documentation [facility] Name: Fabian Arita Jr Age: 79 yrs Sex: Male : 1945 Arrival Date: 02/20/2025 Time: 17:37 Bed 19 Private MD: ED Physician Miguel Ferguson HPI: 02/20 17:50 This 79 yrs old Black Male presents to ER via EMS with complaints of Urinary Problem. cp 17:50 Patient is a 79-year-old male who presents to the emergency department with complaints cp of urinary retention and lower abdominal pain. Patient reports having a urological procedure performed at [facility] in [place] this past and being discharged from their hospital earlier today. Patient reports he had a Velez placed during his hospital stay that was removed prior to discharge and since returning home has not been able to urinate. Patient c/o lower abdomen pain and distension. 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 - Infectious Disease History:: Denies. - Social history:: Smoking status: Patient denies any tobacco usage or history of. ROS: 17:54 : Positive for difficulty urinating, cp 17:55 Constitutional: Negative for body aches, chills, fever, poor PO intake, cp 17:55 Eyes: Negative for injury, pain, redness, and discharge, cp 17:55 Cardiovascular: Negative for chest pain, palpitations, 17:55 Respiratory: Negative for cough, shortness of breath, wheezing, 17:55 Abdomen/GI: Positive for abdominal pain, nausea, abdominal distension, Negative for diarrhea, constipation, 17:55 Neuro: Negative for altered mental status, 17:55 All other systems are negative, Exam: 18:00 Constitutional: The patient appears in no acute distress, alert, awake, cp non-diaphoretic, non-toxic, well developed, well nourished, in obvious pain, uncomfortable, 18:00 Head/Face: Normocephalic, atraumatic. cp 18:00 Eyes: Periorbital structures: appear normal, Conjunctiva: normal, no exudate, no injection, Sclera: no appreciated abnormality, Lids and lashes: appear normal, bilaterally, 18:00 ENT: External ear(s): are unremarkable, Nose: is normal, Mouth: Lips: moist, Oral mucosa: moist, Posterior pharynx: Airway: no evidence of obstruction, patent, 18:00 Chest/axilla: Inspection: normal, 18:00 Cardiovascular: Rate: tachycardic, Rhythm: regular, Edema: ankle edema, that is mild, JVD: is not appreciated, 18:00 Respiratory: the patient does not display signs of respiratory distress, Respirations: shallow respirations, that is mild, Breath sounds: are clear throughout, no decreased breath sounds, no stridor, no wheezing, 18:00 Abdomen/GI: Inspection: distension, that is moderate, Bowel sounds: active, all quadrants, Palpation: soft, in all quadrants, severe abdominal tenderness, in the suprapubic area, right lower quadrant and left lower quadrant, rebound tenderness, is not appreciated, involuntary guarding, is not appreciated, 18:00 Back: CVA tenderness, is absent, 18:00 Neuro: Orientation: to person, place \T\ time. Mentation: able to follow commands, 19:47 ECG was reviewed by the Attending Physician. cp Vital Signs: 17:39 BP 188 / 122; Pulse 119; Resp 18; Temp 98.5(O); Pulse Ox 98% ; Weight 90.72 kg; Pain ss 10/10; 18:56 BP 147 / 84; Pulse 104; Resp 17; Pulse Ox 94% on R/A; ss 19:00 BP 148 / 89; Pulse 103; Resp 16; Pulse Ox 91% on R/A; cf3 20:00 BP 124 / 82; Pulse 96; Resp 17; Pulse Ox 94% on R/A; cf3 21:00 BP 184 / 96; Pulse 108; Resp 16; Pulse Ox 94% on R/A; cf3 17:39 Pain Scale: Adult ss MDM: 17:42 Medical Screening Exam initiated cp 18:40 ED course: will initiate transfer to [facility] due to recent discharge earlier cp today for continuity of care. 18:53 ED course: consult with hospitalist, DR Dos Santos, at [facility] who will accept cp patient as transfer after discussion. 20:15 Data reviewed: vital signs, nurses notes, lab test result(s), EKG, radiologic studies, cp plain films, I have discussed the patient's presentation/case with the attending Emergency Department Physician; and as a result, I will transfer patient. 20:15 Differential diagnosis: urinary retention, prostatitis, urethritis, sepsis. I cp considered the following discharge prescriptions or medication management in the emergency department Medications were administered in the Emergency Department. See MAR. Independent interpretation of the following test(s) in the Emergency Department EKG: See my EKG interpretation above. Care significantly affected by the following chronic conditions: Hypertension. Counseling: I had a detailed discussion with the patient and/or guardian regarding the historical points, exam findings, and any diagnostic results supporting the discharge/admit diagnosis, lab results, radiology results, the need to transfer to another facility, continuity of care. Response to treatment: the patient's symptoms have markedly improved after treatment. 02/20 17:40 Order name: Basic Metabolic Panel; Complete Time: 20:13 cp 02/20 20:13 Interpretation: Normal except: NA 135; K 3.3; GLUC 146; GFR 65. cp 02/20 17:40 Order name: CBC with Diff; Complete Time: 18:37 cp 02/20 20:13 Interpretation: Normal except: WBC 12.20; RBC 3.83; HGB 11.7; HCT 35.1; PLT 150; NEUT A cp 8.3. 02/20 17:40 Order name: LFT's; Complete Time: 20:13 cp 02/20 17:40 Order name: Magnesium; Complete Time: 20:13 cp 02/20 17:40 Order name: NT PRO-BNP; Complete Time: 20:13 cp 02/20 17:40 Order name: PT-INR; Complete Time: 18:37 cp 02/20 17:40 Order name: Troponin HS; Complete Time: 20:13 cp 02/20 17:40 Order name: XRAY Chest (1 view); Complete Time: 20:13 cp 02/20 17:40 Order name: Cardiac monitoring; Complete Time: 17:45 cp 02/20 17:40 Order name: EKG - Nurse/Tech; Complete Time: 19:37 cp 02/20 17:40 Order name: IV Saline Lock; Complete Time: 17:56 cp 02/20 17:40 Order name: Labs collected and sent; Complete Time: 17:56 cp 02/20 17:40 Order name: O2 Per Protocol; Complete Time: 17:45 cp 08 17:40 Order name: O2 Sat Monitoring; Complete Time: 17:45 cp 08 17:40 Order name: Bladder Scanner: pre and post void; Complete Time: 19:37 cp 02/20 17:43 Order name: Velez-Three way; Complete Time: 19:37 cp EC:47 Rate is 99 beats/min. Rhythm is regular. FL interval is normal. QRS interval is normal. cp QT interval is normal. T waves are Inverted in lead aVR. Interpreted by me. Reviewed by me. Administered Medications: 17:56 Drug: morphine IVP or IV 4 mg IVP once over 4 mins Route: IVP; Infused Over: 4 mins; ap3 Site: right antecubital; 18:55 Follow up: Response: No adverse reaction; Pain is decreased ss 17:56 Drug: Ondansetron IVP 4 mg IVP once; over 2 minutes Route: IVP; Site: right antecubital;ap3 18:55 Follow up: Response: No adverse reaction; Nausea is decreased ss 19:06 Drug: Rocephin IV 1 grams IV at calculated rate once; Given slow IV push per pharmacy kj2 instructions Route: IV; Rate: calculated rate; Site: right antecubital; 19:46 Follow up: Response: No adverse reaction; IV Status: Completed infusion; IV Intake: [id number] 19:06 Drug: morphine IVP or IV 4 mg IVP once over 4 mins Route: IVP; Infused Over: 4 mins; kj2 Site: right antecubital; 19:46 Follow up: Response: No adverse reaction; Pain is decreased cf3 20:49 Drug: morphine IVP or IV 4 mg IVP once over 4 mins Route: IVP; Infused Over: 4 mins; cf3 Site: right antecubital; 21:18 Follow up: Response: No adverse reaction; Pain is decreased cf3 Disposition Summary: 02/20/25 19:13 Transfer Ordered Notes: Transfer Location: [facility]-System cp Reason: Higher level of care cp Condition: Stable cp Problem: new cp Symptoms: have improved cp Accepting Physician: DR Dos Santos(02/20/25 21:19) cf3 Diagnosis - Retention of urine, unspecified cp - Gross hematuria cp Forms: - Medication Reconciliation Form cp - SBAR form cp Signatures: Dispatcher [employer] EDMS Vika Velazquez RN RN Caleb Crockett PA-C PA-C cp Chikis Cano RN RN ap3 Shayla Mesa, RN RN kj2 Marty Escalante, RN RN cf3 Corrections: (The following items were deleted from the chart) 17:41 17:41 BASIC METABOLIC PANEL+C.LAB.BRZ ordered. EDMS EDMS 17:41 17:41 CBC+H.LAB.BRZ ordered. EDMS EDMS 17:41 17:41 HEPATIC FUNCTION+C.LAB.BRZ ordered. EDMS EDMS 17:41 17:41 MAGNESIUM+C.LAB.BRZ ordered. EDMS EDMS 17:41 17:41 PROBNP+C.LAB.BRZ ordered. EDMS EDMS 17:41 17:41 PROTIME (+INR)+COAG.LAB.BRZ ordered. EDMS EDMS 17:41 17:41 Troponin High Sensitivity+C.LAB.BRZ ordered. EDMS EDMS 17:41 17:41 Chest Single View+RAD.RAD.BRZ ordered. EDMS EDMS 17:44 17:44 PMHx: Hep C; ss ss 21:19 19:13 DR Dos Santos cp cf3 02/21 20:20 02/20 17:50 Patient is a 79-year-old male who presents to the emergency department with cp complaints of urinary retention and lower abdominal pain. Patient reports having a urological procedure performed at [facility] in [place] this past and being discharged from their hospital earlier today. Patient reports he had a Velez placed during his hospital stay that was removed prior to discharge and since returning home has not been able to urinate. cp
--- NOTE | 2025-02-20 19:13 | ER ---
Nurse's Notes [facility] Name: Fabian Arita Jr Age: 79 yrs Sex: Male : 1945 Arrival Date: 02/20/2025 Time: 17:37 Bed 19 Private MD: Diagnosis: Retention of urine, unspecified;Gross hematuria Presentation: 02/20 17:39 Chief complaint: Patient states: Had prostate surgery on and was discharged this morning from [facility]. Pt is complaining of inability to void since this morning and penile pain/ bleeding. Pt reports that he has been bleeding from his penis since the surgery on . Coronavirus screen: Client denies travel out of the [place] in the last 14 days. Ebola Screen: Patient denies exposure to infectious person. Patient denies travel to an Ebola-affected area in the 21 days before illness onset. Initial Sepsis Screen: Does the patient meet any 2 criteria? No. Patient's initial sepsis screen is negative. Does the patient have a suspected source of infection? No. Patient's initial sepsis screen is negative. Risk Assessment: Do you want to hurt yourself or someone else? Patient reports no desire to harm self or others. Onset of symptoms was February 17, 2025. 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 - Infectious Disease History:: Denies. - Social history:: Smoking status: Patient denies any tobacco usage or history of. Screenin:00 [facility] ED Fall Risk Assessment (Adult) History of falling in the last 3 months, cf3 including since admission No falls in past 3 months (0 pts) Confusion or Disorientation No (0 pts) Intoxicated or Sedated No (0 pts) Impaired Gait No (0 pts) Mobility Assist Device Used No (0 pt) Altered Elimination No (0 pt) Score/Fall Risk Level 0 - 2 = Low Risk Oriented to surroundings, Maintained a safe environment, Educated pt \T\ family on fall prevention, incl call for assistance when getting out of bed, Assessed \T\ reinforced patient's understanding of fall precautions. Abuse screen: Denies threats or abuse. Denies injuries from another. Nutritional screening: No deficits noted. Tuberculosis screening: No symptoms or risk factors identified. Assessment: 18:00 General: Appears distressed, Behavior is anxious, restless. Pain: Complains of pain in cf3 groin and suprapubic area Pain currently is 10 out of 10 on a pain scale. Quality of pain is described as aching, crampy, Pain began 2 hours ago. Is continuous. Neuro: Oliva Agitation-Sedation Scale (RASS): +1 Restless Level of Consciousness is awake, alert, obeys commands, Oriented to person, place, time, situation, [employer] are equal bilaterally Moves all extremities. Full function. : Urine is tika blood, tika blood, Blood and clots Bladder is distended Reports inability to void, since Discharge from [facility] earlier today pain in suprapubic area. Vital Signs: 17:39 BP 188 / 122; Pulse 119; Resp 18; Temp 98.5(O); Pulse Ox 98% ; Weight 90.72 kg; Pain ss 10/10; 18:56 BP 147 / 84; Pulse 104; Resp 17; Pulse Ox 94% on R/A; ss 19:00 BP 148 / 89; Pulse 103; Resp 16; Pulse Ox 91% on R/A; cf3 20:00 BP 124 / 82; Pulse 96; Resp 17; Pulse Ox 94% on R/A; cf3 21:00 BP 184 / 96; Pulse 108; Resp 16; Pulse Ox 94% on R/A; cf3 17:39 Pain Scale: Adult ss ED Course: 17:38 Patient arrived in ED. ss 17:39 Caleb Beasley PA is PHCP. cp 17:39 Miguel Ferguson MD is Attending Physician. cp 17:44 Triage completed. ss 17:44 Arm band placed on right wrist. ss 17:44 Bladder scan completed. 430. ap3 17:55 Initial lab(s) drawn, by me, sent to lab. Inserted saline lock: 20 gauge in right ap3 antecubital area, using aseptic technique. Blood collected. Flushed with 10 mL NS. 18:04 Marty Escalante, RN is Primary Nurse. cf3 18:35 initiated a transfer with Jennifer from the [facility] transfer center. eb 18:49 connected the physician purification operator for [facility] with Caleb BURGOS for patient transfer eb consultation. 18:54 XRAY Chest (1 view) In Process Unspecified. EDMS 19:00 Patient has correct armband on for positive identification. Placed in gown. Bed in low cf3 position. Call light in reach. Side rails up X 1. Client placed on continuous cardiac and pulse oximetry monitoring. NIBP monitoring applied. Door closed. Noise minimized. Visitors limited. 19:00 No provider procedures requiring assistance completed. Bladder irrigated via Velez with cf3 1 liter normal saline returned tika blood Patient tolerated well. 19:07 pending bed at [facility]. kmf Administered Medications: 17:56 Drug: morphine IVP or IV 4 mg IVP once over 4 mins Route: IVP; Infused Over: 4 mins; ap3 Site: right antecubital; 18:55 Follow up: Response: No adverse reaction; Pain is decreased ss 17:56 Drug: Ondansetron IVP 4 mg IVP once; over 2 minutes Route: IVP; Site: right antecubital;ap3 18:55 Follow up: Response: No adverse reaction; Nausea is decreased ss 19:06 Drug: Rocephin IV 1 grams IV at calculated rate once; Given slow IV push per pharmacy kj2 instructions Route: IV; Rate: calculated rate; Site: right antecubital; 19:46 Follow up: Response: No adverse reaction; IV Status: Completed infusion; IV Intake: [id number] 19:06 Drug: morphine IVP or IV 4 mg IVP once over 4 mins Route: IVP; Infused Over: 4 mins; kj2 Site: right antecubital; 19:46 Follow up: Response: No adverse reaction; Pain is decreased cf3 20:49 Drug: morphine IVP or IV 4 mg IVP once over 4 mins Route: IVP; Infused Over: 4 mins; cf3 Site: right antecubital; 21:18 Follow up: Response: No adverse reaction; Pain is decreased cf3 Medication: 19:00 VIS not applicable for this client. cf3 Intake: 19:00 Tubes: 1000ml (); Total: 1000ml. cf3 19:46 IV: 10ml; Total: 1010ml. cf3 Output: 19:00 Urine: 1600ml (Velez); Total: 1600ml. cf3 Outcome: 19:13 ER care complete, transfer ordered by MD. voss 21:17 Transferred by ground EMS to [facility], Transfer form cf3 completed. 21:17 Condition: improved 21:19 Patient left the ED. cf3 Signatures: Dispatcher [employer] EDVika Nunes, RN RN ss Caleb Beasley, Chikis Whitten PA-C, cp RN RN ap3 Ivy Stoddard Kelsey Maroul [facility] Shayla Mesa RN RN kj2 Marty Escalante RN RN cf3 Corrections: (The following items were deleted from the chart) 17:44 17:44 PMHx: Hep C; ss ss
[2025-02-21 04:02] VITALS: TEMP 98.5
[2025-02-21 04:08] VITALS: O2SAT 94
[2025-02-21 04:10] VITALS: BP 184/96
== END 2025-02-20 21:19 ==
LOC: ER 17:37
DX: R33.9 Retention of urine, unspecified (principal); R31.0 Gross hematuria; Z98.890 Other specified postprocedural states
CPT/HCPCS: 96365; 93005; 85025; 80048; 36415; 83735; 85610; 80076; 84484; 83880; 71045; 51700; 96375; 99285; J2405; J0696